=== PATIENT | female | born 1985 | race Two or more races ===

== ENCOUNTER 2021-11-26 10:17 | Emergency (ER) | payer MEDICAID, SELFPAY ==
[2021-11-26 10:24] VITALS: BP 144/84; PULSE 88; O2SAT 99
[2021-11-26 10:47] VITALS: BP 131/77; PULSE 92; RESP 18; TEMP 37; O2SAT 96; BMI 35.4
[2021-11-26 12:26] LABS: MANUAL DIFF FLAG NO
[2021-11-26 12:28] LABS: Basophils Percent Auto 0.2 % (0-2); Eosinophils Absolute Auto 0.2 X10*3/uL (0.0-0.4); Eosinophils Percent Auto 1.7 % (0-4); Hematocrit 42.3 % (37.0-47.0); Hemoglobin 14.4 g/dl (12.0-16.0); Imm Gran Abs Auto 0.06 X10*3/uL (0.00-0.03); Imm Gran Pct Auto 0.5 % (0.0-0.4); Lymphocytes Absolute Auto 3.2 X10*3/uL (1.2-4.9); Lymphocytes Percent Auto 25.6 % (20-40); Mean Corpuscular Hemoglobin 28.6 pg (27.0-33.0); Mean Corpuscular Volume 83.9 fL (80.0-98.0); Monocytes Absolute Auto 0.6 X10*3/uL (0.1-1.2); Monocytes Percent Auto 4.8 % (2-11); Neutrophils Absolute Auto 8.3 x10*3/uL (2.0-8.3); Neutrophils Percent Auto 67.2 % (45-73); Platelet Count 338 X10*3/uL (160-400); Red Blood Count 5.04 X10*6/uL (4.20-5.50); White Blood Count 12.3 X10*3/uL (4.8-10.8)
[2021-11-26 12:29] LABS: Appearance Urine HAZY; Color Urine STRAW; Glucose Urine UA >=1000 MG/DL (NEG); Leukocyte Esterase Urine TRACE (NEG); Nitrite Urine NEG (NEG); PH 5.5 (5.0-8.0); Specific Gravity - Urine 1.025 (1.005-1.025); UACC Culture Trigger YES; Urine Blood NEG (NEG); Urine Ketones 5 MG/DL (NEG); Urine Protein NEG (NEG-TRACE)
[2021-11-26 12:49] LABS: Bacteria Urine 1+ /LPF; Mucus Urine 1+ /LPF; RBC Urine 0 /HPF (0); Squamous Epithelial Cell Urine 2+ /LPF
[2021-11-26 12:57] LABS: Alanine Aminotransferase 12 U/L (0-31); Alkaline Phosphatase 49 U/L (39-117); Anion Gap 11 (12-20); Aspartate Amino Transferase 11 U/L (5-31); Bilirubin Total 1.2 mg/dL (0.0-1.0); Blood Urea Nitrogen 13 mg/dL (9-16); Calcium 9.8 mg/dL (8.4-10.2); Carbon Dioxide 27 mmol/L (22-29); Chloride 99 mmol/L (96-108); Creatinine Clr Calc Pharmacy 108.8; Estimated Glomerular Filt Rate > 60; Glucose Random 423 mg/dL (60-115); Potassium 4.4 mmol/L (3.3-5.1); Sodium 133 mmol/L (135-145); Total Protein 8.5 g/dL (6.5-8.0)
[2021-11-26 15:54] VITALS: BP 135/84; PULSE 90; RESP 17; TEMP 36.7; O2SAT 98
--- NOTE | 2021-11-26 15:54 | PC.NURSE ---
states she ran out of insulin and last took doses day before yesterday. no changein assessment.
[2021-11-26 16:49] LABS: Glucose, Whole Blood 323 mg/dL (60-115)
== END 2021-11-26 21:23 | disposition left against medical advice (07) ==
LOC: HO.ED 21:22
PROVIDERS: Emergency Provider Emergency Medicine
DX: R10.9 Unspecified abdominal pain (principal); Z79.899 Other long term (current) drug therapy
CPT/HCPCS: 36415; 80053; 81001; 82947; 85025; 87086; 87147; 99283

== ENCOUNTER 2022-05-19 15:22 | Outpatient (REF) | payer MEDICAID, SELFPAY ==
--- NOTE | ~2022-05-19 | US_ITS ---
EXAMINATION: US VENOUS ULTRASOUND WITH DOPPLER LOWER EXTREMITY, BILATERAL CLINICAL INFORMATION: Bilateral leg edema. COMPARISON: None TECHNIQUE: Ultrasound of the deep veins is performed from the hip to the calf with compression sonography and color and pulse Doppler assessment. Spectral analysis with color-flow imaging is performed. FINDINGS: RIGHT: There is normal venous compression and respiratory variation and augmented flow. The visualized common femoral vein, superficial femoral vein, profunda femoral vein, popliteal vein, and the trifurcation region shows no evidence of deep venous thrombosis. There is no significant popliteal fossa cyst. The right proximal posterior tibial and peroneal veins are not visualized. There are small lymph nodes visualize LEFT: There is normal venous compression and respiratory variation and augmented flow. The visualized common femoral vein, superficial femoral vein, profunda femoral vein, popliteal vein, and the trifurcation region shows no evidence of deep venous thrombosis. There is no significant popliteal fossa cyst. The left peroneal vein is not visualized. There is moderate calf edema. If the patient's symptoms persist, followup ultrasound in 5 days 7 days might be of value to exclude proximal propagation from a non-visualized calf vein. US/US venous duplex LE BI IMPRESSION: No DVT demonstrated in the bilateral lower extremity. Moderate bilateral calf edema.
== END 2022-05-19 15:23 | disposition home or self-care (01) ==
LOC: HO.US 15:22
PROVIDERS: PCP Nurse Practitioner Family; Visit Provider Emergency Medicine
DX: O12.02 Gestational edema, second trimester (principal); Z3A.17 17 weeks gestation of pregnancy
CPT/HCPCS: 93970

== ENCOUNTER → 2023-04-28 12:53 | Outpatient (BNVA) | payer MEDICAID, SELFPAY | PROVIDERS: PCP Nurse Practitioner Family; Visit Provider Nurse Practitioner Family | DX: R06.83 Snoring (principal); R40.0 Somnolence; E66.01 Morbid (severe) obesity due to excess calories; Z68.41 Body mass index [BMI] 40.0-44.9, adult | CPT/HCPCS: 99202 ==

== ENCOUNTER 2024-02-23 09:53 | Outpatient (AMB) | payer MEDICAID, SELFPAY ==
--- NOTE | 2024-02-23 10:17 | A.OFFVIS_ITS ---
Intake Vital Signs 02/23/24 10:32 Height 5 ft 9 in Weight 255 lb 2 oz BMI 37.7 BP 115/62 Blood Pressure Location Rt brachial Position Sitting Pulse 99 Pulse Source Pulse Oximeter Pulse Oximetry (%) 95 Oxygen Delivery Method Room Air Intake Visit Reasons: Follow up Intake Note: Patient presents for F/U. Irregular sleep patterns, snores a lot and wakes up gasping for air. Allergies No Known Allergies Allergy (Verified 02/23/24 10:31) HPI HPI Comments History of Present Illness Details 39 y/o female patient with HTN and DMT2 presents for follow up. 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 PSG sleep study ordered, but patient did not schedule it and the order . She continues to endorse loud snoring and experiencing gasping arousals. She was witnessed apnea spells by her sister. Pt reports non refreshing sleep with excessive daytime sleepiness. She feels tired and can sleep all day. Pt prefers to have home sleep study. Sleep questionnaire: Have you ever been diagnosed with a sleep disorder? No. Have you ever had a sleep study in the past? No. Have you ever been treated for a sleep disorder? No. Do you take medications for a sleep disorder? No. Do you snore? Yes. Do you wake up gasping at night? Yes. Do you have episodes of apneas? Yes. If yes, are they witnessed? Yes, by her sister. Do you have episodes of nocturnal chest pain or dyspnea? Yes, sometimes. Do you have difficulty initiating sleep? Yes, sometimes. Do you have difficulty maintaining sleep? Yes, sometimes. Do you wake up tired? Yes. Do you have headaches upon awakening? Yes. Do you wake up with dry mouth or throat? Yes. Do you have GERD? No. Do you have nocturia? Yes. Do you have nocturnal leg cramps? No. Do you have symptoms of restless legs? No. Do you act out your dreams? No. Sleep hygiene questionnaire: What is your usual sleep routine? N/A Usual bedtime is at ; Usual wakeup time is at 6 am. Do you take naps? Yes, at 10 am Is your sleep environment cool, dark, and quiet? No, in a intermediate now. Do you exercise? No. Do you take caffeine or other stimulants? Coffee, soda and energy drink. Do you use electronics in bed? Yes. What is your work schedule? N/A Hypersomnolence questionnaire: Do you have daytime tiredness or fatigue? Yes. Do you easily fall asleep when inactive? Yes. Have you ever had episodes of sudden weakness? No. Have you ever had episodes of sudden weakness associated with strong emotions? No. PFSH Surgical History (Updated 04/28/23 @ 13:14 by Azeb Santana CMA) Hx of cholecystectomy Family History (Updated 04/28/23 @ 13:27 by Azeb Santana CMA) Father Diabetes Hypertension Schizophrenia Sister No problems noted. Social History (Updated 04/28/23 @ 13:15 by Azeb Santana CMA) Alcohol intake: never Patient Tobacco Use Status: Never used Tobacco Review of Systems Const All systems reviewed & are unremarkable except as noted in HPI and below ENT Reports Normal hearing present Neuro Reports Normal hearing present Physical Exam Const Other: slow response. General: cooperative and tired appearing Nutritional Appearance: obese Orientation/consciousness: patient oriented x3 Eyes Pupils: Equal, round and reactive pupils present Neck Neck: Yes supple Resp Effort & Inspection: normal respiratory effort and able to speak in complete sentences Neuro General: patient oriented x3 and gait normal Cranial nerves: Yes Equal, round and reactive pupils present, Yes Bilaterally intact EOM present, Yes Normal facial strength present, Yes Midline tongue present, Yes Symmetric palate elevation present, Yes Normal hearing present, Yes Ability to bilaterally rotate head present and Yes Ability to bilaterally elevate shoulders present Gait exam (Neuro): Normal gait present Motor exam (neuro): 5/5 motor strength present throughout, Pronator motor function not present and no tremor noted Psych Appearance: grossly normal Mental Status: mental status grossly normal Affect: normal affect Attitude: cooperative Assessment & Plan Assessment & Plan (1) Daytime sleepiness: Code(s): R40.0 - Somnolence (2) Loud snoring: Code(s): R06.83 - Snoring Plan Pt is advised to undergo home sleep study to assess for sleep apnea. Will f/u with pt after study to discuss results and appropriate treatment options. Sleep hygiene education provided. Wt reduction advised. Pt to call with any worsening concerns or questions. Orders: Orders RT home sleep study Today Coding Level of Care Code Est Pt Level 3 (39440) Diagnoses Daytime sleepiness R40.0 Loud snoring R06.83
[2024-02-23 10:32] VITALS: BP 115/62; PULSE 99; O2SAT 95; BMI 37.7
== END 2024-02-23 10:51 | disposition home or self-care (01) ==
PROVIDERS: PCP Nurse Practitioner Family; Visit Provider Nurse Practitioner Family
DX: R40.0 Somnolence (principal); R06.83 Snoring
CPT/HCPCS: 99213

== ENCOUNTER → 2024-02-23 09:53 | Outpatient (BNVA) | payer MEDICAID, SELFPAY | PROVIDERS: PCP Nurse Practitioner Family; Visit Provider Nurse Practitioner Family | DX: R40.0 Somnolence (principal); R06.83 Snoring | CPT/HCPCS: 99212 ==

== ENCOUNTER 2024-06-17 13:42 | Emergency (ER) | payer MEDICAID, SELFPAY ==
--- NOTE | ~2024-06-17 | US_ITS ---
EXAMINATION: US PELVIS CLINICAL INFORMATION: Left lower quadrant pain assess for torsion COMPARISON: None available. TECHNIQUE: Ultrasound of the pelvis is performed using both transabdominal and transvaginal transducers along with Doppler. Transvaginal imaging is performed due to inadequate visualization transabdominally. FINDINGS: Uterus: The uterus is anteverted and measures 12.8 x 5.5 x 6.9 cm. The double wall endometrial thickness is 0.4 mm. The uterus is smooth in contour and has normal myometrial echogenicity. No visible fibroid. Adnexa: Patient is status post left oophorectomy. Right ovary is grossly unremarkable. There is normal color flow to the adnexa. There is no ovarian torsion. There is no pelvic ascites or fluid collection. Right ovary measures 4.3 x 2.3 x 2.8 cm. Volume 14.5 mL US/US pelvic ovarian doppler IMPRESSION: Status post left oophorectomy. No acute abnormality seen.
--- NOTE | ~2024-06-17 | CT_ITS ---
EXAMINATION: CT ABDOMEN AND PELVIS WITH CONTRAST CLINICAL INFORMATION: LLQ pain COMPARISON: None. TECHNIQUE: Multidetector volumetric imaging was performed from the superior aspect of the liver through the pubic symphysis following administration of 100 mL Omnipaque 300 intravenous contrast. Sagittal and coronal reformatted images were obtained on the technologist workstation.. This CT examination was performed using dose optimization techniques as appropriate, variously including the following: *Automated exposure control *Adjustment of mA and/or kV according to patient size (this includes techniques or standardized protocols for targeted exams where dose is matched to indication/reason for exam; i.e. extremities or head) *Use of iterative reconstruction technique DLP: 954 mGy-cm FINDINGS: LUNG BASES: Patchy bilateral airspace disease may reflect component of hypoexpansion. LIVER, GALLBLADDER, AND BILIARY TREE: The liver is normal in size, shape, and attenuation. No focal hepatic lesion or biliary ductal dilatation is present. The gallbladder is surgically absent PANCREAS: Unremarkable. SPLEEN: Unremarkable. ADRENAL GLANDS: Unremarkable. KIDNEYS AND URETERS: The kidneys are normal in size, shape, and attenuation. No hydronephrosis, hydroureter, or perinephric stranding. No calculi. BLADDER: Unremarkable. GASTROINTESTINAL TRACT: A few scattered colonic diverticula seen but no colonic wall thickening or pericolonic inflammatory change to suggest diverticulitis. Normal-appearing appendix in the right lower quadrant partially visualized. Visualized small bowel unremarkable. ABDOMINAL WALL: Tiny fat-containing umbilical hernia LYMPHOVASCULAR STRUCTURES: No lymphadenopathy. The aorta is unremarkable. PELVIC VISCERA: Unremarkable. OSSEOUS STRUCTURES: Degenerative changes in the bilateral sacroiliac joints CT/CT abdomen pelvis w IV con IMPRESSION: No acute intra-abdominal process seen. Scattered diverticulosis but no evidence for diverticulitis.
--- NOTE | ~2024-06-17 | US_ITS ---
EXAMINATION: US PELVIS CLINICAL INFORMATION: Left lower quadrant pain assess for torsion COMPARISON: None available. TECHNIQUE: Ultrasound of the pelvis is performed using both transabdominal and transvaginal transducers along with Doppler. Transvaginal imaging is performed due to inadequate visualization transabdominally. FINDINGS: Uterus: The uterus is anteverted and measures 12.8 x 5.5 x 6.9 cm. The double wall endometrial thickness is 0.4 mm. The uterus is smooth in contour and has normal myometrial echogenicity. No visible fibroid. Adnexa: Patient is status post left oophorectomy. Right ovary is grossly unremarkable. There is normal color flow to the adnexa. There is no ovarian torsion. There is no pelvic ascites or fluid collection. Right ovary measures 4.3 x 2.3 x 2.8 cm. Volume 14.5 mL US/US pelvic and transvaginal IMPRESSION: Status post left oophorectomy. No acute abnormality seen.
--- NOTE | 2024-06-17 13:46 | ED_ITS ---
HPI - General Adult General Chief complaint: Abdominal Pain Stated complaint: L Shoulder Arm Pain Time Seen by Provider: 06/17/24 19:05 Source: patient Mode of arrival: ambulatory Limitations: no limitations History of Present Illness ED Provider: Michele COOPER HPI narrative: This is a 39-year-old female history of obesity, SHAHBAZ, presenting to the emergency department with complaints of left lower quadrant pain, right upper quadrant pain, left shoulder pain ongoing for various amount of time left lower quadrant pain has been going on for 3 months, right upper quadrant pain started today, left shoulder pain has also been going on for awhile unable to tell me how long. She feels like she does not feel right. Reports she saw a provider for this and they told her to come into the emergency department for a full workup. Patient does have history of bilateral oophorectomy, she states that she had issues with her intestines when she was younger however on able to tell me exactly what happened. She denies associated nausea, vomiting, fevers, chills, chest pain, shortness breath, headache, vision changes, dizziness, changes in bowel habits. Related Data Home Medications ?Medication ?Instructions ?Recorded ?Confirmed blood sugar diagnostic (FreeStyle #10 ea 04/28/23 Lite Strips) gabapentin 100 mg capsule 300 mg PO BEDTIME 04/28/23 hydroxyzine pamoate 25 mg capsule 25 mg PO BID PRN panic attack 04/28/23 insulin glargine 100 unit/mL (3 unit subcut 04/28/23 mL) subcutaneous pen (Lantus Solostar U-100 Insulin) insulin lispro 100 unit/mL subcut 04/28/23 subcutaneous pen metformin 500 mg tablet 1,000 mg PO BID 04/28/23 polyethylene glycol 3350 17 17 g PO DAILY 04/28/23 gram/dose oral powder (Gavilax) sertraline 100 mg tablet 100 mg PO DAILY 04/28/23 Previous Rx's ?Medication ?Instructions ?Recorded cefuroxime axetil 250 mg tablet 250 mg PO BID 7 days #14 tabs 06/17/24 ketorolac 10 mg tablet 10 mg PO TID PRN pain 5 days #15 06/17/24 tabs ondansetron 4 mg disintegrating 4 mg PO Q6H PRN nausea and 06/17/24 tablet vomiting #14 tabs Allergies Allergy/AdvReac Type Severity Reaction Status Date / Time No Known Allergies Allergy Verified 06/17/24 13:53 Review of Systems 2 Review of Systems: Yes all other systems are reviewed and are negative [facility] Past Medical History Attestation statement: The following information was validated with the patient. Source: old records reviewed and nursing notes reviewed Surgical History Hx of cholecystectomy Family History Family History Father Diabetes Hypertension Schizophrenia Sister No problems noted. Social History Social History Alcohol intake: never Patient Tobacco Use Status: Never used Tobacco Smoked in Last 30 Days: No Use of substances other than those prescribed or required for medical reasons: No Advance Directives: No Advance Directives Information Provided: No Patient : No Physical Exam ED Vital Signs: Vital Signs - 24 hr 06/17/24 13:47 06/17/24 22:28 Temperature 98.6 F 98 F Pulse Rate 97 78 Respiratory Rate 16 18 Blood Pressure 132/69 124/76 Pulse Oximetry 100 97 Oxygen Delivery Method Room Air Room Air BMI result Body Mass Index 39.6 vss Appearance: Alert.? Oriented X3.? No acute distress.? Head: Normocephalic, atraumatic, no step-offs or deformities Eyes: Pupils equal, round and reactive to light.? ENT: Pharynx normal.? Neck: Normal inspection.? Neck supple.? CVS: Normal heart rate and rhythm.? Pulses normal.? Respiratory: No respiratory distress.? Breath sounds normal.? Abdomen: Soft and + LLQ and RUQ pain on exam .? Skin: Skin warm and dry.? Normal skin color.? Normal skin turgor.? Extremities: No lower extremity edema.? No calf ttp. 5/5 strength to bilateral upper and lower extremities 2+ radial pulses equal bilateral. No wrist drop. Full range of motion to bilateral shoulders no step-offs or deformities Neuro: Oriented X 3.? No motor deficit.? No sensory deficit. CN 2-12 intact Course Course Course Narrative: This is an RME: Additional HPI, ROS, PE not included below will be deferred to primary provider. RME assessment and note performed by: Ethel Molina PA-C This is a 39-year-old female, with a hx of HTN and DM, who presents to the ER with multiple complaints. Patient states that over the last 2 months she has had left lower quadrant/suprapubic pain. She also endorsed that she has had left hip pain and left low back pain. She also reports that she felt a hardness sensation in her right upper quadrant which she noticed today. She states that she has had significant surgical history, reports that she had a left oophorectomy in 2021, and states that she had part of her intestines removed as they were unable to remove the baby during the . She states that she had this back in 2021 at [facility]. Will attempt to get records. Plan: Labs, UA Reevaluation(s) Reevaluation #1: Ultrasound of pelvis/transvaginal status post left oophorectomy no abnormality seen no ovarian torsion. CT abdomen pelvis no acute intra-abdominal process seen. Scattered diverticulosis but no evidence of diverticulitis. CBC with leukocytosis 11.2 no left shift nonspecific unlikely from systemic illness. Chemistry with slightly low sodium however tolerating p.o., she does have a blood sugar of 424, will give insulin prior to her discharge, troponin negative. Lipase elevated patient's pain is not localized to left upper quadrant, I do not suspect that this is acute pancreatitis. CT abdomen pelvis with no abnormalities noted to pancreas. Will give hydration and discharge patient home if she is feeling better. Troponin is negative EKGs nonischemic. Time: 00:00 Reevaluation #2: Educated patient on diagnosis and treatment plan, answered all question, patient verbalizes understanding. At this time patient will be discharged home, advised to return with new or worsening symptoms. Educated on worrisome signs and symptoms and when to return. At this time I feel comfortable discharge home. Medications Administered Discontinued Medications Generic Name Dose Route Start Last Admin Trade Name Freq PRN Reason Stop Dose Admin Iohexol 100 ml 06/17/24 20:15 06/17/24 20:15 Iohexol 350 Mg/Ml 100 Ml Infus..Btl IV 06/17/24 20:16 100 ml ONCE ONE Administration Ketorolac Tromethamine 30 mg 06/17/24 19:36 06/17/24 19:53 Ketorolac Tromethamine 15 Mg/Ml Vial IVPUSH 06/17/24 19:37 30 mg ONCE ONE Administration Medical Decision Making Medical Decision Making [facility] Narrative: 39-year-old female presents with abdominal pain and left shoulder pain all going on for different amounts of time was seen at the [facility] and told to come in For further evaluation. On exam patient has left lower quadrant tenderness right upper quadrant tenderness and a normal left shoulder. History and physical exam concerning for diverticulitis versus cholecystitis. Unlikely pancreatitis, obstruction, acute abdomen, appendicitis. Unlikely metabolic derangements. Will rule out UTI. Left shoulder pain likely osteoarthritis, no signs of arterial or venous occlusion, no signs of fracture dislocation. No indication for imaging to left shoulder atraumatic and has been going on for a long time she should follow with PCP. Plan labs, imaging, urine Differential Diagnosis Differential Diagnoses: The differential diagnosis associated with the presentation includes History and physical exam concerning for diverticulitis versus cholecystitis. Unlikely pancreatitis, obstruction, acute abdomen, appendicitis. Unlikely metabolic derangements. Will rule out UTI. Left shoulder pain likely osteoarthritis, no signs of arterial or venous occlusion, no signs of fracture dislocation. No indication for imaging to left shoulder atraumatic and has been going on for a long time she should follow with PCP. Admission/Observation Consideration of admission/observation: Escalation of care including admission/observation considered Possible Lab Data [facility] Lab Attestation statement: I reviewed the patient's lab results. 06/17/24 14:08 06/17/24 14:08 Labs: Lab Results 06/17/24 06/17/24 Range/Units 14:08 16:47 WBC 11.2 H (4.8-10.8) X10*3/uL RBC 4.85 (4.20-5.50) X10*6/uL Hgb 14.1 (12.0-16.0) g/dl Hct 40.2 (37.0-47.0) % MCV 82.9 (80.0-98.0) fL MCH 29.1 (27.0-33.0) pg MCHC 35.1 H (31.0-35.0) g/dl RDW 11.9 (11.0-16.0) % Plt Count 288 (160-400) X10*3/uL MPV 9.6 (9.4-12.3) fL Immature Gran % (Auto) 0.4 (0.0-0.4) % Neut % (Auto) 55.0 (45-73) % Lymph % (Auto) 36.7 (20-40) % Sharkey % (Auto) 4.6 (2-11) % Eos % (Auto) 2.9 (0-4) % Baso % (Auto) 0.4 (0-2) % Lymph # (Auto) 4.1 (1.2-4.9) X10*3/uL Sharkey # (Auto) 0.5 (0.1-1.2) X10*3/uL Eos # (Auto) 0.3 (0.0-0.4) X10*3/uL Baso # (Auto) 0.0 (0.0-0.2) X10*3/uL Abs Immat Gran (auto) 0.05 H (0.00-0.03) X10*3/uL Absolute Neuts (auto) 6.1 (2.0-8.3) x10*3/uL Absolute Nucleated RBC 0.000 (0.0-0.012) X10*3/uL Nucleated RBC % (auto) 0.0 (0.0-0.2) /100WBC Sodium 134 L (135-145) mmol/L Potassium 3.8 (3.3-5.1) mmol/L Chloride 101 (96-108) mmol/L Carbon Dioxide 24 (22-29) mmol/L Anion Gap 13 (12-20) BUN 12 (9-16) mg/dL Creatinine 0.95 (0.5-1.4) mg/dL Estim Creat Clear Calc 109.8 Estimated GFR > 60 Random Glucose 424 H* (60-115) mg/dL Calcium 9.0 D (8.4-10.2) mg/dL Magnesium 1.7 (1.6-2.6) mg/dL Total Bilirubin 0.7 (0.0-1.0) mg/dL Direct Bilirubin 0.1 (0.0-0.5) mg/dL AST 14 (5-31) U/L ALT 16 (0-31) U/L Alkaline Phosphatase 60 (39-117) U/L Troponin I High Sens < 2.7 (<3.5-17.0) ng/L Total Protein 7.7 (6.5-8.0) g/dL Albumin 3.6 (3.5-5.0) g/dL Lipase 135 H (8-78) U/L Beta HCG, Quant < 2 mIU/mL Urine Color Yellow Urine Appearance Cloudy Urine pH 5.5 (5.0-9.0) Ur Specific [place] >= 1.030 H (1.005-1.025) Urine Protein Trace (Neg-Trace) mg/dL Urine Glucose (UA) >=1000 H (Negative) mg/dL Urine Ketones Trace (Negative) mg/dL Urine Blood Small (1+) H (Negative) Urine Nitrite Negative (Negative) Ur Leukocyte Esterase Small (1+) H (Negative) Urine RBC 0-2 (0-2) /HPF Urine WBC >50 H (0-5) /HPF Ur Squamous Epith Cells 6-10 (0-2) /HPF Urine Bacteria 3+ (None Seen) Hyaline Casts 0-2 (0-2) /LPF Independent Interpretation I performed an independent interpretation of an: EKG (Vent. Rate : 083 BPM Atrial Rate : 083 BPM P-R Int : 188 ms QRS Dur : 088 ms QT Int : 390 ms P-R-T Axes : 044 053 030 degrees QTc Int : 458 ms Normal sinus rhythm Normal ECG When compared with ECG of 17-JUN-2024 13:54, No significant change was found ), Ultrasound (Adnexa: Patient is status post left oophorectomy. Right ovary is grossly unremarkable. There is normal color flow to the adnexa. There is no ovarian torsion. There is no pelvic ascites or fluid collection. Right ovary measures 4.3 x 2.3 x 2.8 cm. Volume 14.5 mL US/US pelvic an) and CT Scan ( CT/CT abdomen pelvis w IV con IMPRESSION: No acute intra-abdominal process seen. Scattered diverticulosis but no evidence for diverticulitis. ) Radiology Impression Discussion of test interpretation with radiology: I have reviewed the radiologist's reading. External Record Review External record reviewed: Inpatient record, Office record, Outpatient record, Prior outpatient labs, Prior outpatient radiology, Primary care record and Outside ED record Prescription Management I considered prescription management with: Pain Medication Chronic Conditions Patient?s care impacted by: Other (obesity ) Critical Care Time Critical Care Time Critical Care Time: Yes Total Critical Care Time: 35 Attestation: Insert critical care Discharge Plan Discharge Clinical Impression: Left shoulder pain, Abdominal pain, RUQ, Abdominal pain, LLQ, UTI (urinary tract infection) Patient Disposition: Home, Self-Care Instructions: Urinary Tract Infection in Women (ED), Acute Abdominal Pain (ED), Abdominal Pain (ED), Shoulder Pain (ED), Arm Pain (ED) Additional Instructions: Take your medications as prescribed. If you were prescribed antibiotics today, it is important that you take your medication to their entirety, do not skip any doses, do not finish them early. Follow-up with your primary care provider this week. Return to the emergency department with new or worsening symptoms. Such as fevers, chills, chest pain, shortness of breath, nausea, vomiting, dizziness, headache, vision changes, lethargy In case of emergency call 911 Ketorolac/ Toradol has been sent to your pharmacy, you tolerated this well in the department. Please take this as prescribed do not take this with ibuprofen, or other NSAIDs, do not mix this with alcohol. Side effects of this medication including increased risk for bleeding and possible kidney injury. Ondansetron or Zofran has been sent to the pharmacy for nausea and vomiting only take this as prescribed taking more than the prescribed dose can lead to cardiac abnormalities. Ceftin or cefuroxime is an antibiotic that has been sent to your pharmacy for UTI. Please take this as prescribed. Prescriptions: New cefuroxime axetil 250 mg tablet 250 mg PO BID 7 Days Qty: 14 0RF ketorolac 10 mg tablet 10 mg PO TID PRN (Reason: pain) 5 Days Qty: 15 0RF ondansetron 4 mg tablet,disintegrating 4 mg PO Q6H PRN (Reason: nausea and vomiting) Qty: 14 0RF No Action sertraline 100 mg tablet 100 mg PO DAILY gabapentin 100 mg capsule 300 mg PO BEDTIME metformin 500 mg tablet 1,000 mg PO BID hydroxyzine pamoate 25 mg capsule 25 mg PO BID PRN (Reason: panic attack) polyethylene glycol 3350 [Gavilax] 17 gram/dose powder 17 g PO DAILY insulin glargine [Lantus Solostar U-100 Insulin] 100 unit/mL (3 mL) insulin pen subcut insulin lispro 100 unit/mL insulin pen subcut (DME) FreeStyle Lite Strips Strip See Rx Instructions .ROUTE TID Qty: 10 Rx Instructions: As directed Referrals: Alexus Henderson MD [Primary Care Provider] - 2 days Print Language: St Helen[place]
[2024-06-17 13:47] VITALS: BP 132/69; PULSE 97; RESP 16; TEMP 37; O2SAT 100; BMI 39.6
--- NOTE | 2024-06-17 13:53 | ECG_ITS ---
Test Reason : RIGHT SIDED PAIN, STOMACH PAIN Blood Pressure : / mmHG Vent. Rate : 096 BPM Atrial Rate : 096 BPM P-R Int : 168 ms QRS Dur : 082 ms QT Int : 368 ms P-R-T Axes : 032 047 024 degrees QTc Int : 464 ms Normal sinus rhythm Normal ECG No previous ECGs available Referred By: Ethel Molina Electronically Signed By:Roni Gardiner
[2024-06-17 14:12] LABS: MANUAL DIFF FLAG NO
[2024-06-17 14:15] LABS: Basophils Percent Auto 0.4 % (0-2); Eosinophils Absolute Auto 0.3 X10*3/uL (0.0-0.4); Eosinophils Percent Auto 2.9 % (0-4); Hematocrit 40.2 % (37.0-47.0); Hemoglobin 14.1 g/dl (12.0-16.0); Imm Gran Abs Auto 0.05 X10*3/uL (0.00-0.03); Imm Gran Pct Auto 0.4 % (0.0-0.4); Lymphocytes Absolute Auto 4.1 X10*3/uL (1.2-4.9); Lymphocytes Percent Auto 36.7 % (20-40); Mean Corpuscular HGB Conc 35.1 g/dl (31.0-35.0); Mean Corpuscular Hemoglobin 29.1 pg (27.0-33.0); Mean Corpuscular Volume 82.9 fL (80.0-98.0); Mean Platelet Volume 9.6 fL (9.4-12.3); Monocytes Absolute Auto 0.5 X10*3/uL (0.1-1.2); Monocytes Percent Auto 4.6 % (2-11); Neutrophils Absolute Auto 6.1 x10*3/uL (2.0-8.3); Platelet Count 288 X10*3/uL (160-400); Red Blood Count 4.85 X10*6/uL (4.20-5.50); Red Cell Distribution Width 11.9 % (11.0-16.0); White Blood Count 11.2 X10*3/uL (4.8-10.8)
[2024-06-17 14:39] LABS: Anion Gap 13 (12-20); Bilirubin Direct 0.1 mg/dL (0.0-0.5); Bilirubin Total 0.7 mg/dL (0.0-1.0); Blood Urea Nitrogen 12 mg/dL (9-16); Carbon Dioxide 24 mmol/L (22-29); Chloride 101 mmol/L (96-108); Creatinine Clr Calc Pharmacy 109.8; Estimated Glomerular Filt Rate > 60; Glucose Random 424 mg/dL (60-115); HCG Quantitative < 2 mIU/mL; Magnesium 1.7 mg/dL (1.6-2.6); Potassium 3.8 mmol/L (3.3-5.1); Sodium 134 mmol/L (135-145); Troponin-I High Sensitivity < 2.7 ng/L (<3.5-17.0)
[2024-06-17 14:40] LABS: Alanine Aminotransferase 16 U/L (0-31); Albumin Level 3.6 g/dL (3.5-5.0); Alkaline Phosphatase 60 U/L (39-117); Aspartate Amino Transferase 14 U/L (5-31); Lipase 135 U/L (8-78); Total Protein 7.7 g/dL (6.5-8.0)
--- NOTE | 2024-06-17 14:59 | MHC.EDTECH ---
CALLED [facility] SPOKE W/BING IN [facility], SENDING SURGICAL REC FROM C-SECT SURGERY 2 YEARS AGO AND ANY SURGERY DUE TO C-SECT 2 YEARS AGO
--- NOTE | 2024-06-17 16:54 | MHC.EDTECH ---
Patient urine sample collected and sent to lab .
[2024-06-17 17:11] LABS: Appearance Urine Cloudy; Color Urine Yellow; Glucose Urine UA >=1000 mg/dL (Negative); Leukocyte Esterase Urine Small (1+) (Negative); Nitrite Urine Negative (Negative); PH 5.5 (5.0-9.0); Specific Gravity - Urine >= 1.030 (1.005-1.025); UMIC TRIGGER UACC YES; Urine Blood Small (1+) (Negative); Urine Ketones Trace mg/dL (Negative); Urine Protein Trace mg/dL (Neg-Trace)
[2024-06-17 17:34] LABS: Bacteria Urine 3+ (None Seen); Hyaline Casts Urine 0-2 /LPF (0-2); RBC Urine 0-2 /HPF (0-2); UACC Culture Trigger YES; WBC Urine >50 /HPF (0-5)
--- OUTSIDE RECORDS SUMMARY | 2024-06-17 19:14 | XMS_ITS | Continuity of Care Document ---
Author Organization [facility] Maria D bowieVariopticgrzegorz [facility] Address [address] [place] [address], [address] [place] [address]- Care Team Providers Care Side Panel Padder Name Role Phone Kimberly COLLADO, Nishi Primary Care Physician [id number] Date(s): 03/07/22 - 04/06/22 [facility] [employer] [facility] [address] [facility], [address] [place], [place] [address] Attending Physician: Asim Rai Admitting Physician: Asim Rai Referring Physician: AdmtrAsim Allergies, Adverse Reactions, Alerts No Known Allergies Medications aspirin 81 mg oral delayed release tablet 162 mg, 2, tablet, By Mouth, Daily, # 60 tablet, Refills 5, Tot. Refills 5, Maintenance, 03/14/22 10:02:00 EDT, Route to Pharmacy Electronically, [facility], Partial fill upon patient request if the prescription is for a schedule I... Start Date: 03/14/22 Status: Ordered doxylamine 25 mg oral tablet 1 tablet = 25 mg, By Mouth, Daily at bedtime, PRN Nausea & Vomiting, # 30 tablet, 1 Refills, Acute 05/29/22 23:07:00 EDT, 03/29/22 23:06:00 EDT, Tablet, [facility], Partial fill upon patient request if the prescription is for a naseem... Start Date: 03/29/22 Stop Date: 05/29/22 Status: Ordered Freestyle elsa 2 CGM Freestyle elsa 2 CGM, See Instructions, # 1 pack/packet, Refills 0, Tot. Refills 0, Maintenance, Freestyle elsa 2 CGM, 03/31/22 10:27:00 EDT, Supply, 175, cm, 03/31/22 9:45:00 EDT, Height, 111.5, kg, 03/07/22 9:02:00 EDT, Dry Weight Start Date: 03/31/22 Status: Ordered Freestyle elsa 2 sensors Freestyle elsa 2 sensors, See Instructions, # 2 pack/packet, Refills 6, Tot. Refills 6, Maintenance, Please provide 30 days supple freestyle elsa 2 sensors to be changed every 14 days, 03/31/22 10:27:00 EDT, Supply, 175, cm, 03/31/22 9:45:00 EDT, He... Start Date: 03/31/22 Status: Ordered Freestyle Elsa Monitor See Instructions, # 1 each, Maintenance, use as directed for Type 2 Diabetes Mellitus, 03/21/22 10:52:00 EDT, Supply, 175, cm, 03/21/22 10:26:00 EDT, Height, 111.5, kg, 03/07/22 9:02:00 EDT, Dry Weight Start Date: 03/21/22 Stop Date: 04/20/22 Status: Ordered Freestyle Elsa Sensor See Instructions, # 2 each, Refills 7, Tot. Refills 7, Maintenance, To change every 14 days Dx: Type 2 Diabetes Mellitus, 03/21/22 10:53:00 EDT, Supply, 175, cm, 03/21/22 10:26:00 EDT, Height, 111.5,kg, 03/07/22 9:02:00 EDT, Dry Weight Start Date: 03/21/22 Stop Date: 11/16/22 Status: Ordered Lantus Solostar Pen 100 units/mL subcutaneous solution = 62 units, Subcutaneous Injection, Daily, # 15 mL, 5 Refills, Maintenance, 03/28/22 13:34:00 EDT, [facility], Partial fill upon patient request if the prescription is for a schedule II opioid drug., 175, cm, 03/21/22 10:26:00 EDT,... Start Date: 03/28/22 Status: Ordered Metformin By Mouth, 0 Refills, Maintenance, 03/29/22 17:16:00 EDT, Partial fill upon patient request if the prescription is for a schedule II opioid drug. Start Date: 03/29/22 Status: Ordered NovoLOG FlexPen 100 units/mL injectable solution = 24 units, Subcutaneous Injection, 3 times a day before meals, # 15 mL, 6 Refills, Maintenance, 03/15/22 16:46:00 EDT, [facility], Partial fill upon patient request if the prescription is for a schedule II opioid drug., 175, cm, 0... Start Date: 03/15/22 Status: Ordered Pen [place], 31 G x 5 mm BD Ultra Fine III See Instructions, # 120 each, Refills 5, Tot. Refills 5, Maintenance, To use with insulin administration 4 times daily, 03/15/22 16:47:00 EDT, Supply, 175, cm, 03/07/22 9:02:00 EDT, Height, 111.5, kg, 03/07/22 9:02:00 EDT, Dry Weight Start Date: 03/15/22 Status: Ordered Multivitamins with Vitamin B Complex, Vitamin C, Minerals and L- Methylfolate oral capsule 1 capsule, By Mouth, Daily, 0 Refills, Maintenance, 03/29/22 17:14:00 EDT, Partial fill upon patient request if the prescription is for a schedule II opioid drug. Start Date: 03/29/22 Status: Ordered pyridoxine 25 mg oral tablet See Instructions, 1 tablet By Mouth TID 30 days, # 100 tablet, 0 Refills, Acute 05/29/22 23:08:00 EDT, 03/29/22 23:06:00 EDT, Tablet, [facility], Partial fill upon patient requestif the prescription is for a schedule II opioid sadie... Start Date: 03/29/22 Stop Date: 05/29/22 Status: Ordered Problem List Condition Effective Dates Status Health Status Inform ant Anxiety(Confirmed) Active Back pain(Confirmed) Active Constipation(Confirmed) Active History of depression(Confirmed) Active History of adverse reaction to anesthesia(Confirmed) 1 Active Hx of preeclampsia, prior pr egnancy, currently (Confirmed) Active Chronic hypertension(Confirmed) Active Obese class II(Confirmed) Active Knee pain(Confirmed) Active Diabetes mellitus, type II(Confirmed) Active 1after anesthesia dificulty breathing. Social History Social History Type Response Smoking Status Never (less than 100 in lifetime) entered on: 03/07/22 Sex
--- OUTSIDE RECORDS SUMMARY | 2024-06-17 19:14 | XMS_ITS | Continuity of Care Document ---
Author Organization [facility] Address [address] [facility], [address] [place] [address]- Care Team Providers Care Preparation Room Manager Name Role Phone Kimberly COLLADO, Nishi Primary Care Physician [id number] Date[facility] - 09[facility]15[facility] Diallos [facility] [address] [facility], [address] [place] [address]- Attending Physician: Shasha Escobedo MD Referring Physician: Gabbie Shepherd MD Allergies, Adverse Reactions, Alerts No Known Allergies Immunizations Given and Recorded Vaccine Date Status Refusal Reason influenza virus vaccine, inactivated 09/02/22 Give n tetanus/diphtheria/pertussis, acel(Tdap) 07/29/22 Given Medications acetaminophen 500 mg oral tablet 2 tablet = 1,000 mg, By Mouth, Every 6 hours, PRN as needed for pain, # 50 tablet, 0 Refills, Acute11/19/22 0:00:00 EST, 07/29/22 11:31:00 EDT, Tablet, [facility], please print label in Sami, 175, cm, 07/29/22 11:09:00 EDT, Hei... Start Date: 07/29/22 Stop Date: 11/19/22 Status: Ordered aspirin 81 mg oral delayed release tablet 162 mg, 2, tablet, By Mouth, Daily, # 60 tablet, Refills 5, Tot. Refills 5, Maintenance, 03/14/22 10:02:00 EDT, Route to Pharmacy Electronically, [facility], Partial fill upon patient request if the prescription is for a schedule I... Start Date: 03/14/22 Status: Ordered ferrous sulfate 325 mg oral enteric coated tablet 325 mg, 1, tablet, By Mouth, Every other day, # 60 tablet, Refills 4, Tot. Refills 4, Maintenance, 04/22/22 15:38:00 EDT, Route to Pharmacy Electronically, [facility], please print label in persian, 175, cm, 04/22/22 15:13:00 EDT,... Start Date: 04/22/22 Status: Ordered Freestyle elsa 2 CGM Freestyle elsa 2 CGM, See Instructions, # 1 pack/packet, Refills 0, Tot. Refills 0, Maintenance, Freestyle elsa 2 CGM, 05/11/22 10:16:00 EDT, Supply, 175, cm, 05/11/22 9:41:00 EDT, Height, 111.5, kg, 03/07/22 9:02:00 EDT, Dry Weight Start Date: 05/11/22 Status: Ordered Freestyle elsa 2 sensors Freestyle elsa 2 sensors, See Instructions, # 2 pack/packet, Refills 6, Tot. Refills 6, Maintenance, Please provide 30 days supple freestyle elsa 2 sensors to be changed every 14 days, 05/11/22 10:16:00 EDT, Supply, 175, cm, 05/11/22 9:41:00 EDT, He... Start Date: 05/11/22 Status: Ordered Freestyle Elsa Monitor See Instructions, [...] Date: 03/21/22 Stop Date: 11/16/22 Status: Ordered insulin lispro 100 u/ml subcutaneous injection See Instructions, 44 units Subcutaneous Injection with breakfast and lunch, 22 units with dinner, #15 mL, 0 Refills, Maintenance, 09/03/22 17:35:00 EDT, Injection, [facility], Partial fill upon patient request if the prescription... Start Date: 09/03/22 Status: Ordered Lantus Solostar Pen 100 units/mL subcutaneous solution See Instructions, 60 units Subcutaneous Injection in AM and 66 units subcutaneous injecion in PM, #10 mL, 4 Refills, Maintenance, 09/01/22 10:41:00 EDT, [facility], Partial fill upon patient request if the prescription is for a s... Start Date: 09/01/22 Status: Ordered Pen [place], 31 G x 5 mm BD Ultra [...] opioid drug. Start Date: 03/29/22 Status: Ordered Problem List Condition Confirmation Course Effective Dates Status Health St atus Informant Anemia Confirmed Active Anxiety Confirmed Active Back pain Confirmed Active Breech presentation Confirmed Active Chest pain Confirmed Active Constipation Confirmed Active History of section Confirmed Active History of depression Confirmed Active Hx of preeclampsia, prior , currently Confirmed Active Chronic hypertension Confirmed Active Uses Sami as primary spoken language Confirmed Active AMA (advanced maternal age) multigravida 35+ Confirmed Active Knee pain Confirmed Active Severe obesity Confirmed Active Vital Signs Most recent to oldest [Reference Range]: 1 Height 175 cm (09/08/22 11:34 AM) Weight 133.4 kg (09/08/22 11:34 AM) Body Mass Index [18.5-24.99 kg/m2] 43.56 kg/m2 *>HHI* (09/08/22 11:34 AM) Blood Pressure [90-138/55-84 mm Hg] 148/ 70mm Hg *H* (09/08/22 11:34 AM) Blood pressure sites Arm, right (09/08/22 11:34 AM) Weight Obtained Via Standing scale (09/08/22 11:34 AM) Social History Social History Type Response Smoking Status Never (less than 100 in lifetime) entered on: 03/07/22 Sex Patient Care team information Personnel Name: Nishi Harris NP Address: Address: [address] [place] [id number]
--- OUTSIDE RECORDS SUMMARY | 2024-06-17 19:14 | XMS_ITS | Continuity of Care Document ---
Author Organization [facility] Address [address] [place] [address]- Care Team Providers Care Tractor Sweeper Operator Name Role Phone Kimberly COLLADO, Nishi Primary Care Physician [phone] [place] [facility] Date(s): 06/20/22 - 07/20/22 [facility] [address] [place] [id number] Allergies, Adverse Reactions, Alerts No Known Allergies Medications aspirin 81 mg oral delayed release tablet 162 mg, 2, tablet, By Mouth, Daily, # 60 tablet, Refills 5, Tot. Refills 5, Maintenance, 03/14/22 10:02:00 EDT, Route to Pharmacy Electronically, [facility], Partial fill upon patient request if the prescription is for a schedule I... Start Date: 03/14/22 Status: Ordered ferrous sulfate 325 mg oral enteric coated tablet 325 mg, 1, tablet, By Mouth, Every other day, # 60 tablet, Refills 4, Tot. Refills 4, Maintenance, 04/22/22 15:38:00 EDT, Route to Pharmacy Electronically, [facility], please print label in irish, 175, cm, 04/22/22 15:13:00 EDT,... Start Date: [...] Lantus Solostar Pen 100 units/mL subcutaneous solution 50 untis, Subcutaneous Injection, 2 times a day, PLACE IN [place], # 50 mL, 4 Refills, Maintenance,06/22/22 15:53:00 EDT, [facility], Partial fill upon patient request if the prescription is for a schedule II opioid drug., 175, cm... Start Date: 06/22/22 Status: Ordered Metformin By Mouth, 0 Refills, Maintenance, 03/29/22 17:16:00 EDT, Partial fill upon patient request if the prescription is for a schedule II opioid drug. Start Date: 03/29/22 Status: Ordered NovoLOG FlexPen 100 units/mL injectable solution See Instructions, 40 U SQ INJECTION TID BEFORE MEALS DX E11.9, # 30 mL, 6 Refills, Maintenance, 06/22/22 15:54:00 EDT, [facility], Partial fill upon patient request if the prescription is for a schedule II opioid drug., 175, cm,... Start Date: 06/22/22 Status: Ordered Pen [place], 31 G x 5 mm BD Ultra [...] Date: 03/29/22 Status: Ordered Problem List Condition Effective Dates Status Health Status Inform ant Anemia(Confirmed) Active Anxiety(Confirmed) Active Back pain(Confirmed) Active Chest pain(Confirmed) Active Constipation(Confirmed) Active History of section(Confirmed) Active History of depression(Confirmed) Active Hx of preeclampsia, prior pr egnancy, currently (Confirmed) Active Chronic hypertension(Confirmed) Active Uses Filipino as primary spok en language(Confirmed) Active AMA (advanced maternal age) multigravida 35+(Confirmed) Active Obese class II(Confirmed) Active Knee pain(Confirmed) Active Poorly controlled type 2 alejandro betes mellitus with neuropathy(Confirmed) Active Social History Social History Type Response Smoking Status Never (less than 100 in lifetime) entered on: 03/07/22 Sex Care Team Personnel Name: Nishi Harris NP Address: [address] [place] [address]-
--- OUTSIDE RECORDS SUMMARY | 2024-06-17 19:14 | XMS_ITS | Continuity of Care Document ---
Author Organization [facility] Address [address] [place] [address], [address] [place] [address]- Care Team Providers Care Chart Clerk Name Role Phone Kimberly COLLADO, Nishi Primary Care Physician [facility] [id number] Date(s): 09/02/22 - 11/06/22 [facility] [address] [facility], [address] [place] [address]- Attending Physician: Gabbie Shepherd MD Referring Physician: Shasha Escobedo MD Allergies, Adverse Reactions, Alerts No Known Allergies Immunizations Given and Recorded Vaccine Date Status Refusal Reason influenza virus vaccine, inactivated 09/02/22 Give n tetanus/diphtheria/pertussis, acel(Tdap) 07/29/22 Given Medications acetaminophen 325 mg oral tablet 650 mg, By Mouth, Every 4 hours, (1-3), may give 325mg per patient preference and re-dose with 325mg within 4 hours if needed. Patient should only receive a total of 650mg of Acetaminophen every 4 hours., # 50 tablet, Refills 0, Tot. Refills 0, Main... Start Date: 10/06/22 Status: Ordered Freestyle elsa 2 CGM Freestyle [...] Date: 03/21/22 Stop Date: 11/16/22 Status: Ordered Gauze Pad (4 X 4) See Instructions, # 1 pack/packet, Refills 0, Tot. Refills 0, Maintenance, Use to clean and cover open area of incision, 11/04/22 18:24:00 EST, Supply, 175, cm, 10/28/22 13:10:00 EST, Height, 117.1, kg, 10/19/22 12:24:00 EST, Dry Weight Start Date: 11/04/22 Status: Ordered ibuprofen 800 mg oral tablet 800 mg, 1, tablet, By Mouth, Every 8 hours, (4-6), may give 400mg per patient preference and re-dose with 400mg within 8 hours if needed. Patient should only receive a total of 800mg of Ibuprofen every 8 hours., # 50 tablet, Refills 0, Tot. Refills... Start Date: 10/06/22 Status: Ordered Lantus Inj Subcutaneous Infusion, Daily, 0 Refills, Maintenance, 10/10/22 17:07:00 EST, Partial fill upon patient request if the prescription is for a schedule II opioid drug. Start Date: 10/10/22 Status: Ordered metFORMIN 500 mg oral tablet 2 each = 1,000 mg, By Mouth, 2 times a day, # 120 tablet, 0 Refills, Maintenance, 10/06/22 5:21:00 EST, Tablet, [facility], Partial fill upon patient request if the prescription is for a schedule II opioid drug., 175, cm, 10/06/22... Start Date: 10/06/22 Stop Date: 11/05/22 Status: Ordered NIFEdipine 30 mg oral tablet, extended release 30 mg, 1, tablet, By Mouth, Daily, # 30 tablet, Refills 0, Tot. Refills 0, Maintenance, 10/10/22 20:37:00 EST, Route to Pharmacy Electronically, [facility], Partial fill upon patient request if the prescription is for a schedule II... Start Date: 10/10/22 Status: Ordered Pen [place], 31 G x 5 mm BD Ultra Fine III See Instructions, # 120 each, Refills 5, Tot. Refills 5, Maintenance, To use with insulin administration 4 times daily, 03/15/22 16:47:00 EDT, Supply, 175, cm, 03/07/22 9:02:00 EDT, Height, 111.5, kg, 03/07/22 9:02:00 EDT, Dry Weight Start Date: 03/15/22 Status: Ordered simethicone 80 mg oral tablet, chewable 80 mg, Chew, 3 times a day, PRN, # 36 tablet, Refills 0, Tot. Refills 0, Maintenance, Gas, 225:21:00 EST, Route to Pharmacy Electronically, [facility], Partial fill upon patient request if the prescription is for a schedule... 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
--- OUTSIDE RECORDS SUMMARY | 2024-06-17 19:14 | XMS_ITS | Continuity of Care Document ---
Author Organization [facility] Address [address] [place] [address]- Care Team Providers Care Wire Mill Operator Name Role Phone Kimberly COLLADO, Nishi Primary Care Physician [phone] [place] [facility] [place](s): 06/03/22 - 07/03/22 [facility] [address] [place] [id number] Allergies, Adverse Reactions, Alerts No Known Allergies Medications aspirin 81 mg oral delayed release tablet 162 mg, 2, tablet, By Mouth, Daily, # 60 tablet, Refills 5, Tot. Refills 5, Maintenance, 03/14/22 10:02:00 EDT, Route to Pharmacy Electronically, [facility], Partial fill upon patient request if the prescription is for a schedule I... Start Date: 03/14/22 Status: Ordered ferrous sulfate 325 mg oral enteric coated tablet 325 mg, 1, tablet, By Mouth, Every other day, # 60 tablet, Refills 4, Tot. Refills 4, Maintenance, 04/22/22 15:38:00 EDT, Route to Pharmacy Electronically, [facility], please print label in chadian, 175, cm, 04/22/22 15:13:00 EDT,... Start Date: [...] Injection, 2 times a day, PLACE IN [place], # 50 mL, 4 Refills, Maintenance,06/22/22 15:53:00 EDT, [facility], Partial fill upon patient request [...] mL, 6 Refills, Maintenance, 06/22/22 15:54:00 EDT, [facility], Partial fill upon patient request if the prescription is for a schedule II opioid drug., 175, cm,... Start Date: 06/22/22 Status: Ordered Pen [place], 31 G x 5 mm BD Ultra [...] currently (Confirmed) Active Chronic hypertension(Confirmed) Active Uses [place] Islander as primary spok en language(Confirmed) Active AMA (advanced maternal age) multigravida 35+(Confirmed) Active Obese class II(Confirmed) Active Knee pain(Confirmed) Active Poorly controlled type 2 alejandro betes mellitus with neuropathy(Confirmed) Active Social History Social History Type Response Smoking Status Never (less than 100 in lifetime) entered on: 03/07/22 Sex
--- OUTSIDE RECORDS SUMMARY | 2024-06-17 19:14 | XMS_ITS | Continuity of Care Document ---
Author Organization [facility]oni [facility] Address [address] [place] [address], [address] [place] [address]- Care Team Providers Care Roller Billet Mill Name Role Phone Kimberly DEPUTY FIRE MARSHAL, Nishi Primary Care Physician [phone] [facility] [id number] Date(s): 08/25/22 - 09/01/22 [facility] [address] [facility], [address]th [place] [address]- Attending Physician: Shasha Escobedo MD Referring Physician: Gabbie Shepherd MD Allergies, Adverse Reactions, Alerts No Known Allergies Immunizations Given and Recorded Vaccine Date Status Refusal Reason tetanus/diphtheria/pertussis, acel(Tdap) 07/29/22 Given Medications acetaminophen 500 mg oral tablet 2 tablet = 1,000 mg, By Mouth, Every 6 hours, PRN as needed for pain, # 50 tablet, 0 Refills, Acute11/19/22 0:00:00 EST, 07/29/22 11:31:00 EDT, Tablet, [facility], please print label in Syrian, 175, cm, 07/29/22 11:09:00 EDT, Brucei... Start Date: 07/29/22 Stop Date: 11/19/22 Status: Ordered aspirin 81 mg oral delayed release tablet 162 mg, 2, tablet, By Mouth, Daily, # 60 tablet, Refills 5, Tot. Refills 5, Maintenance, 03/14/22 10:02:00 EDT, Route to Pharmacy Electronically, [facility], Partial fill upon patient request if the prescription is for a schedule I... Start Date: 03/14/22 Status: Ordered ferrous sulfate 325 mg oral enteric coated tablet 325 mg, 1, tablet, By Mouth, Every other day, # 60 tablet, Refills 4, Tot. Refills 4, Maintenance, 04/22/22 15:38:00 EDT, Route to Pharmacy Electronically, [facility], please print label in bruneian, 175, cm, 04/22/22 15:13:00 EDT,... Start Date: [...] mL, 4 Refills, Maintenance, 09/01/22 10:41:00 EDT, [facility], Partial fill upon patient request if the prescription is for a s... Start Date: 09/01/22 Status: Ordered NovoLOG FlexPen 100 units/mL injectable solution See Instructions, 44 U SQ INJECTION TID BEFORE MEALS DX E11.9, # 30 mL, 6 Refills, Maintenance, 08/25/22 11:43:00 EDT, [facility], Partial fill upon patient request if the prescription is for a schedule II opioid drug., 175, cm,... Start Date: 08/25/22 Status: Ordered Pen [place], 31 G x 5 mm BD Ultra [...] List Condition Confirmation Course Effective Dates Status [facility] St atus Informant Anemia Confirmed Active Anxiety Confirmed Active Back pain Confirmed Active Chest pain Confirmed Active Constipation Confirmed Active History of section Confirmed Active History of depression Confirmed Active Hx of preeclampsia, prior , currently Confirmed Active Chronic hypertension Confirmed Active Uses Syrian as primary spoken language Confirmed Active AMA (advanced maternal age) multigravida 35+ Confirmed Active Knee pain Confirmed Active Severe obesity Confirmed Active Poorly controlled type 2 diabetes mellitus with neuropathy Confirmed Active Vital Signs Most recent to oldest [Reference Range]: 1 Height 175 cm (08/25/22 11:13 AM) Weight 131.66 kg (08/25/22 11:13 AM) Body Mass Index [18.5-24.99 kg/m2] 42.99 kg/m2 *>HHI* (08/25/22 11:13 AM) Blood Pressure [90-138/55-84 mm Hg] 129/ 67mm Hg (08/25/22 11:13 AM) Blood pressure sites Arm, right (08/25/22 11:13 AM) Weight Obtained Via Standing scale (08/25/22 11:13 AM) Social History Social History Type Response Smoking Status Never (less than 100 in lifetime) entered on: 03/07/22 Sex Patient Care team information Personnel Name: Nishi Harris NP Address: Address: [address] [place], [place] [address]
--- OUTSIDE RECORDS SUMMARY | 2024-06-17 19:14 | XMS_ITS | Continuity of Care Document ---
Author Organization [facility] Address [address] [place] [address]- Care Team Providers Care Community Health Outreach Worker Name Role Phone Kimberly COLLADO, Nishi Primary Care Physician [place] [facility] [place]22 [facility] [address] [place] [address] Allergies, Adverse Reactions, Alerts No Known Allergies Immunizations Given and Recorded Vaccine Date Status Refusal Reason influenza virus vaccine, inactivated 09/02/22 Give n tetanus/diphtheria/pertussis, acel(Tdap) 07/29/22 Given Medications acetaminophen 500 mg oral tablet 2 tablet = 1,000 mg, By Mouth, Every 6 hours, PRN as needed for pain, # 50 tablet, 0 Refills, Acute11/19/22 0:00:00 EST, 07/29/22 11:31:00 EDT, Tablet, [facility], please print label in Portuguese, 175, cm, 07/29/22 11:09:00 EDT, Jass... Start Date: 07/29/22 Stop Date: 11/19/22 Status: Ordered aspirin 81 mg oral delayed release tablet 162 mg, 2, tablet, By Mouth, Daily, # 60 tablet, Refills 5, Tot. Refills 5, Maintenance, 03/14/22 10:02:00 EDT, Route to Pharmacy Electronically, [facility], Partial fill upon patient request if the prescription is for a schedule I... Start Date: 03/14/22 Status: Ordered ferrous sulfate 325 mg oral enteric coated tablet 325 mg, 1, tablet, By Mouth, Every other day, # 60 tablet, Refills 4, Tot. Refills 4, Maintenance, 04/22/22 15:38:00 EDT, Route to Pharmacy Electronically, [facility], please print label in estonian, 175, cm, 04/22/22 15:13:00 EDT,... Start Date: [...] mL, 4 Refills, Maintenance, 09/01/22 10:41:00 EDT, [facility], Partial fill upon patient request if the prescription is for a s... Start Date: 09/01/22 Status: Ordered NovoLOG FlexPen 100 units/mL injectable solution See Instructions, 44 U SQ INJECTION TID BEFORE MEALS DX E11.9, # 30 mL, 6 Refills, Maintenance, 08/25/22 11:43:00 EDT, [facility], Partial fill upon patient request if the prescription is for a schedule II opioid drug., 175, cm,... Start Date: 08/25/22 Status: Ordered Pen [place], 31 G x 5 mm BD Ultra [...] Confirmed Active Chronic hypertension Confirmed Active Uses Portuguese as primary spoken language Confirmed Active AMA (advanced maternal age) multigravida 35+ Confirmed Active Knee pain Confirmed Active Severe obesity Confirmed Active Poorly controlled type 2 diabetes mellitus with neuropathy Confirmed Active Social History Social History Type Response Smoking Status Never (less than 100 in lifetime) entered on: 03/07/22 Sex Patient Care team information Personnel Name: Nishi Harris NP Address: Address: [address] [place] [id number]
--- OUTSIDE RECORDS SUMMARY | 2024-06-17 19:14 | XMS_ITS | Continuity of Care Document ---
Author Organization [facility] Address [address] [place] [address], [address] [place] [address]- Care Team Providers Care Drawer In Dobby Loom Name Role Phone Kimberly COLLADO, Nishi Primary [id number] Date(s): 09/15/[facility] - 09/22/22 [facility] [address] [facility], [address] [place], [place] [address] Attending Physician: Cora WAGNER, Gabbie Hatfield Allergies, Adverse Reactions, Alerts No Known Allergies Immunizations Given and Recorded Vaccine Date Status Refusal Reason influenza virus vaccine, inactivated 09/02/22 Give n tetanus/diphtheria/pertussis, acel(Tdap) 07/29/22 Given Medications acetaminophen 500 mg oral tablet 2 tablet = 1,000 mg, By Mouth, Every 6 hours, PRN as needed for pain, # 50 tablet, 0 Refills, Acute11/19/22 0:00:00 EST, 07/29/22 11:31:00 EDT, Tablet, [facility], please print label in Armenian, 175, cm, 07/29/22 11:09:00 EDT, Brucei... Start Date: 07/29/22 Stop Date: 11/19/22 Status: Ordered aspirin 81 mg oral delayed release tablet 162 mg, 2, tablet, By Mouth, Daily, # 60 tablet, Refills 5, Tot. Refills 5, Maintenance, 03/14/22 10:02:00 EDT, Route to Pharmacy Electronically, [facility], Partial fill upon patient request if the prescription is for a schedule I... Start Date: 03/14/22 Status: Ordered ferrous sulfate 325 mg oral enteric coated tablet 325 mg, 1, tablet, By Mouth, Every other day, # 60 tablet, Refills 4, Tot. Refills 4, Maintenance, 04/22/22 15:38:00 EDT, Route to Pharmacy Electronically, [facility], please print label in israeli, 175, cm, 04/22/22 15:13:00 EDT,... Start Date: [...] lispro 100 u/ml subcutaneous injection See Instructions, 38 units Subcutaneous Injection before breakfast, 35 Units before lunch, 22 unitsbefore dinner Dx E11.9, # 15 mL, 0 Refills, Maintenance, 09/19/22 16:31:00 EDT, Injection, [facility], Partial fill upon patien... Start Date: 09/19/22 Status: Ordered Lantus Solostar Pen 100 units/mL subcutaneous solution See Instructions, 60 units Subcutaneous Injection in AM and 66 units subcutaneous injecion in PM, #10 mL, 4 Refills, Maintenance, 09/01/22 10:41:00 EDT, [facility], Partial fill upon patient request if the prescription is for a s... Start Date: 09/01/22 Status: Ordered Pen [place], 31 G x 5 mm BD Ultra [...] Confirmed Active Chronic hypertension Confirmed Active Uses Armenian as primary spoken language Confirmed Active AMA (advanced maternal age) multigravida 35+ Confirmed Active Knee pain Confirmed Active Severe obesity Confirmed Active Poorly controlled type 2 diabetes mellitus with neuropathy Confirmed Active Social History Social History Type Response Smoking Status Never (less than 100 in lifetime) entered on: 03/07/22 Sex Patient Care team information Personnel Name: Nishi Harris NP Address: Address: [address] [place], [place] [address]
--- OUTSIDE RECORDS SUMMARY | 2024-06-17 19:14 | XMS_ITS | Continuity of Care Document ---
Author Organization [facility]erico [facility] Address [address] [place] [address], [address] [place] [address]- Care Team Providers Care Dialysis Rn Name Role Phone Kimberly MANAGING MEMBER, Nishi Primary Care Physician [facility] [id number] Date(s): 08/12/22 - 11/02/22 [facility]ne[facility] [address] [facility], 4th [place] [address]- Attending Physician: Nicole Roberto MD Referring Physician: Shasha Escobedo MD Allergies, [...] Date: 03/21/22 Stop Date: 11/16/22 Status: Ordered ibuprofen 800 mg oral tablet [...] 0 Refills, Maintenance, 10/06/22 5:21:00 EST, Tablet, [facility], Partial fill upon patient request if the prescription is for a schedule II opioid drug., 175, cm, 10/06/22... Start Date: 10/06/22 Stop Date: 11/05/22 Status: Ordered NIFEdipine 30 mg oral tablet, extended release 30 mg, 1, tablet, By Mouth, Daily, # 30 tablet, Refills 0, Tot. Refills 0, Maintenance, 10/10/22 20:37:00 EST, Route to Pharmacy Electronically, [facility], Partial fill upon patient request if the prescription is for a schedule II... Start Date: 10/10/22 Status: Ordered Pen [place], 31 G x 5 mm BD Ultra [...] Refills 0, Tot. Refills 0, Maintenance, Gas, :21:00 EST, Route to Pharmacy Electronically, [facility], Partial fill upon patient request [...] preeclampsia Confirmed Active Chronic hypertension Confirmed Active Non-Indonesian speaking patient - carbon dioxide operator required Confirmed Active Obese class II Confirmed Active Knee pain Confirmed Active Last Pap smear 04/22/22 negative with negative HPV Confirmed Active Poorly controlled type 2 diabetes mellitus with neuropathy Confirmed Active Social History Social History Type Response Smoking Status Never (less than 100 in lifetime) entered on: 03/07/22 Sex Patient Care team information Care Team Related Persons Name: DANILO TURNER Address: [id number] Address: home [address] [place] [address] [place] Name: MYRIAM DOWNEY Address: home [address] [place] [address]
--- OUTSIDE RECORDS SUMMARY | 2024-06-17 19:14 | XMS_ITS | Continuity of Care Document ---
Author Organization [facility] [employer] Address [address] [facility], 4t [place] [address]- Care Team Providers Care Sewer Name Role Phone Kimberly COLLADO, Nishi Primary Care Physician [id number] Date(s): 11/04/22 - 12/04/22 [facility] Lovellsoni Dial[facility] [address] [facility], [address] [place] [address]- Allergies, Adverse Reactions, Alerts No Known Allergies [...] 0 Refills, Maintenance, 10/06/22 5:21:00 EST, Tablet, [facility], Partial fill upon patient request if the prescription is for a schedule II opioid drug., 175, cm, 10/06/22... Start Date: 10/06/22 Stop Date: 11/05/22 Status: Ordered NIFEdipine 30 mg oral tablet, extended release 30 mg, 1, tablet, By Mouth, Daily, # 30 tablet, Refills 0, Tot. Refills 0, Maintenance, 10/10/22 20:37:00 EST, Route to Pharmacy Electronically, [facility], Partial fill upon patient request if the prescription is for a schedule II... Start Date: 10/10/22 Status: Ordered Pen [place], 31 G x 5 mm BD Ultra [...] Gas, 225:21:00 EST, Route to Pharmacy Electronically, [facility], Partial fill upon [...] preeclampsia Confirmed Active Chronic hypertension Confirmed Active Non-Angolan speaking patient - interpreter translator required Confirmed Active Obese class II Confirmed Active Knee pain Confirmed Active Last Pap smear 04/22/22 negative with negative HPV Confirmed Active Severe obesity (BMI 35.0-39.9) with comorbidity Confirmed Active Poorly controlled type 2 diabetes mellitus with neuropathy Confirmed Active Social History Social History Type Response Smoking Status Never (less than 100 in lifetime) entered on: 03/07/22 Sex Patient Care team information Care Team Related Persons Name: DANILO TURNER Address: [id number] Address: [address] [place] [address] Name: MYRIAM DOWNEY Address: home [address] [place] [address]
--- OUTSIDE RECORDS SUMMARY | 2024-06-17 19:14 | XMS_ITS | Continuity of Care Document ---
Author Organization [facility] Address [address] [place] [address]- Care Team Providers Care Offline Editor Name Role Phone Kimberly COLLADO, Nishi Primary Care Physician [place] [facility] [place](s): 04/08/22 - 05/08/[address] [address]- Attending Physician: Asim Rai Admitting Physician: Asim Rai Referring Physician: AdmtrAsim Allergies, Adverse Reactions, Alerts No Known Allergies Medications aspirin 81 mg oral delayed release tablet 162 mg, 2, tablet, By Mouth, Daily, # 60 tablet, Refills 5, Tot. Refills 5, Maintenance, 03/14/22 10:02:00 EDT, Route to Pharmacy Electronically, [facility], Partial fill upon patient request if the prescription is for a schedule I... Start Date: 03/14/22 Status: Ordered doxylamine 25 mg oral tablet 1 tablet = 25 mg, By Mouth, Daily at bedtime, PRN Nausea & Vomiting, # 30 tablet, 1 Refills, Acute 05/29/22 23:07:00 EDT, 03/29/22 23:06:00 EDT, Tablet, [facility], Partial fill upon patient request if the prescription is for a naseem... Start Date: 03/29/22 Stop Date: 05/29/22 Status: Ordered ferrous sulfate 325 mg oral enteric coated tablet 325 mg, 1, tablet, By Mouth, Every other day, # 60 tablet, Refills 4, Tot. Refills 4, Maintenance, 04/22/22 15:38:00 EDT, Route to Pharmacy Electronically, [facility], please print label in sinhala, 175, cm, 04/22/22 15:13:00 EDT,... Start Date: [...] mL, 5 Refills, Maintenance, 03/28/22 13:34:00 EDT, [facility], Partial fill upon patient request [...] FlexPen 100 units/mL injectable solution See Instructions, Subcutaneous Injection 3 times a day before meals 30 U TID DX E11.9, # 15 mL, 6 Refills, Maintenance, 04/07/22 16:35:00 EDT, [facility], Partial fill upon patient request if the prescription is for a sched... Start Date: 04/07/22 Status: Ordered Pen [place], 31 G x 5 mm BD Ultra [...] 05/29/22 23:08:00 EDT, 03/29/22 23:06:00 EDT, Tablet, [facility], Partial fill upon patient requestif [...] currently (Confirmed) Active Chronic hypertension(Confirmed) Active Uses Maldivian as primary spok en language(Confirmed) Active AMA (advanced maternal age) multigravida 35+(Confirmed) Active Knee pain(Confirmed) Active Severe obesity(Confirmed) Active Poorly controlled type 2 alejandro betes mellitus with neuropathy(Confirmed) Active Social History Social History Type Response Smoking Status Never (less than 100 in lifetime) entered on: 03/07/22 Sex
--- OUTSIDE RECORDS SUMMARY | 2024-06-17 19:15 | XMS_ITS | Continuity of Care Document ---
Author Organization [facility] Federico ferreiras [facility] Address [address] [place] [address], 4t [place] [address]- Care Team Providers Care Hurl Shaker Name Role Phone Kimberly COLLADO, Nishi Primary Care Physician [phone] [id number] Date(s): 09/19/22 - 09/26/22 [facility] [employer] [facility] [address] [facility], [address] [place], [place] [address] Attending Physician: Nicole Roberto MD Referring Physician: [...] Acute11/19/22 0:00:00 EST, 07/29/22 11:31:00 EDT, Tablet, [facility], please print label in Russian, 175, cm, 07/29/22 11:09:00 EDT, Brucei... Start Date: 07/29/22 Stop Date: 11/19/22 Status: Ordered aspirin 81 mg oral delayed release tablet 162 mg, 2, tablet, By Mouth, Daily, # 60 tablet, Refills 5, Tot. Refills 5, Maintenance, 03/14/22 10:02:00 EDT, Route to Pharmacy Electronically, [facility], Partial fill upon patient request if the prescription is for a schedule I... Start Date: 03/14/22 Status: Ordered ferrous sulfate 325 mg oral enteric coated tablet 325 mg, 1, tablet, By Mouth, Every other day, # 60 tablet, Refills 4, Tot. Refills 4, Maintenance, 04/22/22 15:38:00 EDT, Route to Pharmacy Electronically, [facility], please print label in polish, 175, cm, 04/22/22 15:13:00 EDT,... Start Date: [...] 0 Refills, Maintenance, 09/19/22 16:31:00 EDT, Injection, [facility], Partial fill upon patien... Start Date: 09/19/22 Status: Ordered Lantus Solostar Pen 100 units/mL subcutaneous solution See Instructions, 60 units Subcutaneous Injection in AM and 66 units subcutaneous injecion in PM, #10 mL, 4 Refills, Maintenance, 09/01/22 10:41:00 EDT, [facility], Partial fill upon patient request if the prescription is for a s... Start Date: 09/01/22 Status: Ordered Pen [place], 31 G x 5 mm BD Ultra [...] Confirmed Active Chronic hypertension Confirmed Active Uses Russian as primary spoken language Confirmed Active AMA (advanced maternal age) multigravida 35+ Confirmed Active Knee pain Confirmed Active Severe obesity Confirmed Active Poorly controlled type 2 diabetes mellitus with neuropathy Confirmed Active Vital Signs Most recent to oldest [Reference Range]: 1 Pulse Rate [55-90 bpm] 102 bpm *H* (09/19/22 10:53 AM) Blood Pressure [90-138/55-84 mm Hg] 128/ 66mm Hg (09/19/22 10:53 AM) Respiratory Rate [16-30 br/min] 25 br/mi n (09/19/22 10:53 AM) Temperature [96.8-100.4 DegF] 98.1 DegF (09/19/22 10:53 AM) Blood pressure sites Arm, left (09/19/22 10:53 AM) Temperature Route Oral (09/19/22 10:53 AM) Social History Social History Type Response Smoking Status Never (less than 100 in lifetime) entered on: 03/07/22 Sex Patient Care team information Care Team Related Persons Name: MYRIAM DOWNEY Address: home [address] [place] [id number]
--- OUTSIDE RECORDS SUMMARY | 2024-06-17 19:15 | XMS_ITS | Continuity of Care Document ---
Author Organization [facility] Federico bowieMidawi Holdingsgrzegorz [facility] Address [address] [facility], [address] [place] [address]- Care Team Providers Care Manager Managing Name Role Phone Kimberly COLLADO, Nishi Primary Care Physician [phone] [id number] Date(s): 09/05/22 - 10/05/22 [facility] [place] JeanneMidawi Holdingss [facility] [address] [facility], 4th [address] [place], [place] [address] Allergies, Adverse Reactions, Alerts No Known Allergies Immunizations Given and Recorded Vaccine Date Status Refusal Reason influenza virus vaccine, inactivated 09/02/22 Give n tetanus/diphtheria/pertussis, acel(Tdap) 07/29/22 Given Medications acetaminophen 500 mg oral tablet 2 tablet = 1,000 mg, By Mouth, Every 6 hours, PRN as needed for pain, # 50 tablet, 0 Refills, Acute11/19/22 0:00:00 EST, 07/29/22 11:31:00 EDT, Tablet, [facility], please print label in Venezuelan, 175, cm, 07/29/22 11:09:00 EDT, Hei... Start Date: 07/29/22 Stop Date: 11/19/22 Status: Ordered ferrous sulfate 325 mg oral enteric coated tablet 325 mg, 1, tablet, By Mouth, Every other day, # 60 tablet, Refills 4, Tot. Refills 4, Maintenance, 04/22/22 15:38:00 EDT, Route to Pharmacy Electronically, [facility], please print label in hebrew, 175, cm, 04/22/22 15:13:00 EDT,... Start Date: [...] unitsbefore dinner Dx E11.9, # 15 mL, 2 Refills, Maintenance, 09/30/22 15:41:00 EST, Injection, [facility], Partial fill upon patien... Start Date: 09/30/22 Status: Ordered Lantus Solostar Pen 100 units/mL subcutaneous solution See Instructions, 60 units Subcutaneous Injection in AM and 66 units subcutaneous injecion in PM, #10 mL, 4 Refills, Maintenance, 09/01/22 10:41:00 EDT, [facility], Partial fill upon patient request if the prescription is for a s... 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
--- OUTSIDE RECORDS SUMMARY | 2024-06-17 19:15 | XMS_ITS | Continuity of Care Document ---
Author Organization [facility] ter Address [address] [place] [id number]- Care Team Providers Care Distribution Lead Name Role Phone Kimberly COLLADO, Nishi Primary Care Physician [place] [facility] [place] - 10/19/[address] [address] Discharge Disposition: A-D/C Home Attending Physician: Murray Barrett MD Admitting Physician: Murray Barrett MD Referring Physician: Murray Barrett MD Allergies, Adverse Reactions, Alerts No Known [...] 0 Refills, Maintenance, 10/06/22 5:21:00 EST, Tablet, [facility], Partial fill upon patient request if the prescription is for a schedule II opioid drug., 175, cm, 11/17/22... Start Date: 10/06/22 Stop Date: 11/05/22 Status: Ordered MiraLax oral powder for reconstitution = 17 Gm, By Mouth, Daily, for 14 days, dissolve in water before taking, # 255 Gm, 0 Refills, Acute 10/26/22 11:16:00 EST, 10/12/22 11:16:00 EST, REC Powder, [facility]/pharmacy #[id number], Partial fill upon patient request if the prescription is for a schedule II... Start Date: 10/12/22 Stop Date: 10/26/22 Status: Ordered NIFEdipine 30 mg oral tablet, extended release 30 mg, 1, tablet, By Mouth, Daily, # 30 tablet, Refills 0, Tot. Refills 0, Maintenance, 10/10/22 20:37:00 EST, Route to Pharmacy Electronically, [facility], Partial fill upon patient request if the prescription is for a schedule II... Start Date: 10/10/22 Status: Ordered Pen [place], 31 G x 5 mm BD Ultra [...] Gas, :21:00 EST, Route to Pharmacy Electronically, [facility], Partial fill upon patient request [...] preeclampsia Confirmed Active Chronic hypertension Confirmed Active Non-Kyrgyz speaking patient - nut tightener required Confirmed Active Obese class II Confirmed Active Knee pain Confirmed Active Last Pap smear 04/22/22 negative with negative HPV Confirmed Active Poorly controlled type 2 diabetes mellitus with neuropathy Confirmed Active Procedures Procedure Date Related Diagnosis Body Site Status section 10/02/22 Complete d Vital Signs Most recent to oldest [Reference Range]: 1 Height 175 cm (10/19/22 1:19 PM) Weight 117.1 kg (10/19/22 12:24 PM) Oxygen Saturation [94-100 %] 99 % (10/19/22 12:24 PM) Pulse Rate [55-90 bpm] 93 bpm *H* (10/19/22 12:24 PM) Blood Pressure [90-138/55-84 mm Hg] 135/ 77mm Hg (10/19/22 12:24 PM) Respiratory Rate [16-30 br/min] 18 br/mi n (10/19/22 12:24 PM) Temperature [96.8-100.4 DegF] 98.2 DegF (10/19/22 12:24 PM) Mode of Delivery (Oxygen) Room air (10/19/22 12:24 PM) Blood pressure sites Arm, right (10/19/22 12:24 PM) Temperature Route Oral (10/19/22 12:24 PM) Dry Weight 117.1 kg (10/19/22 12:24 PM) Weight Obtained Via Standing scale (10/19/22 12:24 PM) Dry Weight Obtained Via Standing scale (10/19/22 12:24 PM) Social History Social History Type Response Smoking Status Never (less than 100 in lifetime) entered on: 03/07/22 Sex Note * Corina Covington RN: PERFORM Event Display: Discharge/Transfer Note Hospital Authored Date: [id number] Nursing Discharge Note Entered On: 10/19/2022 13:24 EST Performed On: 10/19/2022 13:23 EST by Corina Covington RN Nursing Discharge Note 2 Discharge Time : 10/19/2022 13:24 EST Discharge Level of Care at Discharge : Home/Prison/Foster Care Patient Left Unit Via : Ambulatory Patient Accompanied Off Unit with : Parent DC Instructions Provided & Signed by Pt : Yes Patient Understands D/C Instructions : Yes Patient Instructions Discharge Signed : Yes Did Pt have Specialty Bed or Wound Vac : No Corina Covington RN - 10/19/2022 13:23 EST * Corina Covington RN: PERFORM Event Display: Patient Education/Instruction Authored Date: [id number] Inpatient Adult Discharge Instructions [address] [address] Name: ANNMARIE YE : 1985 Visit: 10/19/2022 11:20:00 Current Date: 10/19/2022 13:23 Account: [id number] Inpatient Adult Discharge Instructions We would like to thank you for allowing us to assist you with your healthcare needs. The following includes patient education materials and information regarding your injury/illness. Our entire staffstrives to provide an excellent experience for our patients and their families. PLEASE ENSURE YOU FOLLOW-UP PER THE INSTRUCTIONS BELOW! ?? YOUR OPINION IS IMPORTANT TO US! Please complete the survey you may receive by mail or email. Your feedback will be used to make improvements to the healthcare experiences of our patients and their families. Surveys are administered by [employer] ?? If further treatment with your primary care physician or another doctor is recommended, it is important for you to keep the appointment. Call your primary care physician or return to the Emergency Department immediately if your condition worsens, fails to improve, or new symptoms develop. If you need to find a doctor, you can call [facility] for a referral at [phone] or toll free at [phone] or log in to [email or web address].. ?? You can view and manage your care through the patient portal or by using a health care hallie of your choosing. [employer] is a website that allows you to securely view your medical information including your hospital discharge summary, office visit summaries, medications and follow-up visits. You can also request appointments, renew medications, and request access to your medical information using a health care hallie of your choosing, or just ask a question. You can enroll at [email or web address] or register during your next office visit. You have been discharged from [facility], Patient Care Unit: [id number]. If you have any questions regarding these instructions after you leave, please call us and we will be happy to assist you. [facility] Your Care Team Attending Physician Murray Barrett MD Reason for Admission Packing change Tests Performed Below is a partial list of the tests performed during your hospitalization. You may have had other tests and procedures not included in this list. Please discuss all test results with your provider. Advance Directive Health Care Proxy on File Yes - Health Care Proxy No qualifying data available. Discharge Vitals Temperature: 98.2 DegF Height: 175 cm Pulse Rate:??93 bpm??High Weight: 117.1 kg Respiratory Rate: 18 br/min ?? Systolic Blood Pressure: 135 mm Hg ?? Diastolic Blood Pressure: 77 mm Hg ?? Oxygen Saturation: 99 % ?? Studies Pending All tests and labs ordered during this hospital stay have been completed unless listed below. Please discuss all pending results with your provider listed above in these instructions. ?? No incomplete studies found What to do next Instructions From Your Doctor Discharge Orders Scheduled Follow-Up Appointments Monday 2:00 PM EST ?? With: Nicole Roberto MD Where: [facility] [address] [place] [address]- Monday 1:00 PM EST ?? With: Lucía An MD Where: [facility] [address] [place] [address]- Monday 10:40 AM EST ?? With: Gabbie Shepherd MD Where: [facility] [address] [place] [address]- Discharge Medications ANNMARIE TURNER :1985 Visit Date:10/19/2022 Medications: Please continue your medications until treatment is completed or stopped by your provider. Medications not listed below should be discontinued. Discuss any questions related to medications with your provider. What How Much When Instructions Next Dose Unchanged Acetaminophen (acetaminophen 325 mg oral tablet) 650 Milligram Oral Every 4 hours (1-3), may give 325mg per patient preference and re-dose with 325mg within 4 hours if needed. ?? Patient should only receive a total of 650mg of Acetaminophen every 4 hours. ?? Unchanged Durable Medical Equipment (Freestyle elsa 2 CGM) See instructions Freestyle elsa 2 CGM ?? Unchanged Durable Medical Equipment (Freestyle elsa 2 sensors) See instructions Please provide 30 days supple freestyle elsa 2 sensors to be changed every 14 days ?? Unchanged Durable Medical Equipment (Freestyle Elsa Monitor) See instructions Duration: 30 Days use as directed for Type 2 Diabetes Mellitus ?? Unchanged Durable Medical Equipment (Freestyle Elsa Sensor) See instructions Duration: 30 Days To change every 14 days Dx: Type 2 Diabetes Mellitus ?? Unchanged Durable Medical Equipment (Pen [place], 31 G x 5 mm BD Ultra Fine III) See instructions To use with insulin administration 4 times daily ?? Unchanged Ibuprofen (ibuprofen 800 mg oral tablet) 1 tab(s) Oral Every 8 hours (4-6), may give 400mg per patient preference and re-dose with 400mg within 8 hours if needed. ?? Patient should only receive a total of 800mg of Ibuprofen every 8 hours. ?? Unchanged Insulin Glargine (Lantus Inj) Subcutaneous Infusion Daily Unchanged Metformin (metFORMIN 500 mg oral tablet) 2 Each Oral Twice a day Duration: 30 Days Unchanged NIFEdipine (NIFEdipine 30 mg oral tablet, extended release) 1 tab(s) Oral Daily Unchanged Polyethylene Glycol 3350 (MiraLax oral powder for reconstitution) 17 gram Oral Daily Duration: 14 Days dissolve in water before taking ?? Unchanged Simethicone (simethicone 80 mg oral tablet, chewable) 80 Milligram Chew 3 times a day as needed for Gas Test Results Below is a partial list of the most recent Laboratory test results done prior to this discharge. You may have had other tests and procedures not included in this list. Please discuss all test resultswith your provider. Allergies (NKA means No Known Allergies) NKA Problems Active Problems??(17) AMA (advanced maternal age) multigravida 35+?? Anemia?? Anxiety?? Back pain?? Breech presentation?? Chest pain?? Chronic hypertension?? Constipation?? History of section?? History of depression?? Hx of preeclampsia, prior , currently ?? Knee pain?? Obese class II?? Poorly controlled type 2 diabetes mellitus with neuropathy?? Preeclampsia?? Separation of wound with drainage, ?? Uses Tuvaluan as primary spoken language?? Education Materials Below is the list of Educational Leaflet Providered with your Discharge Instructions. Discharge Instructions for Section ()?? Valuables and Belongings I fully understand and agree that [facility] accepts no responsibility for all my personal property including clothing, toilet articles, radios, jewelry, dentures, hearing aids, rings, money, or any other property that is in my possession or is brought to me after admission. I understand certain valuables may be placed in a hospital safe for a short period of time. I understand that the hospital is not liable for loss or damage due to accident, fire, or other natural occurrence while said property is in the safe. I accept full responsibility for any personal property that I keep with me, and will not hold the hospital responsible in case of loss or disappearance. I acknowledge that i have been encouraged to send valuables and belongings home. ? Other Discharge Information ? Pulmonary Rehab Status?? Pulmonary Rehab Discharge Status?? Respiratory Rate: 18 br/min ? Common Emergency Awareness Tips IS IT A STROKE? Act FAST and Check for these signs: FACE Does the face look uneven? ARM Does one arm drift down? SPEECH Does their speech sound strange? TIME Call at any sign of stroke ?? Heart Attack Signs Chest discomfort: Most heart attacks involve discomfort in the center of the chest and lasts more than a few minutes, or goes away and comes back. It can feel like uncomfortable pressure, squeezing, fullness or pain. Discomfort in upper body: Symptoms can include pain or discomfort in one or both arms, back, neck, jaw or stomach. Shortness of breath: With or without discomfort. Other signs: Breaking out in a cold sweat, nausea, or lightheaded. Remember, MINUTES DO MATTER. If you experience any of these heart attack warning signs, call to get immediate medical attention! ?? Smoking can increase your chances of developing chronic health problems and can cause harmful effects to other family members in your house. If you smoke, you are strongly encouraged to quit. Please call [employer] at [phone] or [phone]) or log in to [email or web address] for referrals to smoking cessation programs. ?? The National Suicide Prevention Hotline is available 12/06 if you or someone you know needs to find a reason to keep living. By calling 0-425-226-talk (1932) you'll be connected to a skilled, trained counselor at a crisis center in your area. INPATIENT DISCHARGE INSTRUCTIONS SIGNATURE PAGE ANNMARIE TURNER Location:[facility] Registration Date and Time:10/19/2022 11:20 EST Primary Care Physician: Nishi Harris NP, I ANNMARIE TURNER, have received the above patient education materials/instructions and have verbalized understanding. If ambulance or transport services are being used I further acknowledge being given a choice of service. ?? If you need to contact me, please call me at this number: . Patient/Newborn Hearing Screener Name: Patient/Newborn Hearing Screener Signature: Relationship to Patient: Witness Name/Signature: Date: * Corina Covington RN: PERFORM Event Display: Patient Education Leaflets Authored Date: [id number] Discharge Instructions for Section () ?? [address] Instrucciones de latesha para ba reilly??mario A usted le realizaron ba reilly??mario. Abraham esta cirug??a, naci?? alonzo beb?? a dawit??s de ba incisi??n (donal) quir??rgica en el abdomen y el ??tero. La recuperaci??n total despu??s de ba reilly??mario puede llevar tiempo Es importante que se cuide, tanto por usted misma nola por alonzo beb?? que la necesita. La siguiente es ba gu??a para alonzo recuperaci??n en casa. Cuidado de la herida A continuaci??n, se brindan algunos consejos para cuidar de la herida: ??? D??chese cuando lo necesite. Seque alonzo incisi??n dando toques suaves. ??? Controle alonzo incisi??n para detectar cualquier signode infecci??n, nola aumento del enrojecimiento o secreci??n. ??? Sostenga ba almohada contra la incisi??n cuando r??a o tosa y cuando est?? sentada o acostada y se quiera levantar. ??? Recuerde: unaincisi??n de reilly??mario puede tardar hasta seis semanas en sanar. ?? Actividad Estas son algunas sugerencias: ??? No cuide de nadie adem??s de alonzo beb?? y de usted misma. ??? Recuerde: cuanto mas activa est??, m??s probable ser?? que aumente alonzo sangrado. ??? Descanse mucho. Hagasiestas por la tarde. ??? Aumente gradualmente alonzo nivel de actividad. ??? Planifique sabrina actividades para no tener que subir o bajar escaleras m??s de lo necesario. ??? Brian ejercicios posoperatoriosde respiraci??n profunda y tos. Consulte con alonzo proveedor de atenci??n m??dica para que le d?? instrucciones. ??? No levante nada que sea m??s pesado que alonzo beb?? hasta que alonzo proveedor de atenci??n m??dica le indique que ya puede hacerlo. ??? No conduzca hasta que alonzo proveedor de atenci??n m??dicale diga que puede hacerlo. ??? No tenga relaciones sexuales hasta que alonzo proveedor de atenci??n m??dica la haya examinado y hasta que haya decidido qu?? m??todo anticonceptivo usar??. ??? Permita queotras personas la ayuden y maryam cosas por usted. No dude en pedir ayuda. ?? Seguimiento Programe ba visita de seguimiento seg??n le indique nuestro personal. ?? Cu??ndo??llamar al proveedor de atenci??n m??dica Llame de inmediato a alonzo proveedor de atenci??n m??dica en cualquiera de los siguientes casos: ??? Fiebre de?? 100.4?? F??( 38??C) o m??s ??? Enrojecimiento, dolor o supuraci??n en la chelita de la incisi??n. ??? Sangrado que requiere cambiar la toalla sanitaria cada hora. El sangrado vaginal abundantepuede ser un signo de hemorragia posparto. [place] requiere atenci??n m??dica de inmediato. ??? Dolor abdominal laura ??? Dolor al orinar o deseo urgente de orinar. ??? Secreci??n vaginal con mal olor.??? Dificultad para orinar o para vaciar la vejiga. ??? Falta de evacuaci??n despu??s de ba semanade fatimah a lucinda al beb? Chelita hinchada, abdirashid y adolorida en ba pierna. ??? Aparici??n de salpullido o ronchas. ??? Chelita adolorida y enrojecida en las mamas que puede estar acompa??ada de s??ntomas nola de gripe. ??? Sentimientos de ansiedad, p??sheridan o depresi??n. ?? Last Reviewed Date: 2021 ?? [id number] [employer]. Todos los derechos reservados. Esta informaci??n no pretende sustituir la atenci??n m??dica profesional. S??lo alonzo m??dico puede diagnosticar y tratar un problema de letha. ?? Patient Care team information Care Team Personnel Name: Corina Covington RN Position: Lorie ZAIDI RN Member Role: Patient Care Provider Care Team Related Persons Name: DANILO TURNER Address: [id number] Address: [address] [place] [address] Name: MYRIAM DOWNEY Address: home [address] [place] [address]
--- OUTSIDE RECORDS SUMMARY | 2024-06-17 19:15 | XMS_ITS | Continuity of Care Document ---
Author Organization [facility] ter Address [address] [place] [address]- Care Team Providers Care Telesales Specialist Name Role Phone Kimberly COLLADO, Nishi Primary Care Physician [phone] Encounter [facility] Date(s): 06/13/22 - 06/14/[address] [address] Discharge Disposition: A-D/C Home Attending Physician: Karsten Hunt DO Admitting Physician: Karsten Hunt DO Referring Physician: Karsten Hunt DO Allergies, Adverse Reactions, Alerts No Known Allergies Medications aspirin 81 mg oral delayed release tablet 162 mg, 2, tablet, By Mouth, Daily, # 60 tablet, Refills 5, Tot. Refills 5, Maintenance, 03/14/22 10:02:00 EDT, Route to Pharmacy Electronically, [facility], Partial fill upon patient request if the prescription is for a schedule I... Start Date: 03/14/22 Status: Ordered ferrous sulfate 325 mg oral enteric coated tablet 325 mg, 1, tablet, By Mouth, Every other day, # 60 tablet, Refills 4, Tot. Refills 4, Maintenance, 04/22/22 15:38:00 EDT, Route to Pharmacy Electronically, [facility], please print label in khmer, 175, cm, 04/22/22 15:13:00 EDT,... Start Date: [...] mL, 5 Refills, Maintenance, 03/28/22 13:34:00 EDT, [facility], Partial fill upon patient request if the prescription is for a schedule II opioid drug., 175, cm, 03/21/22 10:26:00 EDT,... Start Date: 03/28/22 Status: Ordered Metformin By Mouth, 0 Refills, Maintenance, 03/29/22 17:16:00 EDT, Partial fill upon patient request if the prescription is for a schedule II opioid drug. Start Date: 03/29/22 Status: Ordered metroNIDAZOLE 500 mg oral tablet 1 tablet = 500 mg, By Mouth, Every 12 hours, for 7 days, # 14 tablet, 0 Refills, Acute 06/20/22 23:44:00 EDT, 06/13/22 23:44:00 EDT, [facility], Partial fill upon patient request if the prescription is for a schedule II opioid drug... Start Date: 06/13/22 Stop Date: 06/20/22 Status: Ordered NovoLOG FlexPen 100 units/mL injectable solution See Instructions, Subcutaneous Injection 3 times a day before meals 35 U TID DX E11.9, # 30 mL, 6 Refills, Maintenance, 06/02/22 15:00:00 EDT, [facility], Partial fill upon patient request if the prescription is for a sched... Start Date: 06/02/22 Status: Ordered Pen [place], 31 G x 5 mm BD Ultra [...] currently (Confirmed) Active Chronic hypertension(Confirmed) Active Uses English as primary spok en language(Confirmed) Active AMA (advanced maternal age) multigravida 35+(Confirmed) Active Knee pain(Confirmed) Active Severe obesity(Confirmed) Active Poorly controlled type 2 alejandro betes mellitus with neuropathy(Confirmed) Active Vital Signs Most recent to oldest [Reference Range]: 1 Weight 125.9 kg (06/13/22 9:03 PM) Blood Pressure [90-138/55-84 mm Hg] 132/ 72mm Hg (06/13/22 9:57 PM) Respiratory Rate [16-30 br/min] 20 br/mi n (06/13/22 9:57 PM) Temperature [96.8-100.4 DegF] 99.3 DegF (06/13/22 9:57 PM) Blood pressure sites Arm, right (06/13/22 9:57 PM) Temperature Route Oral (06/13/22 9:57 PM) Dry Weight 125.9 kg (06/13/22 9:03 PM) Weight Obtained Via Standing scale (06/13/22 9:03 PM) Social History Social History Type Response Smoking Status Never (less than 100 in lifetime) entered on: 03/07/22 Sex
--- OUTSIDE RECORDS SUMMARY | 2024-06-17 19:15 | XMS_ITS | Continuity of Care Document ---
Author Organization [facility] [employer] [employer] Address [address] [place] [address], 4t [place] [address]- Care Team Providers Care Sports Management Internship Name Role Phone Kimberly COMMERCIAL PORTFOLIO MANAGER, Nishi Primary Care Physician [facility] [id number] Date(s): 10/14/22 - 10/21/22 [facility] [facility] [address] [facility], 4th [place] [address]- Attending Physician: Nicole Roberto MD Referring Physician: [...] 11:16:00 EST, 10/12/22 11:16:00 EST, REC Powder, [facility]/pharmacy #[id number], Partial fill upon patient request if the [...] II... Start Date: 10/10/22 Status: Ordered Pen Ragan, 31 G x 5 mm BD Ultra [...] Gas, 225:21:00 EST, Route to Pharmacy Electronically, [facility] [...] preeclampsia Confirmed Active Chronic hypertension Confirmed Active Non-Hebrew speaking patient - parts interpreter required Confirmed Active Obese class II Confirmed Active Knee pain Confirmed Active Last Pap smear 04/22/22 negative with negative HPV Confirmed Active Poorly controlled type 2 diabetes mellitus with neuropathy Confirmed Active Vital Signs Most recent to oldest [Reference Range]: 1 Height 175 cm (10/14/22 2:09 PM) Weight 115.9 kg (10/14/22 2:09 PM) Pulse Rate [55-90 bpm] 95 bpm *H* (10/14/22 2:09 PM) Body Mass Index [18.5-24.99 kg/m2] 37.84 kg/m2 *>HHI* (10/14/22 2:09 PM) Blood Pressure [90-138/55-84 mm Hg] 140/ 76mm Hg *H* (10/14/22 2:09 PM) Blood pressure sites Arm, right (10/14/22 2:09 PM) Dry Weight 115.9 kg (10/14/22 2:09 PM) Weight Obtained Via Standing scale (10/14/22 2:09 PM) Dry Weight Obtained Via Standing scale (10/14/22 2:09 PM) Social History Social History Type Response Smoking Status Never (less than 100 in lifetime) entered on: 03/07/22 Sex Note * Yusra Altamiarno: PERFORM, SIGN, VERIFY Event Display: Patient Education/Instruction Authored Date: [id number] [facility] *Jonathan NAYAK FRAME RUNNER Clinical Summary Name ANNMARIE TRUNER Age 37 Years 1985 PCP PCP Phone Visit Date 10/14/2022 13:38:00 Additional Instructions: Scheduled Appointments?? Future Appointments ?*Jonathan??[facility]??FRAME RUNNER ?[address]??[place],??[place],??[address] ?Phone:??--?Fax:??-- ?Appt. Date:??10/17/2022?1:40 PM ?Scheduled Provider:??Pardeep WAGNER, Nicole [place] ?*[facility]NER ?[address]??[place],??[place],??[address] ?Phone:??--?Fax:??-- ?Appt. Date:??10/21/2022?2:00 PM ?Scheduled Provider:??Pardeep WAGNER, Nicole [place] ?*[facility] ?[address]??[place],??[place],??[address] ?Phone:??--?Fax:??-- ?Appt. Date:??11/04/2022?1:00 PM ?Scheduled Provider:??Lucía An MD ?*[facility]FRAME RUNNER ?[address],??[place],??[address] ?Phone:??--?Fax:??-- ?Appt. Date:??11/11/2022?10:40 AM ?Scheduled Provider:??Gabbie Shepherd MD Follow-Up Instructions ?? Diagnosis Medications: Please continue your medications until treatment is completed or stopped by your provider. Discuss any questions related to medications with your provider. Medications to Continue with No Changes These medications were not printed or sent to your pharmacy Acetaminophen (acetaminophen 325 mg oral tablet) 650 Milligram Oral every 4 hours. (1-3), may give 325mg per patient preference and re-dose with 325mg within 4 hours if needed. Patient should only receive a total of 650mg of Acetaminophen every 4 hours.. Refills: 0. Next Dose: Durable Medical Equipment (Freestyle elsa 2 CGM) Freestyle elsa 2 CGM. Refills: 0. Next Dose: Durable Medical Equipment (Freestyle elsa 2 sensors) Please provide 30 days supple freestyle libre2 sensors to be changed every 14 days. Refills: 6. Next Dose: Durable Medical Equipment (Freestyle Elsa Monitor) use as directed for Type 2 Diabetes Mellitus. Refills: 0. Next Dose: Durable Medical Equipment (Freestyle Elsa Sensor) To change every 14 days Dx: Type 2 Diabetes Mellitus. Refills: 7. Next Dose: Durable Medical Equipment (Pen Ragan, 31 G x 5 mm BD Ultra Fine III) To use with insulin administration 4 times daily. Refills: 5. Next Dose: Ibuprofen (ibuprofen 800 mg oral tablet) 1 tab(s) Oral every 8 hours. (4-6), may give 400mg per patient preference and re-dose with 400mg within 8 hours if needed. Patient should only receive a totalof 800mg of Ibuprofen every 8 hours.. Refills: 0. Next Dose: Insulin Glargine (Lantus Inj) Subcutaneous Infusion Daily. Next Dose: Metformin (metFORMIN 500 mg oral tablet) 2 Each Oral twice a day for 30 Days. Refills: 0. Next Dose: NIFEdipine (NIFEdipine 30 mg oral tablet, extended release) 1 tab(s) Oral Daily. Refills: 0. Next Dose: Polyethylene Glycol 3350 (MiraLax oral powder for reconstitution) 17 gram Oral Daily for 14 Days. dissolve in water before taking. Refills: 0. Next Dose: Simethicone (simethicone 80 mg oral tablet, chewable) 80 Milligram Chew 3 times a day as needed Gas. Refills: 0. Next Dose: Allergy Info:?? NKA Medications Given This Visit Future Orders ?No future orders Vital Signs Height 175 cm Weight 115.9 kg BMI 37.84 kg/m2 Blood Pressure 140 mm Hg/76 mm Hg Temperature Pulse Rate 95 bpm Respiratory Rate 02 Sat Mode of Delivery / You can now view a summary of your hospital visit from the comfort of your home through a free online portal called [email or web address]. [email or web address] is a website that allows you to securely view your medical information including discharge summary, medications and follow-up visits. ??You can alsosend a secure electronic message to your doctor???s office to request appointments, renew medications or just ask a question. You can enroll at [email or web address] or register during your next office visit. Disclaimer:?? The information provided is of a general nature and is intended to be used in conjunction with the recommendations and advice of your health care practitioner. ??Every effort has been made to ensure that the information provided is accurate and complete at the time it is provided to you however, as your needs change, or, as new ??information becomes available, different or additional instructions may be required. If you have questions, please consult with your primary care provider or pharmacist, as appropriate. ??This information is not intended to serve as substitution for assessment and evaluation by a qualified health care provider. If you do not have a primary care provider, you may find a [facility] provider by calling [facility] at [phone]. For information about the plan of care including goals and instructions for your diagnosis, please see the patient education orders section of this document. Patient Education Materials?? The content of this educational material or handout may have been modified, supplemented, or adapted from its original content and format to support your individualized medical care. Please follow instructions discussed with your provider during this visit as well as any education documents you were given today. Patient Care team information Care Team Related Persons Name: DANILO TURNER Address: [id number] Address: home [address] [place] [address] Name: MYRIAM DOWNEY Address: home [address] [place] [address]
--- OUTSIDE RECORDS SUMMARY | 2024-06-17 19:15 | XMS_ITS | Continuity of Care Document ---
Author Organization [facility] Address [address] [place] [address]- Care Team Providers Care Agriculture Research Director Name Role Phone Kimberly COLLADO, Nishi Primary Care Physician [phone] [place] [facility] [place]15[place] - 01/14/23 [facility] [address] [place] [address]- Attending Physician: Asim Rai Admitting Physician: Asim [...] 0 Refills, Maintenance, 10/06/22 5:21:00 EST, Tablet, [facility], Partial fill upon patient request if the prescription is for a schedule II opioid drug., 175, cm, 10/06/22... Start Date: 10/06/22 Stop Date: 11/05/22 Status: Ordered NIFEdipine 30 mg oral tablet, extended release 30 mg, 1, tablet, By Mouth, Daily, # 30 tablet, Refills 0, Tot. Refills 0, Maintenance, 10/10/22 20:37:00 EST, Route to Pharmacy Electronically, [facility], Partial fill upon patient request if the prescription is for a schedule II... Start Date: 10/10/22 Status: Ordered Pen [place], 31 G x 5 mm BD Ultra [...] Gas, 225:21:00 EST, Route to Pharmacy Electronically, [facility], Partial fill upon patient [...] preeclampsia Confirmed Active Chronic hypertension Confirmed Active Non-Guinean speaking patient - educational sign language interpreter required Confirmed Active Obese class II [...] Team Related Persons Name: DANILO TURNER Address: [address] Address: home [address] [place] [address] [place] Name: MYRIAM DOWNEY Address: home [address] [place] [address]
--- OUTSIDE RECORDS SUMMARY | 2024-06-17 19:15 | XMS_ITS | Continuity of Care Document ---
Author Organization [facility] Address [address] [place] [address]- Care Team Providers Care Area Supervisor Name Role Phone Kimberly COLLADO, Nishi Primary Care Physician [phone] [place] [facility] [place] 07/09/22 - 11/06/22 [facility] [address] [place] [address]- Attending Physician: Lacie Navas MD Admitting Physician: Lacie Navas MD Referring Physician: Nishi Harris NP Allergies, Adverse Reactions, Alerts No Known Allergies [...] 0 Refills, Maintenance, 10/06/22 5:21:00 EST, Tablet, [facility], Partial fill upon patient request if the prescription is for a schedule II opioid drug., 175, cm, 10/06/22... Start Date: 10/06/22 Stop Date: 11/05/22 Status: Ordered NIFEdipine 30 mg oral tablet, extended release 30 mg, 1, tablet, By Mouth, Daily, # 30 tablet, Refills 0, Tot. Refills 0, Maintenance, 10/10/22 20:37:00 EST, Route to Pharmacy Electronically, [facility], Partial fill upon patient request if the prescription is for a schedule II... Start Date: 10/10/22 Status: Ordered Pen [place], 31 G x 5 mm BD [...] Gas, 225:21:00 EST, Route to Pharmacy Electronically, [facility], Partial fill upon patient request if [...] preeclampsia Confirmed Active Chronic hypertension Confirmed Active Non-Egyptian speaking patient - certified court/medical interpreter required Confirmed Active Obese class II Confirmed Active Knee pain Confirmed Active Last Pap smear 04/22/22 negative with negative HPV Confirmed Active Poorly controlled type 2 diabetes mellitus with neuropathy Confirmed Active Social History Social History Type Response Smoking Status Never (less than 100 in lifetime) entered on: 03/07/22 Sex Patient Care team information Care Team Related Persons Name: DANILO TURNER Address: [address] Address: home [address] [place] [address] [place] Name: MYRIAM DOWNEY Address: [address] [place] [address]
--- OUTSIDE RECORDS SUMMARY | 2024-06-17 19:15 | XMS_ITS | Continuity of Care Document ---
Author Organization [facility] [employer] Address [address] [facility], 4t [place] [address]- Care Team Providers Care Confidential Investigator Name Role Phone Kimberly COLLADO, Nishi Primary Care Physician [phone] [id number] Date(s): 08/12/22 - 11/10/22 [facility] [employer] [facility] [address], [address] [place] [address]- Attending Physician: Nicole Roberto MD Referring Physician: [...] 0 Refills, Maintenance, 10/06/22 5:21:00 EST, Tablet, [facility], Partial fill upon patient request if the prescription is for a schedule II opioid drug., 175, cm, 10/06/22... Start Date: 10/06/22 Stop Date: 11/05/22 Status: Ordered NIFEdipine 30 mg oral tablet, extended release 30 mg, 1, tablet, By Mouth, Daily, # 30 tablet, Refills 0, Tot. Refills 0, Maintenance, 10/10/22 20:37:00 EST, Route to Pharmacy Electronically, [facility], Partial fill upon patient request if the prescription is for a schedule II... Start Date: 10/10/22 Status: Ordered Pen [place], 31 G x 5 mm BD Ultra [...] Gas, 225:21:00 EST, Route to Pharmacy Electronically, [facility], Partial fill upon patient [...] preeclampsia Confirmed Active Chronic hypertension Confirmed Active Non-Burmese speaking patient - maintenance inspector required Confirmed Active Obese class II Confirmed [...] team information Care Team Related Persons Name: ASTRID YE DANILO Address: [address] Address: home [address] [place] [address] [place] Name: MYRIAM DOWNEY Address: home [address] [place] [address]
--- OUTSIDE RECORDS SUMMARY | 2024-06-17 19:15 | XMS_ITS | Continuity of Care Document ---
Author Organization [facility] [facility] Address [address] [place] [address], 4t [place] [address]- Care Team Providers Care Straight Edger Name Role Phone Kimberly PENS AND PENCILS REPAIRER, Nishi Primary Care Physician [facility] [id number] Date(s): 10/10/22 - 10/17/22 [facility] [employer] [facility] [address] [facility], 4th [place] [address]- Attending Physician: Cristaino WAGNER [OB], Priscilla Elliott Referring Physician: Shasha Escobedo MD Allergies, Adverse [...] 0 Refills, Maintenance, 10/06/22 5:21:00 EST, Tablet, [facility], Partial fill upon patient request if the prescription is for a schedule II opioid drug., 175, cm, 10/06/22... Start Date: 10/06/22 Stop Date: 11/05/22 Status: Ordered MiraLax oral powder for reconstitution = 17 Gm, By Mouth, Daily, for 14 days, dissolve in water before taking, # 255 Gm, 0 Refills, Acute 10/26/22 11:16:00 EST, 10/12/22 11:16:00 EST, REC Powder, [facility]/pharmacy #[id number], Partial fill upon patient request if the prescription is for a schedule II... Start Date: 10/12/22 Stop Date: 10/26/22 Status: Ordered NIFEdipine 30 mg oral tablet, extended release 30 mg, 1, tablet, By Mouth, Daily, # 30 tablet, Refills 0, Tot. Refills 0, Maintenance, 10/10/22 20:37:00 EST, Route to Pharmacy Electronically, [facility], Partial fill upon patient request if the prescription is for a schedule II... Start Date: 10/10/22 Status: Ordered Pen [place], 31 G x 5 mm BD Ultra [...] Gas, :21:00 EST, Route to Pharmacy Electronically, [facility], Partial fill upon patient request if the prescription is for a schedule... Start Date: 10/06/22 Status: Ordered Problem List Condition Confirmation Course Effective Dates Status Health St atus Informant Anemia Confirmed Active Anxiety Confirmed Active Back pain Confirmed Active Breech presentation Confirmed Active Separation of wound with drainage, Confirmed Active Chest pain Confirmed Active Constipation Confirmed Active History of section Confirmed Active History of depression Confirmed Active Hx of preeclampsia, prior , currently Confirmed Active Chronic hypertension Confirmed Active Uses Welsh as primary spoken language Confirmed Active AMA (advanced maternal age) multigravida 35+ Confirmed Active Obese class II Confirmed Active Knee pain Confirmed Active Preeclampsia Confirmed Active Poorly controlled type 2 diabetes mellitus with neuropathy Confirmed Active Vital Signs Most recent to oldest [Reference Range]: 1 2 Height 175 cm (10/10/22 2:50 PM) 175 cm (10/10/22 2:07 PM) Weight 121.63 kg (10/10/22 2:07 PM) Body Mass Index [18.5-24.99 kg/m2] 39.72 kg/m2 *>HHI* (10/10/22 2:07 PM) Blood Pressure [90-138/55-84 mm Hg] 164/ 69mm Hg *H* (10/10/22 2:50 PM) 159/70mm Hg *H* (10/10/22 2:07 PM) Blood pressure sites Arm, right (10/10/22 2:50 PM) Arm, right (10/10/22 2:07 PM) Weight Obtained Via Standing scale (10/10/22 2:07 PM) Social History Social History Type Response Smoking Status Never (less than 100 in lifetime) entered on: 03/07/22 Sex Patient Care team information Care Team Related Persons Name: ASTRID YE DANILO Address: [address] Address: home [address] [place] [address] [place] Name: MYRIAM DOWNEY Address: [address] [place] [address]
--- OUTSIDE RECORDS SUMMARY | 2024-06-17 19:15 | XMS_ITS | Continuity of Care Document ---
Author Organization [facility] Address [address] [address] [facility], [address] [place] [address]- Care Team Providers Care Environmental Health Technician Name Role Phone Kimberly COLLADO, Nishi Primary Care Physician [id number] Date(s): 06/08/22 - 06/15/22 [facility] [address] [facility] [address] [facility], [address] [place], [place] [address] Attending Physician: Cora WAGNER, Gabbie [place] Allergies, Adverse Reactions, Alerts No Known Allergies Medications aspirin 81 mg oral delayed release tablet 162 mg, 2, tablet, By Mouth, Daily, # 60 tablet, Refills 5, Tot. Refills 5, Maintenance, 03/14/22 10:02:00 EDT, Route to Pharmacy Electronically, [facility], Partial fill upon patient request if the prescription is for a schedule I... Start Date: 03/14/22 Status: Ordered ferrous sulfate 325 mg oral enteric coated tablet 325 mg, 1, tablet, By Mouth, Every other day, # 60 tablet, Refills 4, Tot. Refills 4, Maintenance, 04/22/22 15:38:00 EDT, Route to Pharmacy Electronically, [facility], please print label in bahraini, 175, cm, 04/22/22 15:13:00 EDT,... Start Date: [...] mL, 5 Refills, Maintenance, 03/28/22 13:34:00 EDT, [facility], Partial fill upon patient request [...] Acute 06/20/22 23:44:00 EDT, 06/13/22 23:44:00 EDT, [facility], Partial fill upon patient request if the prescription is for a schedule II opioid drug... Start Date: 06/13/22 Stop Date: 06/20/22 Status: Ordered NovoLOG FlexPen 100 units/mL injectable solution See Instructions, Subcutaneous Injection 3 times a day before meals 35 U TID DX E11.9, # 30 mL, 6 Refills, Maintenance, 06/02/22 15:00:00 EDT, [facility], Partial fill upon patient request if the prescription is for a sched... Start Date: 06/02/22 Status: Ordered Pen [place], 31 G x 5 mm BD Ultra [...] currently (Confirmed) Active Chronic hypertension(Confirmed) Active Uses Icelandic as primary spok en language(Confirmed) Active AMA (advanced maternal age) multigravida 35+(Confirmed) Active Knee pain(Confirmed) Active Severe obesity(Confirmed) Active Poorly controlled type 2 alejandro betes mellitus with neuropathy(Confirmed) Active Social History Social History Type Response Smoking Status Never (less than 100 in lifetime) entered on: 03/07/22 Sex
--- OUTSIDE RECORDS SUMMARY | 2024-06-17 19:15 | XMS_ITS | Continuity of Care Document ---
Author Organization [facility] Address [address] [place] [address], [address]t [place] [address]- Care Team Providers Care Fire Marshal Name Role Phone Kimberly COLLADO, Nishi Primary Care Physician [facility] [id number] Date(s): 10/11/22 - 11/11/22 [facility] [address] [facility], [address] [place] [address]- Attending Physician: Pardeep WAGNER, Nicole [place] Referring Physician: Nishi Harris NP Allergies, Adverse [...] 0 Refills, Maintenance, 10/06/22 5:21:00 EST, Tablet, [facility], Partial fill upon patient request if the prescription is for a schedule II opioid drug., 175, cm, 10/06/22... Start Date: 10/06/22 Stop Date: 11/05/22 Status: Ordered NIFEdipine 30 mg oral tablet, extended release 30 mg, 1, tablet, By Mouth, Daily, # 30 tablet, Refills 0, Tot. Refills 0, Maintenance, 10/10/22 20:37:00 EST, Route to Pharmacy Electronically, [facility], Partial fill upon patient request if the prescription is for a schedule II... Start Date: 10/10/22 Status: Ordered Pen [place], 31 G x 5 mm BD Ultra [...] Gas, :21:00 EST, Route to Pharmacy Electronically, [facility], Partial fill upon patient request [...] hypertension Confirmed Active Non-Indonesian speaking patient - contract negotiation specialist required Confirmed Active Obese class II Confirmed [...] Related Persons Name: ASTRID YE DANILO Address: [address] Address: [address] [place] [address] [place] Name: MYRIAM DOWNEY Address: [address] [place] [address]
--- OUTSIDE RECORDS SUMMARY | 2024-06-17 19:15 | XMS_ITS | Continuity of Care Document ---
Author Organization [facility] Federico ferreiras Address [address] [facility], 4t [place] [address]- Care Team Providers Care Bag Cutter Name Role Phone Kimberly COLLADO, Nishi Primary Care Physician [id number] Date(s[facility] 09/12/22 - 09/19/22 [facility] Federico Diallos [address] [facility], 4th [place] [address]- Attending Physician: Nicole Roberto MD Referring Physician: [...] Acute11/19/22 0:00:00 EST, 07/29/22 11:31:00 EDT, Tablet, [facility], please print label in Rwandan, 175, cm, 07/29/22 11:09:00 EDT, Hei... Start Date: 07/29/22 Stop Date: 11/19/22 Status: Ordered aspirin 81 mg oral delayed release tablet 162 mg, 2, tablet, By Mouth, Daily, # 60 tablet, Refills 5, Tot. Refills 5, Maintenance, 03/14/22 10:02:00 EDT, Route to Pharmacy Electronically, [facility], Partial fill upon patient request if the prescription is for a schedule I... Start Date: 03/14/22 Status: Ordered ferrous sulfate 325 mg oral enteric coated tablet 325 mg, 1, tablet, By Mouth, Every other day, # 60 tablet, Refills 4, Tot. Refills 4, Maintenance, 04/22/22 15:38:00 EDT, Route to Pharmacy Electronically, [facility], please print label in welsh, 175, cm, 04/22/22 15:13:00 EDT,... Start Date: [...] 0 Refills, Maintenance, 09/19/22 16:31:00 EDT, Injection, [facility], Partial fill upon patien... Start Date: 09/19/22 Status: Ordered Lantus Solostar Pen 100 units/mL subcutaneous solution See Instructions, 60 units Subcutaneous Injection in AM and 66 units subcutaneous injecion in PM, #10 mL, 4 Refills, Maintenance, 09/01/22 10:41:00 EDT, [facility], Partial fill upon patient request if the prescription is for a s... Start Date: 09/01/22 Status: Ordered Pen [place], 31 G x 5 mm BD Ultra [...] Confirmed Active Chronic hypertension Confirmed Active Uses Rwandan as primary spoken language Confirmed Active AMA (advanced maternal age) multigravida 35+ Confirmed Active Knee pain Confirmed Active Severe obesity Confirmed Active Social History Social History Type Response Smoking Status Never (less than 100 in lifetime) entered on: 03/07/22 Sex Patient Care team information Personnel Name: Nishi Harris NP Address: Address: [address] [place] [address]
--- OUTSIDE RECORDS SUMMARY | 2024-06-17 19:15 | XMS_ITS | Continuity of Care Document ---
Author Organization [facility] Maria D bowieLocalCircles [facility] Address [address] [place] [address], [address] [place] [address]- Care Team Providers Care Administrative Services Specialist Name Role Phone Kimberly COLLADO, Nishi Primary [id number] Date(s[facility] - 07/15/22 [facility] [employer] [facility] [address] [facility], [address] [place], [place] [address] Allergies, Adverse Reactions, Alerts No Known Allergies Medications aspirin 81 mg oral delayed release tablet 162 mg, 2, tablet, By Mouth, Daily, # 60 tablet, Refills 5, Tot. Refills 5, Maintenance, 03/14/22 10:02:00 EDT, Route to Pharmacy Electronically, [facility], Partial fill upon patient request if the prescription is for a schedule I... Start Date: 03/14/22 Status: Ordered ferrous sulfate 325 mg oral enteric coated tablet 325 mg, 1, tablet, By Mouth, Every other day, # 60 tablet, Refills 4, Tot. Refills 4, Maintenance, 04/22/22 15:38:00 EDT, Route to Pharmacy Electronically, [facility], please print label in armenian, 175, cm, 04/22/22 15:13:00 EDT,... Start Date: [...] Injection, 2 times a day, PLACE IN CHINESE, # 50 mL, 4 Refills, Maintenance,06/22/22 15:53:00 EDT, [facility], Partial fill upon patient request [...] mL, 6 Refills, Maintenance, 06/22/22 15:54:00 EDT, [facility], Partial fill upon patient request if the prescription is for a schedule II opioid drug., 175, cm,... Start Date: 06/22/22 Status: Ordered Pen [place], 31 G x [...] currently (Confirmed) Active Chronic hypertension(Confirmed) Active Uses Finnish as primary spok en language(Confirmed) Active AMA (advanced maternal age) multigravida 35+(Confirmed) Active Obese class II(Confirmed) Active Knee pain(Confirmed) Active Poorly controlled type 2 alejandro betes mellitus with neuropathy(Confirmed) Active Social History Social History Type Response Smoking Status Never (less than 100 in lifetime) entered on: 03/07/22 Sex Care Team Personnel Name: Nishi Harris NP Address: [address] [place] [address]
--- OUTSIDE RECORDS SUMMARY | 2024-06-17 19:15 | XMS_ITS | Continuity of Care Document ---
Author Organization [facility] Address [address] [place] [address]- Care Team Providers Care Mechanical Systems Design Engineer Name Role Phone Kimberly COLLADO, Nishi Primary Care Physician [phone] Encounter [facility] Date(s): 12/28/21 - 02/24/22 [facility] [address] [place] [address]- Attending Physician: Bev Avery MD Referring Physician: Azeb Bonds NP
--- OUTSIDE RECORDS SUMMARY | 2024-06-17 19:15 | XMS_ITS | Continuity of Care Document ---
Author Organization [facility] Address [address] [place] [address]- Care Team Providers Care Orthopedic Physician Assistant Name Role Phone Kimberly COLLADO, Nishi Primary Care Physician Encounter [facility] Date(s): 04/07/22 - 05/07/22 [facility] [address] [place] [address] Allergies, Adverse Reactions, Alerts No Known Allergies Medications aspirin 81 mg oral delayed release tablet 162 mg, 2, tablet, By Mouth, Daily, # 60 tablet, Refills 5, Tot. Refills 5, Maintenance, 03/14/22 10:02:00 EDT, Route to Pharmacy Electronically, [facility], Partial fill upon patient request if the prescription is for a schedule I... Start Date: 03/14/22 Status: Ordered doxylamine 25 mg oral tablet 1 tablet = 25 mg, By Mouth, Daily at bedtime, PRN Nausea & Vomiting, # 30 tablet, 1 Refills, Acute 05/29/22 23:07:00 EDT, 03/29/22 23:06:00 EDT, Tablet, [facility], Partial fill upon patient request if the prescription is for a naseem... Start Date: 03/29/22 Stop Date: 05/29/22 Status: Ordered ferrous sulfate 325 mg oral enteric coated tablet 325 mg, 1, tablet, By Mouth, Every other day, # 60 tablet, Refills 4, Tot. Refills 4, Maintenance, 04/22/22 15:38:00 EDT, Route to Pharmacy Electronically, [facility], please print label in icelandic, 175, cm, 04/22/22 15:13:00 EDT,... Start Date: [...] mL, 5 Refills, Maintenance, 03/28/22 13:34:00 EDT, [facility], Partial fill upon patient [...] mL, 6 Refills, Maintenance, 04/07/22 16:35:00 EDT, [facility], Partial fill upon patient request if the prescription is for a sched... Start Date: 04/07/22 Status: Ordered Pen [place], 31 G x 5 mm BD Ultra [...] 05/29/22 23:08:00 EDT, 03/29/22 23:06:00 EDT, Tablet, [facility], Partial fill upon patient requestif the [...] currently (Confirmed) Active Chronic hypertension(Confirmed) Active Uses Tajik as primary spok en language(Confirmed) Active AMA (advanced maternal age) multigravida 35+(Confirmed) Active Knee pain(Confirmed) Active Severe obesity(Confirmed) Active Poorly controlled type 2 alejandro betes mellitus with neuropathy(Confirmed) Active Social History Social History Type Response Smoking Status Never (less than 100 in lifetime) entered on: 03/07/22 Sex
--- OUTSIDE RECORDS SUMMARY | 2024-06-17 19:15 | XMS_ITS | Continuity of Care Document ---
Author Organization [facility] Address [address] [place] [address], [address] [place] [address]- Care Team Providers Care Coal Chute Worker Name Role Phone Kimberly COLLADO, Nishi Primary Care Physician [facility] [id number] Date(s): 09/22/22 - 09/29/22 [facility] [address] [facility], [address] [place], [place] [address] Attending Physician: Gabbie Shepherd MD Allergies, Adverse Reactions, [...] Acute11/19/22 0:00:00 EST, 07/29/22 11:31:00 EDT, Tablet, [facility], please print label in German, 175, cm, 07/29/22 11:09:00 EDT, Brucei... Start Date: 07/29/22 Stop Date: 11/19/22 Status: Ordered aspirin 81 mg oral delayed release tablet 162 mg, 2, tablet, By Mouth, Daily, # 60 tablet, Refills 5, Tot. Refills 5, Maintenance, 03/14/22 10:02:00 EDT, Route to Pharmacy Electronically, [facility], Partial fill upon patient request if the prescription is for a schedule I... Start Date: 03/14/22 Status: Ordered ferrous sulfate 325 mg oral enteric coated tablet 325 mg, 1, tablet, By Mouth, Every other day, # 60 tablet, Refills 4, Tot. Refills 4, Maintenance, 04/22/22 15:38:00 EDT, Route to Pharmacy Electronically, [facility], please print label in yi, 175, cm, 04/22/22 15:13:00 EDT,... Start Date: [...] 0 Refills, Maintenance, 09/19/22 16:31:00 EDT, Injection, [facility], Partial fill upon patien... Start Date: 09/19/22 Status: Ordered Lantus Solostar Pen 100 units/mL subcutaneous solution See Instructions, 60 units Subcutaneous Injection in AM and 66 units subcutaneous injecion in PM, #10 mL, 4 Refills, Maintenance, 09/01/22 10:41:00 EDT, [facility], Partial fill upon patient request if the prescription is for a s... Start Date: 09/01/22 Status: Ordered Pen [place], 31 G x 5 mm BD Ultra [...] Confirmed Active Chronic hypertension Confirmed Active Uses German as primary spoken language Confirmed Active AMA (advanced maternal age) multigravida 35+ Confirmed Active Knee pain Confirmed Active Severe obesity Confirmed Active Poorly controlled type 2 diabetes mellitus with neuropathy Confirmed Active Social History Social History Type Response Smoking Status Never (less than 100 in lifetime) entered on: 03/07/22 Sex Note * Event Display: PDC Biophysical Profile * Event Display: PDC Biophysical Profile Authored Date: [id number] OBSTETRICS REPORT PATIENT INFO: CMRN: [id number] BMRN: [id number] : [birth year] (37 yrs)(F) Name: ANNMARIE RESENDIZ Visit Date: 09/22/2022 09:56 am YE PERFORMED BY: Performed By: Raine Brand RDMS Attending: Crescencio Aguirre MD Referred By: Shasha Escobedo MD Location: [address] INDICATIONS: Diabetes E11.9 M - BMI O99.21_ E66.01 Breech O32.1 VITAL SIGNS: Height: 5'7 EVALUATION: Num Of Fetuses: 1 Cardiac Activity: 115-162 bpm Presentation: Cephalic Placenta: Anterior Amniotic Fluid HOLLI FV: Within normal limits HOLLI Sum(cm) Largest Pocket(cm) 8.5 2.7 RUQ(cm) RLQ(cm) LUQ(cm) LLQ(cm) 1.9 1.6 2.3 2.7 BIOPHYSICAL EVALUATION: Amniotic F.V: Within normal limits F. Tone: Observed F. Movement: Observed Score: 06/27 F. Breathing: Observed BIOMETRY: BPD: 88.2 mm G.Age: 35w 5d 58 % HC: 316.9 mm G.Age: 35w 4d 20 % AC: 336.5 mm G.Age: 37w 4d 96 % FL: 69.2 mm G.Age: 35w 4d 42 % CI: 77.61 % 70 - 86 FL/HC: 21.8 % 20.1 - 22.1 HC/AC: 0.94 0.93 - 1.11 FL/BPD: 78.5 % 71 - 87 FL/AC: 20.6 % 20 - 24 Est. FW: 2989 gm 6 lb 9 oz 78 % OB HISTORY: Blood Type: A+ : 3 Term: 1 Ectopic: 1 Livin GESTATIONAL AGE: LMP: 35w 4d Date: 01/16/22 SERA: 10/23/22 U/S Today: 36w 1d SERA: 10/19/22 Best: 35w 4d Det. By: LMP (01/16/22) SERA: 10/23/22 CERVIX UTERUS ADNEXA: Cervix Not well seen COMMENTS: The exam was limited due to maternal habitus. biometry as noted above. The fetus is cephalic. BPP=06/27 Crescencio Aguirre MD Electronically Signed Final Report 09/22/2022 10:42 am * Event Display: PDC Biophysical Profile Authored Date: Please click on pdf link to open report Patient Care team information Care Team Related Persons Name: MYRIAM DOWNEY Address: [address] [address]
--- OUTSIDE RECORDS SUMMARY | 2024-06-17 19:15 | XMS_ITS | Continuity of Care Document ---
Author Organization [facility] Maria D bowieMy Damn Channel[facility] Address [address] [facility], [address] [place] [address]- Care Team Providers Care Chief Operator Synthesis Name Role Phone Kimberly COLLADO, Nishi Primary Care Physician [id number] Date(s): 04/27/22 - 08/07/22 [facility] Federicosoni Angel[employer] [facility] [address] [facility], [address] [place], [place] [address] Attending Physician: Cora WAGNER, Gabbie Hatfield Allergies, Adverse Reactions, Alerts No Known Allergies Immunizations Given and Recorded Vaccine Date Status Refusal Reason tetanus/diphtheria/pertussis, acel(Tdap) 07/29/22 Given Medications acetaminophen 500 mg oral tablet 2 tablet = 1,000 mg, By Mouth, Every 6 hours, PRN as needed for pain, # 50 tablet, 0 Refills, Acute11/19/22 0:00:00 EST, 07/29/22 11:31:00 EDT, Tablet, [facility], please print label in Citizen Of Sey[place], 175, cm, 07/29/22 11:09:00 EDT, Brucei... Start Date: 07/29/22 Stop Date: 11/19/22 Status: Ordered aspirin 81 mg oral delayed release tablet 162 mg, 2, tablet, By Mouth, Daily, # 60 tablet, Refills 5, Tot. Refills 5, Maintenance, 03/14/22 10:02:00 EDT, Route to Pharmacy Electronically, [facility], Partial fill upon patient request if the prescription is for a schedule I... Start Date: 03/14/22 Status: Ordered ferrous sulfate 325 mg oral enteric coated tablet 325 mg, 1, tablet, By Mouth, Every other day, # 60 tablet, Refills 4, Tot. Refills 4, Maintenance, 04/22/22 15:38:00 EDT, Route to Pharmacy Electronically, [facility], please print label in frisian, 175, cm, 04/22/22 15:13:00 EDT,... Start Date: [...] Injection, 2 times a day, PLACE IN SLOVENIAN, # 50 mL, 4 Refills, Maintenance,06/22/22 15:53:00 EDT, [facility], Partial fill upon patient request if the prescription is for a schedule II opioid drug., 175, cm... Start Date: 06/22/22 Status: Ordered Metformin By Mouth, 0 Refills, Maintenance, 03/29/22 17:16:00 EDT, Partial fill upon patient request if the prescription is for a schedule II opioid drug. Start Date: 03/29/22 Status: Ordered metFORMIN 1000 mg oral tablet 1 tablet = 1,000 mg, By Mouth, 2 times a day before breakfast and dinne, # 60 tablet, 11 Refills, Maintenance, 08/04/22 11:44:00 EDT, Tablet, [facility], Partial fill upon patientrequest if the prescription is for a schedule II op... Start Date: 08/04/22 Status: Ordered NovoLOG FlexPen 100 units/mL injectable solution See Instructions, 40 U SQ INJECTION TID BEFORE MEALS DX E11.9, # 30 mL, 6 Refills, Maintenance, 06/22/22 15:54:00 EDT, [facility], Partial fill upon patient request if the prescription is for a schedule II opioid drug., 175, cm,... 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
--- OUTSIDE RECORDS SUMMARY | 2024-06-17 19:15 | XMS_ITS | Continuity of Care Document ---
Author Organization [facility] Maria D [employer] [facility] Address [address] [place] [address], [address] [place] [address]- Care Team Providers Care Microbiological Laboratory Technician Name Role Phone Kimberly COLLADO, Nishi Primary Care Physician [phone] [facility] [id number] Date(s): 08/25/22 - 09/01/22 [facility] [employer] [facility] [address] [facility], 4th Floor [place], [place] [address] Attending Physician: Cora WAGNER, Gabbie Hatfield Allergies, Adverse Reactions, Alerts No Known Allergies Immunizations Given and Recorded Vaccine Date Status Refusal Reason tetanus/diphtheria/pertussis, acel(Tdap) 07/29/22 Given Medications acetaminophen 500 mg oral tablet 2 tablet = 1,000 mg, By Mouth, Every 6 hours, PRN as needed for pain, # 50 tablet, 0 Refills, Acute11/19/22 0:00:00 EST, 07/29/22 11:31:00 EDT, Tablet, [facility], please print label in [place] Virgin Islander, 175, cm, 07/29/22 11:09:00 EDT, Brucei... Start Date: 07/29/22 Stop Date: 11/19/22 Status: Ordered aspirin 81 mg oral delayed release tablet 162 mg, 2, tablet, By Mouth, Daily, # 60 tablet, Refills 5, Tot. Refills 5, Maintenance, 03/14/22 10:02:00 EDT, Route to Pharmacy Electronically, [facility], Partial fill upon patient request if the prescription is for a schedule I... Start Date: 03/14/22 Status: Ordered ferrous sulfate 325 mg oral enteric coated tablet 325 mg, 1, tablet, By Mouth, Every other day, # 60 tablet, Refills 4, Tot. Refills 4, Maintenance, 04/22/22 15:38:00 EDT, Route to Pharmacy Electronically, [facility], please print label in turkish, 175, cm, 04/22/22 15:13:00 EDT,... Start Date: [...] mL, 4 Refills, Maintenance, 09/01/22 10:41:00 EDT, [facility], Partial fill upon patient request if the prescription is for a s... Start Date: 09/01/22 Status: Ordered NovoLOG FlexPen 100 units/mL injectable solution See Instructions, 44 U SQ INJECTION TID BEFORE MEALS DX E11.9, # 30 mL, 6 Refills, Maintenance, 08/25/22 11:43:00 EDT, [facility], Partial fill upon patient request if the prescription is for a schedule II opioid drug., 175, cm,... Start Date: 08/25/22 Status: Ordered Pen [place], 31 G x 5 mm BD Ultra [...] Confirmed Active Chronic hypertension Confirmed Active Uses [place] Islander as primary spoken language Confirmed Active AMA (advanced maternal age) multigravida 35+ Confirmed Active Knee pain Confirmed Active Severe obesity Confirmed Active Poorly controlled type 2 diabetes mellitus with neuropathy Confirmed Active Social History Social History Type Response Smoking Status Never (less than 100 in lifetime) entered on: 03/07/22 Sex Patient Care team information Personnel Name: Nishi Harris NP Address: Address: [address] [place] [id number]
--- OUTSIDE RECORDS SUMMARY | 2024-06-17 19:15 | XMS_ITS | Continuity of Care Document ---
Author Organization [facility] Federico ferreiras Address [address] [place] [address], [address] [place] [address]- Care Team Providers Care Vegetable Sorter Name Role Phone Kimberly COLLADO, Nishi Primary Care Physician [id number] Date(s): 07/16[facility]22 - 11/13/22 [facility] [employer] [facility] [address] [facility], [address] [place] [address]- Attending Physician: Gabbie Shepherd MD Allergies, Adverse [...] 0 Refills, Maintenance, 10/06/22 5:21:00 EST, Tablet, [facility], Partial fill upon patient request if the prescription is for a schedule II opioid drug., 175, cm, 10/06/22... Start Date: 10/06/22 Stop Date: 11/05/22 Status: Ordered NIFEdipine 30 mg oral tablet, extended release 30 mg, 1, tablet, By Mouth, Daily, # 30 tablet, Refills 0, Tot. Refills 0, Maintenance, 10/10/22 20:37:00 EST, Route to Pharmacy Electronically, [facility], Partial fill upon patient request if the prescription is for a schedule II... Start Date: 10/10/22 Status: Ordered Pen [place], 31 G x 5 mm BD Ultra [...] Gas, 225:21:00 EST, [facility], [facility] [...] preeclampsia Confirmed Active Chronic hypertension Confirmed Active Non-Moldovan speaking patient - transmission line engineer required Confirmed Active Obese class II Confirmed [...] Team Related Persons Name: DANILO TURNER Address: [address] Address: [address] [place] [address] [place] Name: MYRIAM DOWNEY Address: [address] [place] [address]
--- OUTSIDE RECORDS SUMMARY | 2024-06-17 19:16 | XMS_ITS | Continuity of Care Document ---
Author Organization [facility] [employer] Address [address] [place] [address], [address] [place] [address]- Care Team Providers Care Supervisor Cytogenetic Laboratory Name Role Phone Kimberly COLLADO, Nishi Primary [facility] Phys[id number] Date(s): 09/19/22 - 10/19/22 [facility] Federicosoni [employer] [facility] [address] [facility], [address]th [place] [address]- Allergies, Adverse Reactions, Alerts No Known Allergies [...] 0 Refills, Maintenance, 10/06/22 5:21:00 EST, Tablet, [facility], Partial fill upon patient request if the prescription is for a schedule II opioid drug., 175, cm, 10/06/22... Start Date: 10/06/22 Stop Date: 11/05/22 Status: Ordered MiraLax oral powder for reconstitution = 17 Gm, By Mouth, Daily, for 14 days, dissolve in water before taking, # 255 Gm, 0 Refills, Acute 10/26/22 11:16:00 EST, 10/12/22 11:16:00 EST, REC Powder, [id number], Partial fill upon patient request if the prescription is for a schedule II... Start Date: 10/12/22 Stop Date: 10/26/22 Status: Ordered NIFEdipine 30 mg oral tablet, extended release 30 mg, 1, tablet, By Mouth, Daily, # 30 tablet, Refills 0, Tot. Refills 0, Maintenance, 10/10/22 20:37:00 EST, Route to Pharmacy Electronically, [facility], Partial fill upon patient request if the prescription is for a schedule II... Start Date: 10/10/22 Status: Ordered Pen [place], 31 G x 5 mm BD Ultra [...] Gas, :21:00 EST, Route to Pharmacy Electronically, [facility], Partial fill upon patient request [...] preeclampsia Confirmed Active Chronic hypertension Confirmed Active Non-Latvian speaking patient - tumbler operator required Confirmed Active Obese class II Confirmed Active Knee pain Confirmed Active Last Pap smear 04/22/22 negative with negative HPV Confirmed Active Poorly controlled type 2 diabetes mellitus with neuropathy Confirmed Active Social History Social History Type Response Smoking Status Never (less than 100 in lifetime) entered on: 03/07/22 Sex Patient Care team information Care Team Related Persons Name: DANILO TURNER Address: [address] Address: [address] [place] [address] [place] Name: MYRIAM DOWNEY Address: [address] [place] [address]
--- OUTSIDE RECORDS SUMMARY | 2024-06-17 19:16 | XMS_ITS | Continuity of Care Document ---
Author Organization [facility] ter Address [address] [place] [address]- Care Team Providers Care Direct Entry Midwife Name Role Phone Kimberly COLLADO, Nishi Primary Care Physician Encounter [facility] Date(s): 08/29/22 - 08/29/[address] [address] Discharge Disposition: A-D/C Home Attending Physician: Shasha Escobedo MD Admitting Physician: Shasha Escobedo MD Referring Physician: Shasha Escobedo MD Allergies, Adverse Reactions, Alerts No Known Allergies Immunizations Given and Recorded Vaccine Date Status Refusal Reason tetanus/diphtheria/pertussis, acel(Tdap) 07/29/22 Given Medications acetaminophen 500 mg oral tablet 2 tablet = 1,000 mg, By Mouth, Every 6 hours, PRN as needed for pain, # 50 tablet, 0 Refills, Acute11/19/22 0:00:00 EST, 07/29/22 11:31:00 EDT, Tablet, [facility], please print label in Cymraes, 175, cm, 07/29/22 11:09:00 EDT, Brucei... Start Date: 07/29/22 Stop Date: 11/19/22 Status: Ordered aspirin 81 mg oral delayed release tablet 162 mg, 2, tablet, By Mouth, Daily, # 60 tablet, Refills 5, Tot. Refills 5, Maintenance, 03/14/22 10:02:00 EDT, Route to Pharmacy Electronically, [facility], Partial fill upon patient request if the prescription is for a schedule I... Start Date: 03/14/22 Status: Ordered ferrous sulfate 325 mg oral enteric coated tablet 325 mg, 1, tablet, By Mouth, Every other day, # 60 tablet, Refills 4, Tot. Refills 4, Maintenance, 04/22/22 15:38:00 EDT, Route to Pharmacy Electronically, [facility], please print label in slovak, 175, cm, 04/22/22 15:13:00 EDT,... Start Date: [...] Lantus Solostar Pen 100 units/mL subcutaneous solution 55 untis, Subcutaneous Injection, 2 times a day, PLACE IN [place], # 15 mL, 4 Refills, Maintenance,08/25/22 11:43:00 EDT, [facility], Partial fill upon patient request if the prescription is for a schedule II opioid drug., 175, cm... Start Date: 08/25/22 Stop Date: 01/22/23 Status: Ordered NovoLOG FlexPen 100 units/mL injectable solution See Instructions, 44 U SQ INJECTION TID BEFORE MEALS DX E11.9, # 30 mL, 6 Refills, Maintenance, 08/25/22 11:43:00 EDT, [facility], Partial fill upon patient request if the prescription is for a schedule II opioid drug., 175, cm,... Start Date: 08/25/22 Status: Ordered Pen [place], 31 G x 5 mm BD Ultra [...] Confirmed Active Chronic hypertension Confirmed Active Uses Cymraes as primary spoken language Confirmed Active AMA (advanced maternal age) multigravida 35+ Confirmed Active Knee pain Confirmed Active Severe obesity Confirmed Active Poorly controlled type 2 diabetes mellitus with neuropathy Confirmed Active Vital Signs Most recent to oldest [Reference Range]: 1 Oxygen Saturation [94-100 %] 99 % (08/29/22 9:50 AM) Blood Pressure [90-138/55-84 mm Hg] 124/ 85mm Hg (08/29/22 9:50 AM) Respiratory Rate [16-30 br/min] 18 br/mi n (08/29/22 9:50 AM) Blood pressure sites Arm, right (08/29/22 9:50 AM) Social History Social History Type Response Smoking Status Never (less than 100 in lifetime) entered on: 03/07/22 Sex Patient Care team information Personnel Name: Nishi Harris NP Address: Address: [address] [place] [id number]
--- OUTSIDE RECORDS SUMMARY | 2024-06-17 19:16 | XMS_ITS | Continuity of Care Document ---
Author Organization [facility] ter Address [address] [place] [address]- Care Team Providers Care Hot Strip Finisher Name Role Phone Kimberly COLLADO, Nishi Primary Care Physician Encounter [facility] [place] Date(s): 10/26/22 - 10/26/[address] [address]- Discharge Disposition: A-D/C Home Attending Physician: Nicole Roberto MD Admitting Physician: Nicole Roberto MD Referring Physician: Nicole Roberto MD Allergies, Adverse Reactions, Alerts No Known [...] 0 Refills, Maintenance, 10/06/22 5:21:00 EST, Tablet, [facility], Partial fill upon patient request if the prescription is for a schedule II opioid drug., 175, cm, 10/06/22... Start Date: 10/06/22 Stop Date: 11/05/22 Status: Ordered NIFEdipine 30 mg oral tablet, extended release 30 mg, 1, tablet, By Mouth, Daily, # 30 tablet, Refills 0, Tot. Refills 0, Maintenance, 10/10/22 20:37:00 EST, Route to Pharmacy Electronically, [facility], Partial fill upon patient request if the prescription is for a schedule II... Start Date: 10/10/22 Status: Ordered Pen Mertens, 31 G x 5 mm BD Ultra [...] Gas, 225:21:00 EST, Route to Pharmacy Electronically, [facility], Partial fill upon patient [...] preeclampsia Confirmed Active Chronic hypertension Confirmed Active Non-Syrian speaking patient - spanish interpreter/translator required Confirmed Active Obese class II Confirmed Active Knee pain Confirmed Active Last Pap smear 04/22/22 negative with negative HPV Confirmed Active Poorly controlled type 2 diabetes mellitus with neuropathy Confirmed Active Vital Signs Most recent to oldest [Reference Range]: 1 Height 175 cm (10/26/22 12:14 PM) Weight 119.8 kg (10/26/22 11:17 AM) Oxygen Saturation [94-100 %] 98 % (10/26/22 11:17 AM) Pulse Rate [55-90 bpm] 95 bpm *H* (10/26/22 11:17 AM) Blood Pressure [90-138/55-84 mm Hg] 118/ 74mm Hg (10/26/22 11:17 AM) Respiratory Rate [16-30 br/min] 18 br/mi n (10/26/22 11:17 AM) Temperature [96.8-100.4 DegF] 98.4 DegF (10/26/22 11:17 AM) Blood pressure sites Arm, right (10/26/22 11:17 AM) Temperature Route Oral (10/26/22 11:17 AM) Weight Obtained Via Standing scale (10/26/22 11:17 AM) Social History Social History Type Response Smoking Status Never (less than 100 in lifetime) entered on: 03/07/22 Sex Note * Nataly Luo V: PERFORM Event Display: Discharge/Transfer Note Hospital Authored Date: [id number] Nursing Discharge Note Entered On: 10/26/2022 12:35 EST Performed On: 10/26/2022 12:35 EST by Nataly Luo V Nursing Discharge Note 2 Discharge Time : 10/26/2022 12:35 EST Discharge Level of Care at Discharge : Home/Snf/Foster Care Patient Left Unit Via : Ambulatory Patient Accompanied Off Unit with : Significant other DC Instructions Provided & Signed by Pt : Yes Patient Understands D/C Instructions : Yes Patient Instructions Discharge Signed : Yes Did Pt have Specialty Bed or Wound Vac : No Nataly Luo V - 10/26/2022 12:35 EST * Nataly Luo V: PERFORM Event Display: Patient Education/Instruction Authored Date: [id number] Inpatient Adult Discharge Instructions [address] [address] Name: ANNMARIE YE : 1985 Visit: 10/26/2022 10:10:00 Current Date: 10/26/2022 12:28 Account: [id number] Inpatient Adult Discharge Instructions We would like [...] and their families. Surveys are administered by [employer] ?? If further treatment with your primary care physician or another doctor is recommended, it is important for you to keep the appointment. Call your primary care physician or return to the Emergency Department immediately if your condition worsens, fails to improve, or new symptoms develop. If you need to find a doctor, you can call [facility] for a referral at [phone] or toll free at [phone]) or log in to [email or web address] ?? You can view and manage your care through the patient portal or by using a health care hallie of your choosing. [employer] is a website that allows you to securely view your medical information including your hospital discharge summary, office visit summaries, medications and follow-up visits. You can also request appointments, renew medications, and request access to your medical information using a health care hallie of your choosing, or just ask a question. You can enroll at [email or web address] or register during your next office visit. You have been discharged from [facility], Patient Care Unit: [id number]. If you have any questions regarding these instructions after you leave, please call us and we will be happy to assist you. [facility] Your Care Team Attending Physician Pardeep WAGNER, Nicole Hatfield Reason for Admission PP 3 WKS WOUND CHECKPOST C SECTION Tests Performed Below is a partial list of the tests performed during your hospitalization. You may have had other tests and procedures not included in this list. Please discuss all test results with your provider. Advance Directive Health Care Proxy on File Yes - Health Care Proxy No qualifying data available. Discharge Vitals Temperature: 98.4 DegF Height: 175 cm Pulse Rate:??95 bpm??High Weight: 119.8 kg Respiratory Rate: 18 br/min ?? Systolic Blood Pressure: 118 mm Hg ?? Diastolic Blood Pressure: 74 mm Hg ?? Oxygen Saturation: 98 % ?? Studies Pending All tests and labs ordered during this hospital stay have been completed unless listed below. Please discuss all pending results with your provider listed above in these instructions. ?? No incomplete studies found What to do next Instructions From Your Doctor Discharge Orders Scheduled Follow-Up Appointments Monday 1:00 PM EST ?? With: Pardeep WAGNER, Nicole Hatfield Where: [facility] [address] [place] [address]- Monday 1:00 PM EST ?? With: Lucía An MD Where: [facility] [address] [place] [address]- Monday 10:40 AM EST ?? With: Gabbie Shepherd MD Where: [facility] [address] [place] [address]- Discharge Medications ANNMARIE TURNER :1985 Visit Date:10/26/2022 Medications: Please continue your medications until treatment [...] Mellitus ?? Unchanged Durable Medical Equipment (Pen Mertens, 31 G x 5 mm BD Ultra [...] extended release) 1 tab(s) Oral Daily Unchanged Simethicone (simethicone 80 mg oral tablet, [...] means No Known Allergies) NKA Problems Active Problems??(14) Anemia?? Anxiety?? Back pain?? Chest pain?? Chronic hypertension?? Constipation?? History of depression?? History of preeclampsia?? Knee pain?? Last Pap smear 04/22/22 negative with negative HPV?? Non-Syrian speaking patient - spanish interpreter/translator required?? Obese class II?? Poorly controlled type 2 diabetes mellitus with neuropathy?? Separation of wound with drainage, ?? Education Materials Below is the list of Educational Leaflet Providered with your Discharge Instructions. Recognizing and Treating Wound Infection?? Valuables and Belongings I fully understand and agree that [facility] accepts no responsibility for all my personal [...] are strongly encouraged to quit. Please call [facility] [employer] Link at [phone] or [phone] ([phone]) or log in to [email or web address] for referrals to smoking cessation programs. ?? The National Suicide Prevention Hotline is available 12/06 if you or someone you know needs to find a reason to keep living. By calling 6-643-091-QBInternational (8330) you'll be connected to a skilled, trained counselor at a crisis center in your area. INPATIENT DISCHARGE INSTRUCTIONS SIGNATURE PAGE ANNMARIE TURNER Location:[facility] Registration Date and Time:10/26/2022 10:10 [facility] Primary Care Physician: Kimberly COLLADO, Nishi, I ASTRID CASSI ANNMARIE, have received the above patient education materials/instructions and have verbalized understanding. If ambulance or transport services are being used I further acknowledge being given a choice of service. ?? If you need to contact me, please call me at this number: . Patient/Crackling Press Operator Name: Patient/Crackling Press Operator Signature: Relationship to Patient: Witness Name/Signature: Date: * Nataly Luo V: PERFORM Event Display: Patient Education Leaflets Authored Date: [id number] Recognizing and Treating Wound Infection ?? [address] C??mo reconocer y tratar infecciones de heridas Las heridas pueden infectarse con microbios perjudiciales (bacterias) e impedir la curaci??n. Tambi??n aumenta el riesgo de tener cicatrices. En algunos casos, la infecci??n puede propagarse a otras partes del cuerpo. Ba infecci??n por la bacteria que causa el t??tanos puede ser mortal. Sepa qu?? debe vigilar y busque tratamiento de inmediato en shala de ba infecci??n. Ba herida que se est?? cicatrizando de manera normal est?? abdirashid y ???carnosa?? . De lo contrario, puede tener un color oscuro o vetas blackmon. ??Cu??les son los factores de riesgo de ba infecci??n? Es m??s probable que ba herida se infecte en los siguientes casos: ??? Si resulta de ba perforaci??n, por ejemplo con un clavo o un tracy roto. ??? Si resulta de ba mordedura humana o animal, en especial si es un zeus. ??? Si no se limpia o trata enseguida. ??? Si se produce en la mano, el pie,la pierna, la axila o la mireya (la alexx donde el est??lala se une a sabrina muslos). ??? Si est?? suciao tiene saliva. ??? Si tarda mucho en cicatrizar. ??? Si padece de alcoholismo, diabetes, un sistema inmunitario d??rock o renato circulaci??n de la nereyda. ?Cu??les son los s??ntomas de ba infecci??n? Llame a alonzo proveedor de atenci??n m??dica ante el primer signo de infecci??n, por ejemplo: ??? Enrojecimiento o calor alrededor de la herida. ??? Parece que los bordes se est??n abriendo. ??? Secreci??n amarilla, amarillo-verdosa o maloliente de ba herida. ??? Aumento del dolor, de la hinchaz??n gilberto enrojecimiento en la herida o cerca. ??? Cambio de color o flash??o de la herida. ??? Manchas blackmon en la piel que rodea la herida. ??? Fiebre. ?C??mo se tratan las infecciones??? El tratamiento depende del tipo de infecci??n que tiene y de la gravedad. Es posible que alonzo proveedor de atenci??n m??dica le recete antibi??ticos orales (que se gwyn por boca) para combatir las bacterias. Tambi??n puede limpiar la herida con ba soluci??n antibi??jesica o aplicar ba pomada antibi??jesica. A veces puede formarse ba ampolla de pus (absceso). En grupo shala, el absceso se abrir?? para dejar salir el l??quido. Si la infecci??n es muy grave, george vez necesite asistencia m??dica en un hospital. ?? C??mo prevenir las infecciones de ba herida Siga estos pasos para ayudar a evitar que ba herida se infecte: ??? Lave la herida de inmediato con agua y jab??n. ??? Aplique ba fran??a cantidad de pomada antibi??jesica. Puede comprarla sin receta. ??? Cubra las heridas con un vendaje o ap??sito de gasa. C??mbielo todos los d??as o cada vez quese moje o se ensucie. ??? Mantenga la herida limpia y seca janet 24??horas. ??? L??vese las manosantes y despu??s de atender la herida. ??? Cambie el ap??sito todos los d??as y siga las instrucciones que le haya dado alonzo proveedor de atenci??n m??dica. ?? Last Reviewed Date: 2022 ?? [id number] [employer]. Todos los derechos reservados. Esta informaci??n no pretende sustituir la atenci??n m??dica profesional. S??lo alonzo m??dico puede diagnosticar y tratar un problema de letha. ?? Patient Care team information Care Team Related Persons Name: DANILO TURNER Address: [id number] Address: [address] [address] [place] Name: MYRIAM DOWNEY Address: home [address] [place] [address]
--- OUTSIDE RECORDS SUMMARY | 2024-06-17 19:16 | XMS_ITS | Continuity of Care Document ---
Author Organization [facility] Address [address] [place] [address]- Care Team Providers Care Set Up Operator Name Role Phone Kimberly COLLADO, Nishi Primary Care Physician Encounter [facility] [place] Date(s): 06/02/22 - 07/02/22 [facility] [address] [place] [id number] Allergies, Adverse Reactions, Alerts No Known Allergies Medications aspirin 81 mg oral delayed release tablet 162 mg, 2, tablet, By Mouth, Daily, # 60 tablet, Refills 5, Tot. Refills 5, Maintenance, 03/14/22 10:02:00 EDT, Route to Pharmacy Electronically, [facility], Partial fill upon patient request if the prescription is for a schedule I... Start Date: 03/14/22 Status: Ordered ferrous sulfate 325 mg oral enteric coated tablet 325 mg, 1, tablet, By Mouth, Every other day, # 60 tablet, Refills 4, Tot. Refills 4, Maintenance, 04/22/22 15:38:00 EDT, Route to Pharmacy Electronically, [facility], please print label in romanian, 175, cm, 04/22/22 15:13:00 EDT,... Start Date: [...] Injection, 2 times a day, PLACE IN [place], # 50 mL, 4 Refills, Maintenance,06/22/22 15:53:00 EDT, [facility], Partial fill upon patient request [...] mL, 6 Refills, Maintenance, 06/22/22 15:54:00 EDT, [facility], Partial fill upon patient request if the prescription is for a schedule II opioid drug., 175, cm,... Start Date: 06/22/22 Status: Ordered Pen [place], 31 G x 5 mm BD Ultra [...] currently (Confirmed) Active Chronic hypertension(Confirmed) Active Uses Cypriot as primary spok en language(Confirmed) Active AMA (advanced maternal age) multigravida 35+(Confirmed) Active Obese class II(Confirmed) Active Knee pain(Confirmed) Active Poorly controlled type 2 alejandro betes mellitus with neuropathy(Confirmed) Active Social History Social History Type Response Smoking Status Never (less than 100 in lifetime) entered on: 03/07/22 Sex
--- OUTSIDE RECORDS SUMMARY | 2024-06-17 19:16 | XMS_ITS | Continuity of Care Document ---
[facility] Address [address] [place] [address], [address] [place] [address]- Care Team Providers Care Logging Shovel Operator Name Role Phone Kimberly COLLADO, Nishi Primary Care Physician [id number] Date(s): 09/01/22 - 09/08/22 [facility] [address] [facility] [place], [place] [address] Attending Physician: Shasha Escobedo MD Allergies, Adverse Reactions, [...] Acute11/19/22 0:00:00 EST, 07/29/22 11:31:00 EDT, Tablet, [facility], please print label in Costa Rican, 175, cm, 07/29/22 11:09:00 EDT, Brucei... Start Date: 07/29/22 Stop Date: 11/19/22 Status: Ordered aspirin 81 mg oral delayed release tablet 162 mg, 2, tablet, By Mouth, Daily, # 60 tablet, Refills 5, Tot. Refills 5, Maintenance, 03/14/22 10:02:00 EDT, Route to Pharmacy Electronically, [facility], Partial fill upon patient request if the prescription is for a schedule I... Start Date: 03/14/22 Status: Ordered ferrous sulfate 325 mg oral enteric coated tablet 325 mg, 1, tablet, By Mouth, Every other day, # 60 tablet, Refills 4, Tot. Refills 4, Maintenance, 04/22/22 15:38:00 EDT, Route to Pharmacy Electronically, [facility], please print label in latvian, 175, cm, 04/22/22 15:13:00 EDT,... Start Date: [...] 0 Refills, Maintenance, 09/03/22 17:35:00 EDT, Injection, [facility], Partial fill upon patient request if the prescription... Start Date: 09/03/22 Status: Ordered Lantus Solostar Pen 100 units/mL subcutaneous solution See Instructions, 60 units Subcutaneous Injection in AM and 66 units subcutaneous injecion in PM, #10 mL, 4 Refills, Maintenance, 09/01/22 10:41:00 EDT, [facility], Partial fill upon patient request if the prescription is for a s... Start Date: 09/01/22 Status: Ordered Pen [place], 31 G x 5 mm BD Ultra [...] List Condition Confirmation Course Effective Dates Status [facility] atus Informant Anemia Confirmed Active Anxiety Confirmed Active Back pain Confirmed Active Breech presentation Confirmed Active Chest pain Confirmed Active Constipation Confirmed Active History of section Confirmed Active History of depression Confirmed Active Hx of preeclampsia, prior , currently Confirmed Active Chronic hypertension Confirmed Active Uses Costa Rican as primary spoken language Confirmed Active AMA (advanced maternal age) multigravida 35+ Confirmed Active Knee pain Confirmed Active Severe obesity Confirmed Active Vital Signs Most recent to oldest [Reference Range]: 1 Height 175 cm (09/01/22 10:15 AM) Weight 138.34 kg (09/01/22 10:15 AM) Body Mass Index [18.5-24.99 kg/m2] 45.17 kg/m2 *>HHI* (09/01/22 10:15 AM) Blood Pressure [90-138/55-84 mm Hg] 144/ 74mm Hg *H* (09/01/22 10:15 AM) Blood pressure sites Arm, right (09/01/22 10:15 AM) Weight Obtained Via Standing scale (09/01/22 10:15 AM) Social History Social History Type Response Smoking Status Never (less than 100 in lifetime) entered on: 03/07/22 Sex Patient Care team information Personnel Name: Nishi Harris NP Address: Address: [address] [place] [id number]
--- OUTSIDE RECORDS SUMMARY | 2024-06-17 19:16 | XMS_ITS | Continuity of Care Document ---
Author Organization [facility] Address [address] [address]- Care Team Providers Care Reimbursement Manager Name Role Phone Kimberly COLLADO, Nishi Primary Care Physician [phone] Encounter [facility] [place] Date(s): 02/25/22 - 03/27/22 [facility] [address] [address]- Attending Physician: Asim Rai Admitting Physician: Asim Rai Referring Physician: AdmtrAsim Allergies, Adverse Reactions, Alerts No Known Allergies Medications aspirin 81 mg oral delayed release tablet 162 mg, 2, tablet, By Mouth, Daily, # 60 tablet, Refills 5, Tot. Refills 5, Maintenance, 03/14/22 10:02:00 EDT, Route to Pharmacy Electronically, [facility], Partial fill upon patient request if the prescription is for a schedule I... Start Date: 03/14/22 Status: Ordered Freestyle Elsa Monitor See Instructions, [...] Daily, # 15 mL, 5 Refills, Maintenance, 03/14/22 10:03:00 EDT, [facility], Partial fill upon patient request if the prescription is for a schedule II opioid drug., 175, cm, 03/07/22 9:02:00 EDT,... Start Date: 03/14/22 Status: Ordered NovoLOG FlexPen 100 units/mL injectable solution = 24 units, Subcutaneous Injection, 3 times a day before meals, # 15 mL, 6 Refills, Maintenance, 03/15/22 16:46:00 EDT, [facility], Partial fill upon patient request if the prescription is for a schedule II opioid drug., 175, cm, 0... Start Date: 03/15/22 Status: Ordered Pen Solo, 31 G x 5 mm BD Ultra Fine III See Instructions, # 120 each, Refills 5, Tot. Refills 5, Maintenance, To use with insulin administration 4 times daily, 03/15/22 16:47:00 EDT, Supply, 175, cm, 03/07/22 9:02:00 EDT, Height, 111.5, kg, 03/07/22 9:02:00 EDT, Dry Weight Start Date: 03/15/22 Status: Ordered Problem List Condition Effective Dates [...]
--- OUTSIDE RECORDS SUMMARY | 2024-06-17 19:16 | XMS_ITS | Continuity of Care Document ---
Author Organization [facility] bowieEtown India Servicesgrzegorz [facility] Address [address] [facility], [address] [place] [address]- Care Team Providers Care Securities And Real Estate Director Name Role Phone Kimberly COLLADO, Nishi Primary Care Physician [id number] Date(s): 05/19/22 - 06/18/22 [facility] Federico Angel[facility] [employer] [facility] [address] [facility] [place] [address]- Allergies, Adverse Reactions, Alerts No Known Allergies Medications aspirin 81 mg oral delayed release tablet 162 mg, 2, tablet, By Mouth, Daily, # 60 tablet, Refills 5, Tot. Refills 5, Maintenance, 03/14/22 10:02:00 EDT, Route to Pharmacy Electronically, [facility], Partial fill upon patient request if the prescription is for a schedule I... Start Date: 03/14/22 Status: Ordered ferrous sulfate 325 mg oral enteric coated tablet 325 mg, 1, tablet, By Mouth, Every other day, # 60 tablet, Refills 4, Tot. Refills 4, Maintenance, 04/22/22 15:38:00 EDT, Route to Pharmacy Electronically, [facility], please print label in georgian, 175, cm, 04/22/22 15:13:00 EDT,... Start Date: [...] mL, 5 Refills, Maintenance, 03/28/22 13:34:00 EDT, [facility], Partial fill upon patient request [...] Acute 06/20/22 23:44:00 EDT, 06/13/22 23:44:00 EDT, [facility], Partial fill upon patient request if the prescription is for a schedule II opioid drug... Start Date: 06/13/22 Stop Date: 06/20/22 Status: Ordered NovoLOG FlexPen 100 units/mL injectable solution See Instructions, Subcutaneous Injection 3 times a day before meals 35 U TID DX E11.9, # 30 mL, 6 Refills, Maintenance, 06/02/22 15:00:00 EDT, [facility], Partial fill upon patient request if the prescription is for a sched... Start Date: 06/02/22 Status: Ordered Pen [place], 31 G x 5 mm BD Ultra [...] currently (Confirmed) Active Chronic hypertension(Confirmed) Active Uses Bulgarian as primary spok en language(Confirmed) Active AMA (advanced maternal age) multigravida 35+(Confirmed) Active Knee pain(Confirmed) Active Severe obesity(Confirmed) Active Poorly controlled type 2 alejandro betes mellitus with neuropathy(Confirmed) Active Social History Social History Type Response Smoking Status Never (less than 100 in lifetime) entered on: 03/07/22 Sex
--- OUTSIDE RECORDS SUMMARY | 2024-06-17 19:16 | XMS_ITS | Continuity of Care Document ---
Author Organization [facility] Address [address] [address]- Care Team Providers Care Network Announcer Name Role Phone Kimberly COLLADO, Nishi Primary Care Physician [facility] Date(s): 10/11/22 - 11/10/22 [facility] [address] [address]- Attending Physician: Asim Rai Admitting Physician: Asim Rai Referring Physician: Asim Rai Allergies, Adverse Reactions, Alerts No Known Allergies [...] Refills, Maintenance, 10/06/22 5:21:00 EST, Tablet, [facility], Partial fill upon patient request if the prescription is for a schedule II opioid drug., 175, cm, 10/06/22... Start Date: 10/06/22 Stop Date: 11/05/22 Status: Ordered NIFEdipine 30 mg oral tablet, extended release 30 mg, 1, tablet, By Mouth, Daily, # 30 tablet, Refills 0, Tot. Refills 0, Maintenance, 10/10/22 20:37:00 EST, Route to Pharmacy Electronically, [facility], Partial fill upon patient request if the prescription is for a schedule II... Start Date: 10/10/22 Status: Ordered Pen [place], 31 G x 5 mm BD Ultra [...] Gas, :21:00 EST, Route to Pharmacy Electronically, [facility], Partial fill upon patient request [...] hypertension Confirmed Active Non-Hebrew speaking patient - bisque tile burner required Confirmed Active Obese class II Confirmed Active Knee pain Confirmed Active Last Pap smear 04/22/22 negative with negative HPV Confirmed Active Severe obesity (BMI 35.0-39.9) with comorbidity Confirmed Active Poorly controlled type 2 diabetes mellitus with neuropathy Confirmed Active Social History Social History Type Response Smoking Status Never (less than 100 in lifetime) entered on: 03/07/22 Sex Note * Event Display: Cardiology Office Note, Non-BH Authored Date: * Event Display: EKG Non BH Authored Date: * Event Display: EKG Non BH Authored Date: * Event Display: Non BH Cardiovascular Results Authored Date: * Event Display: Non BH Cardiovascular Results Authored Date: Patient Care team information Care Team Related Persons Name: ASTRIDDANILO ASTUDILLO Address: [id number] Address: home [address] [place] [address] [place] Name: MYRIAM DOWNEY Address: home [address] [place] [address]
--- OUTSIDE RECORDS SUMMARY | 2024-06-17 19:16 | XMS_ITS | Continuity of Care Document ---
Author Organization [facility] [employer] Address [address] [place] [address], [address]t [place] [address]- Care Team Providers Care Temporary Receptionist Name Role Phone Kimberly COLLADO, Nishi Primary Care Physician [phone] [id number] Date(s): 10/17/22 - 10/24/22 [facility] [place] [employer] [facility] [address] [facility], [address] [place] [address]- Attending Physician: Nicole Roberto MD Allergies, Adverse Reactions, [...] 0 Refills, Maintenance, 10/06/22 5:21:00 EST, Tablet, [facility], Partial fill upon patient request if the prescription is for a schedule II opioid drug., 175, cm, 10/06/22... Start Date: 10/06/22 Stop Date: 11/05/22 Status: Ordered MiraLax oral powder for reconstitution = 17 Gm, By Mouth, Daily, for 14 days, dissolve in water before taking, # 255 Gm, 0 Refills, Acute 10/26/22 11:16:00 EST, 10/12/22 11:16:00 EST, REC Powder, [id number], Partial fill upon patient request if the prescription is for a schedule II... Start Date: 10/12/22 Stop Date: 10/26/22 Status: Ordered NIFEdipine 30 mg oral tablet, extended release 30 mg, 1, tablet, By Mouth, Daily, # 30 tablet, Refills 0, Tot. Refills 0, Maintenance, 10/10/22 20:37:00 EST, Route to Pharmacy Electronically, [facility], Partial fill upon patient request if the prescription is for a schedule II... Start Date: 10/10/22 Status: Ordered Pen [place], 31 G x 5 mm BD Ultra [...] Gas, 225:21:00 EST, Route to Pharmacy Electronically, [facility], Partial fill upon patient request if the prescription is for a schedule... Start Date: 10/06/22 Status: Ordered Problem List Condition Confirmation Course Effective Dates Status [facility] atus Informant Anemia Confirmed Active Anxiety Confirmed Active Back pain Confirmed Active Separation of wound with drainage, Confirmed Active Chest pain Confirmed Active Constipation Confirmed Active History of depression Confirmed Active History of preeclampsia Confirmed Active Chronic hypertension Confirmed Active Non-Lithuanian speaking patient - measurement operator required Confirmed Active Obese class II Confirmed Active Knee pain Confirmed Active Last Pap smear 04/22/22 negative with negative HPV Confirmed Active Poorly controlled type 2 diabetes mellitus with neuropathy Confirmed Active Vital Signs Most recent to oldest [Reference Range]: 1 Height 175 cm (10/17/22 1:36 PM) Weight 117.27 kg (10/17/22 1:36 PM) Body Mass Index [18.5-24.99 kg/m2] 38.29 kg/m2 *>HHI* (10/17/22 1:36 PM) Blood Pressure [90-138/55-84 mm Hg] 136/ 80mm Hg (10/17/22 1:36 PM) Blood pressure sites Arm, left (10/17/22 1:36 PM) Weight Obtained Via Standing scale (10/17/22 1:36 PM) Social History Social History Type Response Smoking Status Never (less than 100 in lifetime) entered on: 03/07/22 Sex Patient Care team information Care Team Related Persons Name: DANILO TURNER Address: [id number] Address: [address] [place] [address] Name: MYRIAM DOWNEY Address: home [address] [place] [address]
--- OUTSIDE RECORDS SUMMARY | 2024-06-17 19:16 | XMS_ITS | Continuity of Care Document ---
Author Organization [facility] Address [address] [facility]. [address] [place] [address]- Care Team Providers Care Supervisory Air Intercept Controller Name Role Phone Kimberly COLLADO, Nishi Primary Care Physician [phone] [id number] Date(s): 08/12/22 - [facility]10/[facility] [address] [address] Attending Physician: Not on Staff, Attending MD Referring Physician: Shasha Escobedo MD Allergies, [...] 0 Refills, Maintenance, 10/06/22 5:21:00 EST, Tablet, [facility], Partial fill upon patient request if the prescription is for a schedule II opioid drug., 175, cm, 10/06/22... Start Date: 10/06/22 Stop Date: 11/05/22 Status: Ordered NIFEdipine 30 mg oral tablet, extended release 30 mg, 1, tablet, By Mouth, Daily, # 30 tablet, Refills 0, Tot. Refills 0, Maintenance, 10/10/22 20:37:00 EST, Route to Pharmacy Electronically, [facility], Partial fill upon patient request if the prescription is for a schedule II... Start Date: 10/10/22 Status: Ordered Pen [place], 31 G x 5 mm BD Ultra [...] Gas, 225:21:00 EST, Route to Pharmacy Electronically, [facility], Partial fill upon patient request [...] preeclampsia Confirmed Active Chronic hypertension Confirmed Active Non-Sinhala speaking patient - dollyman required Confirmed Active Obese class II Confirmed [...] Related Persons Name: ASTRID YE DANILO Address: [address] Address: home [address] [place] [address] [place] Name: MYRIAM DOWNEY Address: home [address] [place] [address]
--- OUTSIDE RECORDS SUMMARY | 2024-06-17 19:16 | XMS_ITS | Continuity of Care Document ---
Author Organization [facility] Federico ferreiras Address [address] [place] [address], [address] [place] [address]- Care Team Providers Care Hospital Receiving Clerk Name Role Phone Kimberly COLLADO, Nishi Primary Care Physician [id number] Date[facility] 10/28/22 - 11/04/22 [facility] [place] [employer] [facility] [address] [facility], [address] [place] [address]- Attending Physician: Nicole Roberto MD Allergies, Adverse [...] 0 Refills, Maintenance, 10/06/22 5:21:00 EST, Tablet, [facility], Partial fill upon patient request if the prescription is for a schedule II opioid drug., 175, cm, 10/06/22... Start Date: 10/06/22 Stop Date: 11/05/22 Status: Ordered NIFEdipine 30 mg oral tablet, extended release 30 mg, 1, tablet, By Mouth, Daily, # 30 tablet, Refills 0, Tot. Refills 0, Maintenance, 10/10/22 20:37:00 EST, Route to Pharmacy Electronically, [facility], Partial fill upon patient request if the prescription is for a schedule II... Start Date: 10/10/22 Status: Ordered Pen [place], 31 G x 5 mm BD Ultra [...] Gas, 225:21:00 EST, Route to Pharmacy Electronically, [facility], Partial fill upon patient request if [...] preeclampsia Confirmed Active Chronic hypertension Confirmed Active Non-Mozambican speaking patient - secretary book keeper required Confirmed Active Obese class II Confirmed Active Knee pain Confirmed Active Last Pap smear 04/22/22 negative with negative HPV Confirmed Active Poorly controlled type 2 diabetes mellitus with neuropathy Confirmed Active Vital Signs Most recent to oldest [Reference Range]: 1 Height 175 cm (10/28/22 1:10 PM) Weight 120 kg (10/28/22 1:10 PM) Body Mass Index [18.5-24.99 kg/m2] 39.18 kg/m2 *>HHI* (10/28/22 1:10 PM) Blood Pressure [90-138/55-84 mm Hg] 117/ 55mm Hg (10/28/22 1:10 PM) Blood pressure sites Arm, left (10/28/22 1:10 PM) Weight Obtained Via Standing scale (10/28/22 1:10 PM) Social History Social History Type Response Smoking Status Never (less than 100 in lifetime) entered on: 03/07/22 Sex Patient Care team information Care Team Related Persons Name: DANILO TURNER Address: [id number] Address: home [address] [place] [address] Name: MYRIAM DOWNEY Address: [address] [place] [address]
--- OUTSIDE RECORDS SUMMARY | 2024-06-17 19:16 | XMS_ITS | Continuity of Care Document ---
Author Organization [facility] Address [address] [place] [address]- Care Team Providers Care Market Garden Worker Name Role Phone Kimberly COLLADO, Nishi Primary Care Physician [phone] [facility] [place] 01/25/22 - 02/24/22 [facility] [address] [place] [address]- Attending Physician: Asim Rai Admitting Physician: Asim Rai Referring Physician: Asim Rai
--- OUTSIDE RECORDS SUMMARY | 2024-06-17 19:16 | XMS_ITS | Continuity of Care Document ---
Author Organization [facility] [employer] Address [address] [place] [address], 4t [place] [address]- Care Team Providers Care Atomic Physics Professor Name Role Phone Kimberly COLLADO, Nishi Primary Care Physician [id number] Date(s): 09/30/22 - 10/30/22 [facility] [place] [employer] [facility] [address] [facility], 4th [place] [address]- Allergies, Adverse Reactions, Alerts No Known Allergies [...] 0 Refills, Maintenance, 10/06/22 5:21:00 EST, Tablet, [facility], Partial fill upon patient request if the prescription is for a schedule II opioid drug., 175, cm, 10/06/22... Start Date: 10/06/22 Stop Date: 11/05/22 Status: Ordered NIFEdipine 30 mg oral tablet, extended release 30 mg, 1, tablet, By Mouth, Daily, # 30 tablet, Refills 0, Tot. Refills 0, Maintenance, 10/10/22 20:37:00 EST, Route to Pharmacy Electronically, [facility], Partial fill upon patient request if the prescription is for a schedule II... Start Date: 10/10/22 Status: Ordered Pen [place], 31 G x 5 mm BD Ultra [...] Gas, 225:21:00 EST, Route to Pharmacy Electronically, [facility], Partial fill upon patient request if [...] preeclampsia Confirmed Active Chronic hypertension Confirmed Active Non-Armenian speaking patient - science interpreter required Confirmed Active Obese class II Confirmed Active Knee pain Confirmed Active Last Pap smear 04/22/22 negative with negative HPV Confirmed Active Poorly controlled type 2 diabetes mellitus with neuropathy Confirmed Active Social History Social History Type Response Smoking Status Never (less than 100 in lifetime) entered on: 03/07/22 Sex Patient Care team information Care Team Related Persons Name: DANILO TURNER Address: [address] Address: home [address] [place] [address] [place] Name: MYRIAM DOWNEY Address: [address] [place] [address]
--- OUTSIDE RECORDS SUMMARY | 2024-06-17 19:16 | XMS_ITS | Continuity of Care Document ---
Author Organization [facility] Federico bowieM [employer]gr[employer]egorz [facility] Address [address] [place] [address], [address] [place] [address]- Care Team Providers Care Music Theory Teacher Name Role Phone Kimberly COLLADO, Nishi Primary Care Physician [facility] [place] [facility]22 - 05/13/22 [facility] [employer] [facility] [address] [facility], 4[address] [place], [place] [address] Attending Physician: Cristiano WAGNER [OB], Priscilla Elliott Referring Physician: Not on Staff, Referring MD Allergies, Adverse Reactions, Alerts No Known Allergies Medications aspirin 81 mg oral delayed release tablet 162 mg, 2, tablet, By Mouth, Daily, # 60 tablet, Refills 5, Tot. Refills 5, Maintenance, 03/14/22 10:02:00 EDT, Route to Pharmacy Electronically, [facility], Partial fill upon patient request if the prescription is for a schedule I... Start Date: 03/14/22 Status: Ordered doxylamine 25 mg oral tablet 1 tablet = 25 mg, By Mouth, Daily at bedtime, PRN Nausea & Vomiting, # 30 tablet, 1 Refills, Acute 05/29/22 23:07:00 EDT, 03/29/22 23:06:00 EDT, Tablet, [facility], Partial fill upon patient request if the prescription is for a naseem... Start Date: 03/29/22 Stop Date: 05/29/22 Status: Ordered ferrous sulfate 325 mg oral enteric coated tablet 325 mg, 1, tablet, By Mouth, Every other day, # 60 tablet, Refills 4, Tot. Refills 4, Maintenance, 04/22/22 15:38:00 EDT, Route to Pharmacy Electronically, [facility], please print label in burundian, 175, cm, 04/22/22 15:13:00 EDT,... Start Date: [...] mL, 5 Refills, Maintenance, 03/28/22 13:34:00 EDT, [facility], Partial fill upon patient request if [...] mL, 6 Refills, Maintenance, 04/07/22 16:35:00 EDT, [facility], Partial fill upon patient request if the prescription is for a sched... Start Date: 04/07/22 Status: Ordered Pen [place], 31 G x 5 mm BD Ultra [...] 05/29/22 23:08:00 EDT, 03/29/22 23:06:00 EDT, Tablet, [facility], Partial fill upon patient requestif the [...] currently (Confirmed) Active Chronic hypertension(Confirmed) Active Uses Palauan as primary spok en language(Confirmed) Active AMA (advanced maternal age) multigravida 35+(Confirmed) Active Obese class II(Confirmed) Active Knee pain(Confirmed) Active Poorly controlled type 2 alejandro betes mellitus with neuropathy(Confirmed) Active Social History Social History Type Response Smoking Status Never (less than 100 in lifetime) entered on: 03/07/22 Sex
--- OUTSIDE RECORDS SUMMARY | 2024-06-17 19:16 | XMS_ITS | Continuity of Care Document ---
Author Organization [facility] [employer] Address [address] [place] [address], [address] [place] [address]- Care Team Providers Care Police Service Technician Name Role Phone Kimberly COLLADO, Nishi Primary Care Physician [phone] [id number] Date(s[facility] 09/22/22 - 09/29/22 [facility] [place] [employer] [facility] [address] [facility], [address] [place], [place] [address] Attending Physician: Shasha Escobedo MD Referring Physician: [...] Acute11/19/22 0:00:00 EST, 07/29/22 11:31:00 EDT, Tablet, [facility], please print label in Malawian, 175, cm, 07/29/22 11:09:00 EDT, Hei... Start Date: 07/29/22 Stop Date: 11/19/22 Status: Ordered aspirin 81 mg oral delayed release tablet 162 mg, 2, tablet, By Mouth, Daily, # 60 tablet, Refills 5, Tot. Refills 5, Maintenance, 03/14/22 10:02:00 EDT, Route to Pharmacy Electronically, [facility], Partial fill upon patient request if the prescription is for a schedule I... Start Date: 03/14/22 Status: Ordered ferrous sulfate 325 mg oral enteric coated tablet 325 mg, 1, tablet, By Mouth, Every other day, # 60 tablet, Refills 4, Tot. Refills 4, Maintenance, 04/22/22 15:38:00 EDT, Route to Pharmacy Electronically, [facility], please print label in sudanese, 175, cm, 04/22/22 15:13:00 EDT,... Start Date: [...] 0 Refills, Maintenance, 09/19/22 16:31:00 EDT, Injection, [facility], Partial fill upon patien... Start Date: 09/19/22 Status: Ordered Lantus Solostar Pen 100 units/mL subcutaneous solution See Instructions, 60 units Subcutaneous Injection in AM and 66 units subcutaneous injecion in PM, #10 mL, 4 Refills, Maintenance, 09/01/22 10:41:00 EDT, [facility], Partial fill upon patient request if the prescription is for a s... Start Date: 09/01/22 Status: Ordered Pen [place], 31 G x 5 mm BD Ultra [...] Confirmed Active Chronic hypertension Confirmed Active Uses Malawian as primary spoken language Confirmed Active AMA (advanced maternal age) multigravida 35+ Confirmed Active Knee pain Confirmed Active Severe obesity Confirmed Active Poorly controlled type 2 diabetes mellitus with neuropathy Confirmed Active Vital Signs Most recent to oldest [Reference Range]: 1 Height 175 cm (09/22/22 10:26 AM) Weight 132 kg (09/22/22 10:26 AM) Body Mass Index [18.5-24.99 kg/m2] 43.1 kg/m2 *>HHI* (09/22/22 10:26 AM) Blood Pressure [90-138/55-84 mm Hg] 131/ 68mm Hg (09/22/22 10:26 AM) Blood pressure sites Arm, right (09/22/22 10:26 AM) Weight Obtained Via Standing scale (09/22/22 10:26 AM) Social History Social History Type Response Smoking Status Never (less than 100 in lifetime) entered on: 03/07/22 Sex Patient Care team information Care Team Related Persons Name: MYRIAM DOWNEY Address: home [address] [place] [address]
--- OUTSIDE RECORDS SUMMARY | 2024-06-17 19:16 | XMS_ITS | Continuity of Care Document ---
Author Organization [facility] [employer]erico bowieBoston [employer]z [facility] Address [address] [place] [address], [address] [place] [address]- Care Team Providers Care Finish Machine Tender Name Role Phone Kimberly BURLING AND JOINING SUPERVISOR, Nishi Primary [id number] Date[facility]s): 09/29/[facility] - 10/06/22 [facility] [employer] [facility] [address] [facility], [address]th [place] [address]- Attending Physician: Shasha Escobedo MD Referring Physician: [...] 0, Main... Start Date: 10/06/22 Status: Ordered acetaminophen 500 mg oral tablet 2 tablet = 1,000 mg, By Mouth, Every 6 hours, PRN as needed for pain, # 50 tablet, 0 Refills, Acute11/19/22 0:00:00 EST, 07/29/22 11:31:00 EDT, Tablet, [facility], please print label in Greenlandic, 175, cm, 07/29/22 11:09:00 EDT, Jass... Start Date: 07/29/22 Stop Date: 11/19/22 Status: Ordered ferrous sulfate 325 mg oral enteric coated tablet 325 mg, 1, tablet, By Mouth, Every other day, # 60 tablet, Refills 4, Tot. Refills 4, Maintenance, 04/22/22 15:38:00 EDT, Route to Pharmacy Electronically, [facility], please print label in icelandic, 175, [...] Tot. Refills... Start Date: 10/06/22 Status: Ordered metFORMIN 500 mg oral tablet 2 each = 1,000 mg, By Mouth, 2 times a day, # 120 tablet, 0 Refills, Maintenance, 10/06/22 5:21:00 EST, Tablet, [facility], Partial fill upon patient request if the prescription is for a schedule II opioid drug., 175, cm, 10/06/22... Start Date: 10/06/22 Stop Date: 11/05/22 Status: Ordered oxyCODONE 5 mg oral tablet 5 mg, 1, tablet, By Mouth, Every 3 hours, PRN, (7-10), # 12 tablet, Refills 0, Tot. Refills 0, Maintenance, Pain , Severe, 10/06/22 5:21:00 EST, Route to Pharmacy Electronically, [facility], Partial fill upon patient request if the... Start Date: 10/06/22 Status: Ordered Pen [place], 31 G x 5 mm BD Ultra [...] opioid drug. Start Date: 03/29/22 Status: Ordered simethicone 80 mg oral tablet, chewable 80 mg, Chew, 3 times a day, PRN, # 36 tablet, Refills 0, Tot. Refills 0, Maintenance, Gas, 11/17/225:21:00 EST, Route to Pharmacy Electronically, [facility], Partial fill upon patient request [...] Confirmed Active Chronic hypertension Confirmed Active Uses Greenlandic as primary spoken language Confirmed Active AMA (advanced maternal age) multigravida 35+ Confirmed Active Knee pain Confirmed Active Severe obesity Confirmed Active Poorly controlled type 2 diabetes mellitus with neuropathy Confirmed Active Vital Signs Most recent to oldest [Reference Range]: 1 Height 175 cm (09/29/22 9:38 AM) Weight 132.5 kg (09/29/22 9:38 AM) Body Mass Index [18.5-24.99 kg/m2] 43.27 kg/m2 *>HHI* (09/29/22 9:38 AM) Blood Pressure [90-138/55-84 mm Hg] 137/ 70mm Hg (09/29/22 9:38 AM) Blood pressure sites Arm, right (09/29/22 9:38 AM) Weight Obtained Via Standing scale (09/29/22 9:38 AM) Social History Social History Type Response Smoking Status Never (less than 100 in lifetime) entered on: 03/07/22 Sex Note * Event Display: PDC Biophysical Profile * Event Display: PDC Biophysical Profile Authored Date: [id number] OBSTETRICS REPORT PATIENT INFO: CMRN: [id number] BMRN: [id number] : [birth year] (37 yrs)(F) Name: ANNMARIE RESENDIZ Visit Date: 09/29/2022 09:25 am YE PERFORMED BY: Performed By: Raine Brand RDMS Attending: Crescencio Aguirre MD Referred By: Shasha Escobedo MD Location: [address] INDICATIONS: Diabetes mellitus, type 2 (IDDM) O24.11_ M - BMI O99.21_ E66.01 AMA multigravida O09.52_ VITAL SIGNS: Height: 5'7 EVALUATION: Num Of Fetuses: 1 Heart Rate(bpm): 137 Cardiac Activity: Present Presentation: Cephalic Placenta: Anterior Amniotic Fluid HOLLI FV: Within normal limits HOLLI Sum(cm) Largest Pocket(cm) 6.8 2.8 RUQ(cm) LUQ(cm) LLQ(cm) 2.8 1.2 2.8 BIOPHYSICAL EVALUATION: Amniotic F.V: Within normal limits F. Tone: Observed F. Movement: Observed Score: 06/27 F. Breathing: Observed BIOMETRY: OB HISTORY: Blood Type: A+ : 3 Term: 1 Ectopic: 1 Livin GESTATIONAL AGE: LMP: 36w 4d Date: 01/16/22 SERA: 10/23/22 Best: 36w 4d Det. By: LMP (01/16/22) SERA: 10/23/22 CERVIX UTERUS ADNEXA: Cervix Not well seen COMMENTS: The exam was non diagnostic due to maternal habitus. BPP=06/27 RECOMMENDATIONS: Twice weekly surveillance is already scheduled. Crescencio Aguirre MD Electronically Signed Final Report 09/29/2022 10:18 am * Event Display: PDC Biophysical Profile Authored Date: Please click on pdf link to open report Patient Care team information Care Team Related Persons Name: ANNMARIE TURNER BOB Address: [id number] Address: [address] [place] [address] Name: MYRIAM DOWNEY Address: home [address] [place] [id number]
--- OUTSIDE RECORDS SUMMARY | 2024-06-17 19:16 | XMS_ITS | Continuity of Care Document ---
Author Organization [facility] Address [address] [place] [address], [address] [place] [address]- Care Team Providers Care Senior Systems Programmer Name Role Phone Kimberly COLLADO, Nishi Primary Care Physician [id number] Date(s): 03/07/22 - 03/14/22 [facility] [employer] [address] [facility], 4th [address] [place], [place] [address] Attending Physician: Nicole Roberto MD Referring Physician: Not on Staff, Referring MD Allergies, Adverse Reactions, Alerts No Known Allergies Medications aspirin 81 mg oral delayed release tablet 162 mg, 2, tablet, By Mouth, Daily, # 60 tablet, Refills 5, Tot. Refills 5, Maintenance, 03/14/22 10:02:00 EDT, Route to Pharmacy Electronically, [facility], Partial fill upon patient request if the prescription is for a schedule I... Start Date: 03/14/22 Status: Ordered Lantus Solostar Pen 100 units/mL subcutaneous solution = 30 units, Subcutaneous Injection, Daily, # 15 mL, 5 Refills, Maintenance, 03/14/22 10:03:00 EDT, [facility], Partial fill upon patient request if the prescription is for a schedule II opioid drug., 175, cm, 03/07/22 9:02:00 EDT,... Start Date: 03/14/22 Status: Ordered Problem List Condition Effective Dates Status Health Status Inform ant Anxiety(Confirmed) Active Back pain(Confirmed) Active Constipation(Confirmed) Active History of depression(Confirmed) Active History of adverse reaction to anesthesia(Confirmed) 1 Active Hx of preeclampsia, prior pr egnancy, currently (Confirmed) Active Chronic hypertension(Confirmed) Active Obese class II(Confirmed) Active Knee pain(Confirmed) Active Diabetes mellitus, type II(Confirmed) Active 1after anesthesia dificulty breathing. Procedures Procedure Date Related Diagnosis Body Site Status Dilatation and curettage 2019 Completed delivery 2006 Complet ed Cholecystectomy Completed Vital Signs Most recent to oldest [Reference Range]: 1 Height 175 cm (03/07/22 9:02 AM) Dry Weight 111.5 kg (03/07/22 9:02 AM) Weight Obtained Via Standing scale (03/07/22 9:02 AM) Social History Social History Type Response Smoking Status Never (less than 100 in lifetime) entered on: 03/07/22 Sex
--- OUTSIDE RECORDS SUMMARY | 2024-06-17 19:16 | XMS_ITS | Continuity of Care Document ---
Author Organization [facility] Maria D [employer]egorz [facility] Address [address] [facility], [address] [place] [address]- Care Team Providers Care Management Expert Name Role Phone Kimberly COLLADO, Nishi Primary Care Physician [phone] [id number] Date(s): 07/29/22 - 08/05/22 [facility] Federicosoni [employer]Gr[employer] [facility] [address] [facility], [address] [place], [place] [address] Attending Physician: Cora WAGNER, Gabbie [place] [...] [facility], please print label in Belgian, 175, cm, 07/29/22 11:09:00 EDT, Bruce[facility]... Start [...] [facility], please print label in danish, 175, cm, 04/22/22 15:13:00 EDT,... Start Date: [...] Injection, 2 times a day, PLACE IN [place], # 50 mL, 4 Refills, Maintenance,06/22/22 15:53:00 EDT, [facility], Partial fill [...] 11 Refills, Maintenance, 08/04/22 11:44:00 EDT, Tablet, [facility], Partial fill upon patientrequest if the prescription is for a schedule II op... Start Date: 08/04/22 Status: Ordered NovoLOG FlexPen 100 units/mL injectable solution See Instructions, 40 U SQ INJECTION TID BEFORE MEALS DX E11.9, # 30 mL, 6 Refills, Maintenance, 06/22/22 15:54:00 EDT, [facility], Partial fill upon patient request if the prescription is for a schedule II opioid drug., 175, cm,... Start Date: 06/22/22 Status: Ordered Pen [place], 31 G x 5 mm BD Ultra [...] currently (Confirmed) Active Chronic hypertension(Confirmed) Active Uses Belgian as primary spok en language(Confirmed) Active AMA (advanced maternal age) multigravida 35+(Confirmed) Active Knee pain(Confirmed) Active Severe obesity(Confirmed) Active Poorly controlled type 2 alejandro betes mellitus with neuropathy(Confirmed) Active Procedures Procedure Date Related Diagnosis Body Site Status Laparotomy for ectopic Completed Vital Signs Most recent to oldest [Reference Range]: 1 Height 175 cm (07/29/22 11:09 AM) Weight 128.13 kg (07/29/22 11:09 AM) Body Mass Index [18.5-24.99] 41.84 *>HHI* (07/29/22 11:09 AM) Blood Pressure [90-138/55-84 mm Hg] 135/ 61mm Hg (07/29/22 11:09 AM) Blood pressure sites Arm, right (07/29/22 11:09 AM) Weight Obtained Via Standing scale (07/29/22 11:09 AM) Social History Social History Type Response Smoking Status Never (less than 100 in lifetime) entered on: 03/07/22 Sex Care Team Personnel Name: Nishi Harris NP Address: [address] [place] [address]
--- OUTSIDE RECORDS SUMMARY | 2024-06-17 19:16 | XMS_ITS | Continuity of Care Document ---
Author Organization [facility] [employer]ico [employer] Address [address] [place] [address], [address] [place] [address]- Care Team Providers Care Ski Edge Painter Name Role Phone Kimberly COLLADO, Nishi Primary Care Physician [facility] [id number] Date(s): 10/28/22 - 12/04/22 [facility] [employer]oni [employer] [facility] [address] [facility], [address] [place] [address]- Attending Physician: Nicole Roberto MD Allergies, Adverse [...] 0 Refills, Maintenance, 10/06/22 5:21:00 EST, Tablet, [facility], Partial fill upon patient request if the prescription is for a schedule II opioid drug., 175, cm, 10/06/22... Start Date: 10/06/22 Stop Date: 11/05/22 Status: Ordered NIFEdipine 30 mg oral tablet, extended release 30 mg, 1, tablet, By Mouth, Daily, # 30 tablet, Refills 0, Tot. Refills 0, Maintenance, 10/10/22 20:37:00 EST, Route to Pharmacy Electronically, [facility], Partial fill upon patient request if the prescription is for a schedule II... Start Date: 10/10/22 Status: Ordered Pen [place], 31 G x 5 mm BD Ultra [...] Gas, 225:21:00 EST, Route to Pharmacy Electronically, [facility], [...] preeclampsia Confirmed Active Chronic hypertension Confirmed Active Non-Cymro speaking patient - composing machine operator required Confirmed Active Obese class II [...] Team Related Persons Name: DANILO TURNER Address: [address] Address: home [address] [place] [address] [place] Name: MYRIAM DOWNEY Address: [address] [place] [address]
--- OUTSIDE RECORDS SUMMARY | 2024-06-17 19:16 | XMS_ITS | Continuity of Care Document ---
Author Organization [facility] Address [address] [place] [address]- Care Team Providers Care Colon Therapist Name Role Phone Kimberly COLLADO, Nishi Primary Care Physician Encounter [facility] Date(s): 08/16/22 - 11/06/22 [facility] [address] [place] [address]- Attending Physician: Zainab Reddy MD Admitting Physician: Zainab Reddy MD Referring Physician: Nishi Harris NP Allergies, [...] 0 Refills, Maintenance, 10/06/22 5:21:00 EST, Tablet, [facility], Partial fill upon patient request if the prescription is for a schedule II opioid drug., 175, cm, 10/06/22... Start Date: 10/06/22 Stop Date: 11/05/22 Status: Ordered NIFEdipine 30 mg oral tablet, extended release 30 mg, 1, tablet, By Mouth, Daily, # 30 tablet, Refills 0, Tot. Refills 0, Maintenance, 10/10/22 20:37:00 EST, Route to Pharmacy Electronically, [facility], Partial fill upon patient request if the prescription is for a schedule II... Start Date: 10/10/22 Status: Ordered Pen [place], 31 G x 5 mm BD Ultra [...] Gas, 225:21:00 EST, Route to Pharmacy Electronically, [facility], Partial fill upon patient [...] preeclampsia Confirmed Active Chronic hypertension Confirmed Active Non-Nepalese speaking patient - seismic interpreter required Confirmed Active Obese class II Confirmed Active Knee pain Confirmed Active Last Pap smear 04/22/22 negative with negative HPV Confirmed Active Poorly controlled type 2 diabetes mellitus with neuropathy Confirmed Active Social History Social History Type Response Smoking Status Never (less than 100 in lifetime) entered on: 03/07/22 Sex Patient Care team information Care Team Related Persons Name: DANILO TURNER Address: [address] Address: [address] [place] [address] [place] Name: MYRIAM DOWNEY Address: [address] [place] [address]
--- OUTSIDE RECORDS SUMMARY | 2024-06-17 19:16 | XMS_ITS | Continuity of Care Document ---
Author Organization [facility] Address [address] [place] [address]- Care Team Providers Care Informatics Spec Name Role Phone Nishi Harris NP Primary Care Physician [phone] Encounter [facility] Date(s): 09/30/22 - 10/30/22 [facility] [address] [place], [place] [address] Allergies, Adverse Reactions, Alerts No Known [...] 0 Refills, Maintenance, 10/06/22 5:21:00 EST, Tablet, [facility], Partial fill upon patient request if the prescription is for a schedule II opioid drug., 175, cm, 10/06/22... Start Date: 10/06/22 Stop Date: 11/05/22 Status: Ordered NIFEdipine 30 mg oral tablet, extended release 30 mg, 1, tablet, By Mouth, Daily, # 30 tablet, Refills 0, Tot. Refills 0, Maintenance, 10/10/22 20:37:00 EST, Route to Pharmacy Electronically, [facility], Partial fill upon patient request if the prescription is for a schedule II... Start Date: 10/10/22 Status: Ordered Pen [place], 31 G x 5 mm BD Ultra [...] Gas, 225:21:00 EST, Route to Pharmacy Electronically, [facility], Partial fill upon patient request [...] preeclampsia Confirmed Active Chronic hypertension Confirmed Active Non-Haitian speaking patient - primary care nurse required Confirmed Active Obese class II Confirmed Active Knee pain Confirmed Active Last Pap smear 04/22/22 negative with negative HPV Confirmed Active Poorly controlled type 2 diabetes mellitus with neuropathy Confirmed Active Social History Social History Type Response Smoking Status Never (less than 100 in lifetime) entered on: 03/07/22 Sex Patient Care team information Care Team Related Persons Name: DANILO TURNER Address: [address] Address: [address] [place] [address] [place] Name: MYRIAM DOWNEY Address: [address] [place] [address]
--- OUTSIDE RECORDS SUMMARY | 2024-06-17 19:16 | XMS_ITS | Continuity of Care Document ---
Author Organization [facility] Address [address] [place] [address]- Care Team Providers Care Side Framer Name Role Phone Kimberly COLLADO, Nishi Primary Care Physician En[facility] Date(s): 10/31/23 - 12/23/23 [facility] [address] [place] [address]- Attending Physician: Sera Stokes MD Referring Physician: Nishi Harris NP Allergies, [...] 0 Refills, Maintenance, 10/06/22 5:21:00 EST, Tablet, [facility], Partial fill upon patient request if the prescription is for a schedule II opioid drug., 175, cm, 10/06/22... Start Date: 10/06/22 Stop Date: 11/05/22 Status: Ordered NIFEdipine 30 mg oral tablet, extended release 30 mg, 1, tablet, By Mouth, Daily, # 30 tablet, Refills 0, Tot. Refills 0, Maintenance, 10/10/22 20:37:00 EST, Route to Pharmacy Electronically, [facility], Partial fill upon patient request if the prescription is for a schedule II... Start Date: 10/10/22 Status: Ordered Pen [place], 31 G x 5 mm BD Ultra [...] Gas, 225:21:00 EST, Route to Pharmacy Electronically, [facility], Partial fill upon patient request [...] preeclampsia Confirmed Active Chronic hypertension Confirmed Active Non-Italian speaking patient - client account representative required Confirmed Active Obese class II Confirmed [...] Related Persons Name: ASTRID YE DANILO Address: [address] Address: [address] Name: LEISA VIERA
--- OUTSIDE RECORDS SUMMARY | 2024-06-17 19:16 | XMS_ITS | Continuity of Care Document ---
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 Hospital Authored Date: Back to pt bedside for improved assessment of incision Incision largely intact (although skin not well-approximated)??besides 2 cm??defect on right side.?? This was probed, noted fascia intact, defect 3 cm depth, tracked 2 cm medially and 1 cm laterally.?? Dark serosanguinous discharge??- ?evacuating hematoma.?? No erythema or induration and underlying healthy appearing tissue, no e/o infection.?? Defect irrigated with NS, 1/2 inch packing placed.?? Pt tolerated this very well.?? Due to extensive surgery, obesity, and new incision complication, will cancel discharge for today, keep overnight and reassess incision tomorrow to ensure no new evidence of developing??infection or increased separation.?? If not, packing will be changed tomorrow priorto discharge and short interval??oupatient??follow up planned.?? Pt expressed understanding of the plan and is agreeable.?? * Antonieta BAIRD, Elsy Huerta: PERFORM, MODIFY Event Display: Care Team Progress Note Authored Date: [id number] Patient: ??BLAIRE TURNER ? Age:??37 Years?Sex:??Female?:??1985?? Subjective Day 3 follow up visit for this 37 yo pt, Nigerian speaking only. [employer] phone full time staff interpreter used for duration of consult- full time staff interpreter disconnected during consult andsecond full time staff interpreter used. Pt has been given nipple shield, has not been using- has not used breast pump either. Pt not making eye contact or participating with interest during consultation. Feeding baby formula via bottle with regular flow nipples currently in room. brought slowflow nipples for pt to use. assisted with latch to right breast in football position, using 20mm nipple shield. + sucking, + colostrum in shield. ? sublingual tongue restriction upon palpation of 's mouth. Maternal large,pendulous breasts, with flat nipples. Baby has 4.3% weight loss today, acceptable for day 3- receiving 30ml formula every 2-3 hours per feeding sheet. Assessment/Plan Late Pre-Term & Early Term [place] Education:? Higher risk for feeding related issues ? Under developed fat cheek pads leading to less milk removal in early days ? Increased sleepiness?? Parent Resource Sheet given including??supplement recommendations via ABM protocol ? Day 1: Hand express and spoon feed 5-10 mL? Day 2-4: Hand express/pump 10-15 mL using spoon/bottle or cup with provider guidance ? Day 4 and on: Pump 10-30 mL using bottle or cup with provider guidance ?*These measurements are to supplement when a latch is not achieved and can be added to the end of??feed during slow weight gain Written instructions for feeding volume if supplementing given to pt, in Nigerian! Pt encouraged to latch baby to breasts prior to feeding bottle, or use breast pump to stimulate milk production and feed any pumped milk to baby. will follow up with pt on 10/06/22 to check latching progress, give personal pump for home use. ?? OB Summary : 3 Parity: 1 . Baby A - Weight: 3.426 kg Baby A - Date, Time of : 10/02/22 13:23:00 Baby A - Gender: Male EGA at Documented Date, Time: 37 weeks Weight at Delivery Baby A - Delivery Type: , vacuum assist Delivery Complications: Excessive bleeding OB History History?(1,0,1,1)? # 1 ?Baby 1 ?Outcome Date:??2006 ?Outcome or Result:?Gest Age:??Fullterm ? Outcome:??Live ? Sex:??Male ?Maternal Complications:??Pre-eclampsia ?? # 2 ?Baby 1 ?Outcome Date:??2019 ?Outcome or Result:??Ectopic, medical management ?Gest Age:??Unknown ? Outcome:? Sex:??-- Active Problem List Active Problem List AMA (advanced maternal age) multigravida 35+: (Medical) Anemia: (Medical) Anxiety: (Medical) Back pain: (Medical) Breech presentation: (Medical) Chest pain: (Medical) Chronic hypertension: (Medical) Constipation: (Medical) History of section: (Medical) History of depression: (Medical) Hx of preeclampsia, prior , currently : (Medical) Knee pain: (Medical) Poorly controlled type 2 diabetes mellitus with neuropathy: (Medical) : (Obstetric) (01/16/22) Severe obesity: (Medical) Uses Nigerian as primary spoken language: (Medical) Home Medications Acetaminophen: 1,000 mg = 2 tablet, By Mouth, Every 6 hours, PRN (as needed for pain) Durable Medical Equipment: See Instructions, To use with insulin administration 4 times daily Durable Medical Equipment: See Instructions, use as directed for Type 2 Diabetes Mellitus Durable Medical Equipment: See Instructions, To change every 14 days Dx: Type 2 Diabetes Mellitus Durable Medical Equipment (Freestyle mao 2 CGM): See Instructions, Freestyle mao 2 CGM Durable Medical Equipment (Freestyle moa 2 sensors): See Instructions, Please provide 30 days supple freestyle mao 2 sensors to be changed every 14 days Ferrous Sulfate: 325 mg = 1 tablet, By Mouth, Every other day Insulin Glargine: See Instructions, 60 units Subcutaneous Injection in AM and 66 units subcutaneousinjecion ??in PM Insulin Lispro: See Instructions, 38 units Subcutaneous Injection before breakfast, 35 Units before??lunch, 22 units before dinnerDx E11.9 Multivitamin, : 1 capsule, By Mouth, Daily Medications Medications (18) Active SCHEDULED: (7) Acetaminophen 325 mg Tablet (Acetaminophen Tablet) ??650 mg, By Mouth, Every 4 hours Docusate Sodium 100 mg Capsule (Docusate Sodium Capsule) ??100 mg 1 capsule, By Mouth, 2 times a day Enoxaparin 40 mg Inj (Enoxaparin Inj) ??40 mg 0.4 mL, Subcutaneous Injection, Daily Ibuprofen 800 mg Tablet (Ibuprofen Tablet) ??800 mg, By Mouth, Every 8 hours Insulin Lispro 100 units/mL Inj (3mL) (Insulin LISPRO Sliding Scale) ??2-10 units, Subcutaneous Injection, 3 times a day before meals Metformin 500 mg Tablet (metFORMIN 500 mg oral tablet) ??1,000 mg 2 each, By Mouth, 2 times a day Tranexamic Acid 100 mg/mL Inj (Tranexamic Acid Inj) ??1 Gm 10 mL, IVPB, Once CONTINUOUS: (1) Lactated Ringers (1000 mL) Cont IV 1,000 mL (Lactated Ringers 1,000 mL) ??1,000 mL, IV Infusion, 125 mL/hr PRN: (10) diphenhydrAMINE 25 mg Tablet (DiphenhydrAMINE Tablet) ??25 mg, By Mouth, Every 4 hours diphenhydrAMINE 50 mg/mL Inj (DiphenhydrAMINE Inj) ??25 mg 0.5 mL, IV Push, Once diphenhydrAMINE 50 mg/mL Inj (DiphenhydrAMINE Inj) ??12.5 mg 0.25 mL, IV Push Slowly, Every 2 hours Metoclopramide 5 mg/mL Inj (2 mL) (Metoclopramide Inj) ??10 mg, IV Push, Every 6 hours nalOXONE ??400mcg/mL Inj (nalOXONE Inj) ??0.1 mg 0.25 mL, IV Push Slowly, Every 15 minutes Ondansetron 2mg/mL Inj (2mL Vial) (Ondansetron Inj) ??4 mg, IV Push, Once Ondansetron 2mg/mL Inj (2mL Vial) (Ondansetron Inj) ??4 mg, IV Push Slowly, Once Ondansetron 4 mg ODT (Ondansetron Tablet) ??4 mg, By Mouth, Every 4 hours OxyCODONE 5 mg IR Tablet (OxyCODONE IR Tablet) ??5 mg, By Mouth, Every 3 hours Simethicone 80 mg Chewable Tablet (Simethicone Tablet) ??80 mg, Chew, 3 times a day * Lissette BAIRD, Corina: PERFORM Event Display: Care Team Progress Note Authored Date: Patient: ??BLAIRE TURNER ? Age:??37 Years?Sex:??Female?:??1985?? Subjective Follow up visit for , 37w at 2 d post vac. assisted C/S. Pt is??would like to breastfeed, is primarily bottle/formula, spoon feeding and attempting to pump. Nigerian speaking, full time staff interpreter at bedside. ?? Assessment/Plan Patient feeding discouraged about milk production and /pumping progress. Reviewed teaching for stimulation and milk production.?? Breasts noted to be large, with flattish nipples. Easilyexpressing colostrum. Assisted with latching baby in football on L breast with small shield. Baby latched with wide gape and a few intermittent tugs, reviewed positioning and breast compressions. ?? Reviewed feeding plan to offer breast ad bacilio with small shield, to pump q 3 and to supplement with formula and pumped milk q 3. All questions answered. will follow up. ?? Resources reviewed. ?? OLI Shepherd, IBCLC ? OB Summary : 3 Parity: 1 . Baby A - Weight: 3.426 kg Baby A - Date, Time of : 10/02/22 13:23:00 Baby A - Gender: Male EGA at Documented Date, Time: 37 weeks Weight at Delivery Baby A - Delivery Type: , vacuum assist Delivery Complications: Excessive bleeding OB History History?(1,0,1,1)? # 1 ?Baby 1 ?Outcome Date:??2006 ?Outcome or Result:?Gest Age:??Fullterm ? Outcome:??Live ? Sex:??Male ?Maternal Complications:??Pre-eclampsia ?? # 2 ?Baby 1 ?Outcome Date:??2019 ?Outcome or Result:??Ectopic, medical management ?Gest Age:??Unknown ? Outcome:? Sex:??-- Active Problem List Active Problem List AMA (advanced maternal age) multigravida 35+: (Medical) Anemia: (Medical) Anxiety: (Medical) Back pain: (Medical) Breech presentation: (Medical) Chest pain: (Medical) Chronic hypertension: (Medical) Constipation: (Medical) History of section: (Medical) History of depression: (Medical) Hx of preeclampsia, prior , currently : (Medical) Knee pain: (Medical) Poorly controlled type 2 diabetes mellitus with neuropathy: (Medical) : (Obstetric) (01/16/22) Severe obesity: (Medical) Uses Nigerian as primary spoken language: (Medical) Home Medications Acetaminophen: 1,000 mg = 2 tablet, By Mouth, Every 6 hours, PRN (as needed for pain) Durable Medical Equipment: See Instructions, To use with insulin administration 4 times daily Durable Medical Equipment: See Instructions, use as directed for Type 2 Diabetes Mellitus Durable Medical Equipment: See Instructions, To change every 14 days Dx: Type 2 Diabetes Mellitus Durable Medical Equipment (Freestyle mao 2 CGM): See Instructions, Freestyle mao 2 CGM Durable Medical Equipment (Freestyle mao 2 sensors): See Instructions, Please provide 30 days supple freestyle mao 2 sensors to be changed every 14 days Ferrous Sulfate: 325 mg = 1 tablet, By Mouth, Every other day Insulin Glargine: See Instructions, 60 units Subcutaneous Injection in AM and 66 units subcutaneousinjecion ??in PM Insulin Lispro: See Instructions, 38 units Subcutaneous Injection before breakfast, 35 Units before??lunch, 22 units before dinnerDx E11.9 Multivitamin, : 1 capsule, By Mouth, Daily Medications Medications (20) Active SCHEDULED: (9) Acetaminophen 325 mg Tablet (Acetaminophen Tablet) ??650 mg, By Mouth, Every 4 hours Cephalexin Monohydrate 500 mg Capsule (Keflex Capsule) ??500 mg, By Mouth, Every 8 hours Docusate Sodium 100 mg Capsule (Docusate Sodium Capsule) ??100 mg 1 capsule, By Mouth, 2 times a day Enoxaparin 40 mg Inj (Enoxaparin Inj) ??40 mg 0.4 mL, Subcutaneous Injection, Daily Ibuprofen 800 mg Tablet (Ibuprofen Tablet) ??800 mg, By Mouth, Every 8 hours Insulin Lispro 100 units/mL Inj (3mL) (Insulin LISPRO Sliding Scale) ??2-10 units, Subcutaneous Injection, 3 times a day before meals Metformin 500 mg Tablet (metFORMIN 500 mg oral tablet) ??1,000 mg 2 each, By Mouth, 2 times a day Metronidazole 500mg Tablet (Flagyl Tablet) ??500 mg, By Mouth, Every 8 hours Tranexamic Acid 100 mg/mL Inj (Tranexamic Acid Inj) ??1 Gm 10 mL, IVPB, Once CONTINUOUS: (1) Lactated Ringers (1000 mL) Cont IV 1,000 mL (Lactated Ringers 1,000 mL) ??1,000 mL, IV Infusion, 125 mL/hr PRN: (10) diphenhydrAMINE 25 mg Tablet (DiphenhydrAMINE Tablet) ??25 mg, By Mouth, Every 4 hours diphenhydrAMINE 50 mg/mL Inj (DiphenhydrAMINE Inj) ??25 mg 0.5 mL, IV Push, Once diphenhydrAMINE 50 mg/mL Inj (DiphenhydrAMINE Inj) ??12.5 mg 0.25 mL, IV Push Slowly, Every 2 hours Metoclopramide 5 mg/mL Inj (2 mL) (Metoclopramide Inj) ??10 mg, IV Push, Every 6 hours nalOXONE ??400mcg/mL Inj (nalOXONE Inj) ??0.1 mg 0.25 mL, IV Push Slowly, Every 15 minutes Ondansetron 2mg/mL Inj (2mL Vial) (Ondansetron Inj) ??4 mg, IV Push, Once Ondansetron 2mg/mL Inj (2mL Vial) (Ondansetron Inj) ??4 mg, IV Push Slowly, Once Ondansetron 4 mg ODT (Ondansetron Tablet) ??4 mg, By Mouth, Every 4 hours OxyCODONE 5 mg IR Tablet (OxyCODONE IR Tablet) ??5 mg, By Mouth, Every 3 hours Simethicone 80 mg Chewable Tablet (Simethicone Tablet) ??80 mg, Chew, 3 times a day Patient Care team information Care Team Personnel Name: Nan Abreu RN Position: S OB RN Member Role: Patient Care Provider Name: Susanna Guevara RN Position: S OB RN Member Role: OB RN Care Team Related Persons Name: BLAIRE TURNER Address: [id number] Address: home [address] [place] [address] Name: MYRIAM DOWNEY Address: home [address] [place] [address]
--- OUTSIDE RECORDS SUMMARY | 2024-06-17 19:17 | XMS_ITS | Continuity of Care Document ---
Author Organization [facility] Address [address] [place] [address]- Care Team Providers Care Instructor Adjunct Surgical Technician Name Role Phone Kimberly COLLADO, Nishi Primary Care Physician [place] [facility] [place] 05[place]/22 [facility] [address] [place] [id number] Attending Physician: Zainab Reddy MD Admitting Physician: Zainab Reddy MD Referring Physician: Nishi Harris NP Allergies, Adverse Reactions, Alerts No Known Allergies Medications aspirin 81 mg oral delayed release tablet 162 mg, 2, tablet, By Mouth, Daily, # 60 tablet, Refills 5, Tot. Refills 5, Maintenance, 03/14/22 10:02:00 EDT, Route to Pharmacy Electronically, [facility], Partial fill upon patient request if the prescription is for a schedule I... Start Date: 03/14/22 Status: Ordered ferrous sulfate 325 mg oral enteric coated tablet 325 mg, 1, tablet, By Mouth, Every other day, # 60 tablet, Refills 4, Tot. Refills 4, Maintenance, 04/22/22 15:38:00 EDT, Route to Pharmacy Electronically, [facility], please print label in vietnamese, 175, cm, 04/22/22 15:13:00 EDT,... Start Date: [...] mL, 5 Refills, Maintenance, 03/28/22 13:34:00 EDT, [facility], Partial fill upon patient request [...] mL, 6 Refills, Maintenance, 04/07/22 16:35:00 EDT, [facility], Partial fill upon patient request if the prescription is for a sched... Start Date: 04/07/22 Status: Ordered Pen [place], 31 G x 5 mm BD Ultra [...]
--- OUTSIDE RECORDS SUMMARY | 2024-06-17 19:17 | XMS_ITS | Continuity of Care Document ---
Author Organization [facility] Address [address] [place] [address]- Care Team Providers Care Machine Feeder Name Role Phone Kimberly COLLADO, Nishi Primary Care Physician [phone] Encounter [facility] Date(s): 12/28/21 - 01/27/22 [facility] [address] [place] [address]-
--- OUTSIDE RECORDS SUMMARY | 2024-06-17 19:17 | XMS_ITS | Continuity of Care Document ---
Author Organization [facility] Address Unknown Care Team Providers Care Hvac Sheet Metal Installer Name Role Phone Kimberly COLLADO, Nishi Primary Care Physician Encounter [facility] [place] Date(s): 03/16/22 - 04/15/22 [facility] Attending Physician: Asim Rai Admitting Physician: Asim Rai Referring Physician: AdmtrAsim Allergies, Adverse Reactions, Alerts No Known Allergies Medications aspirin 81 mg oral delayed release tablet 162 mg, 2, tablet, By Mouth, Daily, # 60 tablet, Refills 5, Tot. Refills 5, Maintenance, 03/14/22 10:02:00 EDT, Route to Pharmacy Electronically, [facility], Partial fill upon patient request if the prescription is for a schedule I... Start Date: 03/14/22 Status: Ordered doxylamine 25 mg oral tablet 1 tablet = 25 mg, By Mouth, Daily at bedtime, PRN Nausea & Vomiting, # 30 tablet, 1 Refills, Acute 05/29/22 23:07:00 EDT, 03/29/22 23:06:00 EDT, Tablet, [facility], Partial fill upon patient request [...] mL, 5 Refills, Maintenance, 03/28/22 13:34:00 EDT, [facility], Partial fill upon patient request [...] mL, 6 Refills, Maintenance, 04/07/22 16:35:00 EDT, [facility], Partial fill upon patient request if the prescription is for a sched... Start Date: 04/07/22 Status: Ordered Pen [place], 31 G x 5 mm BD Ultra [...] 05/29/22 23:08:00 EDT, 03/29/22 23:06:00 EDT, Tablet, [facility], Partial fill upon patient requestif [...]
--- OUTSIDE RECORDS SUMMARY | 2024-06-17 19:17 | XMS_ITS | Continuity of Care Document ---
Author Organization [facility] Address [address] [place] [id number]- Care Team Providers Care Maintenance Technician 2Nd Shift Name Role Phone Kimberly COLLADO, Nishi Primary Care Physician [place] [facility] [place] 04[place]20/[place] [facility] [address] [place] [id number] Attending Physician: Asim Rai Admitting Physician: Admtr, Asim Referring Physician: Admtr, Ar8 Allergies, Adverse Reactions, Alerts No Known Allergies Medications aspirin 81 mg oral delayed release tablet 162 mg, 2, tablet, By Mouth, Daily, # 60 tablet, Refills 5, Tot. Refills 5, Maintenance, 03/14/22 10:02:00 EDT, Route to Pharmacy Electronically, [facility], Partial fill upon patient request if the prescription is for a schedule I... Start Date: 03/14/22 Status: Ordered doxylamine 25 mg oral tablet 1 tablet = 25 mg, By Mouth, Daily at bedtime, PRN Nausea & Vomiting, # 30 tablet, 1 Refills, Acute 05/29/22 23:07:00 EDT, 03/29/22 23:06:00 EDT, Tablet, [facility], Partial fill upon patient [...] mL, 5 Refills, Maintenance, 03/28/22 13:34:00 EDT, [facility], Partial fill upon patient [...] mL, 6 Refills, Maintenance, 04/07/22 16:35:00 EDT, [facility], Partial fill upon patient request if the prescription is for a sched... Start Date: 04/07/22 Status: Ordered Pen [place], 31 G x 5 mm BD Ultra [...] 05/29/22 23:08:00 EDT, 03/29/22 23:06:00 EDT, Tablet, [facility], Partial fill upon patient requestif [...]
--- OUTSIDE RECORDS SUMMARY | 2024-06-17 19:17 | XMS_ITS | Continuity of Care Document ---
Author Organization [facility] Address [address] [place] [address]- Care Team Providers Care Toy Assembler Name Role Phone Kimberly COLLADO, Nishi Primary Care Physician [place] [facility] [place]01[place] - 09/03/[address] [address] Discharge Disposition: A-D/C Home Attending Physician: Nicole [...] 0:00:00 EST, 07/29/22 11:31:00 EDT, Tablet, [facility], please print label in Namibian, 175, cm, 07/29/22 11:09:00 EDT, Hei... Start Date: 07/29/22 Stop Date: 11/19/22 Status: Ordered aspirin 81 mg oral delayed release tablet 162 mg, 2, tablet, By Mouth, Daily, # 60 tablet, Refills 5, Tot. Refills 5, Maintenance, 03/14/22 10:02:00 EDT, Route to Pharmacy Electronically, [facility], Partial fill upon patient request if the prescription is for a schedule I... Start Date: 03/14/22 Status: Ordered ferrous sulfate 325 mg oral enteric coated tablet 325 mg, 1, tablet, By Mouth, Every other day, # 60 tablet, Refills 4, Tot. Refills 4, Maintenance, 04/22/22 15:38:00 EDT, Route to Pharmacy Electronically, [facility], please print label in persian, [...] 03/21/22 Stop Date: 11/16/22 Status: Ordered insulin glargine 100 u/ml subcutaneous solution = 60 units, Subcutaneous Injection, Daily in AM, # 15 mL, 0 Refills, Maintenance, 09/03/22 17:35:00EDT, Injection, [facility], Partial fill upon patient request if the prescription is for a schedule II opioid drug., 175, cm, 09/01... Start Date: 09/03/22 Status: Ordered insulin glargine 100 u/ml subcutaneous solution = 66 units, Subcutaneous Injection, Daily at bedtime, # 15 mL, 0 Refills, Maintenance, 09/03/22 17:35:00 EDT, Injection, [facility], Partial fill upon patient request if the prescription is for a schedule II opioid drug., 175, cm,... Start Date: 09/03/22 Status: Ordered insulin lispro 100 u/ml subcutaneous injection See Instructions, 44 units Subcutaneous Injection with breakfast and lunch, 22 units with dinner, #15 mL, 0 Refills, Maintenance, 09/03/22 17:35:00 EDT, Injection, [facility], Partial fill upon patient request if the prescription... Start Date: 09/03/22 Status: Ordered Lantus Solostar Pen 100 units/mL subcutaneous solution See Instructions, 60 units Subcutaneous Injection in AM and 66 units subcutaneous injecion in PM, #10 mL, 4 Refills, Maintenance, 09/01/22 10:41:00 EDT, [facility], Partial fill upon patient request if the prescription is for a s... Start Date: 09/01/22 Status: Ordered NovoLOG FlexPen 100 units/mL injectable solution See Instructions, 44 U SQ INJECTION TID BEFORE MEALS DX E11.9, # 30 mL, 6 Refills, Maintenance, 08/25/22 11:43:00 EDT, [facility], Partial fill upon patient request if the prescription is for a schedule II opioid drug., 175, cm,... Start Date: 08/25/22 Status: Ordered Pen [place], 31 G x 5 mm BD Ultra Fine III See Instructions, # 120 each, Refills 5, Tot. Refills 5, Maintenance, To use with insulin administration 4 times daily, 04/26/22 16:47:00 EDT, Supply, 175, cm, 03/07/22 9:02:00 [...] Confirmed Active Chronic hypertension Confirmed Active Uses Namibian as primary spoken language Confirmed Active AMA (advanced maternal age) multigravida 35+ Confirmed Active Knee pain Confirmed Active Severe obesity Confirmed Active Poorly controlled type 2 diabetes mellitus with neuropathy Confirmed Active Results Orders for Microbiology Reports Name Date Urine Culture (Culture Urine) 09/01/22 Microbiology Reports TEST:Urine Culture STATUS:Auth (Verified) BODY SITE: SOURCE:URINE COLLECTED DATE/TIME:09/01/22 9:25 PM Urine Culture SPECIMEN DESCRIPTION : URINE CLEAN CATCH/MIDSTREAM SPECIAL REQUESTS : NONE CULTURE : Mixed bacterial keke, indicative of urogenital contamination. REPORT STATUS : FINAL 09/02/2022 Vital Signs Most recent to oldest [Reference Range]: 1 2 3 Height 175 cm (09/01/22 4:18 PM) Weight 132.5 kg (09/03/22 4:23 PM) 134.8 kg (09/01/22 4:18 PM) 134.8 kg (09/01/22 12:05 PM) Oxygen Saturation [94-100 %] 98 % (09/02/22 10:50 PM) 99 % (09/01/22 2:41 PM) 99 % (09/01/22 2:13 PM) Pulse Rate [55-90 bpm] 101 bpm *H* (09/01/22 4:18 PM) 101 bpm *H* (09/01/22 2:41 PM) 99 bpm *H* (09/01/22 2:13 PM) Body Mass Index [18.5-24.99 kg/m2] 44.02 kg/m2 *>HHI* (09/01/22 4:18 PM) Blood Pressure [90-138/55-84 mm Hg] 135/65mm Hg (09/03/22 4:39 PM) 142/69mm Hg *H* (09/03/22 1:21 PM) 139/64mm Hg *H* (09/03/22 11:00 AM) Respiratory Rate [16-30 br/min] 18 br/min (09/01/22 4:18 PM) 22 br/min (09/01/22 2:41 PM) 20 br/min (09/01/22 12:06 PM) Temperature [96.8-100.4 DegF] 97.9 DegF (09/03/22 4:51 PM) 97.9 DegF (09/03/22 6:39 AM) 98.5 DegF (09/02/22 10:30 PM) Mode of Delivery (Oxygen) Room air (09/01/22 2:41 PM) Room air (09/01/22 2:13 PM) Room air (09/01/22 1:48 PM) Blood pressure sites Arm, left (09/03/22 11:00 AM) Arm, left (09/03/22 8:00 AM) Arm, left (09/03/22 6:39 AM) Temperature Route Oral (09/03/22 4:51 PM) Oral (09/03/22 6:39 AM) Oral (09/02/22 10:30 PM) Dry Weight 134.8 kg (09/01/22 4:18 PM) Weight Obtained Via Standing scale (09/03/22 4:23 PM) Standing scale (09/01/22 12:05 PM) Social History Social History Type Response Smoking Status Never (less than 100 in lifetime) entered on: 03/07/22 Sex Patient Care team information Personnel Name: Nishi Harris NP Address: Address: [address] [place] [address]
--- OUTSIDE RECORDS SUMMARY | 2024-06-17 19:17 | XMS_ITS | Continuity of Care Document ---
Author Organization [facility] [employer] Address [address] [facility], [address] [place] [address]- Care Team Providers Care Museum Host/Hostess Name Role Phone Kimberly COLLADO, Nishi Primary [facility] Phys[id number] Date(s[facility] 07/22/22 - 11/19/22 [facility] [address], [address] [place] [address]- Attending Physician: Shasha Escobedo MD Referring Physician: [...] 0 Refills, Maintenance, 10/06/22 5:21:00 EST, Tablet, [facility], Partial fill upon patient request if the prescription is for a schedule II opioid drug., 175, cm, 10/06/22... Start Date: 10/06/22 Stop Date: 11/05/22 Status: Ordered NIFEdipine 30 mg oral tablet, extended release 30 mg, 1, tablet, By Mouth, Daily, # 30 tablet, Refills 0, Tot. Refills 0, Maintenance, 10/10/22 20:37:00 EST, Route to Pharmacy Electronically, [facility], Partial fill upon patient request if the prescription is for a schedule II... Start Date: 10/10/22 Status: Ordered Pen [place], 31 G x 5 mm BD Ultra [...] Gas, 225:21:00 EST, Route to Pharmacy Electronically, [facility], Partial fill upon patient request [...] preeclampsia Confirmed Active Chronic hypertension Confirmed Active Non-Luxembourgish speaking patient - adjunct political science instructor required Confirmed Active Obese class II Confirmed [...] Related Persons Name: ASTRID YE DANILO Address: [id number] Address: home [address] [place] [address] [place] Name: MYRIAM DOWNEY Address: home [address] [place] [address]
--- OUTSIDE RECORDS SUMMARY | 2024-06-17 19:17 | XMS_ITS | Continuity of Care Document ---
Author Organization [facility] Address [address] [place] [address]- Care Team Providers Care Reed Repairer Name Role Phone Kimberly COLLADO, Nishi Primary Care Physician [phone] Encounter [facility] Date(s): 06/22/22 - 08/31/22 [facility] [address] [place] [address] Attending Physician: Barb Gandhi MD Admitting Physician: Barb Gandhi MD Referring Physician: Nishi Harris NP Allergies, Adverse Reactions, Alerts No Known Allergies Immunizations Given and Recorded Vaccine Date Status Refusal Reason tetanus/diphtheria/pertussis, acel(Tdap) 07/29/22 Given Medications acetaminophen 500 mg oral tablet 2 tablet = 1,000 mg, By Mouth, Every 6 hours, PRN as needed for pain, # 50 tablet, 0 Refills, Acute11/19/22 0:00:00 EST, 07/29/22 11:31:00 EDT, Tablet, [facility], please print label in Kazakh, 175, cm, 07/29/22 11:09:00 EDT, Brucei... Start Date: 07/29/22 Stop Date: 11/19/22 Status: Ordered aspirin 81 mg oral delayed release tablet 162 mg, 2, tablet, By Mouth, Daily, # 60 tablet, Refills 5, Tot. Refills 5, Maintenance, 03/14/22 10:02:00 EDT, Route to Pharmacy Electronically, [facility], Partial fill upon patient request if the prescription is for a schedule I... Start Date: 03/14/22 Status: Ordered ferrous sulfate 325 mg oral enteric coated tablet 325 mg, 1, tablet, By Mouth, Every other day, # 60 tablet, Refills 4, Tot. Refills 4, Maintenance, 04/22/22 15:38:00 EDT, Route to Pharmacy Electronically, [facility], please print label in faroese, 175, cm, 04/22/22 15:13:00 EDT,... Start Date: [...] Injection, 2 times a day, PLACE [place], # 15 mL, 4 Refills, Maintenance,08/25/22 11:43:00 EDT, [facility], Partial fill upon patient request if the prescription is for a schedule II opioid drug., 175, cm... Start Date: 08/25/22 Stop Date: 01/22/23 Status: Ordered NovoLOG FlexPen 100 units/mL injectable solution See Instructions, 44 U SQ INJECTION TID BEFORE MEALS DX E11.9, # 30 mL, 6 Refills, Maintenance, 08/25/22 11:43:00 EDT, [facility], Partial fill upon patient request if the prescription is for a schedule II opioid drug., 175, cm,... Start Date: 08/25/22 Status: Ordered Pen [place], 31 G x 5 mm BD Ultra [...] Confirmed Active Chronic hypertension Confirmed Active Uses Kazakh as primary spoken language Confirmed Active AMA (advanced maternal age) multigravida 35+ Confirmed Active Knee pain Confirmed Active Severe obesity Confirmed Active Poorly controlled type 2 diabetes mellitus with neuropathy Confirmed Active Social History Social History Type Response Smoking Status Never (less than 100 in lifetime) entered on: 03/07/22 Sex Patient Care team information Personnel Name: Nishi Harris NP Address: Address: [address] [place] [address], [place] [address]- [place]
--- OUTSIDE RECORDS SUMMARY | 2024-06-17 19:17 | XMS_ITS | Continuity of Care Document ---
Author Organization [facility] [employer] [facility] Address [address] [place] [address], [address] [place] [address]- Care Team Providers Care Account Classification Clerk Name Role Phone Kimberly ORIENTATION AND MOBILITY INSTRUCTOR, Nishi Primary Care Physician Encounter [facility] Date(s): 02/21/22 - 05/13/22 [facility] [employer] [facility] [address], [address] [place], [place] [address] Attending Physician: Yocasta Larsen MD Referring Physician: Cristiano WAGNER [OB], Priscilla Elliott Allergies, Adverse Reactions, Alerts No Known Allergies Medications aspirin 81 mg oral delayed release tablet 162 mg, 2, tablet, By Mouth, Daily, # 60 tablet, Refills 5, Tot. Refills 5, Maintenance, 03/14/22 10:02:00 EDT, Route to Pharmacy Electronically, [facility], Partial fill upon patient request if the prescription is for a schedule I... Start Date: 03/14/22 Status: Ordered doxylamine 25 mg oral tablet 1 tablet = 25 mg, By Mouth, Daily at bedtime, PRN Nausea & Vomiting, # 30 tablet, 1 Refills, Acute 05/29/22 23:07:00 EDT, 03/29/22 23:06:00 EDT, Tablet, [facility], Partial fill upon patient request if the prescription is for a naseem... Start Date: 03/29/22 Stop Date: 05/29/22 Status: Ordered ferrous sulfate 325 mg oral enteric coated tablet 325 mg, 1, tablet, By Mouth, Every other day, # 60 tablet, Refills 4, Tot. Refills 4, Maintenance, 04/22/22 15:38:00 EDT, Route to Pharmacy Electronically, [facility], please print label in vietnamese, 175, [...] mL, 5 Refills, Maintenance, 03/28/22 13:34:00 EDT, [facility], Partial fill upon patient [...] mL, 6 Refills, Maintenance, 04/07/22 16:35:00 EDT, [facility], Partial fill upon patient request if the prescription is for a sched... Start Date: 04/07/22 Status: Ordered Pen [place], 31 G x 5 mm BD Ultra [...] 05/29/22 23:08:00 EDT, 03/29/22 23:06:00 EDT, Tablet, [facility], Partial fill upon patient [...] currently (Confirmed) Active Chronic hypertension(Confirmed) Active Uses Pitcairn Islander as primary spok en language(Confirmed) Active AMA (advanced maternal age) multigravida 35+(Confirmed) Active Obese class II(Confirmed) Active Knee pain(Confirmed) Active Poorly controlled type 2 alejandro betes mellitus with neuropathy(Confirmed) Active Social History Social History Type Response Smoking Status Never (less than 100 in lifetime) entered on: 03/07/22 Sex
--- OUTSIDE RECORDS SUMMARY | 2024-06-17 19:17 | XMS_ITS | Continuity of Care Document ---
Author Organization [facility] [employer] [facility] Address [address] [place] [address], [address] [place] [address]- Care Team Providers Care Development Advisor Name Role Phone Kimberly BRIDGE TEACHER, Nishi Primary Care Physician [phone] [id number] Date(s): 10/12/22 - 10/19/22 [facility] [employer] [facility] [address] [facility], 4th [place] [address]- Attending Physician: Gabbie Shepherd MD Referring Physician: [...] 0 Refills, Maintenance, 10/06/22 5:21:00 EST, Tablet, [facility], Partial fill upon patient request if the prescription is for a schedule II opioid drug., 175, cm, 10/06/22... Start Date: 10/06/22 Stop Date: 11/05/22 Status: Ordered MiraLax oral powder for reconstitution = 17 Gm, By Mouth, Daily, for 14 days, dissolve in water before taking, # 255 Gm, 0 Refills, Acute 10/26/22 11:16:00 EST, 10/12/22 11:16:00 EST, REC Powder, [facility][id number], Partial fill upon patient request if the prescription is for a schedule II... Start Date: 10/12/22 Stop Date: 10/26/22 Status: Ordered NIFEdipine 30 mg oral tablet, extended release 30 mg, 1, tablet, By Mouth, Daily, # 30 tablet, Refills 0, Tot. Refills 0, Maintenance, 10/10/22 20:37:00 EST, Route to Pharmacy Electronically, [facility], Partial fill upon patient request if the prescription is for a schedule II... 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 Confirmed Active Obese class II Confirmed Active Knee pain Confirmed Active Last Pap smear 04/22/22 negative with negative HPV Confirmed Active Poorly controlled type 2 diabetes mellitus with neuropathy Confirmed Active Vital Signs Most recent to oldest [Reference Range]: 1 Height 175 cm (10/12/22 11:10 AM) Weight 115.4 kg (10/12/22 11:10 AM) Body Mass Index [18.5-24.99 kg/m2] 37.68 kg/m2 *>HHI* (10/12/22 11:10 AM) Blood Pressure [90-138/55-84 mm Hg] 122/ 66mm Hg (10/12/22 11:10 AM) Weight Obtained Via Standing scale (10/12/22 11:10 AM) Social History Social History Type Response Smoking Status Never (less than 100 in lifetime) entered on: 03/07/22 Sex Patient Care team information Care Team Related Persons Name: DANILO TURNER Address: Address: [address] [place] [address] [place] Name: MYRIAM DOWNEY Address: home [address] [place] [address]
--- OUTSIDE RECORDS SUMMARY | 2024-06-17 19:17 | XMS_ITS | Continuity of Care Document ---
Author Organization [facility] Address [address] [place] [address]- Care Team Providers Care Glass Cut Off Supervisor Name Role Phone Kimberly COLLADO, Nishi Primary Care Physician Encounter [facility] R [id number] Date(s): 06/22/22 - 10/09/22 [facility] [address] [place] [address]- Attending Physician: Lacie Navas MD Admitting Physician: [...] Acute11/19/22 0:00:00 EST, 07/29/22 11:31:00 EDT, Tablet, [facility], please print label in Niuean, 175, cm, 07/29/22 11:09:00 EDT, Jass... Start Date: 07/29/22 Stop Date: 11/19/22 Status: Ordered ferrous sulfate 325 mg oral enteric coated tablet 325 mg, 1, tablet, By Mouth, Every other day, # 60 tablet, Refills 4, Tot. Refills 4, Maintenance, 04/22/22 15:38:00 EDT, Route to Pharmacy Electronically, [facility], please print label in bengali, 175, cm, 04/22/22 15:13:00 EDT,... Start Date: [...] 0 Refills, Maintenance, 10/06/22 5:21:00 EST, Tablet, [facility], Partial fill upon patient request if the prescription is for a schedule II opioid drug., 175, cm, 10/06/22... Start Date: 10/06/22 Stop Date: 11/05/22 Status: Ordered oxyCODONE 5 mg oral tablet 5 mg, 1, tablet, By Mouth, Every 3 hours, PRN, (7-10), # 12 tablet, Refills 0, Tot. Refills 0, Maintenance, Pain , Severe, 10/06/22 5:21:00 EST, Route to Pharmacy Electronically, [facility], Partial fill upon patient request if the... Start Date: 10/06/22 Status: Ordered Pen [place], 31 G x 5 mm BD Ultra [...] Gas, 11/17/225:21:00 EST, Route to Pharmacy Electronically, [facility], Partial fill upon patient request [...] Confirmed Active Chronic hypertension Confirmed Active Uses Niuean as primary spoken language Confirmed Active AMA (advanced maternal age) multigravida 35+ Confirmed Active Knee pain Confirmed Active Severe obesity Confirmed Active Poorly controlled type 2 diabetes mellitus with neuropathy Confirmed Active Social History Social History Type Response Smoking Status Never (less than 100 in lifetime) entered on: 03/07/22 Sex Patient Care team information Care Team Related Persons Name: ASTRID ZARCOZoey ANNMARIE ROJAS Address: [address] Address: home [address] [place] [address] [place] Name: MYRIAM DOWNEY Address: [address] [place] [address]
--- OUTSIDE RECORDS SUMMARY | 2024-06-17 19:17 | XMS_ITS | Continuity of Care Document ---
Author Organization [facility] Address [address] [place] [address]- Care Team Providers Care Chain Maker Loom Control Name Role Phone Kimberly COLLADO, Nishi Primary [facility] Phys[id number] Date(s[facility] 12/09/22 - 01/14/[facility] [address] [place] [address]- Attending Physician: Murray Amezcua MD Admitting Physician: Murray Amezcua MD Referring Physician: Nishi Harris NP Allergies, [...] 0 Refills, Maintenance, 10/06/22 5:21:00 EST, Tablet, [facility], Partial fill upon patient request if the prescription is for a schedule II opioid drug., 175, cm, 10/06/22... Start Date: 10/06/22 Stop Date: 11/05/22 Status: Ordered NIFEdipine 30 mg oral tablet, extended release 30 mg, 1, tablet, By Mouth, Daily, # 30 tablet, Refills 0, Tot. Refills 0, Maintenance, 10/10/22 20:37:00 EST, Route to Pharmacy Electronically, [facility], Partial fill upon patient request if the prescription is for a schedule II... 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
--- OUTSIDE RECORDS SUMMARY | 2024-06-17 19:17 | XMS_ITS | Continuity of Care Document ---
Author Organization [facility] [employer] Address [address] [place] [address], [address] [place] [address]- Care Team Providers Care Pouch Making Machine Operator Name Role Phone Kimberly SENIOR TRAINING AND DEVELOPMENT REP, Nishi Primary Care Physician [phone] [facility] [id number] Date(s): 04/22/22 - 04/29/22 [facility] [employer] [facility] [address] [facility], 4th [address] [place], [place] [address] Attending Physician: Cora WAGNER, Gabbie [place] Allergies, Adverse Reactions, Alerts No Known Allergies Medications aspirin 81 mg oral delayed release tablet 162 mg, 2, tablet, By Mouth, Daily, # 60 tablet, Refills 5, Tot. Refills 5, Maintenance, 03/14/22 10:02:00 EDT, Route to Pharmacy Electronically, [facility], Partial fill upon patient request if the prescription is for a schedule I... Start Date: 03/14/22 Status: Ordered doxylamine 25 mg oral tablet 1 tablet = 25 mg, By Mouth, Daily at bedtime, PRN Nausea & Vomiting, # 30 tablet, 1 Refills, Acute 05/29/22 23:07:00 EDT, 03/29/22 23:06:00 EDT, Tablet, [facility], Partial fill upon patient request if the prescription is for a naseem... Start Date: 03/29/22 Stop Date: 05/29/22 Status: Ordered ferrous sulfate 325 mg oral enteric coated tablet 325 mg, 1, tablet, By Mouth, Every other day, # 60 tablet, Refills 4, Tot. Refills 4, Maintenance, 04/22/22 15:38:00 EDT, Route to Pharmacy Electronically, [facility], please print label in jordanian, 175, cm, 04/22/22 15:13:00 EDT,... Start Date: [...] mL, 5 Refills, Maintenance, 03/28/22 13:34:00 EDT, [facility], Partial fill upon patient request [...] mL, 6 Refills, Maintenance, 04/07/22 16:35:00 EDT, [facility], Partial fill upon patient request if the prescription is for a sched... Start Date: 04/07/22 Status: Ordered Pen [place], 31 G x 5 mm BD Ultra [...] 05/29/22 23:08:00 EDT, 03/29/22 23:06:00 EDT, Tablet, [facility], Partial fill upon patient requestif [...] currently (Confirmed) Active Chronic hypertension(Confirmed) Active Uses Urdu as primary spok en language(Confirmed) Active AMA (advanced maternal age) multigravida 35+(Confirmed) Active Knee pain(Confirmed) Active Severe obesity(Confirmed) Active Poorly controlled type 2 alejandro betes mellitus with neuropathy(Confirmed) Active Vital Signs Most recent to oldest [Reference Range]: 1 Height 175 cm (04/22/22 3:13 PM) Weight 125 kg (04/22/22 3:13 PM) Body Mass Index [18.5-24.99] 40.82 *>HHI* (04/22/22 3:13 PM) Blood Pressure [90-138/55-84 mm Hg] 122/ 58mm Hg (04/22/22 3:13 PM) Blood pressure sites Arm, right (04/22/22 3:13 PM) Weight Obtained Via Standing scale (04/22/22 3:13 PM) Social History Social History Type Response Smoking Status Never (less than 100 in lifetime) entered on: 03/07/22 Sex
--- OUTSIDE RECORDS SUMMARY | 2024-06-17 19:17 | XMS_ITS | Continuity of Care Document ---
Author Organization [facility] Address [address] [place] [address]- Care Team Providers Care Culinary Worker Name Role Phone Kimberly COLLADO, Nishi Primary Care Physician [place] [facility] [place]23 - 12/23/23 [facility] [address] [place] [address]- Attending Physician: Asim Rai Admitting Physician: Asim [...] Weight Start Date: 05/11/22 Status: Ordered Freestyle elas 2 sensors Freestyle elsa 2 sensors, See [...] 0 Refills, Maintenance, 10/06/22 5:21:00 EST, Tablet, [facility], Partial fill upon patient request if the prescription is for a schedule II opioid drug., 175, cm, 10/06/22... Start Date: 10/06/22 Stop Date: 11/05/22 Status: Ordered NIFEdipine 30 mg oral tablet, extended release 30 mg, 1, tablet, By Mouth, Daily, # 30 tablet, Refills 0, Tot. Refills 0, Maintenance, 10/10/22 20:37:00 EST, Route to Pharmacy Electronically, [facility], Partial fill upon patient request if the prescription is for a schedule II... 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
--- OUTSIDE RECORDS SUMMARY | 2024-06-17 19:17 | XMS_ITS | Continuity of Care Document ---
Author Organization [facility] Address [address] [place] [address]- Care Team Providers Care Machine Shop Inspector Name Role Phone Kimberly COLLADO, Nishi Primary Care Physician En[facility] Date(s): 04/29/22 - 05/29/22 [facility] [address] [place] [address]- Allergies, Adverse Reactions, Alerts No Known Allergies Medications aspirin 81 mg oral delayed release tablet 162 mg, 2, tablet, By Mouth, Daily, # 60 tablet, Refills 5, Tot. Refills 5, Maintenance, 03/14/22 10:02:00 EDT, Route to Pharmacy Electronically, [facility], Partial fill upon patient request if the prescription is for a schedule I... Start Date: 03/14/22 Status: Ordered ferrous sulfate 325 mg oral enteric coated tablet 325 mg, 1, tablet, By Mouth, Every other day, # 60 tablet, Refills 4, Tot. Refills 4, Maintenance, 04/22/22 15:38:00 EDT, Route to Pharmacy Electronically, [facility], please print label in khmer, 175, [...] 5 Refills, Maintenance, 03/28/22 13:34:00 EDT, [facility], Partial fill upon patient [...] 6 Refills, Maintenance, 04/07/22 16:35:00 EDT, [facility], Partial fill upon patient request if the prescription is for a sched... Start Date: 04/07/22 Status: Ordered Pen [place], 31 G x 5 mm BD Ultra [...] currently (Confirmed) Active Chronic hypertension(Confirmed) Active Uses Saudi Arabian as primary spok en language(Confirmed) Active AMA (advanced maternal age) multigravida 35+(Confirmed) Active Knee pain(Confirmed) Active Severe obesity(Confirmed) Active Poorly controlled type 2 alejandro betes mellitus with neuropathy(Confirmed) Active Social History Social History Type Response Smoking Status Never (less than 100 in lifetime) entered on: 03/07/22 Sex
--- OUTSIDE RECORDS SUMMARY | 2024-06-17 19:17 | XMS_ITS | Continuity of Care Document ---
Author Organization [facility] Address [address] [place] [address], [address] [place] [address]- Care Team Providers Care Environmental Quality Analyst Name Role Phone Kimberly COLLADO, Nishi Primary Care Physician [facility] [id number] Date(s): 10/21/22 - 10/28/22 [facility] [address] [facility], 4th [place] [address]- Attending Physician: Pardeep WAGNER, Nicole Hatfield Allergies, Adverse Reactions, Alerts No Known [...] 0 Refills, Maintenance, 10/06/22 5:21:00 EST, Tablet, [facility], Partial fill upon patient request if the prescription is for a schedule II opioid drug., 175, cm, 10/06/22... Start Date: 10/06/22 Stop Date: 11/05/22 Status: Ordered NIFEdipine 30 mg oral tablet, extended release 30 mg, 1, tablet, By Mouth, Daily, # 30 tablet, Refills 0, Tot. Refills 0, Maintenance, 10/10/22 20:37:00 EST, Route to Pharmacy Electronically, [facility], Partial fill upon patient request if the prescription is for a schedule II... Start Date: 10/10/22 Status: Ordered Pen Tad, 31 G x 5 mm BD Ultra [...] Gas, 225:21:00 EST, Route to Pharmacy Electronically, [facility], Partial fill upon patient request [...] preeclampsia Confirmed Active Chronic hypertension Confirmed Active Non-Hungarian speaking patient - automation controls specialist required Confirmed Active Obese class II Confirmed Active Knee pain Confirmed Active Last Pap smear 04/22/22 negative with negative HPV Confirmed Active Poorly controlled type 2 diabetes mellitus with neuropathy Confirmed Active Vital Signs Most recent to oldest [Reference Range]: 1 Height 175 cm (10/21/22 1:57 PM) Weight 115.45 kg (10/21/22 1:57 PM) Body Mass Index [18.5-24.99 kg/m2] 37.7 kg/m2 *>HHI* (10/21/22 1:57 PM) Blood Pressure [90-138/55-84 mm Hg] 125/ 79mm Hg (10/21/22 1:57 PM) Blood pressure sites Arm, left (10/21/22 1:57 PM) Weight Obtained Via Standing scale (10/21/22 1:57 PM) Social History Social History Type Response Smoking Status Never (less than 100 in lifetime) entered on: 03/07/22 Sex Note * Yusra Altamirano: PERFORM, SIGN, VERIFY Event Display: Patient Education/Instruction Authored Date: [id number] [facility] *[facility] Clinical Summary Name ANNMARIE TURNER Age 37 Years 1985 PCP PCP Phone Visit Date 10/21/2022 13:43:00 Additional Instructions: Scheduled Appointments?? Future Appointments ?*[facility] ?[address],??[place],??[address] ?Phone:??--?Fax:??-- ?Appt. Date:??10/24/2022?11:20 AM ?Scheduled Provider:??Nicole Roberto MD ?*[facility] ?[address],??[place],??[address] ?Phone:??--?Fax:??-- ?Appt. Date:??10/28/2022?1:00 PM ?Scheduled Provider:??Nicole Roberto MD ?*[facility] ?[address],??[place],??[address] ?Phone:??--?Fax:??-- ?Appt. Date:??11/04/2022?1:00 PM ?Scheduled Provider:??Juve WAGNER, Lucía ?*[facility]GAL [facility]IC[facility] ?[address],??[place],??[address] ?Phone:??--?Fax:??-- ?Appt. Date:??11/11/2022?10:40 AM ?Scheduled Provider:??Gabbie Shepherd MD Follow-Up Instructions ?? Diagnosis Complication of the puerperium, unspecified Medications: Please continue your medications until treatment [...] 7. Next Dose: Durable Medical Equipment (Pen Tad, 31 G x 5 mm BD Ultra [...] orders Vital Signs Height 175 cm Weight 115.45 kg BMI 37.7 kg/m2 Blood Pressure 125 mm Hg/79 mm Hg Temperature Pulse Rate Respiratory Rate 02 Sat Mode of Delivery / You can now view a summary of your hospital visit from the comfort of your home through a free online portal called [employer]. [employer] is a website that allows you to securely view your medical information including discharge summary, medications and follow-up visits. ??You can alsosend a secure electronic message to your doctor???s office to request appointments, renew medications or just ask a question. You can enroll at [email or web address] or register during your next office visit. [...] primary care provider, you may find a [facility] provider by calling [facility] at [phone]. For information about the plan of care [...] information Care Team Related Persons Name: ASTRIDDANILO GUEVARA Address: [address] Address: [address] [place] [address] Name: MYRIAM DOWNEY Address: home [address] [place] [address]
--- OUTSIDE RECORDS SUMMARY | 2024-06-17 19:17 | XMS_ITS | Continuity of Care Document ---
Author Organization [facility]erico bowieHardaway [facility] Address [address] [place] [address], 4t [place] [address]- Care Team Providers Care Instrumentation Designer Name Role Phone Kimberly COLLADO, Nishi Primary Care Physician [phone] [id number] Date[facility] 10/24[facility]22 - 10/31/22 [facility] [address] [facility], 4th [place] [address]- Attending Physician: Pardeep WAGNER, Nicole Hatfield Allergies, [...] 0 Refills, Maintenance, 10/06/22 5:21:00 EST, Tablet, [facility], Partial fill upon patient request if the prescription is for a schedule II opioid drug., 175, cm, 10/06/22... Start Date: 10/06/22 Stop Date: 11/05/22 Status: Ordered NIFEdipine 30 mg oral tablet, extended release 30 mg, 1, tablet, By Mouth, Daily, # 30 tablet, Refills 0, Tot. Refills 0, Maintenance, 10/10/22 20:37:00 EST, Route to Pharmacy Electronically, [facility], Partial fill upon patient request if the prescription is for a schedule II... Start Date: 10/10/22 Status: Ordered Pen [place], 31 G x 5 mm BD Ultra [...] Gas, 225:21:00 EST, Route to Pharmacy Electronically, [facility], Partial fill upon patient request [...] preeclampsia Confirmed Active Chronic hypertension Confirmed Active Non-Yemeni speaking patient - php architect required Confirmed Active Obese class II Confirmed Active Knee pain Confirmed Active Last Pap smear 04/22/22 negative with negative HPV Confirmed Active Poorly controlled type 2 diabetes mellitus with neuropathy Confirmed Active Vital Signs Most recent to oldest [Reference Range]: 1 Height 175 cm (10/24/22 11:30 AM) Weight 115.45 kg (10/24/22 11:30 AM) Body Mass Index [18.5-24.99 kg/m2] 37.7 kg/m2 *>HHI* (10/24/22 11:30 AM) Blood Pressure [90-138/55-84 mm Hg] 110/ 70mm Hg (10/24/22 11:30 AM) Blood pressure sites Arm, right (10/24/22 11:30 AM) Weight Obtained Via Standing scale (10/24/22 11:30 AM) Social History Social History Type Response Smoking Status Never (less than 100 in lifetime) entered on: 03/07/22 Sex Patient Care team information Care Team Related Persons Name: DANILO TURNER Address: [address] Address: [address] [place] [address] Name: MYRIAM DOWNEY Address: [address] [place] [address]
--- OUTSIDE RECORDS SUMMARY | 2024-06-17 19:17 | XMS_ITS | Continuity of Care Document ---
Author Organization [facility] Address [address] [place] [address]- Care Team Providers Care Clinical Nutritionist Name Role Phone Nishi Harris NP Primary Care Physician Encounter [facility] Date(s): 06/01/22 - 06/01/[address] [address]- Encounter Diagnosis Abdominal pain(Final) - 06/01/22 Abdominal pain(Final) - 06/01/22 Discharge Disposition: A-D/C Home Attending Physician: Alexey Rosado MD Admitting Physician: Alexey Rosado MD Referring Physician: Not on Staff, Referring [...] 04/22/22 15:38:00 EDT, Route to Pharmacy Electronically, [facility], please print label in afghan, 175, cm, 04/22/22 15:13:00 EDT,... Start Date: [...] mL, 5 Refills, Maintenance, 03/28/22 13:34:00 EDT, [facility] [...] mL, 6 Refills, Maintenance, 04/07/22 16:35:00 EDT, [facility], Partial fill upon patient request if the prescription is for a sched... 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 Vital Signs Most recent to oldest [Reference Range]: 1 2 3 Weight 125 kg (06/01/22 9:08 AM) Oxygen Saturation [94-100 %] 99 % (06/01/22 3:25 PM) 100 % (06/01/22 3:06 PM) 100 % (06/01/22 2:00 PM) Pulse Rate [55-90 bpm] 75 bpm (06/01/22 3:25 PM) 81 bpm (06/01/22 3:06 PM) 78 bpm (06/01/22 2:00 PM) Blood Pressure [90-138/55-84 mm Hg] 119/84mm Hg (06/01/22 3:25 PM) 127/68mm Hg (06/01/22 3:06 PM) 130/60mm Hg (06/01/22 2:00 PM) Respiratory Rate [16-30 br/min] 15 br/min *L* (06/01/22 3:25 PM) 16 br/min (06/01/22 3:06 PM) 16 br/min (06/01/22 2:00 PM) Temperature [96.8-100.4 DegF] 97.9 DegF (06/01/22 3:25 PM) 98.2 DegF (06/01/22 9:08 AM) Mode of Delivery (Oxygen) Room air (06/01/22 3:25 PM) Room air (06/01/22 3:06 PM) Room air (06/01/22 2:00 PM) Blood pressure sites Arm, right (06/01/22 3:25 PM) Arm, right (06/01/22 9:08 AM) Temperature Route Oral (06/01/22 3:25 PM) Oral (06/01/22 9:08 AM) Dry Weight 125 kg (06/01/22 9:08 AM) Weight Obtained Via Patient/family state d (06/01/22 9:08 AM) Dry Weight Obtained Via Patient/family s tated (06/01/22 9:08 AM) Social History Social History Type Response Smoking Status Never (less than 100 in lifetime) entered on: 03/07/22 Sex
--- OUTSIDE RECORDS SUMMARY | 2024-06-17 19:17 | XMS_ITS | Continuity of Care Document ---
Author Organization [facility] Address [address] [place] [address]- Care Team Providers Care Bottle Carrier Name Role Phone Kimbelry COLLADO, Nishi Primary Care Physician Encounter [facility] Date(s): 08/25/22 - 09/24/22 [facility] [address] [place] [address] Allergies, Adverse Reactions, Alerts No Known Allergies Immunizations Given and Recorded Vaccine Date Status Refusal Reason influenza virus vaccine, inactivated 09/02/22 Give n tetanus/diphtheria/pertussis, acel(Tdap) 07/29/22 Given Medications acetaminophen 500 mg oral tablet 2 tablet = 1,000 mg, By Mouth, Every 6 hours, PRN as needed for pain, # 50 tablet, 0 Refills, Acute11/19/22 0:00:00 EST, 07/29/22 11:31:00 EDT, Tablet, [facility], please print label in Syrian, 175, cm, 07/29/22 11:09:00 EDT, Jass... Start Date: 07/29/22 Stop Date: 11/19/22 Status: Ordered aspirin 81 mg oral delayed release tablet 162 mg, 2, tablet, By Mouth, Daily, # 60 tablet, Refills 5, Tot. Refills 5, Maintenance, 03/14/22 10:02:00 EDT, Route to Pharmacy Electronically, [facility], Partial fill upon patient request if the prescription is for a schedule I... Start Date: 03/14/22 Status: Ordered ferrous sulfate 325 mg oral enteric coated tablet 325 mg, 1, tablet, By Mouth, Every other day, # 60 tablet, Refills 4, Tot. Refills 4, Maintenance, 04/22/22 15:38:00 EDT, Route to Pharmacy Electronically, [facility], please print label in belarusian, 175, cm, 04/22/22 15:13:00 EDT,... Start Date: 04/22/22 Status: Ordered Freestyle lesa 2 CGM Freestyle elsa 2 CGM, See [...] 0 Refills, Maintenance, 09/19/22 16:31:00 EDT, Injection, [facility], Partial fill upon patien... Start Date: 09/19/22 Status: Ordered Lantus Solostar Pen 100 units/mL subcutaneous solution See Instructions, 60 units Subcutaneous Injection in AM and 66 units subcutaneous injecion in PM, #10 mL, 4 Refills, Maintenance, 09/01/22 10:41:00 EDT, [facility], Partial fill upon patient request if the prescription is for a s... Start Date: 09/01/22 Status: Ordered Pen [place], 31 G x 5 mm BD Ultra [...] Personnel Name: Nishi Harris NP Address: Address: [address] [place] [address]
--- OUTSIDE RECORDS SUMMARY | 2024-06-17 19:17 | XMS_ITS | Continuity of Care Document ---
Author Organization [facility] Address [address] [address]- Care Team Providers Care Hand Slitter Name Role Phone Kimberly COLLADO, Nishi Primary Care Physician [phone] [id number] Date(s): 01/25/22 - 03/27/22 [facility] [address] [address]- Attending Physician: Jose Alfredo Jules MD Admitting Physician: Jose Alfredo Jules MD Referring Physician: Azeb Bonds NP Allergies, Adverse Reactions, Alerts No Known Allergies Medications aspirin 81 mg oral delayed release tablet 162 mg, 2, tablet, By Mouth, Daily, # 60 tablet, Refills 5, Tot. Refills 5, Maintenance, 03/14/22 10:02:00 EDT, Route to Pharmacy Electronically, [facility], Partial fill upon patient request [...] mL, 5 Refills, Maintenance, 03/14/22 10:03:00 EDT, [facility], Partial fill upon patient request if the prescription is for a schedule II opioid drug., 175, cm, 03/07/22 9:02:00 EDT,... Start Date: 03/14/22 Status: Ordered NovoLOG FlexPen 100 units/mL injectable solution = 24 units, Subcutaneous Injection, 3 times a day before meals, # 15 mL, 6 Refills, Maintenance, 03/15/22 16:46:00 EDT, [facility], Partial fill upon patient request if the prescription is for a schedule II opioid drug., 175, cm, 0... Start Date: 03/15/22 Status: Ordered Pen [place], 31 G x 5 mm BD Ultra [...]
--- OUTSIDE RECORDS SUMMARY | 2024-06-17 19:17 | XMS_ITS | Continuity of Care Document ---
Author Organization [facility] Federico ferreiras Address [address] [place] [address], [address] [place] [address]- Care Team Providers Care Paint Process Engineer Name Role Phone Kimberly COLLADO, Nishi Primary Care Physician [facility] [id number] Date(s): 10/03/22 - 12/11/22 [facility] [address] [facility], [address] [place] [address]- Attending Physician: Gabbie Shepherd MD Allergies, Adverse [...] 0 Refills, Maintenance, 10/06/22 5:21:00 EST, Tablet, [facility], Partial fill upon patient request if the prescription is for a schedule II opioid drug., 175, cm, 10/06/22... Start Date: 10/06/22 Stop Date: 11/05/22 Status: Ordered NIFEdipine 30 mg oral tablet, extended release 30 mg, 1, tablet, By Mouth, Daily, # 30 tablet, Refills 0, Tot. Refills 0, Maintenance, 10/10/22 20:37:00 EST, Route to Pharmacy Electronically, [facility], Partial fill upon patient request if the prescription is for a schedule II... 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
--- OUTSIDE RECORDS SUMMARY | 2024-06-17 19:17 | XMS_ITS | Continuity of Care Document ---
Author Organization [facility] Address [address] [facility], 4t [place] [address]- Care Team Providers Care Master Rigger Name Role Phone Kimberly COLLADO, Nishi [id number] - 09[facility]15[facility] Federico Diallos [facility] [address] [facility], [address]th [place] [address]- Attending Physician: Cora WAGNER, Gabbie Hatfield Allergies, [...] Acute11/19/22 0:00:00 EST, 07/29/22 11:31:00 EDT, Tablet, [facility], please print label in Tajik, 175, cm, 07/29/22 11:09:00 EDT, [facility]... Start Date: 07/29/22 Stop Date: 11/19/22 Status: Ordered aspirin 81 mg oral delayed release tablet 162 mg, 2, tablet, By Mouth, Daily, # 60 tablet, Refills 5, Tot. Refills 5, Maintenance, 03/14/22 10:02:00 EDT, Route to Pharmacy Electronically, [facility], Partial fill upon patient request if the prescription is for a schedule I... Start Date: 03/14/22 Status: Ordered ferrous sulfate 325 mg oral enteric coated tablet 325 mg, 1, tablet, By Mouth, Every other day, # 60 tablet, Refills 4, Tot. Refills 4, Maintenance, 04/22/22 15:38:00 EDT, Route to Pharmacy Electronically, [facility], please print label in montserratian, 175, cm, 04/22/22 15:13:00 EDT,... Start Date: [...] 0 Refills, Maintenance, 09/03/22 17:35:00 EDT, Injection, [facility], Partial fill upon patient request if the prescription... Start Date: 09/03/22 Status: Ordered Lantus Solostar Pen 100 units/mL subcutaneous solution See Instructions, 60 units Subcutaneous Injection in AM and 66 units subcutaneous injecion in PM, #10 mL, 4 Refills, Maintenance, 09/01/22 10:41:00 EDT, [facility], Partial fill upon patient request if the prescription is for a s... Start Date: 09/01/22 Status: Ordered Pen [place], 31 G x 5 mm BD Ultra [...] Confirmed Active Chronic hypertension Confirmed Active Uses Tajik as primary spoken language Confirmed Active AMA (advanced maternal age) multigravida 35+ Confirmed Active Knee pain Confirmed Active Severe obesity Confirmed Active Social History Social History Type Response Smoking Status Never (less than 100 in lifetime) entered on: 03/07/22 Sex Patient Care team information Personnel Name: Nishi Harris NP Address: Address: [address] [place] [address]- [place]
--- OUTSIDE RECORDS SUMMARY | 2024-06-17 19:17 | XMS_ITS | Continuity of Care Document ---
Author Organization [facility] Federico bowiegrzegorz [facility] Address [address] [place] [address], 4t [place] [address]- Care Team Providers Care Patch Setter Name Role Phone Kimberly COLLADO, Nishi Primary Care Physician [id number]): [facility] [employer] [facility] [address] [facility], 4th [address] [place], [place] [address] Allergies, Adverse Reactions, Alerts No [...] Solostar Pen 100 units/mL subcutaneous solution = 56 units, Subcutaneous Injection, Daily, # 15 mL, 5 Refills, Maintenance, 03/14/22 10:03:00 EDT, [facility], Partial fill upon patient request if the prescription is for a schedule II opioid drug., 175, cm, 03/07/22 9:02:00 EDT,... Start Date: 03/14/22 Status: Ordered NovoLOG FlexPen 100 units/mL injectable solution = 20 units, Subcutaneous Injection, 3 times a day before meals, # 15 mL, 6 Refills, Maintenance, 03/15/22 16:46:00 EDT, [facility], Partial fill upon patient request if the prescription is for a schedule II opioid drug., 175, cm, 0... Start Date: 03/15/22 Status: Ordered Pen [place], 31 G x 5 mm BD [...]
--- OUTSIDE RECORDS SUMMARY | 2024-06-17 19:17 | XMS_ITS | Continuity of Care Document ---
Author Organization [facility] Address [address] [place] [address]- Care Team Providers Care Rn Admit Name Role Phone Kimberly COLLADO, Nishi Primary Care Physician En[facility] [place] Date(s): 04/07/22 - 05/07/[facility] [address] [place] [id number] Allergies, Adverse Reactions, Alerts No Known Allergies Medications aspirin 81 mg oral delayed release tablet 162 mg, 2, tablet, By Mouth, Daily, # 60 tablet, Refills 5, Tot. Refills 5, Maintenance, 03/14/22 10:02:00 EDT, Route to Pharmacy Electronically, [facility], Partial fill upon patient request if the prescription is for a schedule I... Start Date: 03/14/22 Status: Ordered doxylamine 25 mg oral tablet 1 tablet = 25 mg, By Mouth, Daily at bedtime, PRN Nausea & Vomiting, # 30 tablet, 1 Refills, Acute 05/29/22 23:07:00 EDT, 03/29/22 23:06:00 EDT, Tablet, [facility], Partial fill upon patient request if the prescription is for a naseem... Start Date: 03/29/22 Stop Date: 05/29/22 Status: Ordered ferrous sulfate 325 mg oral enteric coated tablet 325 mg, 1, tablet, By Mouth, Every other day, # 60 tablet, Refills 4, Tot. Refills 4, Maintenance, 04/22/22 15:38:00 EDT, Route to Pharmacy Electronically, [facility], please print label in solomon islander, 175, cm, 04/22/22 15:13:00 EDT,... Start Date: [...] mL, 5 Refills, Maintenance, 03/28/22 13:34:00 EDT, [facility], Partial fill upon patient [...] mL, 6 Refills, Maintenance, 04/07/22 16:35:00 EDT, [facility], Partial fill upon patient request if the prescription is for a sched... 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
--- OUTSIDE RECORDS SUMMARY | 2024-06-17 19:18 | XMS_ITS | Continuity of Care Document ---
Author Organization [facility] Address [address], 4t [place] [address]- Care Team Providers Care Field Operator Name Role Phone Kimberly COLLADO, Nishi [id number] - 08/18/[facility] [address], [address] [place] [address]- Attending Physician: Shasha Escobedo MD Referring Physician: Gabbie Shepherd MD Allergies, Adverse Reactions, Alerts No Known Allergies Immunizations Given and Recorded Vaccine Date Status Refusal Reason tetanus/diphtheria/pertussis, acel(Tdap) 07/29/22 Given Medications acetaminophen 500 mg oral tablet 2 tablet = 1,000 mg, By Mouth, Every 6 hours, PRN as needed for pain, # 50 tablet, 0 Refills, Acute11/19/22 0:00:00 EST, 07/29/22 11:31:00 EDT, Tablet, [facility], please print label in German, 175, cm, 07/29/22 11:09:00 EDT, Brucei... Start Date: 07/29/22 Stop Date: 11/19/22 Status: Ordered aspirin 81 mg oral delayed release tablet 162 mg, 2, tablet, By Mouth, Daily, # 60 tablet, Refills 5, Tot. Refills 5, Maintenance, 03/14/22 10:02:00 EDT, Route to Pharmacy Electronically, [facility], Partial fill upon patient request if the prescription is for a schedule I... Start Date: 03/14/22 Status: Ordered ferrous sulfate 325 mg oral enteric coated tablet 325 mg, 1, tablet, By Mouth, Every other day, # 60 tablet, Refills 4, Tot. Refills 4, Maintenance, 04/22/22 15:38:00 EDT, Route to Pharmacy Electronically, [facility], please print label in finnish, 175, cm, 04/22/22 15:13:00 EDT,... Start Date: [...] Injection, 2 times a day, PLACE IN [place]I, # 50 mL, 4 Refills, Maintenance,06/22/22 15:53:00 EDT, [facility], Partial fill upon patient request if the prescription is for a schedule II opioid drug., 175, cm... Start Date: 06/22/22 Status: Ordered NovoLOG FlexPen 100 units/mL injectable solution See Instructions, 40 U SQ INJECTION TID BEFORE MEALS DX E11.9, # 30 mL, 6 Refills, Maintenance, 06/22/22 15:54:00 EDT, [facility], Partial fill upon patient request if the prescription is for a schedule II opioid drug., 175, cm,... Start Date: 06/22/22 Status: Ordered Pen [place], 31 G x 5 mm BD Ultra [...] oldest [Reference Range]: 1 Height 175 cm (08/11/22 9:57 AM) Weight 130.4 kg (08/11/22 9:57 AM) Body Mass Index [18.5-24.99 kg/m2] 42.58 kg/m2 *>HHI* (08/11/22 9:57 AM) Blood Pressure [90-138/55-84 mm Hg] 140/ 77mm Hg *H* (08/11/22 9:57 AM) Blood pressure sites Arm, right (08/11/22 9:57 AM) Weight Obtained Via Standing scale (08/11/22 9:57 AM) Social History Social History Type Response Smoking Status Never (less than 100 in lifetime) entered on: 03/07/22 Sex Patient Care team information Personnel Name: Nishi Harris NP Address: Address: [address] [place] [id number]
--- OUTSIDE RECORDS SUMMARY | 2024-06-17 19:18 | XMS_ITS | Continuity of Care Document ---
Author Organization [facility] Address [address] [place] [address], [place], [place] [address]- Care Team Providers Care Assistant Cook Name Role Phone Kimberly COLLADO, Nishi Primary Care Physician [phone] [id number] Date(s): 05/16/22 - 05/23/22 [facility] [employer] [facility] [address], [address] [place], [place] [address] Attending Physician: Cristiano WAGNER [OB], Priscilla Elliott Referring Physician: Cora WAGNER, Gabbie Hatfield Allergies, Adverse Reactions, Alerts No Known Allergies Medications aspirin 81 mg oral delayed release tablet 162 mg, 2, tablet, By Mouth, Daily, # 60 tablet, Refills 5, Tot. Refills 5, Maintenance, 03/14/22 10:02:00 EDT, Route to Pharmacy Electronically, [facility], Partial fill upon patient request if the prescription is for a schedule I... Start Date: 03/14/22 Status: Ordered doxylamine 25 mg oral tablet 1 tablet = 25 mg, By Mouth, Daily at bedtime, PRN Nausea & Vomiting, # 30 tablet, 1 Refills, Acute 05/29/22 23:07:00 EDT, 03/29/22 23:06:00 EDT, Tablet, [facility], Partial fill upon patient request if the prescription is for a naseem... Start Date: 03/29/22 Stop Date: 05/29/22 Status: Ordered ferrous sulfate 325 mg oral enteric coated tablet 325 mg, 1, tablet, By Mouth, Every other day, # 60 tablet, Refills 4, Tot. Refills 4, Maintenance, 04/22/22 15:38:00 EDT, Route to Pharmacy Electronically, [facility], please print label in slovenian, 175, cm, 04/22/22 15:13:00 EDT,... Start Date: [...] mL, 5 Refills, Maintenance, 03/28/22 13:34:00 EDT, [facility], Partial fill upon patient request [...] mL, 6 Refills, Maintenance, 04/07/22 16:35:00 EDT, [facility], Partial fill upon patient request if the prescription is for a sched... 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
--- OUTSIDE RECORDS SUMMARY | 2024-06-17 19:18 | XMS_ITS | Continuity of Care Document ---
Author Organization [facility] Address [address] [place] [address]- Care Team Providers Care Policy Advisor Name Role Phone Kimberly COLLADO, Nishi Primary Care Physician [phone] [id number] Date(s): 03/17/22 - 04/28/[address] [address] Attending Physician: Not on Staff, Attending MD Referring Physician: Janeth Beltre NP Allergies, Adverse Reactions, Alerts No Known Allergies Medications aspirin 81 mg oral delayed release tablet 162 mg, 2, tablet, By Mouth, Daily, # 60 tablet, Refills 5, Tot. Refills 5, Maintenance, 03/14/22 10:02:00 EDT, Route to Pharmacy Electronically, [facility], Partial fill upon patient request if the prescription is for a schedule I... Start Date: 03/14/22 Status: Ordered doxylamine 25 mg oral tablet 1 tablet = 25 mg, By Mouth, Daily at bedtime, PRN Nausea & Vomiting, # 30 tablet, 1 Refills, Acute 05/29/22 23:07:00 EDT, 03/29/22 23:06:00 EDT, Tablet, [facility], Partial fill upon patient request if the prescription is for a naseem... Start Date: 03/29/22 Stop Date: 05/29/22 Status: Ordered ferrous sulfate 325 mg oral enteric coated tablet 325 mg, 1, tablet, By Mouth, Every other day, # 60 tablet, Refills 4, Tot. Refills 4, Maintenance, 04/22/22 15:38:00 EDT, Route to Pharmacy Electronically, [facility], please print label in romansh, 175, cm, 04/22/22 15:13:00 EDT,... Start Date: [...] mL, 5 Refills, Maintenance, 03/28/22 13:34:00 EDT, [facility], Partial fill upon [...] mL, 6 Refills, Maintenance, 04/07/22 16:35:00 EDT, [facility], Partial fill upon patient request if the prescription is for a sched... Start Date: 04/07/22 Status: Ordered Pen [place], 31 G x 5 mm BD Ultra [...] 05/29/22 23:08:00 EDT, 03/29/22 23:06:00 EDT, Tablet, [facility], Partial fill upon patient requestif [...]
--- OUTSIDE RECORDS SUMMARY | 2024-06-17 19:18 | XMS_ITS | Continuity of Care Document ---
Author Organization [facility] [employer] Address [address] [place] [address], [address]t [place] [address]- Care Team Providers Care Community Dietitian Name Role Phone Kimberly MACHINE WORKER, Nishi Primary Care Physician [facility] [id number] Date(s): 09/26/22 - 10/03/22 [facility] [employer] [address], 4th [place] [address]- Attending Physician: Nicole Roberto MD Referring Physician: [...] Acute11/19/22 0:00:00 EST, 07/29/22 11:31:00 EDT, Tablet, [facility], please print label in Greenlandic, 175, cm, 07/29/22 11:09:00 EDT, Hei... Start Date: 07/29/22 Stop Date: 11/19/22 Status: Ordered ferrous sulfate 325 mg oral enteric coated tablet 325 mg, 1, tablet, By Mouth, Every other day, # 60 tablet, Refills 4, Tot. Refills 4, Maintenance, 04/22/22 15:38:00 EDT, Route to Pharmacy Electronically, [facility], please print label in armenian, [...] 2 Refills, Maintenance, 09/30/22 15:41:00 EST, Injection, [facility], Partial fill upon patien... Start Date: 09/30/22 Status: Ordered Lantus Solostar Pen 100 units/mL subcutaneous solution See Instructions, 60 units Subcutaneous Injection in AM and 66 units subcutaneous injecion in PM, #10 mL, 4 Refills, Maintenance, 09/01/22 10:41:00 EDT, [facility], Partial fill upon patient request if the prescription is for a s... Start Date: 09/01/22 Status: Ordered Pen [place], 31 G x 5 mm BD Ultra [...] Team Related Persons Name: ANNMARIE TURNER Address: [id number] Address: [address] [place] [address] [place] Name: MYRIAM DOWNEY Address: [address] [place] [address]
--- OUTSIDE RECORDS SUMMARY | 2024-06-17 19:18 | XMS_ITS | Continuity of Care Document ---
Author Organization [facility] [employer] Address [address] [facility] [address], [address]t [place] [address]- Care Team Providers Care Station Mechanic Helper Name Role Phone Kimberly COLLADO, Nishi Primary Care Physician [id number] Date(s): 10/07/22 - 11/06/22 [facility] [address], [address] [place] [address]- Allergies, Adverse Reactions, Alerts No Known Allergies [...] 0 Refills, Maintenance, 10/06/22 5:21:00 EST, Tablet, [facility], Partial fill upon patient request if the prescription is for a schedule II opioid drug., 175, cm, 10/06/22... Start Date: 10/06/22 Stop Date: 11/05/22 Status: Ordered NIFEdipine 30 mg oral tablet, extended release 30 mg, 1, tablet, By Mouth, Daily, # 30 tablet, Refills 0, Tot. Refills 0, Maintenance, 10/10/22 20:37:00 EST, Route to Pharmacy Electronically, [facility], Partial fill upon patient request if the prescription is for a schedule II... Start Date: 10/10/22 Status: Ordered Pen [place], 31 G x 5 mm BD Ultra [...] Gas, 225:21:00 EST, Route to Pharmacy Electronically, [facility], Partial fill upon patient request [...] preeclampsia Confirmed Active Chronic hypertension Confirmed Active Non-Syriac speaking patient - lang interpreter required Confirmed Active Obese class II [...] Name: DANILO TURNER Address: Address: [address] [place] [address] [place] Name: MYRIAM DOWNEY Address: [address] [place] [address]
--- OUTSIDE RECORDS SUMMARY | 2024-06-17 19:18 | XMS_ITS | Continuity of Care Document ---
Author Organization [facility] Address [address] [place] [address]- Care Team Providers Care Promos Executive Producer Name Role Phone Kimberly COLLADO, Nishi Primary Care Physician [phone] [place] [facility] [place] Date(s): 09/16/22 - 12/04/22 [facility] [address] [place] [address]- Attending Physician: Lacie Navas MD Admitting Physician: [...] 0 Refills, Maintenance, 10/06/22 5:21:00 EST, Tablet, [facility], Partial fill upon patient request if the prescription is for a schedule II opioid drug., 175, cm, 10/06/22... Start Date: 10/06/22 Stop Date: 11/05/22 Status: Ordered NIFEdipine 30 mg oral tablet, extended release 30 mg, 1, tablet, By Mouth, Daily, # 30 tablet, Refills 0, Tot. Refills 0, Maintenance, 10/10/22 20:37:00 EST, Route to Pharmacy Electronically, [facility], Partial fill upon patient request if the prescription is for a schedule II... Start Date: 10/10/22 Status: Ordered Pen [place], 31 G x 5 mm BD Ultra [...] Gas, 225:21:00 EST, Route to Pharmacy Electronically, [facility], Partial fill upon patient [...] hypertension Confirmed Active Non-Frisian speaking patient - educational sign language interpreter [...] Team Related Persons Name: DANILO TURNER Address: [address] Address: [address] [place] [address] [place] Name: MYRIAM DOWNEY Address: [address] [place] [address]
--- OUTSIDE RECORDS SUMMARY | 2024-06-17 19:18 | XMS_ITS | Continuity of Care Document ---
Author Organization [facility] [employer] [facility] Address [address] [place] [address], 4t [place] [address]- Care Team Providers Care Marble Cutter Name Role Phone Kimberly FIELD INTERVIEWER, Nishi Primary Care Physician [facility] [id number] Date(s): 08/12/22 - 10/05/22 [facility]ericosoni [employer] [facility] [address] [facility], 4th [place] [address]- Attending Physician: Nicole Roberto MD Referring Physician: [...] Acute11/19/22 0:00:00 EST, 07/29/22 11:31:00 EDT, Tablet, [facility], please print label in Macedonian, 175, cm, 07/29/22 11:09:00 EDT, Hei... Start Date: 07/29/22 Stop Date: 11/19/22 Status: Ordered ferrous sulfate 325 mg oral enteric coated tablet 325 mg, 1, tablet, By Mouth, Every other day, # 60 tablet, Refills 4, Tot. Refills 4, Maintenance, 04/22/22 15:38:00 EDT, Route to Pharmacy Electronically, [facility], please print label in arabic, 175, cm, 04/22/22 15:13:00 EDT,... Start Date: [...] 2 Refills, Maintenance, 09/30/22 15:41:00 EST, Injection, [facility], Partial fill upon patien... Start Date: 09/30/22 Status: Ordered Lantus Solostar Pen 100 units/mL subcutaneous solution See Instructions, 60 units Subcutaneous Injection in AM and 66 units subcutaneous injecion in PM, #10 mL, 4 Refills, Maintenance, 09/01/22 10:41:00 EDT, [facility], Partial fill upon patient request if the prescription is for a s... Start Date: 09/01/22 Status: Ordered Pen [place], 31 G x 5 mm BD Ultra [...] Confirmed Active Chronic hypertension Confirmed Active Uses Macedonian as primary spoken language Confirmed Active AMA (advanced maternal age) multigravida 35+ Confirmed Active Knee pain Confirmed Active Severe obesity Confirmed Active Poorly controlled type 2 diabetes mellitus with neuropathy Confirmed Active Social History Social History Type Response Smoking Status Never (less than 100 in lifetime) entered on: 03/07/22 Sex Patient Care team information Care Team Related Persons Name: ANNMARIE TURNER Address: [address] Address: [address] [place] [address] [place] Name: MYRIAM DOWNEY Address: [address] [place] [address]
--- OUTSIDE RECORDS SUMMARY | 2024-06-17 19:18 | XMS_ITS | Continuity of Care Document ---
Author Organization [facility] Address [address] [place] [address]- Care Team Providers Care Children'S Entertainer Name Role Phone Kimberly COLLADO, Nishi Primary Care Physician Encounter [facility] Date(s): 11/04/22 - 12/04/22 [facility] [address] [place] [address]- Allergies, Adverse Reactions, Alerts No Known Allergies [...] 0 Refills, Maintenance, 10/06/22 5:21:00 EST, Tablet, [facility], Partial fill upon patient request if the prescription is for a schedule II opioid drug., 175, cm, 10/06/22... Start Date: 10/06/22 Stop Date: 11/05/22 Status: Ordered NIFEdipine 30 mg oral tablet, extended release 30 mg, 1, tablet, By Mouth, Daily, # 30 tablet, Refills 0, Tot. Refills 0, Maintenance, 10/10/22 20:37:00 EST, Route to Pharmacy Electronically, [facility], Partial fill upon patient request if the prescription is for a schedule II... Start Date: 10/10/22 Status: Ordered Pen [place], 31 G x 5 mm BD Ultra [...] Gas, 225:21:00 EST, Route to Pharmacy Electronically, [facility], Partial fill upon patient request [...] preeclampsia Confirmed Active Chronic hypertension Confirmed Active Non-Omani speaking patient - hydroelectric machinery mechanic required Confirmed Active Obese class II Confirmed [...] Name: DANILO TURNER Address: Address: [address] [place] [address] [place] Name: MYRIAM DOWNEY Address: [address] [place] [address]
--- OUTSIDE RECORDS SUMMARY | 2024-06-17 19:18 | XMS_ITS | Continuity of Care Document ---
Author Organization [facility] [employer] Address [address] [facility], 4t [place] [address]- Care Team Providers Care Or First Assist Registered Nurse Name Role Phone Kimberly COLLADO, Nishi Primary Care Physician [phone] [facility] [id number] Date(s): 11/07/22 - 11/14/22 [facility] [facility] [address], [address] [place] [address]- Attending Physician: Pardeep WAGNER, Nicole Hatfield Referring Physician: Not on Staff, Referring MD [...] 0 Refills, Maintenance, 10/06/22 5:21:00 EST, Tablet, [facility], Partial fill upon patient request if the prescription is for a schedule II opioid drug., 175, cm, 10/06/22... Start Date: 10/06/22 Stop Date: 11/05/22 Status: Ordered NIFEdipine 30 mg oral tablet, extended release 30 mg, 1, tablet, By Mouth, Daily, # 30 tablet, Refills 0, Tot. Refills 0, Maintenance, 10/10/22 20:37:00 EST, Route to Pharmacy Electronically, [facility], Partial fill upon patient request if the prescription is for a schedule II... Start Date: 10/10/22 Status: Ordered Pen [place], 31 G x 5 mm BD Ultra [...] Gas, 225:21:00 EST, Route to Pharmacy Electronically, [facility], Partial fill upon [...] preeclampsia Confirmed Active Chronic hypertension Confirmed Active Non-Vietnamese speaking patient - systems administrator required Confirmed Active Obese class II Confirmed Active Knee pain Confirmed Active Last Pap smear 04/22/22 negative with negative HPV Confirmed Active Severe obesity (BMI 35.0-39.9) with comorbidity Confirmed Active Poorly controlled type 2 diabetes mellitus with neuropathy Confirmed Active Vital Signs Most recent to oldest [Reference Range]: 1 Height 175 cm (11/07/22 10:30 AM) Weight 116.36 kg (11/07/22 10:30 AM) Body Mass Index [18.5-24.99 kg/m2] 38 kg /m2 *>HHI* (11/07/22 10:30 AM) Blood Pressure [90-138/55-84 mm Hg] 140/ 65mm Hg *H* (11/07/22 10:30 AM) Blood pressure sites Arm, left (11/07/22 10:30 AM) Weight Obtained Via Standing scale (11/07/22 10:30 AM) Social History Social History Type Response Smoking Status Never (less than 100 in lifetime) entered on: 03/07/22 Sex Patient Care team information Care Team Related Persons Name: ASTRID YE DANILO Address: [address] Address: [address] [place] [address] Name: MYRIAM DOWNEY Address: [address] [place] [address]
--- OUTSIDE RECORDS SUMMARY | 2024-06-17 19:18 | XMS_ITS | Continuity of Care Document ---
Author Organization [facility] [employer]ico bowie[employer]IS[employer] Address [address], [address] [place] [address]- Care Team Providers Care Program Mgr Name Role Phone Kimberly COLLADO, Nishi Primary Care Physician [id number] Date(s): 11/11/22 - 12/11/22 [facility] [place] [facility] AngelRIISnets [facility] [address], [address] [place], [place] [address] Attending Physician: Asim Rai Admitting Physician: AdmAsim yost Referring Physician: Aism Rai Allergies, Adverse Reactions, Alerts No Known [...] 0 Refills, Maintenance, 10/06/22 5:21:00 EST, Tablet, [facility], Partial fill upon patient request if the prescription is for a schedule II opioid drug., 175, cm, 10/06/22... Start Date: 10/06/22 Stop Date: 11/05/22 Status: Ordered NIFEdipine 30 mg oral tablet, extended release 30 mg, 1, tablet, By Mouth, Daily, # 30 tablet, Refills 0, Tot. Refills 0, Maintenance, 10/10/22 20:37:00 EST, Route to Pharmacy Electronically, [facility], Partial fill upon patient request if the prescription is for a schedule II... Start Date: 10/10/22 Status: Ordered Pen [place], 31 G x 5 mm BD Ultra [...] Gas, :21:00 EST, Route to Pharmacy Electronically, [facility], Partial fill upon patient request [...] preeclampsia Confirmed Active Chronic hypertension Confirmed Active Non-Bulgarian speaking patient - seismic interpreter required Confirmed [...] Related Persons Name: ASTRID YE DANILO Address: [address] Address: [address] [place] [address] [place] Name: MYRIAM DOWNEY Address: home [address] [place] [address]
--- OUTSIDE RECORDS SUMMARY | 2024-06-17 19:18 | XMS_ITS | Continuity of Care Document ---
Author Organization [facility] [employer] Address [address] [place] [address], [address] [place] [address]- Care Team Providers Care Drywall Hanger Helper Name Role Phone Kimberly COLLADO, Nishi Primary Care Physician [id number] Date[facility]s): 07/08/22 - 11/06/22 [facility] [place] [address], [address] [place] [address]- Attending Physician: Shasha Escobedo MD Referring Physician: [...] 0 Refills, Maintenance, 10/06/22 5:21:00 EST, Tablet, [facility], Partial fill upon patient request if the prescription is for a schedule II opioid drug., 175, cm, 10/06/22... Start Date: 10/06/22 Stop Date: 11/05/22 Status: Ordered NIFEdipine 30 mg oral tablet, extended release 30 mg, 1, tablet, By Mouth, Daily, # 30 tablet, Refills 0, Tot. Refills 0, Maintenance, 10/10/22 20:37:00 EST, Route to Pharmacy Electronically, [facility], Partial fill upon patient request if the prescription is for a schedule II... Start Date: 10/10/22 Status: Ordered Pen [place], 31 G x 5 mm BD Ultra [...] Gas, 225:21:00 EST, Route to Pharmacy Electronically, [facility], Partial fill upon patient request [...] preeclampsia Confirmed Active Chronic hypertension Confirmed Active Non-Chadian speaking patient - healthcare interpreter required Confirmed Active Obese class II Confirmed Active Knee pain Confirmed Active Last Pap smear 04/22/22 negative with negative HPV Confirmed Active Poorly controlled type 2 diabetes mellitus with neuropathy Confirmed Active Social History Social History Type Response Smoking Status Never (less than 100 in lifetime) entered on: 03/07/22 Sex Patient Care team information Care Team Related Persons Name: DANILO TURNER Address: [address] Address: [address] [place] [address] Name: MYRIAM DOWNEY Address: home [address] [place] [address]
--- OUTSIDE RECORDS SUMMARY | 2024-06-17 19:18 | XMS_ITS | Continuity of Care Document ---
Author Organization [facility] Maria D bowieCityzenithgrzegorz [facility] Address [address], [address] [place] [address]- Care Team Providers Care Senior Drupal Developer Name Role Phone Kimberly COLLADO, Nishi Primary Care Physician [phone] [id number] Date(s): 04/22/22 - 07/14/22 [facility] Federicosoni AngelCityzeniths [facility] [address], [address] [place] [address]- Attending Physician: Narcisa Cabrera MD Referring Physician: Gabbie Shepherd MD Allergies, Adverse Reactions, Alerts No Known Allergies Medications aspirin 81 mg oral delayed release tablet 162 mg, 2, tablet, By Mouth, Daily, # 60 tablet, Refills 5, Tot. Refills 5, Maintenance, 03/14/22 10:02:00 EDT, Route to Pharmacy Electronically, [facility], Partial fill upon patient request if the prescription is for a schedule I... Start Date: 03/14/22 Status: Ordered ferrous sulfate 325 mg oral enteric coated tablet 325 mg, 1, tablet, By Mouth, Every other day, # 60 tablet, Refills 4, Tot. Refills 4, Maintenance, 04/22/22 15:38:00 EDT, Route to Pharmacy Electronically, [facility], please print label in croatian, 175, cm, 04/22/22 15:13:00 EDT,... Start Date: [...] Injection, 2 times a day, PLACE IN THAI, # 50 mL, 4 Refills, Maintenance,06/22/22 15:53:00 EDT, [facility], Partial fill upon patient [...] mL, 6 Refills, Maintenance, 06/22/22 15:54:00 EDT, [facility], Partial fill upon patient request if the prescription is for a schedule II opioid drug., 175, cm,... Start Date: 06/22/22 Status: Ordered Pen [place], 31 G x 5 mm BD Ultra [...] currently (Confirmed) Active Chronic hypertension(Confirmed) Active Uses Cambodian as primary spok en language(Confirmed) Active AMA (advanced maternal age) multigravida 35+(Confirmed) Active Obese class II(Confirmed) Active Knee pain(Confirmed) Active Poorly controlled type 2 alejandro betes mellitus with neuropathy(Confirmed) Active Social History Social History Type Response Smoking Status Never (less than 100 in lifetime) entered on: 03/07/22 Sex Care Team Personnel Name: Nishi Harris NP Address: [address] [place] [address]
--- OUTSIDE RECORDS SUMMARY | 2024-06-17 19:18 | XMS_ITS | Continuity of Care Document ---
Author Organization [facility] Address [address] [place] [address], [address] [place] [address]- Care Team Providers Care Rug Dyer Helper Name Role Phone Kimberly COLLADO, Nishi Primary Care Physician [id number] Date(s): 09/01/22 - 09/08/22 [facility] Federico JeanneYoubetmes [facility] [address], [address] [place], [place] [address] Attending Physician: Cora WAGNER, Gabbie Hatfield [...] Acute11/19/22 0:00:00 EST, 07/29/22 11:31:00 EDT, Tablet, [facility], please print label in Guyanese, 175, cm, 07/29/22 11:09:00 EDT, Bruce[place]... Start Date: 07/29/22 Stop Date: 11/19/22 Status: Ordered aspirin 81 mg oral delayed release tablet 162 mg, 2, tablet, By Mouth, Daily, # 60 tablet, Refills 5, Tot. Refills 5, Maintenance, 03/14/22 10:02:00 EDT, Route to Pharmacy Electronically, [facility], Partial fill upon patient request if the prescription is for a schedule I... Start Date: 03/14/22 Status: Ordered ferrous sulfate 325 mg oral enteric coated tablet 325 mg, 1, tablet, By Mouth, Every other day, # 60 tablet, Refills 4, Tot. Refills 4, Maintenance, 04/22/22 15:38:00 EDT, Route to Pharmacy Electronically, [facility], please print label in urdu, 175, cm, 04/22/22 15:13:00 EDT,... Start Date: [...] 0 Refills, Maintenance, 09/03/22 17:35:00 EDT, Injection, [facility], Partial fill upon patient request if the prescription... Start Date: 09/03/22 Status: Ordered Lantus Solostar Pen 100 units/mL subcutaneous solution See Instructions, 60 units Subcutaneous Injection in AM and 66 units subcutaneous injecion in PM, #10 mL, 4 Refills, Maintenance, 09/01/22 10:41:00 EDT, [facility], Partial fill upon patient request if the prescription is for a s... Start Date: 09/01/22 Status: Ordered Pen [place], 31 G x 5 mm BD Ultra [...] List Condition Confirmation Course Effective Dates Status [facility] atus Informant Anemia Confirmed Active Anxiety Confirmed Active Back pain Confirmed Active Breech presentation Confirmed Active Chest pain Confirmed Active Constipation Confirmed Active History of section Confirmed Active History of depression Confirmed Active Hx of preeclampsia, prior , currently Confirmed Active Chronic hypertension Confirmed Active Uses Guyanese as primary spoken language Confirmed Active AMA (advanced maternal age) multigravida 35+ Confirmed Active Knee pain Confirmed Active Severe obesity Confirmed Active Social History Social History Type Response Smoking Status Never (less than 100 in lifetime) entered on: 03/07/22 Sex Patient Care team information Personnel Name: Nishi Harris NP Address: Address: [address] [place] [id number]
--- OUTSIDE RECORDS SUMMARY | 2024-06-17 19:18 | XMS_ITS | Continuity of Care Document ---
Author Organization [facility] [employer]reiras [employer] Address [address] [place] [address], [address] [place] [address]- Care Team Providers Care Breaker Oiler Name Role Phone Kimberly COLLADO, Nishi Primary Care Physician [facility] [id number] Date(s): 08/12/22 - 11/13/22 [facility] Arlingtonsoni AngelPear Analyticss [facility] [address], [address] [place] [address]- Attending Physician: Shasha Escobedo MD Allergies, Adverse [...] Refills, Maintenance, 10/06/22 5:21:00 EST, Tablet, [facility], Partial fill upon patient request if the prescription is for a schedule II opioid drug., 175, cm, 10/06/22... Start Date: 10/06/22 Stop Date: 11/05/22 Status: Ordered NIFEdipine 30 mg oral tablet, extended release 30 mg, 1, tablet, By Mouth, Daily, # 30 tablet, Refills 0, Tot. Refills 0, Maintenance, 10/10/22 20:37:00 EST, Route to Pharmacy Electronically, [facility], Partial fill upon patient request if the prescription is for a schedule II... Start Date: 10/10/22 Status: Ordered Pen [place], 31 G x 5 mm BD Ultra [...] 225:21:00 EST, Route to Pharmacy Electronically, [facility], Partial fill upon patient request [...] preeclampsia Confirmed Active Chronic hypertension Confirmed Active Non-Danish speaking patient - airframe and power plant mechanic required Confirmed Active Obese class II [...] Team Related Persons Name: DANILO TURNER Address: [address] Address: [address] [place] [address] [place] Name: MYRIAM DOWNEY Address: [address] [place] [address]
--- OUTSIDE RECORDS SUMMARY | 2024-06-17 19:18 | XMS_ITS | Continuity of Care Document ---
Author Organization [facility] Address [address] [place] [address]- Care Team Providers Care Block Making Machine Operator Name Role Phone Kimberly COLLADO, Nishi Primary Care Physician [place] [facility] Date(s): 11/04/22 - 12/04/22 [facility] [address] [place] [address]- Attending Physician: Asim Rai Admitting Physician: Asim [...] 0 Refills, Maintenance, 10/06/22 5:21:00 EST, Tablet, [facility], Partial fill upon patient request if the prescription is for a schedule II opioid drug., 175, cm, 10/06/22... Start Date: 10/06/22 Stop Date: 11/05/22 Status: Ordered NIFEdipine 30 mg oral tablet, extended release 30 mg, 1, tablet, By Mouth, Daily, # 30 tablet, Refills 0, Tot. Refills 0, Maintenance, 10/10/22 20:37:00 EST, Route to Pharmacy Electronically, [facility], Partial fill upon patient request if the prescription is for a schedule II... Start Date: 10/10/22 Status: Ordered Pen [place], 31 G x 5 mm BD Ultra [...] Gas, 225:21:00 EST, Route to Pharmacy Electronically, [facility], Partial fill upon patient request [...] hypertension Confirmed Active Non-Indonesian speaking patient - learning operations specialist required Confirmed Active Obese class II Confirmed Active Knee pain Confirmed Active Last Pap smear 04/22/22 negative with negative HPV Confirmed Active Severe obesity (BMI 35.0-39.9) with comorbidity Confirmed Active Poorly controlled type 2 diabetes mellitus with neuropathy Confirmed Active Social History Social History Type Response Smoking Status Never (less than 100 in lifetime) entered on: 03/07/22 Sex Note * Event Display: Laboratory Result Scanned Authored Date: Patient Care team information Care Team Related Persons Name: ASTRID YE DANILO Address: [address] Address: [address] [place] [address] [place] Name: MYRIAM DOWNEY Address: [address] [place] [address]
--- OUTSIDE RECORDS SUMMARY | 2024-06-17 19:18 | XMS_ITS | Continuity of Care Document ---
Author Organization [facility] Address [address] [place] [address]- Care Team Providers Care Die Attacher Name Role Phone Not on Staff, PCP Primary Care Physician Unavail able Encounter [facility] [place] Date(s): 10/25/23 - 10/26/[address] [address]- Encounter Diagnosis Acute pain of right foot(Final) - 10/25/23 Plantar fasciitis of right foot(Final) - 10/25/23 Discharge Disposition: A-D/C Home Attending Physician: Alise Smith MD Admitting Physician: Alise Smith MD Referring Physician: Not on Staff, Referring [...] Weight Start Date: 11/04/22 Status: Ordered ibuprofen 400 mg oral tablet 400 mg, 1, tablet, By Mouth, Every 6 hours, PRN, # 30 tablet, Refills 0, Tot. Refills 0, Acute 11/04/23 8:00:00 EST, as needed for pain, 10/25/23 23:30:00 EST, Route to Pharmacy Electronically, [facility], Partial fill upon patien... Start Date: 10/25/23 Stop Date: 11/04/23 Status: Ordered ibuprofen 800 mg oral tablet [...] Refills, Maintenance, 10/06/22 5:21:00 EST, Tablet, [facility], Partial fill upon patient request if the prescription is for a schedule II opioid drug., 175, cm, 10/06/22... Start Date: 10/06/22 Stop Date: 11/05/22 Status: Ordered NIFEdipine 30 mg oral tablet, extended release 30 mg, 1, tablet, By Mouth, Daily, # 30 tablet, Refills 0, Tot. Refills 0, Maintenance, 10/10/22 20:37:00 EST, Route to Pharmacy Electronically, [facility], Partial fill upon patient request if the prescription is for a schedule II... Start Date: 10/10/22 Status: Ordered Pen [place], 31 G x 5 mm BD Ultra [...] 225:21:00 EST, Route to Pharmacy Electronically, [facility], Partial fill upon patient request [...] preeclampsia Confirmed Active Chronic hypertension Confirmed Active Non-Maldivian speaking patient - coding file clerk required Confirmed Active Obese class II Confirmed Active Knee pain Confirmed Active Last Pap smear 04/22/22 negative with negative HPV Confirmed Active Severe obesity (BMI 35.0-39.9) with comorbidity Confirmed Active Poorly controlled type 2 diabetes mellitus with neuropathy Confirmed Active Results Radiology Reports * Exam Date Time Procedure Performing Provider Status 10/25/23 10:47 PM US Doppler Ext Lower Venous Right Alexis Helton; Raf (Verified) Notes: (US Doppler Ext Lower Venous Right) Reason For Exam: Pain in limb;Other: RESULT: US Doppler Ext Lower Venous Right US Doppler Ext Lower Venous Right Hx of Present Illness: pt endorses right leg pain since yesterday, pt [facility] denies injury stated that she just woke up and can't walk pt ambulated with limping gait to traige pushing a stroller. no edema noted to RLE, not tender to palpation.; Reason: Other:; Pain in limb; Clinical Question(s): Thrombus COMPARISON: None IMAGING TECHNIQUE: Ultrasound of the veins from the groin through the calf was performed using grayscale, color, and spectral Doppler ultrasound assessing for complete compressibility and normal flowcharacteristics. FINDINGS: Common femoral vein: Patent. No thrombosis. Femoral vein: Patent. No thrombosis. Popliteal vein: Patent. No thrombosis. Gastrocnemius veins: The visualized portions are patent without evidence of thrombosis. Peroneal veins: The visualized portions are patent without evidence of thrombosis. Posterior tibial veins: The visualized portions are patent without evidence of thrombosis. Contralateral common femoral vein: Patent. No thrombosis. OTHER FINDINGS: None. IMPRESSION: No evidence of deep venous thrombosis. WSN: [id number] Ordering Physician: Alise Smith Dictated By: Colten Fernandez MD Dictated Date/Time: 10/25/23 10:52 p Reviewed By: Colten Fernandez MD Signed By: Colten Fernandez MD Signed Date/Time: 10/25/23 10:52 pm Transcribed By: RADHA Transcribed Date/Time: 10/25/23 10:49 pm Vital Signs Most recent to oldest [Reference Range]: 1 2 Height 170 cm (10/25/23 8:05 PM) 170 cm (10/25/23 4:03 PM) Weight 126.6 kg (10/25/23 8:05 PM) Oxygen Saturation [94-100 %] 96 % (10/25/23 4:03 PM) Pulse Rate [55-90 bpm] 114 bpm *H* (10/25/23 8:50 PM) 114 bpm *H* (10/25/23 4:03 PM) Blood Pressure [90-138/55-84 mm Hg] 137/ 82mm Hg (10/25/23 8:50 PM) 129/69mm Hg (10/25/23 4:03 PM) Respiratory Rate [16-30 br/min] 16 br/mi n (10/25/23 4:03 PM) Temperature [96.8-100.4 DegF] 98.2 DegF (10/25/23 8:50 PM) 98.9 DegF (10/25/23 4:03 PM) Mode of Delivery (Oxygen) Room air (10/25/23 4:03 PM) Blood pressure sites Arm, right (10/25/23 8:50 PM) Arm, right (10/25/23 4:03 PM) Temperature Route Oral (10/25/23 8:50 PM) Oral (10/25/23 4:03 PM) Dry Weight 126.6 kg (10/25/23 8:05 PM) 126.6 kg (10/25/23 4:03 PM) Social History Social History Type Response Smoking Status Never (less than 100 in lifetime) entered on: 03/07/22 Sex Note * Zahra Richter: PERFORM, SIGN, VERIFY Event Display: Patient Education Handout Authored Date: [id number] * Zahra Richter: PERFORM Event Display: Patient Education Leaflets Authored Date: [id number] Plantar Fasciitis ?? [id number] Fascitis plantar La fascitis plantar es la hinchaz??n dolorosa de la fascia plantar. La fascia plantar es ba capa gruesa y fibrosa de tejido que cubre los huesos en la planta del pie. Sostiene los huesos del pie en ba posici??n de arco. La fascitis plantar puede ocurrir de a poco o de repente. Suele afectar un pie a la vez. El dolor en el george??n puede ser erika, nola un cuchillo que se clava en la planta del pie. Puede sentir dolor despu??s de hacer ejercicio, correr distancias largas, subir escaleras, estar parado por mucho tiempo o despu??s de pararse. Algunos factores de riesgo son un estilo de monique no activo, la artritis, la diabetes, la obesidad olos aumentos recientes de peso, el pie plano y los dmitriy altos. El uso de tacos altos, calzado suelto o calzado con poco soporte en los dmitriy por periodos largos aumenta el riesgo. Joi problema se observa a menudo en corredores y bailarines. Tambi??n se observa en personas que est??n paradas sobresuperficies duras por periodos largos. El dolor en el pie por esta afecci??n suele ser peor por la ma??myriam. Anastasia, a menudo, mejora al caminar. Al final del d??a, puede braeden un dolor sordo. El tratamiento requiere reposo a corto plazo y el control de la hinchaz??n. La fascitis plantar puede tardar hasta 10??meses en curarse con m??todossimples de tratamiento. Anastasia los s??ntomas mejoran en la mayor??a de las personas 2??meses despu??sdel tratamiento inicial. En pocos casos, puede necesitar ba inyecci??n de esteroides en el pie o cirug??a. Cuidados en el hogar ??? La p??rdida de peso puede ayudarlo a curarse si tiene sobrepeso. ??? Elijacalzado con buen apoyo, que tenga buen soporte para el arco y que absorba los impactos. Cambie el calzado deportivo cuando est?? gastado. No camine ni corra descalzo. No use calzado plano. ??? Las plantillas prefabricadas o a medida pueden ser ??tiles. Las plantillas hechas de silicona parecen ser las m??s efectivas. Puede obtener plantillas hechas a medida por un especialista en pies, un fisioterapeuta o un ortopedista. ??? Las f??romain nocturnas prefabricadas o a medida mantienen el george??n estirado mientras duerme. Pueden evitar que tenga dolor por la ma??myriam. ??? Limite las actividades quecausen estr??s en los pies, nola correr, estar parado caminar mucho tiempo, practicar deportes de contacto, etc. ??? A primera hora de la ma??myriam y antes de practicar deportes, estire la planta de los pies. Flexione suavemente el tobillo para que los dedos del pie se muevan hacia la rodilla. ??? Elhielo puede ayudar a controlar el dolor en el george??n. Aplique ba compresa de hielo en el george??n por entre??10 y 20??minutos, entre jacob y cuatro veces por d??a, para aliviar los s??ntomas. O apliquehielo en el george??n despu??s de un agravamiento laura de los s??ntomas. Para hacer ba compresa de hielo, coloque cubos de hielo en ba bolsa pl??stica y ci??rrela arriba. Envuelva la bolsa en ba toalla o un pa??o andrews antes de usarla. ??? Puede usar medicamentos de venta elsa para controlar el do hans, a menos que le hayan recetado otro medicamento. Los analg??sicos antinflamatorios, nola el ibuprofeno o el naproxeno, pueden funcionar mejor que el paracetamol. Si tiene ba enfermedad cr??madi del h??gado o de los ri??ones, si alguna vez tuvo ??lceras estomacales o hemorragias gastrointestinales o si preston anticoagulantes, hable con el proveedor de atenci??n m??dica antes de briana estos medicamentos. ??? Los ejercicios de estiramiento son ba parte importante del tratamiento. Pueden ayudara mejorar la flexibilidad en la parte baja de la pierna, el tobillo y la fascia plantar al aliviar los m??sculos r??gidos que suelen agravar la afecci??n. Un fisioterapeuta puede recomendarle ba serie espec??fica de ejercicios de estiramiento. ?? Visita de seguimiento Programe ba visita de control con el proveedor de atenci??n m??dica, fisioterapeuta o especialistadel pie seg??n las indicaciones Llame para hacer ba uriel si el dolor empeora o no siente alivio despu??s de algunas semanas de tratamiento en la casa. Quiz?? requiera plantillas para los zapatos, ba f??nimo nocturna o ba bota especial. Si le hicieron radiograf??as, le informar??n los resultados nuevos que puedan afectar alonzo atenci??n m??dica. ?? Cu??ndo debe buscar atenci??n m??dica Llame a alonzo proveedor de atenci??n m??dica de inmediato ante cualquiera de las siguientes situaciones: ??? Hinchaz??n de los pies ??? Enrojecimiento o calor con aumento del dolor ?? Last Reviewed Date: 2021 ?? [id number] [employer]. Todos los derechos reservados. Esta informaci??n no pretende sustituir la atenci??n m??dica profesional. S??lo alonzo m??dico puede diagnosticar y tratar un problema de letha. ?? Patient Care team information Care Team Personnel Name: Not on Staff, PCP Position: [facility] Physician (General Medicine) Member Role: PCP Name: Ely Chan Position: [facility] ED TA [facility] Name: Alise Smith MD Position: [facility] ED Medicine MD Member Role: ED Attending Physician Address: Address: [address] [place] [address]- Name: Sandy Mays RN Position: [facility] ED RN W/OE and Tasks Name: Zahra Richter Position: [facility] Associate Professional Member Role: ED Physician Geodetic Surveyor Address: Address: [address] [place] [address]- Care Team Related Persons Name: DANILO TURNER Address: [address] Address: [address] [place] [address] Name: MYRIAM DOWNEY Address: [address] [place] [address]
[2024-06-17] MEDS: Ketorolac Tromethamine 15 MG/ML VIAL 30 MG IVPUSH (19:53)
[2024-06-17] MEDS: iohexoL 350 MG/ML 100 ML INFUS..BTL IV (20:15)
--- NOTE | 2024-06-17 20:34 | PC.NURSE ---
sewing inspector at bedside. pt a&ox4, respirations even and unlabored. pt reporting onset of lower abdominal pain x1 year. pt reports it has been the same pain and has not increased or decreased. pt denies n/v/d. 20G placed in left upper arm, pt medicated per mar.
--- NOTE | 2024-06-17 20:57 | ECG_ITS ---
Test Reason : LEFT SHOULDER PAIN Blood Pressure : / mmHG Vent. Rate : 083 BPM Atrial Rate : 083 BPM P-R Int : 188 ms QRS Dur : 088 ms QT Int : 390 ms P-R-T Axes : 044 053 030 degrees QTc Int : 458 ms Normal sinus rhythm Normal ECG When compared with ECG of 17-JUN-2024 13:54, No significant change was found Referred By: Beulah Evans Electronically Signed By:Roni Gardiner
[2024-06-17 22:28] VITALS: BP 124/76; PULSE 78; RESP 18; TEMP 36.6; O2SAT 97
[2024-06-18] MEDS: Insulin Lispro 100 UNIT/ML 3 ML VIAL SUBCUT (00:20)
[2024-06-18 00:22] LABS: Glucose, Whole Blood 345 mg/dL (60-115)
[2024-06-18] MEDS: 0.9 % Sodium Chloride 1,000 ML 999 ML IV (00:22)
[2024-06-18 01:21] VITALS: BP 160/87; PULSE 79; RESP 16; TEMP 36.2; O2SAT 97
[2024-06-18 01:25] LABS: Glucose, Whole Blood 353 mg/dL (60-115)
[2024-06-18 02:04] VITALS: BP 160/87; PULSE 79; RESP 16; TEMP 36.2; O2SAT 97
== END 2024-06-18 02:05 | disposition home or self-care (01) ==
PROVIDERS: Physician Assistant Medical; Emergency Provider Emergency Medicine; PCP General Practice
DX: N39.0 Urinary tract infection, site not specified (principal); M25.512 Pain in left shoulder; R10.11 Right upper quadrant pain; R10.32 Left lower quadrant pain; R10.2 Pelvic and perineal pain; E11.9 Type 2 diabetes mellitus without complications; Z79.4 Long term (current) use of insulin; Z79.899 Other long term (current) drug therapy
CPT/HCPCS: 36415; 74177; 76830; 76856; 80048; 80076; 81001; 82947; 83690; 83735; 84484; 84702; 85025; 87086; 87147; 93005; 93975; 96361; 96374; 99285; J1885; Q9967

== ENCOUNTER → 2024-06-17 13:53 | Outpatient (BNV) | payer MEDICAID, SELFPAY | PROVIDERS: Emergency Provider Emergency Medicine; PCP General Practice; Visit Provider Internal Medicine Cardiovascular Disease | DX: M25.512 Pain in left shoulder (principal); R10.31 Right lower quadrant pain | CPT/HCPCS: 93010 ==

== ENCOUNTER → 2024-07-31 12:57 | Outpatient (REF) | payer MEDICAID, SELFPAY | LOC: HO.SL 12:57 | PROVIDERS: PCP General Practice; Visit Provider Nurse Practitioner Family | DX: Z13.89 Encounter for screening for other disorder (principal) ==

== ENCOUNTER 2024-07-31 13:45 | Outpatient (REF) | payer MEDICAID, SELFPAY ==
--- NOTE | ~2024-07-31 | XR_ITS ---
EXAMINATION: XR SHOULDER, LEFT CLINICAL INFORMATION: Left shoulder pain. COMPARISON: None available. TECHNIQUE: Three views of the left shoulder. FINDINGS: There is minimal acromioclavicular osteoarthritis. Glenohumeral joint is well preserved. No fracture. Alignment is anatomic. Soft tissues are normal with no abnormal calcifications. XR/XR shoulder LT min 2V IMPRESSION: Minimal acromioclavicular osteoarthritis. No acute osseous findings. Electronically signed by: Clint Peña MD 08/13/2024 11:47 PM EDT
== END 2024-07-31 13:46 | disposition home or self-care (01) ==
LOC: HO.HOSX 13:45
PROVIDERS: Visit Provider Orthopaedic Surgery
DX: M25.512 Pain in left shoulder (principal); M75.42 Impingement syndrome of left shoulder
CPT/HCPCS: 73030; 99202

== ENCOUNTER 2024-07-31 15:40 | Outpatient (AMB) | payer MEDICAID, SELFPAY ==
--- NOTE | 2024-07-31 15:47 | MHC.OFFVIS ---
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 Marybel Matthews is a 39-year-old [id number] female presents with complaints of left shoulder pain. The patient describes her pain as sharp nature. Most of the pain is along the lateral aspect of her shoulder. The patient states that her left shoulder pain has gotten worse over the last few years in spite of continued non operative treatments. She has tried Tylenol and anti-inflammatory medicines which gave her minimal relief. She reports mild weakness when lifting her left hand above shoulder height. [employer] Certified Network Associate Services: [employer] Certified Network Associate Present Cisco Certified Network Associate Name: VALENTINA Bragg/MORRIS Information Interpreted: clinical only Allergies No Known Allergies Allergy (Verified 06/18/24 11:53) Medication List - Last Reconciled 07/31/24 by Adiel Ramos MD blood sugar diagnostic (FreeStyle Lite Strips) As directed cefuroxime axetil 250 mg PO BID 7 days gabapentin 300 mg PO BEDTIME hydroxyzine pamoate 25 mg PO BID PRN insulin glargine (Lantus Solostar U-100 Insulin) units subcut insulin lispro subcut ketorolac 10 mg PO TID PRN 5 days metformin 1,000 mg PO BID ondansetron 4 mg PO Q6H PRN polyethylene glycol 3350 (Gavilax) 17 grams PO DAILY sertraline 100 mg PO DAILY PFSH Surgical History Hx of cholecystectomy Family History Father Diabetes Hypertension Schizophrenia Sister No problems noted. Social History (System 06/18/24 @ 11:53 by Karen Hartman CNA) Alcohol intake: never Patient Tobacco Use Status: Never used Tobacco Physical Exam Const Other: Well-nourished well-developed very friendly female awake alert and oriented x3 in no acute distress Extrem Other: Bilateral upper extremity examination shows good capillary refill, no skin lesions noted, normal sensation light touch Left shoulder examination shows decreased range of motion when compared to her right shoulder, 4+ out of 5 strength with supraspinatus testing, positive impingement signs, tenderness over her acromioclavicular joint, no instability Results Reviewed Results Reviewed: X-rays of the patient's left shoulder show moderate to severe acromioclavicular joint narrowing, a type 2 acromion, no acute bony abnormalities Assessment & Plan Assessment & Plan (1) Impingement syndrome of left shoulder: Code(s): M75.42 - Impingement syndrome of left shoulder Category: Medical Plan Ms. Marybel Matthews presents with left shoulder pain due to impingement syndrome and rotator cuff tendinosis. I had a lengthy discussion with the patient regarding the treatment options. The patient wishes to go to formal physical therapy. I did send a referral to the therapy department here at [facility]. She will follow-up as instructed. The do's and don'ts of lifting were discussed at length with the patient. She will contact me prior to her follow-up appointment in 2 months should any questions or concerns arise. Feel free to call me at any time should questions regarding her orthopedic management arise. Thank you very much for asking me to see this very friendly patient. I spent 21 minutes in reviewing the patient's records and imaging studies, seeing the patient and documenting in the medical record. Orders: Orders XR shoulder LT min 2V Today M25.512 - Pain in left shoulder PT Evaluation and Treatment Today M75.42 - Impingement syndrome of left shoulder Coding Level of Care Code New Pt Level 3 (31477) Complex EM visit Add On G2211 Diagnoses Impingement syndrome of left shoulder M75.42
== END 2024-07-31 15:46 | disposition home or self-care (01) ==
PROVIDERS: PCP General Practice; Visit Provider Orthopaedic Surgery
DX: M75.42 Impingement syndrome of left shoulder (principal)
CPT/HCPCS: 99203

== ENCOUNTER 2024-08-20 09:03 | Outpatient (AMB) | payer MEDICAID, SELFPAY ==
--- NOTE | 2024-08-20 09:10 | A.OFFVIS_ITS ---
Vital Signs 08/20/24 09:25 Height 5 ft 6 in Weight 267 lb BMI 43.1 BP 134/76 Blood Pressure Location Rt brachial Position Sitting Respiration 16 Pulse 81 Pulse Source Pulse Oximeter Pulse Oximetry (%) 96 Oxygen Delivery Method Room Air Intake Visit Reasons: Follow up Intake Note: Pt presents to the office for a 6 month follow up for snoring. Brothel Keeper Required: Yes Brothel Keeper Services: Brothel Keeper Present Brothel Keeper Name: Angy Richards CMA Allergies No Known Allergies Allergy (Verified 08/20/24 09:12) HPI Comments Details: 39 y/o female patient with HTN and DMT2 presents for follow up. histotechnician Angy Hansen helped during todays appointment. Her home sleep test was c/w mild sleep apnea AHI was 9/hr oxygen alessia at 82%. [facility] Medical History (Updated 08/20/24 @ 09:45 by Jessika Holley MD) Obstructive sleep apnea hypopnea, mild Surgical History Hx of cholecystectomy Family History Father Diabetes Hypertension Schizophrenia Sister No problems noted. Social History Alcohol intake: never Patient Tobacco Use Status: Never used Tobacco Review of Systems ENT Reports Normal hearing present Neuro Reports Normal hearing present Physical Exam Vital Signs: Last Vital Signs Pulse 81 08/20/24 09:25 Resp 16 08/20/24 09:25 BP 134/76 08/20/24 09:25 Pulse Ox 96 08/20/24 09:25 Oxygen Delivery Method Room Air 08/20/24 09:25 BMI result Body Mass Index 43.1 Const Other: slow response. General: cooperative and tired appearing Nutritional Appearance: obese Orientation/consciousness: patient oriented x3 Eyes Pupils: Equal, round and reactive pupils present Neck Neck: Yes supple Resp Effort & Inspection: normal respiratory effort and able to speak in complete sentences Neuro General: patient oriented x3 and gait normal Cranial nerves: Yes Equal, round and reactive pupils present, Yes Bilaterally intact EOM present, Yes Normal facial strength present, Yes Midline tongue present, Yes Symmetric palate elevation present, Yes Normal hearing present, Yes Ability to bilaterally rotate head present and Yes Ability to bilaterally elevate shoulders present Gait exam (Neuro): Normal gait present Motor exam (neuro): 5/5 motor strength present throughout, Pronator motor function not present and no tremor noted Psych Appearance: grossly normal Mental Status: mental status grossly normal Affect: normal affect Attitude: cooperative Assessment & Plan Assessment & Plan (1) Obstructive sleep apnea hypopnea, mild: Comment: HST 07/31/24 AHI 9 O2 alessia 82% Code(s): G47.33 - Obstructive sleep apnea (adult) (pediatric) Category: Medical Plan Discussed sleep study results and will trial her on AutoPAP 5-20 cm of water and follow up to ensure compliance and tehrapy response. Coding Level of Care Code Est Pt Level 4 (22189) Diagnoses Obstructive sleep apnea hypopnea, mild G47.33
[2024-08-20 09:25] VITALS: BP 134/76; PULSE 81; RESP 16; O2SAT 96; BMI 43.1
== END 2024-08-20 09:52 | disposition home or self-care (01) ==
PROVIDERS: PCP Nurse Practitioner Family; Referring Provider Nurse Practitioner Family; Visit Provider Psychiatry & Neurology Neurology
DX: G47.33 Obstructive sleep apnea (adult) (pediatric) (principal)
CPT/HCPCS: 99214

== ENCOUNTER → 2024-08-20 09:03 | Outpatient (BNVA) | payer MEDICAID, SELFPAY | PROVIDERS: PCP Nurse Practitioner Family; Visit Provider Psychiatry & Neurology Neurology | DX: G47.33 Obstructive sleep apnea (adult) (pediatric) (principal); I10 Essential (primary) hypertension; E11.9 Type 2 diabetes mellitus without complications | CPT/HCPCS: 99212 ==

== ENCOUNTER 2024-09-06 09:21 | Outpatient (REF) | payer MEDICAID, SELFPAY ==
[2024-09-06 13:23] LABS: Estimated Average Glucose 289 mg/dL; Hemoglobin A1c % 11.7 % (<6.0); Total Hemoglobin (HGBA1C) 3630.9966 umol/L
== END 2024-09-06 09:22 | disposition home or self-care (01) ==
LOC: HO.HHCL 09:21
PROVIDERS: Visit Provider Nurse Practitioner Family
DX: E11.40 Type 2 diabetes mellitus with diabetic neuropathy, unspecified (principal); E11.65 Type 2 diabetes mellitus with hyperglycemia
CPT/HCPCS: 36415; 83036

== ENCOUNTER 2024-09-27 14:03 | Outpatient (REF) | payer MEDICAID, SELFPAY ==
[2024-09-27 17:04] LABS: Creatinine Urine 147.85 mg/dL; Microalbum/Creatinine Ratio Ur 118.3 ug/mg cr (<30)
[2024-09-27 17:05] LABS: Alanine Aminotransferase 12 U/L (0-31); Albumin Level 3.9 g/dL (3.5-5.0); Alkaline Phosphatase 55 U/L (39-117); Anion Gap 15 (12-20); Aspartate Amino Transferase 74 U/L (5-31); Bilirubin Total 0.7 mg/dL (0.0-1.0); Blood Urea Nitrogen 14 mg/dL (9-16); Calcium 9.4 mg/dL (8.4-10.2); Carbon Dioxide 22 mmol/L (22-29); Chloride 105 mmol/L (96-108); Cholesterol 151 mg/dL (<200); Estimated Glomerular Filt Rate > 60; Glucose Random 153 mg/dL (60-115); HDL Cholesterol 26 mg/dL (>40); Lipase 27 U/L (8-78); Potassium 3.6 mmol/L (3.3-5.1); Sodium 138 mmol/L (135-145); Total Protein 8.4 g/dL (6.5-8.0); Triglycerides 584 mg/dL (<150)
== END 2024-09-27 14:04 | disposition home or self-care (01) ==
LOC: HO.HHCL 14:03
PROVIDERS: Visit Provider General Practice
DX: E11.40 Type 2 diabetes mellitus with diabetic neuropathy, unspecified (principal); E11.65 Type 2 diabetes mellitus with hyperglycemia; E11.69 Type 2 diabetes mellitus with other specified complication
CPT/HCPCS: 36415; 80053; 80061; 82043; 82570; 83690

== ENCOUNTER 2024-10-02 10:44 | Outpatient (AMB) | payer MEDICAID, SELFPAY ==
--- NOTE | 2024-10-02 10:45 | A.OFFVIS_ITS ---
Intake Visit Reasons: Left shoulder pain and weakness Intake Note: Blaire is a 39 year old female who presents with complaints of progressively worsening left shoulder pain and weakness. The patient describes her pain as sharp in nature. Most of the pain is along the lateral aspect of her left shoulder. The patient states that she injured her left shoulder while lifting a heavy object several years ago. I 1st saw the patient on 07/31/2024. Since that time she has been doing physical therapy which aggravated her pain. She has also tried Tylenol and anti-inflammatory medicines which gave her minimal relief. The patient does have diabetes. She denies any numbness or tingling in either of her upper extremities. She reports difficulty lifting her left hand above shoulder height. Assistant Farm Operations Manager Required: Yes Assistant Farm Operations Manager Language: Flour Tester Services: Assistant Farm Operations Manager Present Assistant Farm Operations Manager Name: Shae ([id number]) Allergies No Known Allergies Allergy (Verified 10/02/24 10:46) Medication List - Last Reconciled 10/02/24 by Adiel Ramos MD blood sugar diagnostic (FreeStyle Lite Strips) As directed buspirone 7.5 mg PO BID insulin glargine (Lantus Solostar U-100 Insulin) units subcut insulin lispro subcut ketorolac 10 mg PO TID PRN 5 days metformin 1,000 mg PO BID naproxen 500 mg PO BID PRN sertraline 100 mg PO DAILY [facility] Medical History (Updated 10/01/24 @ 11:07 by Renetta Grier ORTHOPEDIC CODER) Delivery with history of Obstructive sleep apnea hypopnea, mild Surgical History Hx of cholecystectomy Family History (Updated 10/01/24 @ 11:08 by Renetta Grier CMA) Father Diabetes Hypertension Schizophrenia Sister No problems noted. Mother Diabetes Hypertension Son Autism Son No problems noted. Social History Alcohol intake: never Patient Tobacco Use Status: Never used Tobacco Physical Exam Const Other: Well-nourished well-developed very friendly female awake alert and oriented x3 in no acute distress Extrem Other: Bilateral upper extremity examination shows good capillary refill, no skin lesions noted, normal sensation light touch Left shoulder examination shows decreased range of motion when compared to her right shoulder, 4+ out of 5 strength with supraspinatus testing, positive impingement signs, tenderness over her acromioclavicular joint, no instability Results Reviewed Results Reviewed: X-rays of the patient's left shoulder show severe acromioclavicular joint narrowing, a type 2 acromion, no acute bony abnormalities Assessment & Plan Assessment & Plan (1) Impingement syndrome of left shoulder: Code(s): M75.42 - Impingement syndrome of left shoulder Category: Medical Plan Blaire presents with progressively worsening left shoulder pain and weakness due to impingement syndrome and possible rotator cuff tearing. I will send the patient for an MRI of her left shoulder for further evaluation. I will see her back once the MRI is completed to discuss the findings and treatment options. Feel free to call me at any time should questions regarding her orthopedic management arise. I spent 21 minutes in reviewing the patient's records and imaging studies, seeing the patient and documenting in the medical record. Orders: Orders 2 MR shoulder LT wo con Today M75.42 - Impingement syndrome of left shoulder Coding Level of Care Code Est Pt Level 3 (03395) Complex EM visit Add On G2211 Diagnoses Impingement syndrome of left shoulder M75.42
== END 2024-10-02 11:11 | disposition home or self-care (01) ==
PROVIDERS: PCP General Practice; Visit Provider Orthopaedic Surgery
DX: M75.42 Impingement syndrome of left shoulder (principal)
CPT/HCPCS: 99213

== ENCOUNTER → 2024-10-02 10:44 | Outpatient (BNVA) | payer MEDICAID, SELFPAY | PROVIDERS: PCP General Practice; Visit Provider Orthopaedic Surgery | DX: M75.42 Impingement syndrome of left shoulder (principal) | CPT/HCPCS: 99212 ==

== ENCOUNTER 2024-10-24 08:24 | Outpatient (AMB) | payer MEDICAID, SELFPAY ==
--- NOTE | 2024-10-24 12:15 | A.OFFVIS_ITS ---
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* Environmental Advisor Required: Yes Environmental Advisor Services: Environmental Advisor Present Information Interpreted: clinical only Allergies No Known Allergies Allergy (Verified 10/24/24 12:15) Medication List - Last Reconciled 10/24/24 by Satya Tang MD atorvastatin (Lipitor) 20 mg PO DAILY blood sugar diagnostic (FreeStyle Lite Strips) As directed buspirone 7.5 mg PO BID empagliflozin (Jardiance) 10 mg PO DAILY insulin glargine (Lantus Solostar U-100 Insulin) units subcut insulin lispro subcut ketorolac 10 mg PO TID PRN 5 days metformin 1,000 mg PO BID naproxen 500 mg PO BID PRN nifedipine ER (Procardia XL) 60 mg PO DAILY sertraline 100 mg PO DAILY HPI HPI 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 *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 SUPPORT CLERK*: Details: Start time: 12.10pm, End time: 1.13pm ?I spent 58 minutes speaking with the patient on the phone plus an additional 5 minutes reviewing and updating records for a total of 63 minutes HPI Comments Details: Previous weight loss efforts: self diets Wakes up: 6am, Sleeps: 9.30pm Breakfast: skips Lunch: 11.30-1pm (pasta, rice, soup, meat) Dinner: 5pm (rice, meat, salad) Snacks: Cookies (7-8pm) Exercise: none Fluids: Coffee: 2 cups/day (milk and sugar), tea: none, soda: diet sodas, juice: occasionally, ETOH: none Blood sugars: 90 - 300 PFSH Medical History (Updated 10/24/24 @ 12:48 by Satya Tang MD) Depression DJD (degenerative joint disease) Hypertension Hyperlipidemia Insulin dependent diabetes mellitus type IA Morbid obesity Delivery with history of Obstructive sleep apnea hypopnea, mild Surgical History Hx of cholecystectomy Family History (Updated 10/01/24 @ 11:08 by Renetta Grier CMA) Father Diabetes Hypertension Schizophrenia Sister No problems noted. Mother Diabetes Hypertension Son Autism Son No problems noted. Social History Alcohol intake: never Patient Tobacco Use Status: Never used Tobacco Physical Exam Vital Signs: BMI result Body Mass Index 42.5 Telehealth Telehealth Telehealth Platform: Telephone Location of provider rendering services: practice address Location of patient: address on file Patient Identification confirmed using: Name, : Yes Telehealth method: voice only Patient verbally consented to treatment: Yes Patient verbally consented to billing insurance company: Yes Patient informed of any privacy concerns related to visit: Yes Minutes spent on Phone/Video with Pt.: 63 Assessment & Plan Assessment & Plan (1) Morbid obesity: Code(s): E66.01 - Morbid (severe) obesity due to excess calories Category: Medical Plan: 1.? Plan for lap sleeve gastrectomy. If diaphragmatic or ventral hernias are present at time of surgery, these will be repaired laparoscopically as well. Risks and complications include possible conversion to an open procedure, anastomotic leak, bleeding requiring transfusion, small bowel obstruction, , DVT and pulmonary embolism, cardiac, or pulmonary complications, as mcfp complications such as anastomotic ulcer, insufficient weight loss and vitamin deficiencies. I emphasized the importance of close follow-up, adherence to instructions and good communication. ?2.? Please buy the body composition scale we discussed and send me weight measurements as soon as possible and then once a week. 3. The best choice would be to purchase a stationary bike at home that can track calories. Let me know if you do so I can give you an exercise plan. 4. Goal is to lose at least 1.5-2lbs per week 5. Goal to lose 10% of your weight before surgery, which is about 26lbs. Ultimate weight goal: 237lbs before surgery 6. You have high blood pressure. I ordered a blood pressure medication which is called Amlodipine. Please take one per day. Buy a blood pressure monitor and start measuring your blood pressure daily in the morning and let me know the readings 7. I ordered a medication to help you with the weight loss which is called Zepbound. My office will try to authorize it. Please let me know when you receive it so I can give you a meal and exercise plan. Common side effects include nausea, vomiting, constipation, diarrhea, abdominal pain. Please let me know if you develop any of these symptoms. 8. To be scheduled for EGD to assess the stomach's anatomy. The possibility of biopsies was discussed. Patient needs to avoid use of NSAIDs and aspirin for 1 week prior to EGD. You must be on liquids only the day before your endoscopy. Risks of perforation and bleeding was discussed with the patient. This will be an outpatient procedure with IV sedation. Orders: Orders Insulin Today E10.9 - Type 1 diabetes mellitus without complications, E66.01 - Morbid (severe) obesity due to excess calories, E78.5 - Hyperlipidemia, unspecified, F32.A - Depression, unspecified, G47.33 - Obstructive sleep apnea (adult) (pediatric), I10 - Essential (primary) hypertension, M19.90 - Unspecified osteoarthritis, unspecified site Hemoglobin A1c Today E10.9 - Type 1 diabetes mellitus without complications, E66.01 - Morbid (severe) obesity due to excess calories, E78.5 - Hyperlipidemia, unspecified, F32.A - Depression, unspecified, G47.33 - Obstructive sleep apnea (adult) (pediatric), I10 - Essential (primary) hypertension, M19.90 - Unspecified osteoarthritis, unspecified site Complete Blood Count Auto Diff Today E10.9 - Type 1 diabetes mellitus without complications, E66.01 - Morbid (severe) obesity due to excess calories, E78.5 - Hyperlipidemia, unspecified, F32.A - Depression, unspecified, G47.33 - Obstructive sleep apnea (adult) (pediatric), I10 - Essential (primary) hypertension, M19.90 - Unspecified osteoarthritis, unspecified site IRON PROFILE Today E10.9 - Type 1 diabetes mellitus without complications, E66.01 - Morbid (severe) obesity due to excess calories, E78.5 - Hyperlipidemia, unspecified, F32.A - Depression, unspecified, G47.33 - Obstructive sleep apnea (adult) (pediatric), I10 - Essential (primary) hypertension, M19.90 - Unspecified osteoarthritis, unspecified site Comprehensive Met. Panel Today E10.9 - Type 1 diabetes mellitus without complications, E66.01 - Morbid (severe) obesity due to excess calories, E78.5 - Hyperlipidemia, unspecified, F32.A - Depression, unspecified, G47.33 - Obstructive sleep apnea (adult) (pediatric), I10 - Essential (primary) hypertension, M19.90 - Unspecified osteoarthritis, unspecified site Vitamin B12 and Folate Today E10.9 - Type 1 diabetes mellitus without complications, E66.01 - Morbid (severe) obesity due to excess calories, E78.5 - Hyperlipidemia, unspecified, F32.A - Depression, unspecified, G47.33 - Obstructive sleep apnea (adult) (pediatric), I10 - Essential (primary) hypertension, M19.90 - Unspecified osteoarthritis, unspecified site C Reactive Protein Today E10.9 - Type 1 diabetes mellitus without complica tions, E66.01 - Morbid (severe) obesity due to excess calories, E78.5 - Hyperlipidemia, unspecified, F32.A - Depression, unspecified, G47.33 - Obstructive sleep apnea (adult) (pediatric), I10 - Essential (primary) hypertension, M19.90 - Unspecified osteoarthritis, unspecified site TSH reflex Free T4 Today E10.9 - Type 1 diabetes mellitus without complications, E66.01 - Morbid (severe) obesity due to excess calories, E78.5 - Hyperlipidemia, unspecified, F32.A - Depression, unspecified, G47.33 - Obstructive sleep apnea (adult) (pediatric), I10 - Essential (primary) hyp ertension, M19.90 - Unspecified osteoarthritis, unspecified site Vitamin D 25-OH Total Today E10.9 - Type 1 diabetes mellitus without complications, E66.01 - Morbid (severe) obesity due to excess calories, E78.5 - Hyperlipidemia, unspecified, F32.A - Depression, unspecified, G47.33 - Obstructive sleep apnea (adult) (pediatric), I10 - Essential (primary) hypertension, M19.90 - Unspecified osteoarthritis, unspecified site US abdomen comp w elastography Today E10.9 - Type 1 diabetes mellitus without complications, E66.01 - Morbid (severe) obesity due to excess calories, E78.5 - Hyperlipidemia, unspecified, F32.A - Depression, unspecified, G47.33 - Obstructive sleep apnea (adult) (pediatric), I10 - Essential (primary) hypertension, M19.90 - Unspecified osteoarthritis, unspecified site H Pylori Breath Test Today E10.9 - Type 1 diabetes mellitus without complications, E66.01 - Morbid (severe) obesity due to excess calories, E78.5 - Hyperlipidemia, unspecified, F32.A - Depression, unspecified, G47.33 - Obstructive sleep apnea (adult) (pediatric), I10 - Essential (primary) hypertension, M19.90 - Unspecified osteoarthritis, unspecified site Lipid Panel Today E10.9 - Type 1 diabetes mellitus without complications, E66.01 - Morbid (severe) obesity due to excess calories, E78.5 - Hyperlipidemia, unspecified, F32.A - Depression, unspecified, G47.33 - Obstructive sleep apnea (adult) (pediatric), I10 - Essential (primary) hypertension, M19.90 - Unspecified osteoarthritis, unspecified site Zinc Today E10.9 - Type 1 diabetes mellitus without complications, E66.01 - Morbid (severe) obesity due to excess calories, E78.5 - Hyperlipidemia, unspecified, F32.A - Depression, unspecified, G47.33 - Obstructive sleep apnea (adult) (pediatric), I10 - Essential (primary) hypertension, M19.90 - Unspecified osteoarthritis, unspecified site Vitamin B1 Today E10.9 - Type 1 diabetes mellitus without complications, E66.01 - Morbid (severe) obesity due to excess calories, E78.5 - Hyperlipidemia, unspecified, F32.A - Depression, unspecified, G47.33 - Obstructive sleep apnea (adult) (pediatric), I10 - Essential (primary) hypertension, M19.90 - Unspecified osteoarthritis, unspecified site Vitamin A Today E10.9 - Type 1 diabetes mellitus without complications, E66.01 - Morbid (severe) obesity due to excess calories, E78.5 - Hyperlipidemia, unspecified, F32.A - Depression, unspecified, G47.33 - Obstructive sleep apnea (adult) (pediatric), I10 - Essential (primary) hypertension, M19.90 - Unspecified osteoarthritis, unspecified site Ferritin Today E10.9 - Type 1 diabetes mellitus without complications, E66.01 - Morbid (severe) obesity due to excess calories, E78.5 - Hyperlipidemia, unspecified, F32.A - Depression, unspecified, G47.33 - Obstructive sleep apnea (adult) (pediatric), I10 - Essential (primary) hypertension, M19.90 - Unspecified osteoarthritis, unspecified site XR chest 2V Today E10.9 - Type 1 diabetes mellitus without complications, E 66.01 - Morbid (severe) obesity due to excess calories, E78.5 - Hyperlipidemia, unspecified, F32.A - Depression, unspecified, G47.33 - Obstructive sleep apnea (adult) (pediatric), I10 - Essential (primary) hypertension, M19.90 - Unspecified osteoarthritis, unspecified site ECG 12 lead EKG Today E10.9 - Type 1 diabetes mellitus without complications, E66.01 - Morbid (severe) obesity due to excess calories, E78.5 - Hyperlipidemia, unspecified, F32.A - Depression, unspecified, G47.33 - Obstructive sleep apnea (adult) (pediatric), I10 - Essential (primary) hypertension, M19.90 - Unspecified osteoarthritis, unspecified site FL upper GI w air Today E10.9 - Type 1 diabetes mellitus without complications, E66.01 - Morbid (severe) obesity due to excess calories, E78.5 - Hyperlipidemia, unspecified, F32.A - Depression, unspecified, G47.33 - Obstructive sleep apnea (adult) (pediatric), I10 - Essential (primary) hypertension, M19.90 - Unspecifi ed osteoarthritis, unspecified site Referrals Behavioral Health Referral E10.9 - Type 1 diabetes mellitus without complications, E66.01 - Morbid (severe) obesity due to excess calories, E78.5 - Hyperlipidemia, unspecified, F32.A - Depression, unspecified, G47.33 - Obstructive sleep apnea (adult) (pediatric), I10 - Essential (primary) hyperten lolita, M19.90 - Unspecified osteoarthritis, unspecified site Nutrition/Dietitian Referral E10.9 - Type 1 diabetes mellitus without complications, E66.01 - Morbid (severe) obesity due to excess calories, E78.5 - Hyperlipidemia, unspecified, F32.A - Depression, unspecified, G47.33 - Obstructive sleep apnea (adult) (pediatric), I10 - Essential (primary) hypertension, M19.90 - Unspecified osteoarthritis, unspecified site Medications: New tirzepatide (weight loss) (Zepbound) for 4 weeks 2.5 mg (0.5 mL) subcut QWEEK 2 mL 0RF E10.9 - Type 1 diabetes mellitus without complications, E66.01 - Morbid (severe) obesity due to excess calories
[2024-10-24 12:33] VITALS: BMI 42.5
== END 2024-10-24 13:14 | disposition home or self-care (01) ==
PROVIDERS: PCP General Practice; Visit Provider Surgery
DX: E66.01 Morbid (severe) obesity due to excess calories (principal); Z68.41 Body mass index [BMI] 40.0-44.9, adult; E66.813 Obesity, class 3
CPT/HCPCS: 99205

== ENCOUNTER → 2024-10-24 08:24 | Outpatient (BNVA) | payer MEDICAID, SELFPAY | PROVIDERS: PCP General Practice; Visit Provider Surgery ==

== ENCOUNTER 2024-11-03 11:10 | Outpatient (REF) | payer MEDICAID, SELFPAY ==
--- NOTE | ~2024-11-03 | MR_ITS ---
EXAMINATION: MR LEFT SHOULDER WITHOUT CONTRAST CLINICAL INFORMATION: Impingement syndrome of left shoulder M75.42 . COMPARISON: XR Left shoulder 07/31/2024 TECHNIQUE: MRI of the shoulder without contrast was performed on a high-field scanner. FINDINGS: ROTATOR CUFF: Intact. No muscle atrophy or fatty infiltration. BICEPS: Proximal biceps tendinosis. Mild edema along the rotator cuff interval. CORACOACROMIAL ARCH: The undersurface of the acromion is flat with no subacromial spur. Minimal acromioclavicular osteoarthritis. LABRUM/CAPSULE: No definite labral tear. There is a small defect at the humeral attachment of the anterior band of the glenohumeral ligament with an adjacent 9 x 3 mm ganglion. Mild edema along the posterior superior joint capsule. GLENOHUMERAL JOINT/MARROW: Small joint effusion. Chronic appearing cyst/erosion of the anterior humeral head. Mild degenerative marrow edema of the posterior greater tuberosity. MR/MR shoulder LT wo con IMPRESSION: No rotator cuff tear. Proximal biceps tendinosis. Findings suggestive of mild capsulitis. Mild glenohumeral osteoarthritis with a small joint effusion. Electronically signed by: Dayo Dunlap MD 11/07/2024 02:22 PM [facility]
== END 2024-11-03 11:11 | disposition home or self-care (01) ==
LOC: HO.MRI 11:10
PROVIDERS: PCP General Practice; Visit Provider Orthopaedic Surgery
DX: M75.42 Impingement syndrome of left shoulder (principal)
CPT/HCPCS: 73221

== ENCOUNTER → 2024-11-15 11:10 | Outpatient (AMB) | payer OTHER, SELFPAY ==
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
== END ==
PROVIDERS: PCP General Practice; Visit Provider Counselor Mental Health
DX: F33.1 Major depressive disorder, recurrent, moderate (principal); F43.10 Post-traumatic stress disorder, unspecified; E66.01 Morbid (severe) obesity due to excess calories
CPT/HCPCS: 90837

== ENCOUNTER 2024-11-21 10:35 | Outpatient (AMB) | payer MEDICAID, SELFPAY ==
[2024-11-21 11:21] VITALS: BMI 42.4
--- NOTE | 2024-11-21 11:21 | MHC.OFFVIS ---
Vital Signs 11/21/24 11:21 Height 5 ft 6 in Weight 262 lb 12.8 oz BMI 42.4 Intake Visit Reasons: Left shoulder pain and stiffness Intake Note: Blaire is a 39 year old female who presents with complaints of progressively worsening left shoulder pain and stiffness. She describes her pain as sharp in nature. Most of the pain is along the lateral aspect of her shoulder. She did aggravate her left shoulder several years ago while lifting a heavy object. She has done physical therapy exercises which aggravated her pain. She has also tried Tylenol and anti-inflammatory medicines which gave her minimal relief. The patient reports difficulty lifting her left hand above shoulder height. She denies any numbness or tingling in either of her upper extremities. Surfacing Machine Operator Required: Yes Surfacing Machine Operator Language: Doctor Of Podiatry Services: Surfacing Machine Operator Present Surfacing Machine Operator Name: VALENTINA Bragg/MORRIS Allergies No Known Allergies Allergy (Verified 11/21/24 11:21) Medication List - Last Reconciled 11/21/24 by Adiel Ramos MD atorvastatin (Lipitor) 20 mg PO DAILY blood sugar diagnostic (FreeStyle Lite Strips) As directed buspirone 7.5 mg PO BID empagliflozin (Jardiance) 10 mg PO DAILY insulin glargine (Lantus Solostar U-100 Insulin) units subcut insulin lispro subcut ketorolac 10 mg PO TID PRN 5 days metformin 1,000 mg PO BID naproxen 500 mg PO BID PRN nifedipine ER (Procardia XL) 60 mg PO DAILY sertraline 100 mg PO DAILY tirzepatide (weight loss) (Zepbound) 2.5 mg (0.5 mL) subcut QWEEK [facility] Medical History Depression DJD (degenerative joint disease) Hypertension Hyperlipidemia Insulin dependent diabetes mellitus type IA Morbid obesity Delivery with history of Obstructive sleep apnea hypopnea, mild Surgical History Hx of cholecystectomy Family History Father Diabetes Hypertension Schizophrenia Sister No problems noted. Mother Diabetes Hypertension Son Autism Son No problems noted. Social History Alcohol intake: never Patient Tobacco Use Status: Never used Tobacco Physical Exam Vital Signs: BMI result Body Mass Index 42.4 Const Other: Well-nourished well-developed very friendly female awake alert and oriented x3 in no acute distress Extrem Other: Bilateral upper extremity examination shows good capillary refill, no skin lesions noted, normal sensation light touch Left shoulder examination shows decreased active and passive range of motion when compared to her right shoulder, 4+ out of 5 strength with supraspinatus testing, positive impingement signs, tenderness over her acromioclavicular joint, no instability Results Reviewed Results Reviewed: MRI of the patient's left shoulder show severe acromioclavicular joint narrowing, a type 2 acromion, signal change within the supraspinatus tendon most likely due to adhesive capsulitis Assessment & Plan Assessment & Plan (1) Impingement syndrome of left shoulder: Code(s): M75.42 - Impingement syndrome of left shoulder Category: Medical Plan Ms. Marybel Matthews presents with progressively worsening left shoulder pain and stiffness due to impingement syndrome, acromioclavicular joint arthritis and adhesive capsulitis. I had a lengthy discussion with the patient regarding the treatment options. At this point she has failed continued non operative treatments. The risks and benefits of left shoulder surgery were discussed at length with the patient. The patient wishes to proceed with surgery. Surgery will most likely involve left shoulder diagnostic arthroscopy with distal clavicle excision, acromioplasty, capsular release and manipulation under anesthesia. The patient will be scheduled for next available date. She will follow-up as instructed. Feel free to call me at any time should questions regarding her orthopedic management arise. I spent 22 minutes in reviewing the patient's records and imaging studies, seeing the patient and documenting in the medical record. Coding Level of Care Code Est Pt Level 3 (49911) Complex EM visit Add On G2211 Diagnoses Impingement syndrome of left shoulder M75.42
== END 2024-11-21 11:49 | disposition home or self-care (01) ==
PROVIDERS: PCP General Practice; Visit Provider Orthopaedic Surgery
DX: M75.42 Impingement syndrome of left shoulder (principal)
CPT/HCPCS: 99213

== ENCOUNTER → 2024-11-21 10:35 | Outpatient (BNVA) | payer MEDICAID, SELFPAY | PROVIDERS: PCP General Practice; Visit Provider Orthopaedic Surgery | DX: M75.42 Impingement syndrome of left shoulder (principal) | CPT/HCPCS: 99212 ==

== ENCOUNTER → 2024-11-22 09:55 | Outpatient (BNVA) | payer MEDICAID, SELFPAY | PROVIDERS: PCP General Practice; Visit Provider Physician Assistant Surgical ==

== ENCOUNTER 2024-11-26 11:52 | Day surgery (SDC) | payer MEDICAID, SELFPAY ==
--- NOTE | 2024-11-25 09:25 | HO.ANESPROP2 ---
Documented by User: Tina Garcia NP 11/25/24 09:25 HPI - Anesthesia Eval Consult details Narrative: 39yo F for Upper Endoscopy Anesthesia Pre-Procedure Meds Is the patient on any of the following meds?: GLP1/DPP4 and SGLT2 Inhib PMFSH Active Problems Active Problems: All Active Problems Major depressive disorder, recurrent, unspecified (Acute) Depression (Acute) DJD (degenerative joint disease) (Acute) Hypertension (Acute) Hyperlipidemia (Acute) Insulin dependent diabetes mellitus type IA (Acute) Morbid obesity (Acute) Obstructive sleep apnea hypopnea, mild (Acute) Impingement syndrome of left shoulder (Acute) Obesity, morbid, BMI 40.0-49.9 (Acute) Daytime sleepiness (Acute) Loud snoring (Acute) Past Medical History Medical History delivery delivered Depression DJD (degenerative joint disease) Hypertension Hyperlipidemia Insulin dependent diabetes mellitus type IA Morbid obesity Delivery with history of Obstructive sleep apnea hypopnea, mild Family History Family History Father Diabetes Hypertension Schizophrenia Sister No problems noted. Mother Diabetes Hypertension Son Autism Son No problems noted. Surgical History Surgical History H/O tubal ligation Hx of cholecystectomy Social History Social History Alcohol intake: never Patient Tobacco Use Status: Never used Tobacco Meds Allergies Allergy/AdvReac Type Severity Reaction Status Date / Time No Known Allergies Allergy Verified 11/21/24 11:21 Home Medications ?Medication ?Instructions ?Recorded ?Confirmed ?Last Taken ?Type blood sugar diagnostic (FreeStyle #10 ea 04/28/23 11/21/24 Unknown History Lite Strips) insulin glargine 100 unit/mL (3 unit subcut 04/28/23 11/21/24 Unknown History mL) subcutaneous pen (Lantus Solostar U-100 Insulin) insulin lispro 100 unit/mL subcut 04/28/23 11/21/24 Unknown History subcutaneous pen metformin 500 mg tablet 1,000 mg PO BID 04/28/23 11/21/24 Unknown History sertraline 100 mg tablet 100 mg PO DAILY 04/28/23 11/21/24 Unknown History buspirone 7.5 mg tablet 7.5 mg PO BID 10/01/24 11/21/24 Unknown History naproxen 500 mg tablet 500 mg PO BID PRN moderate pain 10/01/24 11/21/24 Unknown History atorvastatin 20 mg tablet (Lipitor) 20 mg PO DAILY 10/24/24 11/21/24 Unknown History empagliflozin 10 mg tablet 10 mg PO DAILY 10/24/24 11/21/24 Unknown History (Jardiance) nifedipine 60 mg tablet,extended 60 mg PO DAILY 10/24/24 11/21/24 Unknown History release 24 hr (Procardia XL) Assessment and Plan Assessment Anesthesia Assessment: Chart Reviewed Documented by User: Nataly Sanchez MD 11/26/24 13:50 PMF Past Medical History Medical History delivery delivered Depression DJD (degenerative joint disease) Hypertension Hyperlipidemia Insulin dependent diabetes mellitus type IA Morbid obesity Delivery with history of Obstructive sleep apnea hypopnea, mild Family History Family History Father Diabetes Hypertension Schizophrenia Sister No problems noted. Mother Diabetes Hypertension Son Autism Son No problems noted. Surgical History Surgical History H/O tubal ligation Hx of cholecystectomy History of Problems with Anesthesia: No Social History Social History Alcohol intake: never Patient Tobacco Use Status: Never used Tobacco Meds Allergies Allergy/AdvReac Type Severity Reaction Status Date / Time No Known Allergies Allergy Verified 11/21/24 11:21 Home Medications ?Medication ?Instructions ?Recorded ?Confirmed ?Last Taken ?Type blood sugar diagnostic (FreeStyle #10 ea 04/28/23 11/21/24 Unknown History Lite Strips) insulin glargine 100 unit/mL (3 unit subcut 04/28/23 11/21/24 Unknown History mL) subcutaneous pen (Lantus Solostar U-100 Insulin) insulin lispro 100 unit/mL subcut 04/28/23 11/21/24 Unknown History subcutaneous pen metformin 500 mg tablet 1,000 mg PO BID 04/28/23 11/21/24 Unknown History sertraline 100 mg tablet 100 mg PO DAILY 04/28/23 11/21/24 Unknown History buspirone 7.5 mg tablet 7.5 mg PO BID 10/01/24 11/21/24 Unknown History naproxen 500 mg tablet 500 mg PO BID PRN moderate pain 10/01/24 11/21/24 Unknown History atorvastatin 20 mg tablet (Lipitor) 20 mg PO DAILY 10/24/24 11/21/24 Unknown History empagliflozin 10 mg tablet 10 mg PO DAILY 10/24/24 11/21/24 Unknown History (Jardiance) nifedipine 60 mg tablet,extended 60 mg PO DAILY 10/24/24 11/21/24 Unknown History release 24 hr (Procardia XL) Exam Airway Mallampati Class: II TM Dist: >3cm Neck ROM: Full Loose/Missing/Broken Teeth: No Heart: RRR Lungs: CTA Assessment and Plan Assessment Anesthesia Assessment: Anesthesia Plan Discussed and PAT Visit Final Anesthetic Review History of Problems with Anesthesia: No NPO: Yes ASA Class: III Final Preanesthetic Review: Meds/Allgs Chart Reviewed, Consent Obtained/Reviewed and Anes Risks/Benef Reviewed Patient Risk: Intermediate Procedure Risk: Intermediate Anesthetic Plan Anesthetic Plan: MAC: Disposition: Standard PACU
[2024-11-26 12:21] VITALS: BMI 38.9
[2024-11-26 12:41] VITALS: BP 131/72; PULSE 79; RESP 16; TEMP 36.7; O2SAT 95
[2024-11-26 12:51] LABS: Glucose, Whole Blood 152 mg/dL (60-115)
[2024-11-26] MEDS: Lactated Ringers 1,000 ML 100 ML IVCONT (12:55)
--- NOTE | 2024-11-26 13:12 | MHC.SHP ---
Pre-Procedural Eval Section A - 24 Hr Update-Section A only Date of Service: 11/26/24 The patient is an INPATIENT: No The patient has been examined within 24 hours of the surgical procedure. The History & Physical has been completed within 30 days and I have reviewed it.: Yes Section B - Complete if H&P > 30 days Chief Complaint: Morbid (severe) obesity due to excess calories Relevant Family History (Specify if Yes): No Relevant Social History: None Present Medications: None Medical History: No relevant PMH History of Previous Operations: No relevant previous surgery Allergies: Allergies Allergy/AdvReac Type Severity Reaction Status Date / Time No Known Allergies Allergy Verified 11/21/24 11:21 Review of Systems Sugical H&P ROS: Negative: Constitution, Cardiovascular, Respiratory, Neurological, Psychiatric, Hem-Onc, Allergic/Immunologic, Gastrointestinal, Genitourinary, Musculoskeletal, Integumentary, Endocrine and Eyes/Ears/Nose/Throat Exam Surgical H&P Exam: Normal: HEENT, Normal: Heart, Normal: Lungs, Normal: Extremities, Normal: Abdomen, Normal: Skin and Normal: Neurological Plan Diagnosis/Plan: Unchanged (EGD to assess the stomach's anatomy. Risks of bleeding and perforation were discussed with the patient and she is in agreement with the plan.) I have reviewed the history and physical and performed a pertinent physical examination on my patient. No changes have occurred unless specified. Time Spent With Patient Time: Total time managing care of this patient today ____ minutes.
--- NOTE | 2024-11-26 13:13 | PM.OP ---
Brief Operative Note Date of Service: 11/26/24 Pre-op diagnosis: Morbid obesity Post-op diagnosis: same Procedure: PROCEDURE DATE: 11/26/2024 PREOPERATIVE DIAGNOSIS: GERD POSTOPERATIVE DIAGNOSIS: ?Same as above. 1) gastritis PROCEDURE: Utiipnyt-lymgnr-hhzibecsqvrc with biopsies Surgeon: Edel Tang M.D.. Ph.D. Grant Administrator: None ? Anesthesia: IV sedation Estimated blood loss: ?Minimal FINDINGS AND PROCEDURE: ? OPERATIVE INDICATIONS: ?The patient is a 39 year old female known to me who is interested in bariatric surgery. Based on this information I recommended an upper endoscopy to evaluate the stomach's anatomy. Risks and complications of the surgery were discussed with the patient in advance particularly the possibility of perforation or bleeding that may require surgical intervention. The patient understood the risks and was in agreement with the plan. ? PROCEDURE: After informed consent was obtained by the patient, the patient was ?transferred to the Operating Room and was placed in the supine position.? After successful induction of IV sedation, a mouth block was inserted and the patient was placed in the left lateral decubitus position. An upper endoscopy was performed next, the oropharynx and esophagus appeared within the normal limits. There was a no hiatal hernia. The z-line was smooth. Two biopsies were obtained from the distal esophagus 2-3 cm proximal to the GE junction and two additional biopsies from the GE junction. The stomach was entered and it appeared to be of normal size. There was gastritis diffusely with bile reflux. There was no stricture or ulcer. A biopsy was obtained from the gastric fundus and antrum. No significant bleeding was noted from any of the biopsy sites. Retroflexion of the scope revealed gastritis in the fundus but not hiatal hernia. The scope was then advanced into the duodenum which appeared to be normal as well. At that point the duodenum ?and the stomach were decompressed and the scope was withdrawn from the patient's mouth. The patient extubated and was transferred in stable condition to the Recovery Room for further care. I was present and performed all steps of the procedure. There were no residents to assist with this case. Hamzah Tang M.D., Ph.D. Surgeon: Satya Tang MD Was an Grant Administrator used for this Procedure?: No Estimated blood loss (mL): 0 IV fluids (mL): 400 Urine output (mL): 0 (No Fregoso to record output) Pathology: other (1) antrum x1, 2) fundus x1, 3) GE junction x2, 4) distal esophagus x2) Condition: stable Disposition: PACU
[2024-11-26 13:40] VITALS: BP 137/68; PULSE 79; RESP 20; TEMP 36.6; O2SAT 100
[2024-11-26 13:55] VITALS: BP 132/78; PULSE 82; RESP 20; O2SAT 95
[2024-11-26 14:10] VITALS: BP 120/73; PULSE 80; RESP 20; TEMP 36.4; O2SAT 94
== END 2024-11-26 14:49 | disposition home or self-care (01) ==
PROVIDERS: PCP General Practice; Visit Provider Surgery
PROC: 0DJ08ZZ Inspection of Upper Intestinal Tract, Via Natural or Artificial Opening Endoscopic (ICD-10-PCS; CPT 43235; principal; 2024-11-26 13:50)
DX: K21.9 Gastro-esophageal reflux disease without esophagitis (principal); E66.01 Morbid (severe) obesity due to excess calories; Z68.41 Body mass index [BMI] 40.0-44.9, adult; K29.50 Unspecified chronic gastritis without bleeding; G47.33 Obstructive sleep apnea (adult) (pediatric); F51.9 Sleep disorder not due to a substance or known physiological condition, unspecified; I10 Essential (primary) hypertension; E78.5 Hyperlipidemia, unspecified; M19.90 Unspecified osteoarthritis, unspecified site; E10.9 Type 1 diabetes mellitus without complications; Z79.4 Long term (current) use of insulin; Z79.84 Long term (current) use of oral hypoglycemic drugs; Z79.1 Long term (current) use of non-steroidal anti-inflammatories (NSAID); Z79.899 Other long term (current) drug therapy
CPT/HCPCS: 43239; 82947; 88305; 88313; 88342; J2003; J2704

== ENCOUNTER → 2024-11-26 11:52 | Outpatient (BNV) | payer MEDICAID, SELFPAY | PROVIDERS: PCP General Practice; Visit Provider Surgery | DX: K29.70 Gastritis, unspecified, without bleeding (principal) | CPT/HCPCS: 43239 ==

== ENCOUNTER 2025-01-16 08:57 | Outpatient (REF) | payer MEDICAID, SELFPAY ==
--- NOTE | ~2025-01-16 | XR_ITS ---
CLINICAL HISTORY: E66.01 - Morbid (severe) obesity due to excess calories 2 view chest x-ray Comparison: None Findings: The lungs are clear. Normal size heart. No acute fracture. IMPRESSION: 1. No acute findings. This document has been electronically signed by: Johnny Hernandez MD on 01/16/2025 18:31:42
--- OUTSIDE RECORDS SUMMARY | 2025-01-16 09:34 | XMS_ITS | Encounter Summary ---
Author Organization [employer] Address [address] [place] [address] Care Team Providers Care Piping Supervisor Name Role Phone Alexus Henderson MD Primary Care Provider [phone] Adwoa Hughes PharmD Unavailable [phone] Reason for Visit * Reason Onset Date Comments recall 01/09/2025 Encounter Details Date Type Department Care Team ([facility] st Contact Info) Description 01/09/2025 Telephone [facility] [address] [place] [address] Alexus Henderson MD [address] [place] [address] recall Social History Tobacco Use Types Packs/Day Years Used Date Smoking Tobacco: Never Smokeless Tobacco: Never Alcohol Use Standard Drinks/Week Comments Never 0 (1 standard drink = 0.6 oz pur e alcohol) Depression Answer Date Recorded Patient Health Questionnaire-9 Score 9 12/07/2022 Housing Stability Answer Date Recorded What is your housing situation today? I have vanessa downs 09/18/[address] you li ve. Do you have problems with any of the following? None of the above 09/18/2024 Food Insecurity Answer Date Recorded Within the past 12 months, y ou worried that your food would run out before you got money to buy more: Never True 09/18/2024 Within the past 12 months,th e food you bought just didn't last and you didn't have enough money to get more: Never True Transportation Answer Date Recorded In the past 12 months, has l ack of transportation kept you from medical appts, meetings, work or from getting things needed for daily living? Yes, it has kept me from non-medical meetings, work, or getting things that I need 09/18/2024 Utilities Answer Date Recorded In the past 12 months, has t he electric, gas, oil or water company threatened to shut off services in your home? No 09/18/2024 Depression Answer Date Recorded Patient Health Questionnaire-2 Score 2 12/07/2022 Internet Access Answer Date Recorded Internet Access Q1 Yes 09/18/2024 Internet Access Q2 Not on file 09/18/2024 Comments No Sex and Gender Information Value Date Recorded Sex Assigned at Female 09/19/2022 10:39 AM EDT Legal Sex Female 10:39 AM EDT Gender Identity Female 09/19/2022 10:39 AM EDT Sexual Orientation Straight 09/26/2024 2: 50 PM EST documented as of this encounter Miscellaneous Notes * Telephone Encounter - Ellen Matthews MA - 01/09/2025 1:33 PM EST Telephone call to patient to schedule a recall appointment. No answer, Left voicemail to return call to clinic.. Recall letter sent. Visit type: Office visit Appointment notes: DM Month due: December With: Santiago Please schedule appointment above if patient returns call documented in this encounter Plan of Treatment Upcoming Encounters Date Type Department Care Team (Late st Contact Info) Description 01/31/2025 10:30 AM EDT Medication Management [facility] [address] [place] [address] Adwoa Hughes, PharmD [address] [place] [address] documented as of this encounter Visit Diagnoses Not on filedocumented in this encounter Additional Health Concerns Assessment Noted Time PHQ-9 Depression Total Score: 9 12/07/19 23 9:42 AM EST documented as of this encounter Care Teams Piping Supervisor Relationship Specialty Start Date End Date Alexus Henderson MD [address] [place] [address] PCP - General Family Medicine 01/23/24 Adwoa Hughes, DameonD [address] [place] [phone] Pharmacist Internal Medicine 12/10/24 documented as of this encounter
--- OUTSIDE RECORDS SUMMARY | 2025-01-16 09:34 | XMS_ITS | Clinical Summary ---
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 06/01/20 23 Active traZODone (Desyrel) 50 MG tablet TAKE 1 TABLET EVERY NIGHT AT BEDTIME NEEDED 09/09/20 24 Active GaviLAX 17 GM/SCOOP powder Take 17 g by mouth Once per day. 578 g 3 09/27/20 24 Active naproxen (Naprosyn) 500 MG tablet Take 1 tablet (500 mg) by mouth with breakfast and with evening meal. 90 tablet 3 09/27/20 24 Active insulin lispro (HumaLOG) 100 UNIT/ML injectionIndicat ions:Poorly controlled type 2 diabetes mellitus with neuropathy (CMS/HCC) INJECT 38 UNITS SUBCUTANEOUSLY BEFORE BREAKFAST, 35 UNITS BEFORE LUNCH AND 22 UNITS BEFORE SUPPER DIRECTED 30 mL 11 09/27/20 24 Active sertraline (Zoloft) 100 MG tabletIndication s:Major depressive disorder, single episode, severe with psychotic features (CMS/HCC) Take 1 tablet (100 mg) by mouth Once per day. 90 tablet 3 09/27/20 24 Active NIFEdipine XL (Procardia XL) 30 MG 24 hr tabletIndication s:Essential hypertension Take 1 tablet (30 mg) by mouth Once per day. 90 tablet 3 09/27/20 24 025 Active atorvastatin (Lipitor) 20 MG tabletIndication s:Hypertriglycer idemia,Poorly controlled type 2 diabetes mellitus with neuropathy (CMS/HCC) Take 1 tablet (20 mg) by mouth Once per day. 90 tablet 3 10/03/20 24 025 Active Tirzepatide-Weig ht Management (Zepbound) 2.5 MG/0.5ML solution auto-injector Inject 2.5 mg under the skin 1 (one) time per week. 10/29/20 24 Active Continuous Glucose Engineering Assistant (FreeStyle Elsa 3 [place]) deviceIndication s:Poorly controlled type 2 diabetes mellitus with neuropathy (CMS/HCC) 1 each 3 times daily. Use daily as directed for CGM 1 each 12/10/19 25 Active Continuous Glucose Sensor (FreeStyle Elsa 3 Plus Sensor) miscIndications: Poorly controlled type 2 diabetes mellitus with neuropathy (CMS/HCC) 1 each Once per day. Apply 1 sensor every 15 days as directed for CGM 2 each 12/10/19 25 Active glucose blood (FreeStyle Precision Kassandra Test) test stripIndications :Poorly controlled type 2 diabetes mellitus with neuropathy (CMS/HCC) Use to test blood sugar up to 3 times daily, as directed 100 each 12/10/19 25 Active TRUEplus Lancets 33G miscIndications: Poorly controlled type 2 diabetes mellitus with neuropathy (CMS/HCC) uSE TO TEST BLOOD SUGAR UP TO THREE TIMES DAILY DIRECTED 100 each 12/10/19 25 Active empagliflozin-me tFORMIN ER (Synjardy XR) 12.5-1000 MG 24 hr tabletIndication s:Poorly controlled type 2 diabetes mellitus with neuropathy (CMS/HCC) Take 2 tablets by mouth with breakfast. 60 tablet 11 12/10/19 25 026 Active insulin degludec (Tresiba FlexTouch) 200 UNIT/ML injection Inject 10 units subQ once daily. Increase to 20 units daily as directed 9 mL 5 12/10/19 25 Active pantoprazole (ProtoNix) 40 MG EC tablet Take 40 mg by mouth before breakfast. 11/26/19 25 Active Alcohol Swabs (Alcohol Prep) 70 % padsIndications: Poorly controlled type 2 diabetes mellitus with neuropathy (CMS/HCC) USE 4 TIMES DAILY PRIOR TO INSULIN INJECTION 200 each 12/10/19 Active insulin pen needle (Pentips) 32G x 4 mm miscIndications: Poorly controlled type 2 diabetes mellitus with neuropathy ([facility]/HCC) Use 4 times daily with insulin 200 each 12/10/19 Active Biotin 5000 MCG chewable tablet Chew 2 tablets Once per day. OTC Active Active Problems Problem Noted Date Diagnosed Date Microalbuminuria 10/03/2024 Major depressive disorder, s mireya episode, severe with psychotic features 09/27/2024 Preop cardiovascular exam 08/28/2024 Assessment & Plan (08/28/2024 1:58 PM EDT): Sinus rhythm with no acute changes. See other assessment in the note Knee pain 04/08/2024 Anemia 04/08/2024 Anxiety 04/08/2024 History of depression 04/08/2024 History of pre-eclampsia 04/08/2024 Sleep apnea 02/08/2023 Assessment & Plan (02/08/2023 10:32 AM EDT): Has not received a call from sleep medicine yet, reassured patient that her referral is still active. Diabetic peripheral neuropathy 12/06/2022 Assessment & Plan (02/08/2023 12:24 PM EDT): Patient stated her neuropathy is bothering her again. Paraesthesia in her hand/feetl. She was previously prescribed gabapentin. Prescribed gabapentin 300 mg nightly Essential hypertension 12/06/2022 Assessment & Plan (08/28/2024 2:18 PM EDT): On BP medications and controlled Assessment & Plan (02/08/2023 12:26 PM EDT): Blood pressure currently managed. Patient to continue current therapies. Counseled low-salt diet, advised increase in exercise to 30 min/ day most days, weight loss if applicable. Call clinic for high BP >170/90 or low <90/60. Hypertriglyceridemia 12/06/2022 Poorly controlled type 2 diabetes mellitus with neuropathy 12/06/2022 Assessment & Plan (10/03/2024 7:36 PM EST): Current A1c: 11.2; add Jardiance for renal protection and delaying progression of microalbuminuria; refer to CDTM BMP: Microalbumin: 112 Foot Exam: Complete at follow up Eye Exam: Discuss at follow up Lipid panel: ASCVD: Calculate pending updated labs Statin: Yes, just ordered ASA: No CONNIE/ARB: No Encouraged regular aerobic exercise for improved glycemic control Encouraged daily foot checks Encouraged lean protein snacks and to avoid foods high in sugar and simple carbohydrates Treatment Goals: A1c goal: <7% FBG goal: <130 2 hour post prandial goal: <180 Assessment & Plan (08/28/2024 1:37 PM EDT): Stop insulin and metformin on day of surgery. May restart day after the surgery unless directed differently by surgeon Assessment & Plan (02/08/2023 12:22 PM EDT): She ran out of metformin a week ago. So I refilled her metformin. She is due for her A1C check in one month. F/up 1 month for DM2 She is interested in bariatric surgery. I discussed with her that she will need to work on her diet and start exercising and we will discuss that at her f/up in one month. I educated her on surgeons being fickle about diet and exercise before performing that surgery. That if they don't believe that she will eat right and stay in shape they may not perform the surgery in the first place. Hx of tubal ligation 10/02/2022 Atypical squamous cells of u ndetermined significance (ASCUS) on Papanicolaou smear of cervix 01/25/2022 Assessment & Plan (12/07/2022 11:21 AM EST): Few cells are approaching low grade dysplasia per PAP on 01/19/22 Chronic back pain 01/25/2022 Assessment & Plan (02/08/2023 12:20 PM EDT): She stated that she stopped taking the Celebrex she was prescribed on 01/30 because it makes her sleepy. Prescribed Meloxicam 7.5 mg PO every day History of left oophorectomy 01/20/2022 Overview (12/07/2022): Due to ectopic in [place]-2020 Resolved Problems Problem Noted Date Diagnosed Date Resolved Date Visit for pre-operative examination 08/28/2024 08/28/2024 History of right oophorectomy 12/07/2022 12/07/2022 Overview (12/07/2022): Pt reported on 10/02/2022, done simultaneously after having a for delivery of healthy baby boy. She reports BTL, records release requested from [facility] in [facility] intermediate 12/07/2022 Overview (12/07/2022): With 2 sons 15 yo and 2 mo, awaiting housing Missed period 12/06/2022 12/07/2022 Encounters Date Type Department Care Team Description 01/09/2025 Telephone [facility] [address] [place] [address] Kristie Spain, OD 01/09/2025 Telephone [facility] [address] [place] [address] Alexus Henderson MD recall 12/23/[address] [address] Puia, Adwoa, PharmD Prior Authorization (Precision Kassandra test stips ) 12/17/[address] [address] Puia, Adwoa, PharmD Care Coordination 12/11/2024 Telephone [facility] [address] [place] [address] Puia, Adwoa, PharmD Prior Authorization (Freestyle Elsa 3 CGM & precision kassandra test strips ) 11/26/2024 Orders Only GENERIC EXTERNAL DATA DEPARTMENT Provider, Generic External Data 11/25/2024 10:15 AM EST Office Visit [facility] [address] [place] [address] Priscilla Figueroa, OD Myopia of both eyes (Primary Dx) 11/03/2024 Orders Only [facility] External Provider, [facility] from Last 3 Months Immunizations Name Administration Dates Next Due Hep B, adult 01/25/2022 Influenza injectable quadrivalent preservative f ree 09/02/2022,01/25/2022 Tdap 07/29/2022 Family History Medical History Relation Name Comments Diabetes Father Cataracts Mother Relation Name Status Comments Father Mother Social History Tobacco Use Types Packs/Day Years Used Date Smoking Tobacco: Never Smokeless Tobacco: Never Tobacco Cessation:Counseling Given: Not Answered Alcohol Use Standard Drinks/Week Comments Never 0 (1 standard drink = 0.6 oz pur e alcohol) Depression Answer Date Recorded Patient Health Questionnaire-9 Score 9 12/07/2022 Housing Stability Answer Date Recorded What is your housing situation today? I have vanessa yareli 09/18/[address] you li [...] Orientation Straight 09/26/2024 2: 50 PM EST Last Filed Vital Signs Vital Sign Reading Time Taken Comments Blood Pressure 135/74 09/27/2024 1:06 PM EST Pulse 79 09/27/2024 1:06 PM EST Temperature 36.4 ??C (97.5 ??F) 09/27/2024 1:06 PM ES T Respiratory Rate 16 09/27/2024 1:06 PM EST Oxygen Saturation 98% 09/27/2024 1:06 PM EST Inhaled Oxygen Concentration - - Weight 122 kg (268 lb 4 oz) 09/27/2024 1:[address] Height 167.6 cm (5' 6 ) 09/27/2024 1:06 PM EST Body Mass Index 43.3 09/27/2024 1:06 PM EST Plan of Treatment Upcoming Encounters Date Type Department Care Team (Late st Contact Info) Description 01/31/2025 10:30 AM EDT Medication Management [facility] [address] [place], [place] [phone] Adwoa Hughes, PharmD [address] [place], [place] [phone] Health Maintenance Due Date Last Done Comments Dental Oral Exam 1985 Dental Prophylaxis 1985 Dental X-Ray: Bitewings 1985 Dental X-Ray: Full Mouth 1984 Diabetes: Foot Exam 02/12/1994 Alcohol/Substance Use Screening 1996 Family Planning (PISQ) 02/12/1999 Pneumococcal Vaccine: Pediatrics (0 to 5 Years) and At-Risk Patients (6 to 49) Years) (1 of 2 - PCV) 02/12/2003 Hepatitis B Vaccines (2 of 3 - 19+ 3-dose series) 02/22/2022 01/25/2022 Depression Monitoring (PHQ-9) 06/06/2023 12/07/2022, 12/07/2022 Depression Screening 12/07/2023 12/07/2022, 12/07/19 23 Mammogram 2024 COVID-19 Vaccine ( - season) 2024 Influenza Vaccine (#1) 2024 09/02/2022, 2021 Diabetes: Hemoglobin A1C 03/10/2025 025, 09/06/2024, 12/07/2022, Additional history exists Pap Smear 04/22/2025 04/22/2022, 030 06/2022, 01/19/2022 Eye Exam 06/20/2025 06/20/2024, 11/2023, 06/20/2024, Additional history exists SDOH Screening 09/18/2025 09/18/2024 Diabetes: Urine Protein Screening 09/27/2025 09/27/2024, 03/11/2022, 12/30/2021 Lipid Panel 09/27/2025 09/27/2024, 12/30/2021 Tobacco Screening 09/27/2025 09/27/2024 Cervical Cancer Screening 04/22/2027 HPV/Cotest 04/22/2027 04/22/2022, 01/19/2022 DTaP/Tdap/Td Vaccines (2 - Td or Tdap) 07/29/2032 07/29/2022 Zoster Vaccines (1 of 2) 02/12/2034 RSV Patients and Patients Aged 60 years or older (1 - 1-dose 75+ series) 02/12/2059 HIV Screening Completed 12/30/2021 Hepatitis C Screening Completed 12/30/2021 HIB Vaccines Aged Out No longer eligi ble based on patient's age to complete this topic HPV Vaccines Aged Out No longer eligi ble based on patient's age to complete this topic Hepatitis A Vaccines Aged Out No long er eligible based on patient's age to complete this topic IPV Vaccines Aged Out No longer eligi ble based on patient's age to complete this topic Meningococcal Vaccine Aged Out No maria isabel [place] eligible based on patient's age to complete this topic RSV under 20 months Aged Out No longe r eligible based on patient's age to complete this topic Rotavirus Vaccines Aged Out No longer eligible based on patient's age to complete this topic Procedures Procedure Name Priority Date/Time Associated Diagnosis Comments POCT GLYCATED HEMOGLOBIN, TOTAL Routine 12/10/2024 9:23 AM EST Poorly controlled type 2 diabetes mellitus with neuropathy (CMS/HCC) HEMATOXYLIN AND EOSIN STAIN Routine 11/26/2024 1:27 PM EST GLUCOSE, WHOLE BLOOD Routine 11/26/2024 12:47 PM EST MR SHOULDER WO CONTRAST LEFT Routine 11/03/2024 11:17 AM EST ALBUMIN, RANDOM URINE W/CREATININE Routine 09/27/2024 2:04 PM EST Poorly controlled type 2 diabetes mellitus with neuropathy (CMS/HCC) LIPID PANEL, STANDARD Routine 09/27/2024 2:04 PM EST Poorly controlled type 2 diabetes mellitus with neuropathy (CMS/HCC) HM PAP/HPV Routine 04/22/2022 ZZZ HISTORICAL HEPATITIS C AB W/REFL TO HCV RNA, QN, PCR Routine 12/30/2021 8:14 AM EST HIV 1/2 ANTIGEN/ANTIBODY, FOURTH GENERATION W/RFL Routine 12/30/2021 8:14 AM EST from Last 3 Months or Most Recently Relevant to Health Maintenance Results * (ABNORMAL) POCT HGB A1C (12/10/2024 9:23 AM EST) Hemoglobin A1C 8.5(A) 4.0 - 6.0 % Blood 12/10/2024 9:23 AM EST Alexus Henderson MD POINT OF CARE TEST ENTER/EDIT ORDERABLES Final Result * Hematoxylin and Eosin Stain (11/26/2024 1:27 PM EST) 11/26/2024 1:27 PM EST 11/26/2024 2:20 PM EST Narrative [facility] - 11/28/2024 11:09 AM EST ----- ------- Name: Marybel MatthewsBlaire ? Age/Sex: 39/F ? : 1985 Unit#: [id number] ?? Attend Dr: Satya Tang MD ?Re11/26/24 ?Status: DEP SDC ? Location: HO.SSS ?Disch: ? ----- ------- SPEC : [id number] ?RECD: 11/26/24 ? STATUS: ??SOUT ? REQ NUM: [id number] ? CHELSEY: 11/26/24-6 ? SUBM DR: Satya Tang MD ? ENTERED: ??11/26/24 ?SP TYPE: Surgical ? OTHR DR: Alexus Henderson ? ORDERED: ??HE Stain/9, Gross Micro L4/4, IHC, Special st. 2/3, H. pylori, AB/PAS/3 ? Diagnosis ?? A. ??Stomach, antrum, biopsy: ??Antral-type and oxyntic mucosa with mild chronic, focally ?? active, inflammation, regenerative changes and focal erosion; no Helicobacter organisms ?? seen. ? B. ??Stomach, fundus, biopsy: ??Oxyntic mucosa within normal limits; no Helicobacter ?? organisms seen. ? C. ??GE junction, biopsy: ?- Cardiac-type mucosa with mild chronic inactive inflammation; no intestinal ?? metaplasia seen. ?- Active esophagitis (rare eosinophils). ? D. ??Esophagus, biopsy: ??Squamous epithelium within normal limits; no inflammation seen. ?Clinical History Pre-Op Dx: ??Morbid (severe) obesity due to excess calories Post-Op Dx: Gastritis ?Microscopic Description A-D. ??Microscopic sections examined. ??No metaplastic changes are seen, supported by AB/PAS stains (A, B and C); no Helicobacter organisms are seen, supported by H. pylori immunostain (A). ? Material Received ?? A. Antrum bx's ?? B. Fundus bx's ?? C. GE junction bx's ?? D. Esophagus bx's ? Gross Description Received in four parts. Part A: ??Received in formalin labeled ?antrum bx's (sic) is a 0.25 cm green-pink irregular tissue fragment, submitted in toto in a cassette labeled A. Part B: ??Received in formalin labeled ?fundus bx's (sic)? is a 0.25 cm green-pink irregular tissue fragment, submitted in toto in a cassette labeled B. ? CONTINUED ON NEXT PAGE ----- ------- Name: Blaire Higgins ? Age/Sex: 39/F ? : 1985 Unit#: [id number] ?? Attend Dr: Satya Tang MD ?Re11/26/24 ?Status: DEP SDC ? Location: HO.SSS ?Disch: ? ----- ------- SPEC : [id number] ?RECD: 11/26/24 ? STATUS: ??SOUT ? REQ NUM: [id number] ? CHELSEY: 11/26/24-1326 ? SUBM DR: Satya Tang MD ? ENTERED: ??11/26/24 ?SP TYPE: Surgical ? OTHR DR: Alexus Henderson ? ORDERED: ??HE Stain/9, Gross Micro L4/4, IHC, Special st. 2/3, H. pylori, AB/PAS/3 ? Gross Description ?(Continued) Part C: ??Received in formalin labeled ?EG junction bx's? are 2 prado- white irregular tissue fragments each measuring 0.25 cm, submitted in toto in a cassette labeled C. Part D: ??Received in formalin labeled ?esophagus bx's? are 4 prado- white irregular tissue fragments ranging from minute to 0.3 cm, submitted in toto in a cassette labeled D. ??CEDS Special studies ordered and performed: Immunostain for H. pylori on A; AB/PAS stains on A, B and C Copies To: ?? Alexus Henderson ?? [address] ?? [place] [address] ?? [phone] ?? Satya aTng MD ?? [facility] ?? [address] ?? [place] [address] ?? [phone] ----- ------- Signed (signature on file) Murray Melchor MD 11/28/241108 ? ----- ------- ? END OF REPORT ? us Generic External Data Provider LAB BLOOD ORDERAB LES Final Result [facility] [address] [place] [address] [phone] * (ABNORMAL) Glucose, Whole Blood (11/26/2024 12:47 PM EST) Glucose, Whole Blood 152(H) 60 - 115 mg/dL [facility] Comment:METER #: [id number] 11/26/2024 12:4 7 PM EST 11/26/2024 12:50 PM EST us Generic External Data Provider LAB BLOOD ORDERAB LES Final Result [facility] [address] [place] [address] [phone] * MR Shoulder w/o Contrast Left (11/03/2024 11:17 AM EST) Anatomical Region Laterality Modality Upper Extremities, Shoulder Left Magn etic Resonance 11/03/2024 11:1 7 AM EST Narrative 11/07/2024 2:26 PM EST ? [facility] ?[address] ?[place] [address] ? Magnetic Resonance Report ? Signed ? Patient: Blaire Higgins ?MR#: [id number] ?? [id number] ? : 1985 ?Acct:[id number] ? Age/Sex: 39 / F ?ADM Date: 11/03/24 ? Loc: HO.MRI ? Attending Dr: Adiel Ramos MD ? Ordering Physician: Adiel Ramos MD ?? Date of Service: 11/03/24 ?? Procedure(s): MR shoulder LT wo con ?? Accession Number(s): [id number] ? cc: Alexus Henderson; Adiel Ramos MD ? EXAMINATION: ?? MR LEFT SHOULDER WITHOUT CONTRAST ? CLINICAL INFORMATION: ?? Impingement syndrome of left shoulder M75.42 . ? COMPARISON: ?? XR Left shoulder 07/31/2024 ? TECHNIQUE: ?? MRI of the shoulder without contrast was performed on a high-field ?? scanner. ? FINDINGS: ?? ROTATOR CUFF: Intact. No muscle atrophy or fatty infiltration. ? BICEPS: Proximal biceps tendinosis. Mild edema along the rotator cuff ?? interval. ? CORACOACROMIAL ARCH: The undersurface of the acromion is flat with no ?? subacromial spur. Minimal acromioclavicular osteoarthritis. ? LABRUM/CAPSULE: No definite labral tear. There is a small defect at the ?? humeral attachment of the anterior band of the glenohumeral ligament ?? with an adjacent 9 x 3 mm ganglion. Mild edema along the posterior ?? superior joint capsule. ? GLENOHUMERAL JOINT/MARROW: Small joint effusion. Chronic appearing ?? cyst/erosion of the anterior humeral head. Mild degenerative marrow ?? edema of the posterior greater tuberosity. ? MR/MR shoulder LT wo con ?? IMPRESSION: ?? No rotator cuff tear. ? Proximal biceps tendinosis. Findings suggestive of mild capsulitis. ? Mild glenohumeral osteoarthritis with a small joint effusion. ? Electronically signed by: ??Dayo Dunlap MD ??11/07/2024 02:22 PM ?? EST RP ? Dictated By: ?Dayo Dunlap MD ? Signed By: ?<Electronically signed by Dayo Dunlap MD in OV> ? 11/07/24 1422 ? DD/ 1117 ? TD/TT: 11/03/24 1223 ? Car Greaser: DM ? Procedure Note Manish Kam - 11/07/2024 [place] [address] Magnetic Resonance Report Signed Patient: Gail Higgins#: [id number] : 1985Acct:[id number] Age/Sex: 39 / FADM Date: 11/03/24 Loc: HO.MRI Attending Dr: Adiel Ramos MD Ordering Physician: Adiel Ramos MD Date of Service: 11/03/24 Procedure(s): MR shoulder LT wo con Accession Number(s): [id number] cc: Alexus Henderson; Adiel Ramos MD EXAMINATION: MR LEFT SHOULDER WITHOUT CONTRAST CLINICAL INFORMATION: Impingement syndrome of left shoulder M75.42 . COMPARISON: XR Left shoulder 07/31/2024 TECHNIQUE: MRI of the shoulder without contrast was performed on a high-field scanner. FINDINGS: ROTATOR CUFF: Intact. No muscle atrophy or fatty infiltration. BICEPS: Proximal biceps tendinosis. Mild edema along the rotator cuff interval. CORACOACROMIAL ARCH: The undersurface of the acromion is flat with no subacromial spur. Minimal acromioclavicular osteoarthritis. LABRUM/CAPSULE: No definite labral tear. There is a small defect at the humeral attachment of the anterior band of the glenohumeral ligament with an adjacent 9 x 3 mm ganglion. Mild edema along the posterior superior joint capsule. GLENOHUMERAL JOINT/MARROW: Small joint effusion. Chronic appearing cyst/erosion of the anterior humeral head. Mild degenerative marrow edema of the posterior greater tuberosity. MR/MR shoulder LT wo con IMPRESSION: No rotator cuff tear. Proximal biceps tendinosis. Findings suggestive of mild capsulitis. Mild glenohumeral osteoarthritis with a small joint effusion. Electronically signed by: Dayo Dunlap MD 11/07/2024 02:22 PM EST RP Dictated By: Dayo Dunlap MD Signed By: <Electronically signed by Dayo Dunlap MD inOV> 11/07/24 1422 DD/ 1117 TD/TT: 11/03/24 1223 Car Greaser: DM [facility] External Provider IMG MRI PROCEDURES Final Result * (ABNORMAL) Albumin, Random Urine W/Creatinine (09/27/2024 2:04 PM EST) Creatinine, Urine 147.85 mg/dL [facility] Microalbumin Urine 175.0 mg/L [facility] Microalbum Creatinine Ratio Ur 118.3(H) <30 ug/mg cr [facility] Comment:Albumin/Creatinine R atio Reference Ranges: Normal: < 30 ug/mg creatinine Microalbuminuria: 30 - 300 ug/mg creatinineClinical Albuminuria: > 300 ug/mg creatinine Urine (Urine, Random) 09/27/2024 2:04 PM EST 09/27/2024 4:00 PM EST Alexus Henderson MD LAB URINE ORDERABLES Final Res ult Performing Organization Address City/[facility] Co de Phone Number [facility] [address] [place] [address] [phone] * (ABNORMAL) Lipid Panel, Standard (09/27/2024 2:04 PM EST) Triglycerides 584(H) <150 mg/dL [facility] Comment:Mild Lipemia.Desirab le Triglyceride: less than 150 mg/dLBorderline High Triglyceride 150-199 mg/dLHigh Triglyceride: 200-499 mg/dLVery High Triglyceride: greater than or equal to 5OO mg/dL Cholesterol 151 <200 mg/dL [facility] Comment:Desirable Cholestero l: less than 200 mg/dLBorderline High Cholesterol: 200-239 mg/dLHigh Cholesterol: greater than 239 mg/dL LDL Cholesterol Calculated TNP <100 mg/dL [facility] Comment:Unable to calculate the LDL. The formula of Friedwald,Florence, and Daya is only valid if the triglycerides areless than 400 mg/dl. HDL Cholesterol 26(L) >40 mg/dL [facility] Comment:Desirable HDL: great er than 40 mg/dL Note: This HDL assay may give artificially low results in patients with liver disease. Blood Venous blood specimen / Unknown 09/27/2024 2:04 PM EST 09/27/2024 4:01 PM EST Alexus Henderson MD LAB BLOOD ORDERABLES Final Res ult Performing Organization Address [facility] Co de Phone Number [facility] [address] [place] [address] [phone] * Hm Pap Smear (04/22/2022) Pap Negative for intraephithelial lesion or malignancy Negative for intraephithelial lesion or malignancy, Other HPV Not Detected Undetected, Indeterminate, Quantitative, Not Detected Historical Provider HEALTH MAINTENANCE Final Result * HEPATITIS C AB W/REFL TO HCV RNA, QN, PCR (12/30/2021 8:14 AM EST) HEPATITIS C ANTIBODY NON-REACT AYAH NON-REACT AYAH [facility] INDEX 0.20 <1.00 [facility] Comment: ?? HCV antibody was non-reactive. There is no laboratory ?? evidence of HCV infection. ?? In most cases, no further action is required. However, if recent HCV exposure is suspected, a test for HCV RNA (test code 10181) is suggested. ?? For additional information please refer to http://[email or web address].Captify/faq/[email or web address] (This link is being provided for informational/ educational purposes only.) ?? 12/30/2021 8:14 AM EST [facility] HISTORICAL/NON ORDERABLE LABS Final Result [facility] [address] [place] [address], * HIV 1/2 ANTIGEN/ANTIBODY,FOURTH GENERATION W/RFL (12/30/2021 8:14 AM EST) HIV-1/2 ANTIGEN AND ANTIBODIES, 4TH GENERATION W/ REFLEX NON-REACT AYAH NON-REACT AYAH [facility] Comment: HIV-1 antigen and HIV-1/HIV-2 antibodies were not detected. There is no laboratory evidence of HIV infection. ?? PLEASE NOTE: This information has been disclosed to you from records whose confidentiality may be protected by state law. ??If your state requires such protection, then the state law prohibits you from making any further disclosure of the information without the specific written consent of the person to whom it pertains, or as otherwise permitted by law. A general authorization for the release of medical or other information is NOT sufficient for this purpose. ? For additional information please refer to http://GoWorkaBit.Captify/faq/[email or web address] (This link is being provided for informational/ educational purposes only.) ? The performance of this assay has not been clinically validated in patients less than 2 years old. ?? 12/30/2021 8:14 AM EST us Nishi Harris CAN TESTER LAB BLOOD ORDERABLES Final Res ult [facility] [address] from Last 3 Months or Most Recently Relevant to Health Maintenance [place] [facility] MEDICAID STAND ADULT Care Teams Aircraft Cabin Cleaner Relationship Specialty Start Date End Date Alexus Henderson MD [address] [place], [place] [phone] PCP - General Family Medicine 01/23/24 Adwoa Hughes PharmD [address] [place] [address] Pharmacist Internal Medicine 12/10/24
--- OUTSIDE RECORDS SUMMARY | 2025-01-16 09:34 | XMS_ITS | Encounter Summary ---
Author Organization [email or web address] Address [address] [facility] 7t [place] [address] Care Team Providers Care Print Finishing Worker Name Role Phone Alexus Henderson MD Primary Care Provider [phone] Adwoa Hughes PharmD Unavailable [phone] Encounter Details Date Type Department Care Team ([facility] st Contact Info) Description 01/09/2025 Telephone C OPTOMETRY [address] [place], [place] [phone] Kristie Spain, OD [address] [place] [address] Social History Tobacco Use Types Packs/Day Years Used Date Smoking Tobacco: Never Smokeless Tobacco: Never Alcohol Use Standard Drinks/Week Comments Never 0 (1 standard drink = 0.6 oz pur e alcohol) Depression Answer Date Recorded Patient Health Questionnaire-9 Score 9 12/07/2022 Housing Stability Answer Date Recorded What is your housing situation today? I have vanessajuan downs 09/18/[address] you [...] PM EST documented as of this encounter Plan of Treatment Upcoming Encounters Date Type Department Care Team (Late st Contact Info) Description 01/31/2025 10:30 AM EDT Medication Management [facility] MEDICINE [address] [place] [address] Adwoa Hughes PharmD [address] [place] [address] documented as of this encounter Visit Diagnoses Not on filedocumented in this encounter Additional Health Concerns Assessment Noted Time PHQ-9 Depression Total Score: 9 12/07/19 23 9:42 AM EST documented as of this encounter Care Teams Print Finishing Worker Relationship Specialty Start Date End Date Alexus Henderson MD [address] [place] [address] PCP - General Family Medicine 01/23/24 Adwoa Hughes, PharmD [address] [place] [address] Pharmacist Internal Medicine 12/10/24 documented as of this encounter
--- OUTSIDE RECORDS SUMMARY | 2025-01-16 09:34 | XMS_ITS | Encounter Summary ---
Author Organization [employer] Address [address] [facility] 7t [place] [address] Care Team Providers Care Embossing Unit Operator Name Role Phone Alexus Henderson MD Primary Care Provider [phone] Adwoa Hughes PharmD Unavailable [phone] Reason for Visit * Reason Onset Date Comments Care Coordination 12/17/2024 Encounter Details Date Type Department Care Team ([facility] st Contact Info) Description 12/17/2024 Telephone [facility] MEDICINE [address] [place] [address] Adwoa Hughes, PharmD [address] [place] [address] Care Coordination Social History Tobacco Use Types Packs/Day Years [...] encounter Miscellaneous Notes * Telephone Encounter - Adwoa Hughes PharmD - 12/17/2024 4:23 PM EST Outgoing call to patient for care coordination. She did not bring meds to [facility] pharmacy yesterday for MB start, as was the plan in CD[facility] visit last week. Patient states she will bring meds on Wednesday 12/20. She was reminded to go for fasting labs at that time as well. She is aware & agreeable to doso. [facility] then called [facility] MB department, spoke to Nikolas, who will update the notes/plan on pharmacy's end.No further action at this time, will follow up again on Monday. documented in this encounter Plan of Treatment Upcoming Encounters Date Type Department Care Team (Late st Contact Info) Description 01/31/2025 10:30 AM EDT Medication Management [facility] MEDICINE [address] [place], [place] [phone] Adwoa Hughes PharmD [address] [place] [address] documented as of this encounter Visit Diagnoses Not on filedocumented in this encounter Additional Health Concerns Assessment Noted Time PHQ-9 Depression Total Score: 9 12/07/19 23 9:42 AM EST documented as of this encounter Care Teams Embossing Unit Operator Relationship Specialty Start Date End Date Alexus Henderson MD [address] [place] [address] PCP - General Family Medicine 01/23/24 Adwoa Hughes PharmD [address] [place] [address] Pharmacist Internal Medicine 12/10/24 documented as of this encounter
--- OUTSIDE RECORDS SUMMARY | 2025-01-16 09:34 | XMS_ITS | Encounter Summary ---
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); Microalbuminuria Social History Tobacco Use Types Packs/Day Years [...] Description 01/31/2025 10:30 AM EDT Medication Management [facility] MEDICINE [address] [place] [address] Adwoa Hughes PharmD [address] [place] [address] documented as of this encounter Visit Diagnoses Diagnosis Hypertriglyceridemia- Primary Pure hyperglyceridemia 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
--- OUTSIDE RECORDS SUMMARY | 2025-01-16 09:34 | XMS_ITS | Encounter Summary ---
Author Organization [employer] Address [address] [facility] 7t [place] [address] Care Team Providers Care Executive Legal Secretary Name Role Phone Alexus Henderson MD Primary Care Provider [phone] PuAdwoa youngblood PharmD Unavailable [phone] Reason for Visit * Reason Onset Date Comments Prior Authorization 12/23/2024 Precision Ne o test stips Encounter Details Date Type Department Care Team (Late st Contact Info) Description 12/23/2024 Telephone [facility] MEDICINE [address] [place] [address] Puia, Adwoa, PharmD [address] [place] [address] Prior Authorization (Precision Bear test stips ) Social History Tobacco Use Types Packs/Day Years [...] Telephone Encounter - Adwoa Hughes PharmD - 12/23/2024 5:19 PM EST Incoming communication from [facility] pharmacy that Precision Bear test strips require a PA. I reviewed the PA packet I submitted 12/11, which included the Elsa 3 reader & 3 plus sensors (approved & awaiting pickle water pump operator) and these strips. Outgoing call to [facility], spoke to Justus Ricks. She states this was an oversight on their part. Bear strips should have been approved based on patient's use of a compatible meter (Elsa 3 CGM). She will forward to her residence supervisor to see if it can be retro-approved but if not I may need to resubmit the PA. She has my direct line for call back and I am awaiting her response for next steps. documented in this encounter Plan of Treatment Upcoming Encounters Date Type Department Care Team (Late st Contact Info) Description 01/31/2025 10:30 AM EDT Medication Management [facility] MEDICINE [address] [place] [address] Adwoa Hughes PharmD [address] [place] [address] documented as of this encounter Visit Diagnoses Not on filedocumented in this encounter Additional Health Concerns Assessment Noted Time PHQ-9 Depression Total Score: 9 12/07/19 23 9:42 AM EST documented as of this encounter Care Teams Executive Legal Secretary Relationship Specialty Start Date End Date Alexus Henderson MD [address] [place] [address] PCP - General Family Medicine 01/23/24 Adwoa Hughes, Milagros [address] [place] [address] Pharmacist Internal Medicine 12/10/24 documented as of this encounter
--- OUTSIDE RECORDS SUMMARY | 2025-01-16 09:34 | XMS_ITS | Encounter Summary ---
Author Organization [employer] Address [address] [facility] 7t [place] [address] Care Team Providers Care Machine Design Engineer Name Role Phone Alexus Henderson MD Primary Care Provider [phone] Adwoa Hughes PharmD Unavailable [phone] Encounter Details Date Type Department Care Team (Late st Contact Info) Description 09/09/2024 Telephone [facility] MEDICINE [address] [place], [place] [phone] Alexus Henderson MD [address] [place], [place] [phone] Social History Tobacco Use Types Packs/Day Years Used Date Smoking Tobacco: Never Smokeless Tobacco: Never Alcohol Use Standard Drinks/Week Comments Never 0 (1 standard drink = 0.6 oz pur e alcohol) Depression Answer Date Recorded Patient Health Questionnaire-9 Score 9 12/07/2022 Housing Stability Answer Date Recorded What is your housing situation today? I have housing today, but I am worried about losing housing in the future 09/11/[address] you li ve. Do you have problems with any of the following? None of the above 09/11/2023 Food Insecurity Answer Date Recorded Within the past 12 months, y ou worried that your food would run out before you got money to buy more: Often true 09/11/2023 Within the past 12 months,th e food you bought just didn't last and you didn't have enough money to get more: Often true Transportation Answer Date Recorded In the past 12 months, has l ack of transportation kept you from medical appts, meetings, work or from getting things needed for daily living? I am not sure 09/11/2023 Utilities Answer Date Recorded In the past 12 months, has t he electric, gas, oil or water company threatened to shut off services in your home? No 09/11/2023 Depression Answer Date Recorded Patient Health Questionnaire-2 Score 2 12/07/2022 Comments Unknown Sex and Gender Information Value Date Recorded Sex Assigned at Female 09/19/2022 10:39 AM EDT Legal Sex Female 10:39 AM EDT Gender Identity Female 09/19/2022 10:39 AM EDT Sexual Orientation Straight 09/26/2024 2: 50 PM EST documented as of this encounter Miscellaneous Notes * Telephone Encounter - Erna Garvey - 09/09/2024 1:49 PM EDT Tc from [facility] with [facility] requesting to speak to nurse regarding lab results. Contact [facility] at [phone] ext [phone] documented in this encounter Plan of Treatment Upcoming Encounters Date Type Department Care Team (Late st Contact Info) Description 01/31/2025 10:30 AM EDT Medication Management [facility] MEDICINE [address] [place] [address] Adwoa Hughes PharmD [address] [place] [address] documented as of this encounter Visit Diagnoses Not on filedocumented in this encounter Additional Health Concerns Assessment Noted Time PHQ-9 Depression Total Score: 9 12/07/19 23 9:42 AM EST documented as of this encounter Care Teams Machine Design Engineer Relationship Specialty Start Date End Date Alexus Henderson MD [address] [place] [id number] PCP - General Family Medicine 01/23/24 Adwoa Hughes PharmD [address] [place] [address] Pharmacist Internal Medicine 12/10/24 Pipe Quintanilla Hand CoremakerLoop Tacker 05/09/24 10/10/24 documented as of this encounter
== END 2025-01-16 08:58 | disposition home or self-care (01) ==
LOC: HO.XRAY 08:57
PROVIDERS: PCP General Practice; Visit Provider Surgery
DX: E66.01 Morbid (severe) obesity due to excess calories (principal); G47.33 Obstructive sleep apnea (adult) (pediatric); E78.5 Hyperlipidemia, unspecified; E10.9 Type 1 diabetes mellitus without complications; I10 Essential (primary) hypertension; M19.90 Unspecified osteoarthritis, unspecified site; F32.A Depression, unspecified; M75.42 Impingement syndrome of left shoulder
CPT/HCPCS: 71046; 99212

== ENCOUNTER → 2025-01-16 09:23 | Outpatient (BNV) | payer MEDICAID, SELFPAY | PROVIDERS: PCP General Practice; Visit Provider Specialist | DX: E66.01 Morbid (severe) obesity due to excess calories (principal) | CPT/HCPCS: 71046 ==

== ENCOUNTER 2025-01-16 09:45 | Outpatient (AMB) | payer MEDICAID, SELFPAY ==
--- NOTE | 2025-01-16 10:11 | MHC.OFFVIS ---
Vital Signs 01/16/25 10:17 Height 5 ft 9 in Weight 262 lb BMI 38.7 Intake Visit Reasons: Pre-Lt Shld 01/24/25 Intake Note: Blaire is a 39 year old female who presents with complaints of progressively worsening left shoulder pain and stiffness. She describes her pain as sharp in nature. Most of the pain is along the lateral aspect of her shoulder. She did aggravate her left shoulder several years ago while lifting a heavy object. She has done physical therapy exercises which aggravated her pain. She has also tried Tylenol and anti-inflammatory medicines which gave her minimal relief. The patient reports difficulty lifting her left hand above shoulder height. She denies any numbness or tingling in either of her upper extremities. Coordinate Measuring Machine Programmer Required: Yes Coordinate Measuring Machine Programmer Language: Tabulating Clerk Services: Coordinate Measuring Machine Programmer Present Coordinate Measuring Machine Programmer Name: YemiVALENTINA/MORRIS Allergies No Known Allergies Allergy (Verified 01/16/25 10:16) Medication List - Last Reconciled 01/16/25 by Adiel Ramos MD atorvastatin (Lipitor) 20 mg PO DAILY blood sugar diagnostic (FreeStyle Lite Strips) As directed buspirone 7.5 mg PO BID empagliflozin (Jardiance) 10 mg PO DAILY insulin glargine (Lantus Solostar U-100 Insulin) 20 units subcut QAM insulin lispro 38 units subcut QAM ketorolac 10 mg PO TID PRN 5 days metformin 1,000 mg PO BID naproxen 500 mg PO BID PRN nifedipine ER (Procardia XL) 60 mg PO DAILY pantoprazole 40 mg PO DAILY sertraline 100 mg PO DAILY [facility] Medical History Pre-eclampsia affecting childbirth Depression DJD (degenerative joint disease) Hypertension Hyperlipidemia Insulin dependent diabetes mellitus type IA Morbid obesity Obstructive sleep apnea hypopnea, mild Surgical History History of left oophorectomy Hx of section H/O tubal ligation Hx of cholecystectomy Family History Father Diabetes Hypertension Schizophrenia Sister No problems noted. Mother Diabetes Hypertension Son Autism Son No problems noted. Social History Household Members Other:: 2 minor children Housing Other:: 1st floor appt in multi family house Are you a primary patient care manager to a significant other at home: Yes Do you presently have visiting nurse or other home services: No Alcohol intake: never Patient Tobacco Use Status: Never used Tobacco Physical Exam Vital Signs: BMI result Body Mass Index 38.7 Const Other: Well-nourished well-developed very friendly female awake alert and oriented x3 in no acute distress Extrem Other: Bilateral upper extremity examination shows good capillary refill, no skin lesions noted, normal sensation light touch Left shoulder examination shows decreased active and passive range of motion when compared to her right shoulder, 4+ out of 5 strength with supraspinatus testing, positive impingement signs, tenderness over her acromioclavicular joint, no instability Results Reviewed Results Reviewed: MRI of the patient's right shoulder show severe acromioclavicular joint narrowing, a type 2 acromion, signal change within the supraspinatus tendon most likely due to adhesive capsulitis Assessment & Plan Assessment & Plan (1) Impingement syndrome of left shoulder: Code(s): M75.42 - Impingement syndrome of left shoulder Category: Medical Plan Ms. Marybel Matthews presents with progressively worsening left shoulder pain and stiffness due to impingement syndrome, acromioclavicular joint arthritis and adhesive capsulitis. I had a lengthy discussion with the patient regarding the treatment options. At this point she has failed continued non operative treatments. The risks and benefits of left shoulder surgery were discussed at length with the patient. The patient wishes to proceed with surgery. Surgery will most likely involve left shoulder diagnostic arthroscopy with distal clavicle excision, acromioplasty, capsular release and manipulation under anesthesia. She was given a prescription for oxycodone at her preoperative appointment. She will follow-up as instructed. Feel free to call me at any time should questions regarding her orthopedic management arise. I spent 20 minutes in reviewing the patient's records and imaging studies, seeing the patient and documenting in the medical record. Medications: New oxycodone Partial Fill upon patient request. Take 1-2 tabs every 4 hours as needed for pain following her left shoulder surgery. 10 mg (2 x 5 mg) PO Q4H PRN 40 tabs 0RF pain Coding Level of Care Code Est Pt Level 3 (62246) Complex EM visit Add On G2211 Diagnoses Impingement syndrome of left shoulder M75.42
[2025-01-16 10:17] VITALS: BMI 38.7
--- OUTSIDE RECORDS SUMMARY | 2025-01-16 11:11 | XMS_ITS | Clinical Summary ---
Author Organization [employer] Address [address] [facility] 7t [place] [address] Care Team Providers Care Crusher Plant Operator Name Role Phone Alexus Henderson MD Primary Care Provider Adwoa Hughes PharmD Unavailable [phone] Allergies No known active allergies Medications [...] per week. 10/29/20 24 Active Continuous Glucose Reimbursement Liaison (FreeStyle Elsa 3 [place]) deviceIndication s:Poorly controlled type 2 diabetes mellitus [...] controlled type 2 diabetes mellitus with neuropathy ([facility]/HCC) Use 4 times daily with insulin 200 [...] 01/20/2022 Overview (12/07/2022): Due to ectopic in [place]-2020 Resolved Problems Problem Noted Date Diagnosed Date Resolved Date Visit for pre-operative examination 08/28/2024 08/28/2024 History of right oophorectomy 12/07/2022 12/07/2022 Overview (12/07/2022): Pt reported on 10/02/2022, done simultaneously after having a for delivery of healthy baby boy. She reports BTL, records release requested from [facility] nursing 12/07/2022 Overview (12/07/2022): With 2 sons 15 yo and 2 mo, awaiting housing Missed period 12/06/2022 12/07/2022 Encounters Date Type Department Care Team Description 01/09/2025 Telephone [facility] OPTOMETRY [address] [place] [address] Kristie Spain, OD 01/09/2025 Telephone [facility] MEDICINE [address] [place] [address] Alexus Henderson MD recall 12/23/[address] [address] Puia, Adwoa, PharmD Prior Authorization (Precision Kassandra test stips ) 12/17/[address] [address] Puia, Adwoa, PharmD Care Coordination 12/11/2024 Telephone [facility] MEDICINE [address] [place] [address] Puia, Adwoa, PharmD Prior Authorization (Freestyle Elsa 3 CGM & precision kassandra test strips ) 11/26/2024 Orders Only GENERIC EXTERNAL DATA DEPARTMENT Provider, Generic External Data 11/25/2024 10:15 AM EST Office Visit [facility] OPTOMETRY [address] [place] [address] Priscilla Figueroa, OD Myopia of both eyes (Primary Dx) 11/03/2024 Orders Only [facility] External Provider, [facility] from Last 3 Months Immunizations Name [...] Description 01/31/2025 10:30 AM EDT Medication Management [facility] MEDICINE [address] [place], [place] [phone] Adwoa Hughes, PharmD [address] [place], [place] [phone] Health Maintenance Due Date Last Done Comments [...] PM EST 11/26/2024 2:20 PM EST Narrative [facility] - 11/28/2024 11:09 AM EST ----- ------- Name: Marybel MatthewsBlaire ? Age/Sex: 39/F ? : 1985 Unit#: [id number] ?? Attend Dr: Satya Tang MD ?Re11/26/24 ?Status: DEP SDC ? Location: HO.SSS ?Disch: ? ----- ------- SPEC : [id number] ?RECD: 11/26/24 ? STATUS: ??SOUT ? REQ NUM: [id number] ? CHELSEY: 11/26/24-1 ? SUBM DR: Satya Tang MD ? [...] ? Age/Sex: 39/F ? : 1985 Unit#: [id number] ?? Attend Dr: Satya Tang MD ?Re11/26/24 ?Status: DEP SDC ? Location: HO.SSS ?Disch: ? ----- ------- SPEC : [id number] ?RECD: 11/26/24 ? STATUS: ??SOUT ? REQ NUM: [id number] ? CHELSEY: 11/26/24-1326 ? SUBM DR: Satya [...] Copies To: ?? Alexus Henderson ?? [address] [facility] ?? [place] [address] ?? [phone] ?? Satya Tang MD ?? [facility] Weight Management Program ?? [address] ?? [place] [address] ?? [phone] ----- ------- Signed (signature on file) Murray Melchor MD 11/28/241108 ? ----- ------- ? END OF REPORT ? us Generic External Data Provider LAB BLOOD ORDERAB LES Final Result [facility] [address] [place] [address] [phone] * (ABNORMAL) Glucose, Whole Blood (11/26/2024 12:47 PM EST) Glucose, Whole Blood 152(H) 60 - 115 mg/dL [facility] Comment:METER #: [id number] 11/26/2024 12:4 7 PM EST 11/26/2024 12:50 PM EST us Generic External Data Provider LAB BLOOD ORDERAB LES Final Result [facility] [address] [place] [address] [phone] * MR Shoulder w/o Contrast Left (11/03/2024 11:17 AM EST) Anatomical Region Laterality Modality Upper Extremities, Shoulder Left Magn etic Resonance 11/03/2024 11:1 7 AM EST Narrative 11/07/2024 2:26 PM EST ? [facility] ?[address] ?[place] [address] ? Magnetic Resonance Report ? Signed ? Patient: Blaire Higgins ?MR#: [id number] ?? [id number] ? : 1985 ?Acct:[id number] ? Age/Sex: 39 / F ?ADM Date: 11/03/24 ? Loc: HO.MRI ? Attending Dr: Adiel Ramos MD ? Ordering Physician: Adiel Ramos MD ?? Date of Service: 11/03/24 ?? Procedure(s): MR shoulder LT wo con ?? Accession Number(s): [id number] ? cc: Alexus Henderson; Adiel Ramos MD [...] DD/ 1117 ? TD/TT: 11/03/24 1223 ? Clinical Geneticist: DM ? Procedure Note Manish Kam - 11/07/2024 [place] [address] Magnetic Resonance Report Signed Patient: Gail Higgins#: [id number] : 1985Acct:[id number] Age/Sex: 39 / FADM Date: 11/03/24 Loc: HO.MRI Attending Dr: Adiel Ramos MD Ordering Physician: Adiel Ramos MD Date of Service: 11/03/24 Procedure(s): MR shoulder LT wo con Accession Number(s): [id number] cc: Alexus Henderson; Adiel Ramos MD EXAMINATION: [...] 11/07/24 1422 DD/ 1117 TD/TT: 11/03/24 1223 Clinical Geneticist: DM [facility] External Provider IMG MRI PROCEDURES Final Result * (ABNORMAL) Albumin, Random Urine W/Creatinine (09/27/2024 2:04 PM EST) Creatinine, Urine 147.85 mg/dL [facility] Microalbumin Urine 175.0 mg/L [facility] Microalbum Creatinine Ratio Ur 118.3(H) <30 ug/mg cr [facility] Comment:Albumin/Creatinine R atio Reference Ranges: Normal: < 30 ug/mg creatinine Microalbuminuria: 30 - 300 ug/mg creatinineClinical Albuminuria: > 300 ug/mg creatinine Urine (Urine, Random) 09/27/2024 2:04 PM EST 09/27/2024 4:00 PM EST Alexus Henderson MD LAB URINE ORDERABLES Final Res ult Performing Organization Address City/[facility] Co de Phone Number [facility] [address] [place] [address] [phone] * (ABNORMAL) Lipid Panel, Standard (09/27/2024 2:04 PM EST) Triglycerides 584(H) <150 mg/dL [facility] Comment:Mild Lipemia.Desirab le Triglyceride: less than 150 mg/dLBorderline High Triglyceride 150-199 mg/dLHigh Triglyceride: 200-499 mg/dLVery High Triglyceride: greater than or equal to 5OO mg/dL Cholesterol 151 <200 mg/dL [facility] Comment:Desirable Cholestero l: less than 200 mg/dLBorderline High Cholesterol: 200-239 mg/dLHigh Cholesterol: greater than 239 mg/dL LDL Cholesterol Calculated TNP <100 mg/dL [facility] Comment:Unable to calculate the LDL. The formula of Friedwald,Florence, and Daya is only valid if the triglycerides areless than 400 mg/dl. HDL Cholesterol 26(L) >40 mg/dL [facility] Comment:Desirable HDL: great er than 40 mg/dL Note: This HDL assay may give artificially low results in patients with liver disease. Blood Venous blood specimen / Unknown 09/27/2024 2:04 PM EST 09/27/2024 4:01 PM EST Alexus Henderson MD LAB BLOOD ORDERABLES Final Res ult Performing Organization Address [facility] Co de Phone Number [facility] [address] [place] [address] [phone] * Hm Pap Smear (04/22/2022) Pap Negative for intraephithelial lesion or malignancy Negative for intraephithelial lesion or malignancy, Other HPV Not Detected Undetected, Indeterminate, Quantitative, Not Detected Historical Provider HEALTH MAINTENANCE Final Result * HEPATITIS C AB W/REFL TO HCV RNA, QN, PCR (12/30/2021 8:14 AM EST) HEPATITIS C ANTIBODY NON-REACT AYAH NON-REACT AYAH [facility] INDEX 0.20 <1.00 [facility] Comment: ?? HCV antibody was non-reactive. There is no laboratory ?? evidence of HCV infection. ?? In most cases, no further action is required. However, if recent HCV exposure is suspected, a test for HCV RNA (test code 47004) is suggested. ?? For additional information please refer to http://[employer].Labtrip/faq/PKP21s7 (This link is being provided for informational/ educational purposes only.) ?? 12/30/2021 8:14 AM EST Nishi [facility] HISTORICAL/NON ORDERABLE LABS Final Result [facility] [address] [place] [address], * HIV 1/2 ANTIGEN/ANTIBODY,FOURTH GENERATION W/RFL (12/30/2021 8:14 AM EST) HIV-1/2 ANTIGEN AND ANTIBODIES, 4TH GENERATION W/ REFLEX NON-REACT AYAH NON-REACT AYAH [facility] Comment: HIV-1 antigen and HIV-1/HIV-2 [...] ? For additional information please refer to http://[employer].Labtrip/faq/MAA990 (This link is being provided for informational/ educational purposes only.) ? The performance of this assay has not been clinically validated in patients less than 2 years old. ?? 12/30/2021 8:14 AM EST us Nishi Harris TRACK COACH LAB BLOOD ORDERABLES Final Res ult [facility] [address] from Last 3 Months or Most Recently Relevant to Health Maintenance Insurance [place] [facility] MEDICAID STAND ADULT Care Teams Crusher Plant Operator Relationship Specialty Start Date End Date Alexus Henderson MD [address] [place], [place] [phone] PCP - General Family Medicine 01/23/24 Adwoa Hughes PharmD [address] [place] [address] Pharmacist Internal Medicine 12/10/24
--- OUTSIDE RECORDS SUMMARY | 2025-01-16 11:11 | XMS_ITS | Encounter Summary ---
Author Organization [employer] Address [address] [facility] 7t [place] [address] Care Team Providers Care Veterinarian Poultry Name Role Phone Alexus Henderson MD Primary Care Provider [phone] PuAdwoa youngblood PharmD Unavailable [phone] Reason for Visit * Reason Onset Date Comments Prior Authorization 12/23/2024 Precision Ne o test stips Encounter Details Date Type Department Care Team (Late st Contact Info) Description 12/23/2024 Telephone [facility] MEDICINE [address] [place] [address] Puia, Adwoa, PharmD [address] [place] [address] Prior Authorization (Precision Bear test stips ) [...] 12/23/2024 5:19 PM EST Incoming communication from [facility] pharmacy that Precision Bear test strips require a PA. I reviewed the PA packet I submitted 12/11, which included the Elsa 3 reader & 3 plus sensors (approved & awaiting pickling machine operator) and these strips. Outgoing call to [facility], spoke to Justus Ricks. She states this was an oversight on their part. Bear strips should have been approved based on patient's use of a compatible meter (Elsa 3 CGM). She will forward to her playground supervisor to see if it can be retro-approved but if not I may need to resubmit the PA. She has my direct line for call back and I am awaiting her response for next steps. documented in this encounter Plan of Treatment Upcoming Encounters Date Type Department Care Team (Late st Contact Info) Description 01/31/2025 10:30 AM EDT Medication Management [facility] MEDICINE [address] [place] [address] Adwoa Hughes PharmD [address] [place] [address] documented as of this encounter Visit Diagnoses Not on filedocumented in this encounter Additional Health Concerns Assessment Noted Time PHQ-9 Depression Total Score: 9 12/07/19 23 9:42 AM EST documented as of this encounter Care Teams Veterinarian Poultry Relationship Specialty Start Date End Date Alexus Henderson MD [address] [place] [address] PCP - General Family Medicine 01/23/24 Adwoa Hughes, Milagros [address] [place] [address] Pharmacist Internal Medicine 12/10/24 documented as of this encounter
--- OUTSIDE RECORDS SUMMARY | 2025-01-16 11:11 | XMS_ITS | Encounter Summary ---
Author Organization [employer] Address 75 [facility] 7t [place] [address] Care Team Providers Care Copy Machine Operator Name Role Phone Alexus Henderson MD Primary Care Provider [phone] Adwoa Hughes PharmD Unavailable [phone] Reason for Visit * Reason Onset Date Comments Care Coordination 12/17/2024 Encounter Details Date Type Department Care Team ([facility] st Contact Info) Description 12/17/2024 Telephone [facility] MEDICINE [address] [place] [address] Adwoa Hughes, PharmD [address] [place] [address] Care Coordination Social History Tobacco Use Types [...] coordination. She did not bring meds to [facility] pharmacy yesterday for MB start, as was the plan in CDTM visit last week. Patient states she will bring meds on Wednesday 12/20. She was reminded to go for fasting labs at that time as well. She is aware & agreeable to doso. [facility] then called [facility] MB department, spoke to Nikolas, who will update the notes/plan on pharmacy's end.No further action at this time, will follow up again on Monday. documented in this encounter Plan of Treatment Upcoming Encounters Date Type Department Care Team (Late st Contact Info) Description 01/31/2025 10:30 AM EDT Medication Management [facility] [address] [place], [place] [phone] Adwoa Hughes PharmD [address] [place] [address] documented as of this encounter Visit Diagnoses Not on filedocumented in this encounter Additional Health Concerns Assessment Noted Time PHQ-9 Depression Total Score: 9 12/07/19 23 9:42 AM EST documented as of this encounter Care Teams Copy Machine Operator Relationship Specialty Start Date End Date Alexus Henderson MD [address] [place] [address] PCP - General Family Medicine 01/23/24 Adwoa Hughes PharmD [address] [place] [address] Pharmacist Internal Medicine 12/10/24 documented as of this encounter
--- OUTSIDE RECORDS SUMMARY | 2025-01-16 11:11 | XMS_ITS | Encounter Summary ---
Author Organization [employer] Address 75 [facility] 7t [place] [address] Care Team Providers Care Locomotive Lubricating Systems Clerk Name Role Phone Alexus Henderson MD Primary Care Provider [phone] Adwoa Hughes PharmD Unavailable [phone] Encounter Details Date Type Department Care Team ([facility] st Contact Info) Description 01/09/2025 Telephone [facility] OPTOMETRY [address] [place], [place] [phone] Kristie Spain, OD [address] [place] [address] Social History Tobacco Use Types Packs/Day Years [...] Description 01/31/2025 10:30 AM EDT Medication Management [facility] MED[facility]INE [address] [place] [address] Adwoa Hughes PharmD [address] [place] [address] documented as of this encounter Visit Diagnoses Not on filedocumented in this encounter Additional Health Concerns Assessment Noted Time PHQ-9 Depression Total Score: 9 12/07/19 23 9:42 AM EST documented as of this encounter Care Teams Locomotive Lubricating Systems Clerk Relationship Specialty Start Date End Date Alexus Henderson MD [address] [place] [address] PCP - General Family Medicine 01/23/24 Adwoa Hughes, PharmD [address] [place] [address] Pharmacist Internal Medicine 12/10/24 documented as of this encounter
--- OUTSIDE RECORDS SUMMARY | 2025-01-16 11:11 | XMS_ITS | Encounter Summary ---
Author Organization [employer] Address 75 [facility] 7t [place] [address] Care Team Providers Care Industrial Furnace Fabricator Name Role Phone Alexus Henderson MD Primary Care Provider [phone] Adwoa Hughes PharmD Unavailable [phone] Encounter Details Date Type Department Care Team (Late st Contact Info) Description 09/09/2024 Telephone [facility] MEDICINE [address] [place], [place] [phone] Alexus Henderson MD [address] [place], [place] [phone] Social History Tobacco Use Types Packs/Day Years [...] 1:49 PM EDT Tc from [facility] with [facility] requesting to speak to nurse regarding lab results. Contact [facility] at [phone] ext [phone] documented in this encounter Plan of Treatment Upcoming Encounters Date Type Department Care Team (Late st Contact Info) Description 01/31/2025 10:30 AM EDT Medication Management [facility] MEDICINE [address] [place] [address] Adwoa Hughes PharmD [address] [place] [address] documented as of this encounter Visit Diagnoses Not on filedocumented in this encounter Additional Health Concerns Assessment Noted Time PHQ-9 Depression Total Score: 9 12/07/19 23 9:42 AM EST documented as of this encounter Care Teams Industrial Furnace Fabricator Relationship Specialty Start Date End Date Alexus Henderson MD [address] [place] [address] PCP - General Family Medicine 01/23/24 Adwoa Hughes PharmD [address] [place] [address] Pharmacist Internal Medicine 12/10/24 Pipe Quintanilla Direct Marketing ExecutiveBillet Driller 05/09/24 10/10/24 documented as of this encounter
--- OUTSIDE RECORDS SUMMARY | 2025-01-16 11:11 | XMS_ITS | Encounter Summary ---
Author Organization [employer] Address 75 [facility] 7t [place] [address] Care Team Providers Care Follow Up Manager Name Role Phone Alexus Henderson MD Primary Care Provider Adwoa Hughes PharmD Unavailable [phone] Encounter Details Date Type Department Care Team (Latest Contact Info) Description 10/03/2024 Orders Only [facility] MEDICINE [address] [place], [place] [phone] Alexus Henderson MD [address] [place], [place] [phone] Hypertriglyceridemia (Primary Dx); Poorly controlled type 2 [...] Description 01/31/2025 10:30 AM EDT Medication Management [facility] MEDICINE [address] [place] [address] Adwoa Hughes PharmD [address] [place] [address] documented as of this encounter Visit Diagnoses Diagnosis Hypertriglyceridemia- Primary Pure hyperglyceridemia Poorly controlled type 2 diabetes mellitus with neuropathy (CMS/HCC) Microalbuminuria Proteinuria documented in this encounter Additional Health Concerns Assessment Noted Time PHQ-9 Depression Total Score: 9 12/07/19 23 9:42 AM EST documented as of this encounter Care Teams Follow Up Manager Relationship Specialty Start Date End Date Alexus Henderson MD [address] [place] [address] PCP - General Family Medicine 01/23/24 Adwoa Hughes PharmD [address] [place] [address] Pharmacist Internal Medicine 12/10/24 Pipe Quintanilla Repair SupervisorBuildings And Grounds Superintendent 05/09/24 10/10/24 documented as of this encounter
--- OUTSIDE RECORDS SUMMARY | 2025-01-16 11:11 | XMS_ITS | Encounter Summary ---
Author Organization [employer] Address 75 [facility] 7t [place] [address] Care Team Providers Care Catalyst Plant Supervisor Name Role Phone Alexus Henderson MD Primary Care Provider [phone] Adwoa Hughes PharmD Unavailable [phone] Reason for Visit * Reason Onset Date Comments recall 01/09/2025 Encounter Details Date Type Department Care Team ([facility] st Contact Info) Description 01/09/2025 Telephone [facility] MEDICINE [address] [place] [address] Alexus Henderson MD [address] [place] [address] recall Social History Tobacco Use Types Packs/Day [...] Description 01/31/2025 10:30 AM EDT Medication Management [facility] [address] [place] [address] Adwoa Hughes, PharmD [address] [place] [address] documented as of this encounter Visit Diagnoses Not on filedocumented in this encounter Additional Health Concerns Assessment Noted Time PHQ-9 Depression Total Score: 9 12/07/19 23 9:42 AM EST documented as of this encounter Care Teams Catalyst Plant Supervisor Relationship Specialty Start Date End Date Alexus Henderson MD [address] [place] [address] PCP - General Family Medicine 01/23/24 Adwoa Hughes, DameonD [address] [place] [address] Pharmacist Internal Medicine 12/10/24 documented as of this encounter
== END 2025-01-16 10:52 | disposition home or self-care (01) ==
PROVIDERS: PCP General Practice; Visit Provider Orthopaedic Surgery
DX: M75.42 Impingement syndrome of left shoulder (principal)
CPT/HCPCS: 99024

== ENCOUNTER 2025-01-24 07:28 | Day surgery (SDC) | payer MEDICAID, SELFPAY ==
[2025-01-13 11:12] VITALS: BMI 38.7
--- NOTE | 2025-01-14 13:58 | P.CONAN_ITS ---
Documented by User: Tina Garcia NP 01/23/25 12:09 HPI - Anesthesia Eval Consult details Narrative: 39yo F for Left Shoulder Arthroscopy, acromioplasty, clavicle excision, capsulary release, 01/24/25 Previously cx'd d/t high A1C. 12/2024 A1c done at [facility] and it was 8.4 Anesthesia Pre-Procedure Meds Is the patient on any of the following meds?: SGLT2 Inhib PMFSH Active Problems Active Problems: All Active Problems Gastritis (Acute) Major depressive disorder, recurrent, unspecified (Acute) Impingement syndrome of left shoulder (Acute) Obesity, morbid, BMI 40.0-49.9 (Acute) Daytime sleepiness (Acute) Loud snoring (Acute) Depression (Acute) DJD (degenerative joint disease) (Acute) Hypertension (Acute) Hyperlipidemia (Acute) Insulin dependent diabetes mellitus type IA (Acute) Morbid obesity (Acute) Obstructive sleep apnea hypopnea, mild (Acute) Past Medical History Medical History Pre-eclampsia affecting childbirth Depression DJD (degenerative joint disease) Hypertension Hyperlipidemia Insulin dependent diabetes mellitus type IA Morbid obesity Obstructive sleep apnea hypopnea, mild Family History Family History Father Diabetes Hypertension Schizophrenia Sister No problems noted. Mother Diabetes Hypertension Son Autism Son No problems noted. Surgical History Surgical History History of left oophorectomy Hx of section H/O tubal ligation Hx of cholecystectomy History of Problems with Anesthesia: No Social History Social History Household Members Other:: 2 minor children Housing Other:: 1st floor appt in multi family house Are you a primary child adolescent care to a significant other at home: No Do you presently have visiting nurse or other home services: No Alcohol intake: never Patient Tobacco Use Status: Never used Tobacco Use of substances other than those prescribed or required for medical reasons: No Have you been hit, kicked, punched, or otherwise hurt by someone within the past year? If so, by whom?: No Spiritual Healthcare Practices: none Restoration Healthcare Practices: none Cultural Healthcare Practices: none Are you DNR?: No Advance Directives: No Advance Directives Information Provided: Yes Advance Directives on File: No Recently lost weight without trying: No Eating poorly because of decreased appetite: No Nutrition Risks: No Nutritional Risk Patient : No FDLMP: 01/20/25 : No Poor oral hygiene: No Meds Allergies Allergy/AdvReac Type Severity Reaction Status Date / Time No Known Allergies Allergy Verified 01/24/25 08:06 Home Medications ?Medication ?Instructions ?Recorded ?Confirmed ?Last Taken ?Type blood sugar diagnostic (FreeStyle #10 ea 04/28/23 01/16/25 Unknown History Lite Strips) insulin glargine 100 unit/mL (3 20 unit subcut QA 04/28/23 01/16/25 Unknown History mL) subcutaneous pen (Lantus Solostar U-100 Insulin) insulin lispro 100 unit/mL 38 unit subcut QAM 04/28/23 01/16/25 Unknown History subcutaneous pen metformin 500 mg tablet 1,000 mg PO BID 04/28/23 01/16/25 Unknown History sertraline 100 mg tablet 100 mg PO DAILY 04/28/23 01/16/25 Unknown History buspirone 7.5 mg tablet 7.5 mg PO BID 10/01/24 01/16/25 Unknown History naproxen 500 mg tablet 500 mg PO BID PRN moderate pain 10/01/24 01/16/25 Unknown History atorvastatin 20 mg tablet (Lipitor) 20 mg PO DAILY 10/24/24 01/16/25 Unknown History empagliflozin 10 mg tablet 10 mg PO DAILY 10/24/24 01/24/25 01/20/25 History (Jardiance) nifedipine 60 mg tablet,extended 60 mg PO DAILY 10/24/24 01/16/25 Unknown History release 24 hr (Procardia XL) Exam Height,Weight and Vital Signs: Height 5 ft 9 in Weight 118.841 kg Pertinent Lab Results Pertinent Lab Results: Laboratory Tests 06/17/24 09/27/24 14:08 14:04 WBC 11.2 H Hgb 14.1 Hct 40.2 Plt Count 288 Sodium 138 Potassium 3.6 Chloride 105 Carbon Dioxide 22 BUN 14 Creatinine 0.80 Narrative Narrative: EKG 2023 Vent. Rate : 083 BPM Atrial Rate : 083 BPM P-R Int : 188 ms QRS Dur : 088 ms QT Int : 390 ms P-R-T Axes : 044 053 030 degrees QTc Int : 458 ms Normal sinus rhythm Normal ECG When compared with ECG of 17-JUN-2024 13:54, No significant change was found Assessment and Plan Assessment Anesthesia Assessment: Chart Reviewed Final Anesthetic Review History of Problems with Anesthesia: No Documented by User: Joanne Ott MD 01/24/25 08:40 PMFSH Past Medical History Medical History Pre-eclampsia affecting childbirth Depression DJD (degenerative joint disease) Hypertension Hyperlipidemia Insulin dependent diabetes mellitus type IA Morbid obesity Obstructive sleep apnea hypopnea, mild Family History Family History Father Diabetes Hypertension Schizophrenia Sister No problems noted. Mother Diabetes Hypertension Son Autism Son No problems noted. Family history of problems with anesthesia: No Surgical History Surgical History History of left oophorectomy Hx of section H/O tubal ligation Hx of cholecystectomy Social History Social History Household Members Other:: 2 minor children Housing Other:: 1st floor appt in multi family house Are you a primary child adolescent care to a significant other at home: No Do you presently have visiting nurse or other home services: No Alcohol intake: never Patient Tobacco Use Status: Never used Tobacco Use of substances other than those prescribed or required for medical reasons: No Have you been hit, kicked, punched, or otherwise hurt by someone within the past year? If so, by whom?: No Spiritual Healthcare Practices: none Restoration Healthcare Practices: none Cultural Healthcare Practices: none Are you DNR?: No Advance Directives: No Advance Directives Information Provided: Yes Advance Directives on File: No Recently lost weight without trying: No Eating poorly because of decreased appetite: No Nutrition Risks: No Nutritional Risk Patient : No FDLMP: 01/20/25 : No Poor oral hygiene: No Meds Allergies Allergy/AdvReac Type Severity Reaction Status Date / Time No Known Allergies Allergy Verified 01/24/25 08:06 Home Medications ?Medication ?Instructions ?Recorded ?Confirmed ?Last Taken ?Type blood sugar diagnostic (FreeStyle #10 ea 04/28/23 01/16/25 Unknown History Lite Strips) insulin glargine 100 unit/mL (3 20 unit subcut QAM 04/28/23 01/16/25 Unknown History mL) subcutaneous pen (Lantus Solostar U-100 Insulin) insulin lispro 100 unit/mL 38 unit subcut QAM 04/28/23 01/16/25 Unknown History subcutaneous pen metformin 500 mg tablet 1,000 mg PO BID 04/28/23 01/16/25 Unknown History sertraline 100 mg tablet 100 mg PO DAILY 04/28/23 01/16/25 Unknown History buspirone 7.5 mg tablet 7.5 mg PO BID 10/01/24 01/16/25 Unknown History naproxen 500 mg tablet 500 mg PO BID PRN moderate pain 10/01/24 01/16/25 Unknown History atorvastatin 20 mg tablet (Lipitor) 20 mg PO DAILY 10/24/24 01/16/25 Unknown History empagliflozin 10 mg tablet 10 mg PO DAILY 10/24/24 01/24/25 01/20/25 History (Jardiance) nifedipine 60 mg tablet,extended 60 mg PO DAILY 10/24/24 01/16/25 Unknown History release 24 hr (Procardia XL) Exam Airway Mallampati Class: II TM Dist: >3cm Neck ROM: Full Heart: rrr Lungs: cta Assessment and Plan Assessment Anesthesia Assessment: Anesthesia Plan Discussed Final Anesthetic Review Family History of Problems with Anesthesia: No NPO: Yes ASA Class: III Final Preanesthetic Review: No Changes in Pt Med Stat, Meds/Allgs Chart Reviewed, Consent Obtained/Reviewed and Anes Risks/Benef Reviewed Patient Risk: Intermediate Procedure Risk: Intermediate Anesthetic Plan Anesthetic Plan: GA, Regional Block and Agree w/ Assess. and Plan Disposition: Standard PACU
[2025-01-24] VITALS (12 sets, daily range): BP systolic 131–180; BP diastolic 76–95; PULSE 71–90; RESP 11–18; TEMP 36.1–36.7; O2SAT 93–96; BMI 38.1
[2025-01-24 08:49] LABS: Glucose, Whole Blood 177 mg/dL (60-115)
[2025-01-24] MEDS: Lactated Ringers 1,000 ML 80 ML IVCONT (08:58)
[2025-01-24] MEDS: Acetaminophen 1,000 MG/100 ML PIGGYBACK 400 MG IV (10:35)
[2025-01-24] MEDS: ceFAZolin Sodium/Dextrose,Iso 2 GM/50 ML PIGGYBACK IV (10:35)
--- NOTE | 2025-01-24 11:58 | P.BOP_ITS ---
Brief Operative Note Date of Service: 01/24/25 Pre-op diagnosis: Left shoulder impingement syndrome, left shoulder acromioclavicular joint arthritis, left shoulder adhesive capsulitis Post-op diagnosis: same Procedure: Left shoulder arthroscopic distal clavicle excision, left shoulder arthroscopic acromioplasty, left shoulder arthroscopic anterior capsular release, left shoulder manipulation under anesthesia Implants: none Surgeon: Adiel Ramos MD Anesthesia: GETA and regional Was an Press Operator Carbon Products used for this Procedure?: No Estimated blood loss (mL): 15 Pathology: none sent Condition: stable Disposition: PACU
[2025-01-24 11:59] LABS: Glucose, Whole Blood 181 mg/dL (60-115)
--- NOTE | 2025-01-24 11:59 | P.OP_ITS ---
Operative Note Operative Note Date of Service: 01/24/25 Narrative: After the patient was identified as Blaire Matthews and her left shoulder was initialed by myself the patient was brought to the holding area where a left shoulder interscalene regional block was performed by the anesthesiologist in routine fashion. The patient was then brought to the operating room where general anesthesia was induced by the anesthesiologist in routine fashion. The patient was given 2 g of IV Ancef preoperatively for infection prophylaxis. Examination under anesthesia of the patient's left shoulder showed decreased range of motion when compared to the right shoulder. The patient's left sh oulder had forward flexion to 130 degrees compared to 170 degrees, external rotation to 30 degrees compared to 60 degrees, and internal rotation to 50 degrees compared to 60 degrees. The patient was gently positioned in the beach chair position with all bony prominences well padded. The patient's left shoulder region and upper extremity were prepped and draped in sterile fashion. A formal time-out was completed. A #11 scalpel blade was used to make a posterior portal 2 cm inferior and 1 cm medial to the posterolateral corner of the acromion. Blunt trocar technique was used to enter the glenohumeral joint in routine fashion. An anterior portal was made just lateral to the coracoid process after proper positioning was confirmed using a spinal needle. Diagnostic arthroscopy showed minimal degenerative changes of the glenoid and humeral head articular surfaces. There was no evidence of rotator cuff tearing. There was no evidence of injury to the biceps tendon or its insertion onto the glenoid. There was inflammation of the anterior joint capsule consistent with adhesive capsulitis. The ArthroCare Wand was then used to perform an anterior capsular release between the inferior border of the biceps tendon and the superior border of the subscapularis tendon. The arthroscope was then placed from the posterior portal into the subacromial space. A lateral portal was made 2 fingerbreadths lateral to the anterior lateral corner of the acromion. The ArthroCare Wand was used to ablate soft tissues along the undersurface of the acromion as well as to excise the coracoacromial ligament. There was a sharp spur along the undersurface of the acromion which was removed using the hooded bur. The arthroscope was then placed into the lateral portal and the acromioplasty was completed with the bur in the posterior portal using the posterior aspect of the acromion as a cutting block. The ArthroCare Wand was then brought in through the anterior portal and was used to ablate soft tissues along the acromioclavicular joint and distal clavicle. The posterior and superior ligamentous structures were left intact. A distal clavicle excision of 8 mm was performed using the hooded bur. Any remaining bursal tissue was removed using the arthroscopic shaver. The subacromial space was irrigated and then drained. All arthroscopic instruments were removed. A gentle manipulation under anesthesia was then performed. Full passive range of motion was easily attained. The 3 portals were closed with 3-0 nylon interrupted suture. The subacromial space was injected with Marcaine. Dry sterile dressing was placed over all incisions. The patient's left upper extremity was placed into a sling. The patient was awoken and extubated in the operating room. The patient was transferred to the recovery room in stable condition.
[2025-01-24] MEDS: cefTRIAXone sodium 1 GM VIAL IVPUSH (12:11)
== END 2025-01-24 14:28 | disposition home or self-care (01) ==
PROVIDERS: PCP General Practice; Visit Provider Orthopaedic Surgery
PROC: (CPT 29805; principal; 2025-01-24 10:40)
DX: M75.42 Impingement syndrome of left shoulder (principal); M75.02 Adhesive capsulitis of left shoulder; M19.012 Primary osteoarthritis, left shoulder; M25.512 Pain in left shoulder; M25.612 Stiffness of left shoulder, not elsewhere classified; I10 Essential (primary) hypertension; E78.5 Hyperlipidemia, unspecified; F32.A Depression, unspecified; G47.33 Obstructive sleep apnea (adult) (pediatric); E10.9 Type 1 diabetes mellitus without complications; Z79.4 Long term (current) use of insulin; Z79.84 Long term (current) use of oral hypoglycemic drugs; Z79.1 Long term (current) use of non-steroidal anti-inflammatories (NSAID); Z79.899 Other long term (current) drug therapy; Z98.890 Other specified postprocedural states
CPT/HCPCS: 29824; 29825; 29826; 82947; J0131; J0171; J0665; J0690; J0696; J1100; J2003; J2405; J2704; J2795; J3010

== ENCOUNTER → 2025-01-24 07:28 | Outpatient (BNV) | payer MEDICAID, SELFPAY | PROVIDERS: PCP General Practice; Visit Provider Orthopaedic Surgery | DX: M75.42 Impingement syndrome of left shoulder (principal); M19.012 Primary osteoarthritis, left shoulder; M75.02 Adhesive capsulitis of left shoulder | CPT/HCPCS: 29824; 29826 ==

== ENCOUNTER 2025-02-06 11:35 | Outpatient (AMB) | payer MEDICAID, SELFPAY ==
--- NOTE | 2025-02-06 11:38 | MHC.OFFVIS ---
Intake Visit Reasons: PO-Lt Shld 01/24/25 Intake Note: Blaire is a 39 year old female who presents today for a post operative LT Shoulder , DOS 01/24/25 Patient reports she is doing well. Allergies No Known Allergies Allergy (Verified 01/24/25 08:06) Medication List - Last Reconciled 02/06/25 by Hasmukh Meyer PA-C atorvastatin (Lipitor) 20 mg PO DAILY blood sugar diagnostic (FreeStyle Lite Strips) As directed buspirone 7.5 mg PO BID empagliflozin (Jardiance) 10 mg PO DAILY insulin glargine (Lantus Solostar U-100 Insulin) 20 units subcut QAM insulin lispro 38 units subcut QAM ketorolac 10 mg PO TID PRN 5 days metformin 1,000 mg PO BID naproxen 500 mg PO BID PRN nifedipine ER (Procardia XL) 60 mg PO DAILY oxycodone 10 mg (2 x 5 mg) PO Q4H PRN pantoprazole 40 mg PO DAILY sertraline 100 mg PO DAILY HPI HPI PO-Lt Shld 01/24/25 DR: Details: 39-year-old female returns to the office today status post left shoulder arthroscopy with Dr. Ramos on 01/24/2025. She is doing well with mild discomfort. [facility] Medical History Pre-eclampsia affecting childbirth Depression DJD (degenerative joint disease) Hypertension Hyperlipidemia Insulin dependent diabetes mellitus type IA Morbid obesity Obstructive sleep apnea hypopnea, mild Surgical History History of left oophorectomy Hx of section H/O tubal ligation Hx of cholecystectomy Family History Father Diabetes Hypertension Schizophrenia Sister No problems noted. Mother Diabetes Hypertension Son Autism Son No problems noted. Social History Household Members Other:: 2 minor children Housing Other:: 1st floor appt in multi family house Are you a primary senior care provider to a significant other at home: No Do you presently have visiting nurse or other home services: No Alcohol intake: never Patient Tobacco Use Status: Never used Tobacco Review of Systems Const All systems reviewed & are unremarkable except as noted in HPI and below Physical Exam Extrem Other: Left shoulder normal to inspection incision clean dry and intact. No erythema or drainage. Neurovascularly intact. Results Reviewed Results Reviewed: Brief Operative Note Date of Service: 01/24/25 Pre-op diagnosis: Left shoulder impingement syndrome, left shoulder acromioclavicular joint arthritis, left shoulder adhesive capsulitis Post-op diagnosis: same Procedure: Left shoulder arthroscopic distal clavicle excision, left shoulder arthroscopic acromioplasty, left shoulder arthroscopic anterior capsular release, left shoulder manipulation under anesthesia Implants: none Surgeon: Adiel Ramos MD Assessment & Plan Assessment & Plan (1) Impingement syndrome of left shoulder: Code(s): M75.42 - Impingement syndrome of left shoulder Category: Medical Plan: Sutures removed today Steri-Strips applied. She was given an order for physical therapy to work on range of motion rotator cuff and periscapular stabilization. She will modify her activities to limit overhead reaching and repetitive use for the next 4-6 weeks. She will return to our office in [address] Ramos, sooner if needed. Coding Level of Care Code Global (75289) Diagnoses Impingement syndrome of left shoulder M75.42
--- OUTSIDE RECORDS SUMMARY | 2025-02-06 14:00 | XMS_ITS | Encounter Summary ---
Author Organization [employer] Address [address] [facility] 7t [place] [address] Care Team Providers Care Dry Wall Nailer Name Role Phone Alexus Henderson MD Primary Care Provider [phone] Adwoa Hughes PharmD Unavailable [phone] Encounter Details Date Type Department Care Team (Late st Contact Info) Description 01/24/2025 Orders Only GENERIC EXTERNAL DATA DEPARTMENT Provider, Generic External Data Social History Tobacco Use Types Packs/Day Years [...] Care Team (Late st Contact Info) Description 03/03/2025 11:30 AM EDT Medication Management [facility] MEDICINE [address] [place] [address] Adwoa Hughes, PharmD [address] [place] [address] 06/26/2025 11:00 AM EDT Office Visit [facility] OPTOMETRY [address] [place] [address] Kristie Spain, OD [address] [place] [address] documented as of this encounter Procedures Procedure Name Priority Date/Time Associated Diagnosis Comments GLUCOSE, WHOLE BLOOD Routine 01/24/2025 11:52 AM EST GLUCOSE, WHOLE BLOOD Routine 01/24/2025 8:44 AM EST documented in this encounter Results * (ABNORMAL) Glucose, Whole Blood (01/24/2025 11:52 AM EST) Glucose, Whole Blood 181(H) 60 - 115 mg/dL [facility] Comment:METER #: [id number] 01/24/2025 11:5 2 AM EST 01/24/2025 11:59 AM EST us Generic External Data Provider LAB BLOOD ORDERAB LES Final Result [facility] [address] [place] [address] [place] [address] [phone] * (ABNORMAL) Glucose, Whole Blood (01/24/2025 8:44 AM EST) Glucose, Whole Blood 177(H) 60 - 115 mg/dL [facility] Comment:METER #: [id number] 01/24/2025 8:44 AM EST 01/24/2025 8:48 AM EST us Generic External Data Provider LAB BLOOD ORDERAB LES Final Result [facility] [address] [place] [address] [phone] documented in this encounter Visit Diagnoses Not on filedocumented in this encounter Additional Health Concerns Assessment Noted Time PHQ-9 Depression Total Score: 9 12/07/19 23 9:42 AM EST documented as of this encounter Care Teams Dry Wall Nailer Relationship Specialty Start Date End Date Alexus Henderson MD [address] [place] [address] PCP - General Family Medicine 01/23/24 Adwoa Hughes PharmD [address] [place] [address] Pharmacist Internal Medicine 12/10/24 documented as of this encounter
--- OUTSIDE RECORDS SUMMARY | 2025-02-06 14:00 | XMS_ITS | Encounter Summary ---
Author Organization [employer] Address [address] [facility] 7t [place] [address] Care Team Providers Care Vault Clerk Name Role Phone Alexus Henderson MD Primary Care Provider [phone] Adwoa Hughes PharmD Unavailable [phone] Reason for Visit * Reason Onset Date Comments recall 01/09/2025 Encounter Details Date Type Department Care Team ([facility] st Contact Info) Description 01/09/2025 Telephone [facility] MEDICINE [address] [place] [address] Alexus Henderson MD [address] [place] [address] recall Social History Tobacco Use Types Packs/Day [...] Visit type: Office visit Appointment notes: DM due: December With: Santiago Please schedule appointment above if patient returns call documented in this encounter Plan of Treatment Upcoming Encounters Date Type Department Care Team (Late st Contact Info) Description 03/03/2025 11:30 AM EDT Medication Management [facility] [address] [place] [address] Adwoa Hughes, PharmD [address] [place] [address] 06/26/2025 11:00 AM EDT Office Visit [facility] OPTOMETRY [address] [place] [address] Kristie Spain, R[place] [address] [place] [address] documented as of this encounter Visit Diagnoses Not on filedocumented in this encounter Additional Health Concerns Assessment Noted Time PHQ-9 Depression Total Score: 9 12/07/19 23 9:42 AM EST documented as of this encounter Care Teams Vault Clerk Relationship Specialty Start Date End Date Alexus Henderson MD [address] [place] [address] PCP - General Family Medicine 01/23/24 Adwoa Hughes PharmD [address] [place] [address] Pharmacist Internal Medicine 12/10/24 documented as of this encounter
--- OUTSIDE RECORDS SUMMARY | 2025-02-06 14:00 | XMS_ITS | Encounter Summary ---
Author Organization [employer] Address [address] [facility] 7t [place] [address] Care Team Providers Care Cnc Router Operator Name Role Phone Alexus Henderson MD Primary Care Provider [phone] Adwoa Hughes PharmD Unavailable [phone] Encounter Details Date Type Department Care Team ([facility] st Contact Info) Description 01/09/2025 Telephone [facility] OPTOMETRY [address] [place], [place] [phone] Kristie Spain, OD [address] [place] [address] Social History Tobacco Use Types Packs/Day Years [...] Description 03/03/2025 11:30 AM EDT Medication Management [facility] MEDICINE [address] [place] [address] Adwoa Hughes PharmD [address] [place] [address] 06/26/2025 11:00 AM EDT Office Visit [facility] OPTOMETRY [address] [place], [place] [phone] Kristie Spain OD [address] [place] [address] documented as of this encounter Visit Diagnoses Not on filedocumented in this encounter Additional Health Concerns Assessment Noted Time PHQ-9 Depression Total Score: 9 12/07/19 23 9:42 AM EST documented as of this encounter Care Teams Cnc Router Operator Relationship Specialty Start Date End Date Alexus Henderson MD [address] [place] [address] PCP - General Family Medicine 01/23/24 Adwoa Hughes PharmD [address] [place] [address] Pharmacist Internal Medicine 12/10/24 documented as of this encounter
--- OUTSIDE RECORDS SUMMARY | 2025-02-06 14:01 | XMS_ITS | Encounter Summary ---
Author Organization [employer] Address [address] [facility] 7t [place] [address] Care Team Providers Care Confidential Secretary Name Role Phone Alexus Henderson MD Primary Care Provider [phone] Adwoa Hughes PharmD Unavailable [phone] Encounter Details Date Type Department Care Team ([facility] st Contact Info) Description 01/31/[address] [facility] () Department [address] [phone] Provider, Population Health Generic Social History Tobacco Use Types Packs/Day Years [...] Description 03/03/2025 11:30 AM EDT Medication Management [facility] MEDICINE [address] [place] [address] Adwoa Hughes PharmD [address] [place] [address] 06/26/2025 11:00 AM EDT Office Visit [facility] OPTOMETRY [address] [place], [place] [phone] Kristie Spain, OD [address] [place] [address] documented as of this encounter Visit Diagnoses Not on filedocumented in this encounter Additional Health Concerns Assessment Noted Time PHQ-9 Depression Total Score: 9 12/07/19 23 9:42 AM EST documented as of this encounter Care Teams Confidential Secretary Relationship Specialty Start Date End Date Alexus Henderson MD [address] [place] [id number] PCP - General Family Medicine 01/23/24 Adwoa Hughes PharmD [address] [place] [address] Pharmacist Internal Medicine 12/10/24 documented as of this encounter
--- OUTSIDE RECORDS SUMMARY | 2025-02-06 14:01 | XMS_ITS | Encounter Summary ---
Author Organization [employer] Address [address] [facility] 7t [place] [address] Care Team Providers Care Machine Assembler Name Role Phone Alexus Henderson MD Primary Care Provider [phone] Adwoa Hughes PharmD Unavailable [phone] Encounter Details Date Type Department Care Team (Latest Contact Info) Description 10/03/2024 Orders Only [facility] MEDICINE [address] [place], [place] [phone] Alexus Henderson MD [address] [place], [place] [phone] Hypertriglyceridemia (Primary Dx); Poorly controlled type 2 [...] Description 03/03/2025 11:30 AM EDT Medication Management [facility] MEDICINE [address] [place] [address] Adwoa Hughes PharmD [address] [place] [address] 06/26/2025 11:00 AM EDT Office Visit [facility] OPTOMETRY [address] [place] [address] Kristie Spain, R[place] [address] [place] [address] documented as of this encounter Visit Diagnoses Diagnosis Hypertriglyceridemia- Primary Pure hyperglyceridemia Poorly controlled type 2 diabetes mellitus with neuropathy ([facility]/HCC) Microalbuminuria Proteinuria documented in this encounter Additional Health Concerns Assessment Noted Time PHQ-9 Depression Total Score: 9 12/07/19 23 9:42 AM EST documented as of this encounter Care Teams Machine Assembler Relationship Specialty Start Date End Date Alexus Henderson MD [address] [place] [address] PCP - General Family Medicine 01/23/24 Adwoa Hughes, PharmD [address] [place] [address] Pharmacist Internal Medicine 12/10/24 Pipe Quintanilla Liner InserterDirector Medical Surgical 05/09/24 10/10/24 documented as of this encounter
--- OUTSIDE RECORDS SUMMARY | 2025-02-06 14:01 | XMS_ITS | Encounter Summary ---
Author Organization [employer] Address [address] [facility] 7t [place] [address] Care Team Providers Care Junior Systems Administrator Name Role Phone Alexus Henderson MD Primary Care Provider [phone] Adwoa Hughes PharmD Unavailable [phone] Encounter Details Date Type Department Care Team (Late st Contact Info) Description 01/16/2025 Orders Only [facility] External Provider, [facility] Social History Tobacco Use Types Packs/Day Years [...] Description 03/03/2025 11:30 AM EDT Medication Management [facility] MEDICINE [address] [place] [address] Adwoa Hughes, PharmD [address] [place] [address] 06/26/2025 11:00 AM EDT Office Visit [facility] OPTOMETRY [address] [place] [address] Kristie Spain, OD [address] [place] [address] documented as of this encounter Procedures Procedure Name Priority Date/Time Associated Diagnosis Comments XR CHEST 2 VIEWS Routine 01/16/2025 6:31 PM EST documented in this encounter Results * XR Chest 2 Views (01/16/2025 6:31 PM EST) Anatomical Region Laterality Modality Chest Radiographic Stephy ging 01/16/2025 6:31 PM EST Narrative 01/16/2025 6:32 PM EST ? [facility] ?[address] ?[place] [address] ?XRay Report ? Signed ? Patient: Marybel Matthews,Blaire ?MR#: [id number] ?? [id number] ? : 1985 ?Acct:[id number] ? Age/Sex: 39 / F ?ADM Date: 02/27/25 ? Loc: HO.XRAY ? Attending Dr: Satya Tang MD ? Ordering Physician: Satya Tang MD ?? Date of Service: 01/16/25 ?? Procedure(s): XR chest 2V ?? Accession Number(s): [id number] ? cc: Alexus Henderson; Satya Tang MD ? CLINICAL HISTORY: E66.01 - Morbid (severe) obesity due to excess calories ? 2 view chest x-ray ? Comparison: None ? Findings: ?? The lungs are clear. ?? Normal size heart. ?? No acute fracture. ? IMPRESSION: ?? 1. No acute findings. ? This document has been electronically signed by: Johnny Hernandez MD on ?? 01/16/2025 18:31:42 ? Dictated By: ?Johnny Hernandez MD ? Signed By: ?<Electronically signed by Johnny Hernandez MD in OV> ?01/16/25 1832 ? DD/ 1831 ? TD/TT: 01/16/25 183 ? Stock Checkerer: ? Procedure Note Donmohseninterpreter, Image - 01/16/2025 [place] [address] XRay Report Signed Patient: Gail Higgins#: [id number] : 1985Acct:[id number] Age/Sex: 39 / FADM Date: 01/16/25 Loc: [facility] Attending Dr: Satya Tang MD Ordering Physician: Satya Tang MD Date of Service: 01/16/25 Procedure(s): XR chest 2V Accession Number(s): [id number] cc: Alexus Henderson; Satya Tang MD CLINICAL HISTORY: E66.01 - Morbid (severe) obesity due to excess calories 2 view chest x-ray Comparison: None Findings: The lungs are clear. Normal size heart. No acute fracture. IMPRESSION: 1. No acute findings. This document has been electronically signed by: Johnny Hernandez MD on 01/16/2025 18:31:42 Dictated By: Johnny Hernandez MD Signed By: <Electronically signed by Johnny Hernandez MD in OV> 01/16/251831 DD/ 30 TD/TT: 01/16/251830 Stock Checkerer: [facility] External Provider IMG XR PROCEDURES Final Result documented in this encounter Visit Diagnoses Not on filedocumented in this encounter Additional Health Concerns Assessment Noted Time PHQ-9 Depression Total Score: 9 12/07/19 23 9:42 AM EST documented as of this encounter Care Teams Junior Systems Administrator Relationship Specialty Start Date End Date Alexus Henderson MD [address] [place] [address] PCP - General Family Medicine 01/23/24 Adwoa Hughes PharmD [address] [place] [address] Pharmacist Internal Medicine 12/10/24 documented as of this encounter
--- OUTSIDE RECORDS SUMMARY | 2025-02-06 14:01 | XMS_ITS | Encounter Summary ---
Author Organization [employer] Address [address] [facility] 7t [place] [address] Care Team Providers Care Texturing Machine Fixer Name Role Phone Alexus Henderson MD Primary Care Provider [phone] Adwoa Hughes PharmD Unavailable [phone] Encounter Details Date Type Department Care Team (Late st Contact Info) Description 09/09/2024 Telephone [facility] MEDICINE [address] [place], [place] [phone] Alexus Henderson MD [address] [place], [place] [phone] Social History Tobacco Use Types Packs/Day Years [...] 1:49 PM EDT Tc from [facility] with [facility] requesting to speak to nurse regarding lab results. Contact [facility] at [phone] ext [phone] documented in this encounter Plan of Treatment Upcoming Encounters Date Type Department Care Team (Late st Contact Info) Description 03/03/2025 11:30 AM EDT Medication Management [facility] MED[facility]INE [address] [place] [address] Adwoa Hughes, PharmD [address] [place] [address] 06/26/2025 11:00 AM EDT Office Visit [facility] OPTOMETRY [address] [place] [address] Kristie Spain OD [address] [place] [address] documented as of this encounter Visit Diagnoses Not on filedocumented in this encounter Additional Health Concerns Assessment Noted Time PHQ-9 Depression Total Score: 9 12/07/19 23 9:42 AM EST documented as of this encounter Care Teams Texturing Machine Fixer Relationship Specialty Start Date End Date Alexus Henderson MD [address] [place] [address] PCP - General Family Medicine 01/23/24 Adwoa Hughes, DameonD [address] [place] [address] Pharmacist Internal Medicine 12/10/24 Pipe Quintanilla Mechanical Technical Service SpecialistLean Facilitator 05/09/24 10/10/24 documented as of this encounter
--- OUTSIDE RECORDS SUMMARY | 2025-02-06 14:01 | XMS_ITS | Clinical Summary ---
Author Organization [employer] Address [address] [facility] 7t [place] [address] Care Team Providers Care Server Security Administrator Name Role Phone Alexus Henderson MD Primary Care Provider [phone] Adwoa Hughes PharmD Unavailable [phone] Allergies No known active allergies Medications [...] per week. 10/29/20 24 Active Continuous Glucose Practice Director (FreeStyle Elsa 3 [place]) deviceIndication s:Poorly controlled type 2 diabetes mellitus [...] controlled type 2 diabetes mellitus with neuropathy ([facility]/HCC) Use 4 times daily with insulin 200 [...] She reports BTL, records release requested from [facility] in homeless longterm 12/07/2022 Overview (12/07/2022): With 2 sons 15 yo and 2 mo, awaiting housing Missed period 12/06/2022 12/07/2022 Encounters Date Type Department Care Team Description 01/31/2025 Population Health Risk Score [facility] (C3) Department [address] [place] [phone] Provider, Population Health Generic 01/24/2025 Orders Only GENERIC EXTERNAL DATA DEPARTMENT Provider, Generic External Data 01/16/2025 Orders Only [facility] External Provider, [facility] 01/09/2025 Telephone [facility] [address] [place] [address] Kristie Spain, [place] 01/09/2025 Telephone [facility] [address] [place] [address] Alexus Henderson MD recall 12/23/2024 Telephone [facility] [address] [place] [address] Puia, Dawoa, PharmD Prior Authorization (Precision Kassandra test stips ) 12/17/2024 Telephone [facility] [address] [place] [address] Puia, Adwoa, PharmD Care Coordination 12/11/2024 Telephone [facility] [address] [place] [address] Puia, Adwoa, PharmD Prior Authorization (FreeArchivas Elsa 3 CGM & precision kassandra test strips ) 11/26/2024 Orders Only GENERIC EXTERNAL DATA DEPARTMENT Provider, Generic External Data 11/25/2024 10:15 AM EST Office Visit [facility] [address] [place] [address] Priscilla Figueroa, OD Myopia of both eyes (Primary Dx) from Last 3 Months Immunizations Name Administration [...] Description 03/03/2025 11:30 AM EDT Medication Management [facility] [address] [place] [address] PuiaJuanitasa, PharmD [address] [place] [address] 06/26/2025 11:00 AM EDT Office Visit [facility] [address] [place] [address] Kristie Spain, OD [address] [place] [address] Health Maintenance Due Date Last Done Comments [...] 12/07/19 23 Mammogram 2024 COVID-19 Vaccine ( season) 2024 Influenza Vaccine (#1) 2024 09/02/2022, 2021 Diabetes: Hemoglobin A1C 03/10/2025 025, 09/06/2024, 12/07/2022, Additional history exists Pap Smear 04/22/2025 04/22/2022, 030 06/2022, 01/19/2022 Eye Exam 06/20/2025 06/20/2024, 08/0 11/2023, 06/20/2024, Additional history exists SDOH Screening [...] WHOLE BLOOD Routine 01/24/2025 8:44 AM EST XR CHEST 2 VIEWS Routine 01/16/2025 6:31 PM EST POCT GLYCATED HEMOGLOBIN, TOTAL Routine 12/10/2024 9:23 AM EST Poorly controlled type 2 diabetes mellitus with neuropathy (CMS/HCC) HEMATOXYLIN AND EOSIN STAIN Routine 11/26/2024 1:27 PM EST GLUCOSE, WHOLE BLOOD Routine 11/26/2024 12:47 PM EST ALBUMIN, RANDOM URINE W/CREATININE Routine 09/27/2024 [...] Relevant to Health Maintenance Results * (ABNORMAL) Glucose, Whole Blood (01/24/2025 11:52 AM EST) Only the most recent of3 resultswithin the time period is included. Glucose, Whole Blood 181(H) 60 - 115 mg/dL [facility] Comment:METER #: [id number] 01/24/2025 11:5 2 AM EST 01/24/2025 11:59 AM EST us Generic External Data Provider LAB BLOOD ORDERAB LES Final Result [facility] [address] [place] [phone] * XR Chest 2 Views (01/16/2025 6:31 PM EST) Anatomical Region Laterality Modality Chest Radiographic Stephy ging 01/16/2025 6:31 PM EST Narrative 01/16/2025 6:32 PM EST ? [facility] ?[address] ?[place] [address] ?XRay Report ? Signed ? Patient: Blaire Higgins ?MR#: [id number] ?? [id number] ? : 1985 ?Acct:[id number] ? Age/Sex: 39 / F ?ADM Date: 01/16/25 ? Loc: HO.XRAY ? Attending Dr: Satya Tang MD ? Ordering Physician: Satya Tang MD ?? Date of Service: 01/16/25 ?? Procedure(s): XR chest 2V ?? Accession Number(s): [id number] ? cc: Alexus Henderson; Satya Tang MD [...] MD in OV> ?01/16/25 1832 ? DD/ 183 ? TD/TT: 01/16/25 183 ? Mixer Operator Tablets: ? Procedure Note Eddy, Manish - 01/16/[address] [place] [address] XRay Report Signed Patient: Blaire HigginsMR#: [id number] : 1985Acct:[id number] Age/Sex: 39 / FADM Date: 01/16/25 Loc: HO.XRAY Attending Dr: Satya Tang MD Ordering Physician: Satya Tang MD Date of Service: 01/16/25 Procedure(s): XR chest 2V Accession Number(s): [id number] cc: Alexus Henderson; Satya Tang MD CLINICAL [...] in OV> 01/16/251831 DD/ 30 TD/TT: 01/16/251830 Mixer Operator Tablets: [facility] External Provider IMG XR PROCEDURES Final Result * (ABNORMAL) POCT HGB A1C (12/10/2024 9:23 AM EST) Hemoglobin A1C 8.5(A) 4.0 - 6.0 % Blood 12/10/2024 9:23 AM EST Alexus Henderson MD POINT OF CARE TEST ENTER/EDIT ORDERABLES Final Result * Hematoxylin and Eosin Stain (11/26/2024 1:27 PM EST) 11/26/2024 1:27 PM EST 11/26/2024 2:20 PM EST Narrative [facility] - 11/28/2024 11:09 AM EST ----- ------- Name: Marybel MatthewsBlaire abrams ? Age/Sex: 39/F ? : 1985 Unit#: [id number] ?? Attend Dr: Satya Tang MD ?Re11/26/24 ?Status: DEP SDC ? Location: HO.SSS ?Disch: ? ----- ------- SPEC : [id number] ?RECD: 11/26/24 ? STATUS: ??SOUT ? REQ NUM: [id number] ? CHELSEY: 11/26/24 ? SUBM DR: Satya Tang MD ? [...] ? Age/Sex: 39/F ? : 1985 Unit#: [id number] ?? Attend Dr: Satya Tang MD ?Re11/26/24 ?Status: DEP SDC ? Location: HO.SSS ?Disch: ? ----- ------- SPEC : [id number] ?RECD: 11/26/24 ? STATUS: ??SOUT ? REQ NUM: [id number] ? CHELSEY: 11/26/24-1326 ? SUBM DR: Satya [...] Copies To: ?? Alexus Henderson ?? [address] ?? [place] [address] ?? [phone] ?? Satya Tang MD ?? [facility] ?? [address] ?? [place] [address] ?? [phone] ----- ------- Signed (signature on file) Murray Melchor MD 11/28/24 5477 ? ----- ------- ? END OF REPORT ? us Generic External Data Provider LAB BLOOD ORDERAB LES Final Result Performing Organization Address [facility] Co de Phone Number [facility] [address] [place] [phone] * (ABNORMAL) Albumin, Random Urine W/Creatinine (09/27/2024 2:04 PM EST) Creatinine, Urine 147.85 mg/dL [facility] Microalbumin Urine 175.0 mg/L H [facility] Microalbum Creatinine Ratio Ur 118.3(H) <30 ug/mg cr [facility] Comment:Albumin/Creatinine R atio Reference Ranges: Normal: < 30 ug/mg creatinine Microalbuminuria: 30 - 300 ug/mg creatinineClinical Albuminuria: > 300 ug/mg creatinine Urine (Urine, Random) 09/27/2024 2:04 PM EST 09/27/2024 4:00 PM EST Alexus Henderson MD LAB URINE ORDERABLES Final Res ult Performing Organization Address [facility] Co de Phone Number [facility] [address] [place] [phone] * (ABNORMAL) Lipid Panel, Standard (09/27/2024 2:04 PM EST) Triglycerides 584(H) <150 mg/dL [facility] Comment:Mild Lipemia.Desirab le Triglyceride: less than 150 mg/dLBorderline High Triglyceride 150-199 mg/dLHigh Triglyceride: 200-499 mg/dLVery High Triglyceride: greater than or equal to 5OO mg/dL Cholesterol 151 <200 mg/dL [facility] Comment:Desirable Cholestero l: less than 200 mg/dLBorderline High Cholesterol: 200-239 mg/dLHigh Cholesterol: greater than 239 mg/dL LDL Cholesterol Calculated TNP <100 mg/dL [facility] Comment:Unable to calculate the LDL. The formula of Friedwald,Florence, and Daya is only valid if the triglycerides areless than 400 mg/dl. HDL Cholesterol 26(L) >40 mg/dL [facility] Comment:Desirable HDL: great er than 40 mg/dL Note: This HDL assay may give artificially low results in patients with liver disease. Blood Venous blood specimen / Unknown 09/27/2024 2:04 PM EST 09/27/2024 4:01 PM EST Alexus Henderson MD LAB BLOOD ORDERABLES Final Res ult Performing Organization Address City/[facility]/ZIP Co de Phone Number [facility] [address] [place] [phone] * Hm Pap Smear (04/22/2022) Pathologist [facility] Pap Negative for intraephithelial lesion or malignancy Negative for intraephithelial lesion or malignancy, Other HPV Not Detected Undetected, Indeterminate, Quantitative, Not Detected Historical Provider HEALTH MAINTENANCE Final Result * HEPATITIS C AB W/REFL TO HCV RNA, QN, PCR (12/30/2021 8:14 AM EST) Pathologist [facility] HEPATITIS C ANTIBODY NON-REACT [facility] NON-REACT [facility] INDEX 0.20 <1.00 [facility] Comment: ?? HCV antibody was non-reactive. There is no laboratory ?? evidence of HCV infection. ?? In most cases, no further action is required. However, if recent HCV exposure is suspected, a test for HCV RNA (test code 75138) is suggested. ?? For additional information please refer to http://education.YourEncore/faq/HLY06b6 (This link is being provided for informational/ educational purposes only.) ?? 12/30/2021 8:14 AM EST Nishi [facility] HISTORICAL/NON ORDERABLE LABS Final Result Performing Organization Address City/[facility]/ZIP Co de Phone Number [facility] [address] * HIV 1/2 ANTIGEN/ANTIBODY,FOURTH GENERATION W/RFL (12/30/2021 8:14 AM EST) HIV-1/2 ANTIGEN AND ANTIBODIES, 4TH GENERATION W/ REFLEX NON-REACT AYAH NON-REACT AYAH [facility] Comment: HIV-1 antigen and HIV-1/HIV-2 [...] ? For additional information please refer to http://education.YourEncore/faq/XXV739 (This link is being provided for informational/ educational purposes only.) ? The performance of this assay has not been clinically validated in patients less than 2 years old. ?? 12/30/2021 8:14 AM EST us Nishi Harris [employer]AT IR[employer]ER HAND LAB BLOOD ORDERABLES Final Res ult [facility] [address] from Last 3 Months or Most Recently Relevant to Health Maintenance Insurance [facility] C[place] AD[place] Care Teams Server Security Administrator Relationship Specialty Start Date End Date Alexus Henderson MD [address] [place] [address] PCP - General Family Medicine 01/23/24 Adwoa Hughes PharmD [address] [place] [address] Pharmacist Internal Medicine 12/10/24
== END 2025-02-06 12:02 | disposition home or self-care (01) ==
LOC: HO.HOS 11:36
PROVIDERS: PCP General Practice; Visit Provider Physician Assistant
DX: M75.42 Impingement syndrome of left shoulder (principal)
CPT/HCPCS: 99024

== ENCOUNTER → 2025-02-06 11:35 | Outpatient (BNVA) | payer MEDICAID, SELFPAY | PROVIDERS: PCP General Practice; Visit Provider Physician Assistant | DX: Z47.89 Encounter for other orthopedic aftercare (principal); Z98.890 Other specified postprocedural states | CPT/HCPCS: 99212 ==

== ENCOUNTER 2025-02-17 10:05 | Outpatient (REF) | payer MEDICAID, SELFPAY ==
--- NOTE | ~2025-02-17 | XR_ITS ---
EXAMINATION: XR CHEST 2 VIEWS HISTORY: right posterior chest pain COMPARISON: Comparison is made with the prior examination dated 01/16/2025. FINDINGS: PA and lateral views of the chest are submitted. The lungs are expanded and clear. There is no pleural effusion, pneumothorax, or pulmonary vascular congestion. The heart is normal in size. The bones are intact. XR/XR chest 2V IMPRESSION: No acute cardiopulmonary abnormality. Electronically signed by: Chon San MD 02/18/2025 07:10 AM EDT
[2025-02-17 10:54] LABS: D Dimer High Sensitivity 188 NG/ML
--- OUTSIDE RECORDS SUMMARY | 2025-02-17 11:13 | XMS_ITS | Encounter Summary ---
Author Organization [employer] Address [address] [facility] 7t [place] [address] Care Team Providers Care Vice President Of Customer Service Name Role Phone Alexus Hnederson MD Primary Care Provider [phone] Adwoa Hughes PharmD Unavailable [phone] Encounter Details Date Type Department Care Team (Latest Contact Info) Description 10/03/2024 Orders Only [facility] [address] [place], [place] [phone] Alexus Henderson MD [address] [place], [place] [phone] Hypertriglyceridemia (Primary Dx); Poorly controlled type 2 [...] Description 03/03/2025 11:30 AM EDT Medication Management [facility] [address] [place] [address] Adwoa Hughes PharmD [address] [place] [address] 07/10/2025 11:00 AM EDT Office Visit [facility] [address] [place] [address] Kristie Spain, [place] [address] [place] [address] documented as of this encounter Visit Diagnoses Diagnosis Hypertriglyceridemia- Primary Pure hyperglyceridemia Poorly controlled type 2 diabetes mellitus with neuropathy ([facility]/HCC) Microalbuminuria Proteinuria documented in this encounter Additional Health Concerns Assessment Noted Time PHQ-9 Depression Total Score: 9 12/07/19 23 9:42 AM EST documented as of this encounter Care Teams Vice President Of Customer Service Relationship Specialty Start Date End Date Alexus Henderson MD [address] [place] [address] PCP - General Family Medicine 01/23/24 Adwoa Hughes, PharmD [address] [place] [address] Pharmacist Internal Medicine 12/10/24 Pipe Quintanilla Hospitality AmbassadorBi Tester 05/09/24 10/10/24 documented as of this encounter
--- OUTSIDE RECORDS SUMMARY | 2025-02-17 11:13 | XMS_ITS | Encounter Summary ---
Author Organization [employer] Address [address] [facility] [address] [place] [address] Care Team Providers Care Russian Rubber Name Role Phone Alexus Henderson MD Primary Care Provider Adwoa Hughes PharmD Unavailable [phone] Reason for Visit * Reason Comments Back Pain Encounter Details Date Type Department Care Team ([facility] st Contact Info) Description 02/17/2025 8:40 AM EDT Office Visit [facility] [address] [place] [address] Posterior chest pain (Primary Dx); Right-sided chest pain; RUQ pain; Upper back pain on right side Social History Tobacco Use Types Packs/Day Years [...] PM EST documented as of this encounter Last Filed Vital Signs Vital Sign Reading Time Taken Comments Blood Pressure 101/66 02/17/2025 8:38 AM EDT Pulse 105 02/17/2025 8:38 AM EDT Temperature 36.4 ??C (97.6 ??F) 02/17/2025 8:38 AM ED T Respiratory Rate 18 02/17/2025 8:38 AM EDT Oxygen Saturation 97% 02/17/2025 8:38 AM EDT Inhaled Oxygen Concentration - - Weight 119 kg (261 lb 6.4 oz) 02/17/2025 8:38 AM EDT Height 167.6 cm (5' 6 ) 02/17/2025 8:38 AM EDT Body Mass Index 42.19 02/17/2025 8:38 AM EDT documented in this encounter Plan of Treatment Upcoming Encounters Date Type Department Care Team (Late st Contact Info) Description 03/03/2025 11:30 AM EDT Medication Management [facility] [address] [place] [address] Adwoa Hughes, PharmD [address] [place] [address] 07/10/2025 11:00 AM EDT Office Visit [facility] [address] [place] [address] Kristie Spain, OD [address] [place] [address] Scheduled Orders Name Type Priority Associated Diagnoses Orde r Schedule D-Dimer, Quantitative Lab Routine Posterior chest pain Expected: 02/17/2025 (Approximate), Expires: 02/17/2026 XR Chest 2 Views Imaging Routine Posterior chest pain Expected: 02/17/2025, Expires: 02/17/2026 Basic Metabolic Panel Lab Routine Posterior chest pain Upper back pain on right side Expected: 02/17/2025 (Approximate), Expires: 02/17/2026 documented as of this encounter Visit Diagnoses Diagnosis Posterior chest pain- Primary Right-sided chest pain RUQ pain Abdominal pain, right upper quadrant Upper back pain on right side documented in this encounter Additional Health Concerns Assessment Noted Time PHQ-9 Depression Total Score: 9 12/07/19 23 9:42 AM EST documented as of this encounter Care Teams Russian Rubber Relationship Specialty Start Date End Date Alexus Henderson MD [address] [place] [address] PCP - General Family Medicine 01/23/24 Adwoa Hughes PharmD [address] [place] [address] Pharmacist Internal Medicine 12/10/24 documented as of this encounter
--- OUTSIDE RECORDS SUMMARY | 2025-02-17 11:13 | XMS_ITS | Encounter Summary ---
Author Organization [employer] Address [address] [facility] [address] [place] [address] Care Team Providers Care Farmworker Field Crop Name Role Phone Alexus Henderson MD Primary Care Provider [phone] Adwoa Hughes PharmD Unavailable [phone] Encounter Details Date Type Department Care Team (Late st Contact Info) Description 02/17/2025 Orders Only [facility] [address] [place], [place] [phone] Grant Araiza MD [address] [place] [address] Social History Tobacco Use Types Packs/Day Years [...] 03/03/2025 11:30 AM EDT Medication Management [facility] [address] [place] [address] Adwoa Hughes, PharmD [address] [place] [address] 07/10/2025 11:00 AM EDT Office Visit [facility] [address] [place] [place], [place] [phone] Kristie Spain, OD [address] [place] [address] documented as of this encounter Procedures Procedure Name Priority Date/Time Associated Diagnosis Comments D DIMER HIGH SENSITIVITY Routine 02/17/2025 10:18 AM EDT documented in this encounter Results * D Dimer High Sensitivity (02/17/2025 10:18 AM EDT) D Dimer High Sensitivity 188 NG/ML [facility] Comment:D-DIMER HS REFERENCE RANGENote: Our assay reports D-Dimer Units (D- DU).The cut-off value for venous thromboembolic (VTE) disease is230 ng/mL. This value has a very high negative predictivevalue when the patient has a low to moderate clinicalprobability of VTE.The upper limit of normal is 243 ng/mL. 02/17/2025 10:1 8 AM EDT 02/17/2025 10:18 AM EDT us Grant Araiza MD LAB BLOOD ORDERABLES Final Resul t [facility] [address] [place] [phone] documented in this encounter Visit Diagnoses Not on filedocumented in this encounter Additional Health Concerns Assessment Noted Time PHQ-9 Depression Total Score: 9 12/07/19 23 9:42 AM EST documented as of this encounter Care Teams Farmworker Field Crop Relationship Specialty Start Date End Date Alexus Henderson MD [address] [place] [address] PCP - General Family Medicine 01/23/24 Adwoa Hughes PharmD [address] [place] [address] Pharmacist Internal Medicine 12/10/24 documented as of this encounter
--- OUTSIDE RECORDS SUMMARY | 2025-02-17 11:13 | XMS_ITS | Encounter Summary ---
Author Organization [employer] Address [address] [facility] [address] [place] [address] Care Team Providers Care Outside Sales Professional Name Role Phone Alexus Henderson MD Primary Care Provider Adwoa Hughes PharmD Unavailable [phone] Encounter Details Date Type Department Care Team (Late st Contact Info) Description 09/09/2024 Telephone [facility] [address] [place], [place] [phone] Alexus Henderson MD [address] [place], [place] [phone] Social History Tobacco Use Types Packs/Day Years [...] 1:49 PM EDT Tc from [facility] with [facility] requesting to speak to nurse regarding lab results. Contact [facility] at [phone] ext [phone] documented in this encounter Plan of Treatment Upcoming Encounters Date Type Department Care Team (Late st Contact Info) Description 03/03/2025 11:30 AM EDT Medication Management [facility] [address] [place] [address] Adwoa Hughes, PharmD [address] [place] [address] 07/10/2025 11:00 AM EDT Office Visit [facility] [address] [place] [address] Kristie Spain OD [address] [place] [address] documented as of this encounter Visit Diagnoses Not on filedocumented in this encounter Additional Health Concerns Assessment Noted Time PHQ-9 Depression Total Score: 9 12/07/19 23 9:42 AM EST documented as of this encounter Care Teams Outside Sales Professional Relationship Specialty Start Date End Date Alexus Henderson MD [address] [place] [address] PCP - General Family Medicine 01/23/24 Adwoa Hughes, DameonD [address] [place] [address] Pharmacist Internal Medicine 12/10/24 Pipe Quintanilla Flask FitterDev Technical Mgr 05/09/24 10/10/24 documented as of this encounter
--- OUTSIDE RECORDS SUMMARY | 2025-02-17 11:13 | XMS_ITS | Encounter Summary ---
Author Organization [employer] Address [address] [facility] [address] [place] [address] Care Team Providers Care Audiovisual Lead Technician Name Role Phone Alexus Henderson MD Primary Care Provider [phone] Adwoa Hughes PharmD Unavailable [phone] Encounter Details Date Type Department Care Team (Latest Contact Info) Description 2025 Travel Social History Tobacco Use Types Packs/Day Years [...] Description 03/03/2025 11:30 AM EDT Medication Management [facility] [address] [place] [address] Adwoa Hughes PharmD [address] [place] [address] 07/10/2025 11:00 AM EDT Office Visit [facility] [address] [place], [place] [phone] Kristie Spain, OD [address] [place] [address] documented as of this encounter Visit Diagnoses Not on filedocumented in this encounter Additional Health Concerns Assessment Noted Time PHQ-9 Depression Total Score: 9 12/07/19 23 9:42 AM EST documented as of this encounter Care Teams Audiovisual Lead Technician Relationship Specialty Start Date End Date Alexus Henderson MD [address] [place] [address] PCP - General Family Medicine 01/23/24 Adwoa Hughes PharmD [address] [place] [address] Pharmacist Internal Medicine 12/10/24 documented as of this encounter
--- OUTSIDE RECORDS SUMMARY | 2025-02-17 11:13 | XMS_ITS | Clinical Summary ---
Author Organization [employer] Address [address] [facility] [address] [place] [address] Care Team Providers Care Electronics Computer Mechanic Name Role Phone Alexus Henderson MD Primary Care Provider [phone] Adwoa Hughes PharmD Unavailable [phone] Allergies No known active allergies Medications [...] per week. 10/29/20 24 Active Continuous Glucose General Laborer (FreeStyle Elsa 3 Cadet) deviceIndication s:Poorly controlled type 2 diabetes mellitus [...] 2 diabetes mellitus with neuropathy (CMS/HCC) Use 4 times daily with insulin 200 each 12/10/19 Active Biotin 5000 MCG chewable tablet Chew 2 tablets Once per day. OTC Active lidocaine (Lidoderm) 5 % patch Apply 1 patch topically Once per day. Remove & discard patch within 12 hours or as directed by MD. 30 patch 2 02/18/20 25 026 Active acetaminophen (Tylenol) 500 MG tablet Take 2 tablets (1,000 mg) by mouth every 6 (six) hours if needed for moderate pain or fever for up to 25 doses. 30 tablet 02/18/20 Active Active Problems Problem Noted Date Diagnosed [...] 01/20/2022 Overview (12/07/2022): Due to ectopic in [place]-2020 Resolved Problems Problem Noted Date Diagnosed Date Resolved Date Visit for pre-operative examination 08/28/2024 08/28/2024 History of right oophorectomy 12/07/2022 12/07/2022 Overview (12/07/2022): Pt reported on 10/02/2022, done simultaneously after having a for delivery of healthy baby boy. She reports BTL, records release requested from [facility] in homeless custodial 12/07/2022 Overview (12/07/2022): With 2 sons 15 yo and 2 mo, awaiting housing Missed period 12/06/2022 12/07/2022 Encounters Date Type Department Care Team Description 02/17/2025 8:40 AM EDT Office Visit [facility] [address] [place] [phone] Posterior chest pain (Primary Dx); Right-sided chest pain; RUQ pain; Upper back pain on right side 02/17/2025 Orders Only [facility] [address] [place] [phone] Grant Araiza MD 2025 Travel 01/31/2025 Population Health Risk Score [facility] Department [address] [phone] Provider, Population Health Generic 01/24/2025 Orders Only GENERIC EXTERNAL DATA DEPARTMENT Provider, Generic External Data 01/16/2025 Orders Only [facility] External Provider, [facility] 01/09/2025 Telephone [facility] [address] [place] [address] Kristie Spain, OD 01/09/2025 Telephone [facility] [address] [place] [address] Alexus Henderson MD recall 12/23/[address] [address] Adwoa Hughes, PharmD Prior Authorization (Precision Kassandra test stips ) 12/17/[address] [address] Adwoa Hughes, PharmD Care Coordination 12/11/[address] [address] Adwoa Hughes PharmD Prior Authorization (FreeHalton Elsa 3 CGM & precision kassandra test strips ) 11/26/2024 Orders Only GENERIC EXTERNAL DATA DEPARTMENT Provider, Generic External Data 11/25/2024 10:15 AM EST Office Visit [facility] [address] [place], [place] [phone] Priscilla Figueroa, OD Myopia of both eyes [...] Mass Index 42.19 02/17/2025 8:38 AM EDT Plan of Treatment Upcoming Encounters Date Type Department Care Team (Late st Contact Info) Description 03/03/2025 11:30 AM EDT Medication Management [facility] [address] [place] [address] Adwoa Hughes, PharmD [address] [place] [address] 07/10/2025 11:00 AM EDT Office Visit [facility] [address] [place] [address] Kristie Spain, OD [address] [facility] [address] Health Maintenance Due Date Last Done Comments [...] Additional history exists Pap Smear 04/22/2025 04/22/2022, 03/0 06/2022, 01/19/2022 Eye Exam 06/20/2025 06/20/2024, 08/0 11/2023, 06/20/2024, Additional history exists SDOH Screening 09/18/2025 09/18/2024 Diabetes: Urine Protein Screening 09/27/2025 09/27/2024, 03/11/2022, 12/30/2021 Lipid Panel 09/27/2025 09/27/2024, 12/30/2021 Tobacco Screening 02/17/2026 02/17/2025 Cervical Cancer Screening 04/22/2027 HPV/Cotest 04/22/2027 04/22/2022, [...] HIGH SENSITIVITY Routine 02/17/2025 10:18 AM EDT GLUCOSE, WHOLE BLOOD Routine 01/24/2025 11:52 AM [...] Recently Relevant to Health Maintenance Results * D Dimer High Sensitivity (02/17/2025 10:18 AM EDT) D Dimer High Sensitivity 188 NG/ML [facility] Comment:D-DIMER HS REFERENCE RANGENote: Our assay reports D-Dimer Units (D- DU).The cut-off value for venous thromboembolic (VTE) disease is230 ng/mL. This value has a very high negative predictivevalue when the patient has a low to moderate clinicalprobability of VTE.The upper limit of normal is 243 ng/mL. 02/17/2025 10:1 8 AM EDT 02/17/2025 10:18 AM EDT Grant Araiza MD LAB BLOOD ORDERABLES Final Resul t [facility] [address] [place] [phone] * (ABNORMAL) Glucose, Whole Blood (01/24/2025 11:52 AM EST) Only the most recent of3 resultswithin the time period is included. Glucose, Whole Blood 181(H) 60 - 115 mg/dL [facility] Comment:METER #: [id number] 01/24/2025 11:5 2 AM EST 01/24/2025 11:59 AM EST us Generic External Data Provider LAB BLOOD ORDERAB LES Final Result [facility] [address] [place] [phone] * XR Chest 2 Views (01/16/2025 6:31 PM EST) Anatomical Region Laterality Modality Chest Radiographic Stephy ging 01/16/2025 6:31 PM EST Narrative 01/16/2025 6:32 PM EST ? [facility] ?[address] ?[place] [id number] ?XRay Report ? Signed ? Patient: MarybelBlaire Lee ?MR#: [id number] ?? [id number] ? : 1985 ?Acct:[id number] ? Age/Sex: 39 / F ?ADM Date: 01/16/25 ? Loc: HO.XRAY ? Attending Dr: Satya Tang MD ? Ordering Physician: Satya Tang MD ?? Date of Service: 01/16/25 ?? Procedure(s): XR chest 2V ?? Accession Number(s): [id number] ? cc: Alexus Henderson; Satya Tang MD [...] DD/ 183 ? TD/TT: 01/16/25 183 ? Lead Clinical Research Coordinator: ? Procedure Note Manish Kam - 01/16/[address] [address] XRay Report Signed Patient: Marybel MatthewsGail#: [id number] : 1985Acct:[id number] Age/Sex: 39 / FADM Date: 01/16/25 Loc: HO.XRAY Attending Dr: Satya Tang MD Ordering Physician: Satya Tang MD Date of Service: 01/16/25 Procedure(s): XR chest 2V Accession Number(s): [id number] cc: Alexus Henderson; Satya Tang MD CLINICAL [...] in OV> 01/16/251831 DD/ 30 TD/TT: 01/16/251830 Lead Clinical Research Coordinator: [facility] External Provider IMG XR PROCEDURES Final Result * (ABNORMAL) POCT HGB A1C (12/10/2024 9:23 AM EST) Hemoglobin A1C 8.5(A) 4.0 - 6.0 % Blood 12/10/2024 9:23 AM EST Alexus Henderson MD POINT OF CARE TEST ENTER/EDIT ORDERABLES Final Result * Hematoxylin and Eosin Stain (11/26/2024 1:27 PM EST) 11/26/2024 1:27 PM EST 11/26/2024 2:20 PM EST Narrative [facility] - 11/28/2024 11:09 AM EST ----- ------- Name: Blaire Higgins ? Age/Sex: 39/F ? : 1985 Unit#: [id number] ?? Attend Dr: Satya Tang MD ?Re11/26/24 ?Status: DEP SDC ? Location: HO.SSS ?Disch: ? ----- ------- SPEC : [id number] ?RECD: 11/26/24 ? STATUS: ??SOUT ? REQ NUM: [id number] ? CHELSEY: 11/26/24-1326 ? SUBM DR: Satya [...] CONTINUED ON NEXT PAGE ----- ------- Name: MarybelBlaire Lee ? Age/Sex: 39/F ? : 1985 Unit#: [id number] ?? Attend Dr: Satya Tang MD ?Re11/26/24 ?Status: DEP SDC ? Location: HO.SSS ?Disch: ? ----- ------- SPEC : [id number] ?RECD: 11/26/24 ? STATUS: ??SOUT ? REQ NUM: [id number] ? CHELSEY: 11/26/24-1326 ? SUBM DR: Satya [...] Copies To: ?? Alexus Henderson ?? [address] [facility] ?? [place] [id number] ?? [phone] ?? Satya Tang MD ?? [facility] ?? [address] ?? [place] [address] ?? [phone] ----- ------- Signed (signature on file) Murray Melchor MD 11/28/241108 ? ----- ------- ? END OF REPORT ? us Generic External Data Provider LAB BLOOD ORDERAB LES Final Result [facility] [address] [facility] [place] [phone] * (ABNORMAL) Albumin, Random Urine W/Creatinine (09/27/2024 2:04 PM EST) Creatinine, Urine 147.85 mg/dL [facility] Microalbumin Urine 175.0 mg/L H [facility] Microalbum Creatinine Ratio Ur 118.3(H) <30 ug/mg cr [facility] Comment:Albumin/Creatinine R atio Reference Ranges: Normal: < 30 ug/mg creatinine Microalbuminuria: 30 - 300 ug/mg creatinineClinical Albuminuria: > 300 ug/mg creatinine Urine (Urine, Random) 09/27/2024 2:04 PM EST 09/27/2024 4:00 PM EST us Alexus Henderson MD LAB URINE ORDERABLES Final Res ult [facility] [address] [place] [phone] * (ABNORMAL) Lipid Panel, Standard (09/27/2024 2:04 PM EST) Triglycerides 584(H) <150 mg/dL [facility] Comment:Mild Lipemia.Desirab le Triglyceride: less than 150 mg/dLBorderline High Triglyceride 150-199 mg/dLHigh Triglyceride: 200-499 mg/dLVery High Triglyceride: greater than or equal to 5OO mg/dL Cholesterol 151 <200 mg/dL [facility] Comment:Desirable Cholestero l: less than 200 mg/dLBorderline High Cholesterol: 200-239 mg/dLHigh Cholesterol: greater than 239 mg/dL LDL Cholesterol Calculated TNP <100 mg/dL [facility] Comment:Unable to calculate the LDL. The formula of Friedwald,Florence, and Daya is only valid if the triglycerides areless than 400 mg/dl. HDL Cholesterol 26(L) >40 mg/dL [facility] Comment:Desirable HDL: great er than 40 mg/dL Note: This HDL assay may give artificially low results in patients with liver disease. Blood Venous blood specimen / Unknown 09/27/2024 2:04 PM EST 09/27/2024 4:01 PM EST Alexus Henderson MD LAB BLOOD ORDERABLES Final Res ult Performing Organization Address City/[facility]/ZIP Co de Phone Number [facility] [address] [place] [phone] [phone] * Hm Pap Smear (04/22/2022) Pap Negative for intraephithelial lesion or malignancy Negative for intraephithelial lesion or malignancy, Other HPV Not Detected Undetected, Indeterminate, Quantitative, Not Detected Historical Provider HEALTH MAINTENANCE Final Result * HEPATITIS C AB W/REFL TO HCV RNA, QN, PCR (12/30/2021 8:14 AM EST) HEPATITIS C ANTIBODY NON-REACT AYAH NON-REACT AYAH [facility] INDEX 0.20 <1.00 [facility] Comment: ?? HCV antibody was non-reactive. There is no laboratory ?? evidence of HCV infection. ?? In most cases, no further action is required. However, if recent HCV exposure is suspected, a test for HCV RNA (test code 31502) is suggested. ?? For additional information please refer to http://education.[employer]/faq/GIY54a4 (This link is being provided for informational/ educational purposes only.) ?? 12/30/2021 8:14 AM EST Nishi Harris DIORAMIST HISTORICAL/NON ORDERABLE LABS Final Result Performing Organization Address City/[facility]/ZIP Co de Phone Number [facility] [address] * HIV 1/2 ANTIGEN/ANTIBODY,FOURTH GENERATION W/RFL (12/30/2021 8:14 AM EST) HIV-1/2 ANTIGEN AND ANTIBODIES, 4TH GENERATION W/ REFLEX NON-REACT AYAH NON-REACT AYAH [facility] Comment: HIV-1 antigen and HIV-1/HIV-2 [...] ? For additional information please refer to http://education.[employer]/faq/ANY747 (This link is being provided for informational/ educational purposes only.) ? The performance of this assay has not been clinically validated in patients less than 2 years old. ?? 12/30/2021 8:14 AM EST us Nishi Harris DIORAMIST LAB BLOOD ORDERABLES Final Res ult Performing Organization Address City/State/[facility] Co de Phone Number [facility] [address] from Last 3 Months or Most Recently Relevant to Health Maintenance Insurance [employer] C3 [employer]ENTAL-[employer] MEDICAID STAND ADULT Care Teams Electronics Computer Mechanic Relationship Specialty Start Date End Date Alexus Henderson MD [address] [place] [address] PCP - General Family Medicine 01/23/24 Adwoa Hughes PharmD [address] [place] [address] Pharmacist Internal Medicine 12/10/24
[2025-02-17 11:26] LABS: Anion Gap 11 (12-20); Blood Urea Nitrogen 21 mg/dL (9-16); Calcium 9.2 mg/dL (8.4-10.2); Carbon Dioxide 25 mmol/L (22-29); Chloride 107 mmol/L (96-108); Estimated Glomerular Filt Rate > 60; Glucose Random 145 mg/dL (60-115); Potassium 3.9 mmol/L (3.3-5.1); Sodium 139 mmol/L (135-145)
== END 2025-02-17 10:06 | disposition home or self-care (01) ==
LOC: HO.XRAY 10:05
PROVIDERS: PCP General Practice; Visit Provider Emergency Medicine
DX: R07.89 Other chest pain (principal); M54.9 Dorsalgia, unspecified
CPT/HCPCS: 36415; 71046; 80048; 85379

== ENCOUNTER → 2025-02-17 10:23 | Outpatient (BNV) | payer MEDICAID, SELFPAY | PROVIDERS: PCP General Practice; Visit Provider Radiology Diagnostic Radiology | DX: R07.89 Other chest pain (principal) | CPT/HCPCS: 71046 ==

== ENCOUNTER 2025-03-06 09:18 | Outpatient (AMB) | payer MEDICAID, SELFPAY ==
--- NOTE | 2025-03-06 09:26 | A.OFFVIS_ITS ---
Vital Signs 03/06/25 09:29 Height 5 ft 9 in Weight 257 lb BMI 37.9 Intake Visit Reasons: PO-Lt Shld 01/24/25 Intake Note: Blaire is a 40 year old female who presents today post-operatively after undergoing a left shoulder arthroscopy on 01/24/25. Patient reports she continues to have discomfort despite taking Tylenol. Patient states she ran out of her Oxycodone. She admits she is not keeping up with her excercises due to the pain. She wishes to go to formal physical therapy. Printed Circuit Board Drafter Required: Yes Printed Circuit Board Drafter Language: Offset Proof Press Operator Name: AndreaVALENTINA haskins/MORRIS Allergies No Known Allergies Allergy (Verified 03/06/25 09:29) Medication List - Last Reconciled 03/06/25 by Adiel Ramos MD atorvastatin (Lipitor) 20 mg PO DAILY blood sugar diagnostic (FreeStyle Lite Strips) As directed buspirone 7.5 mg PO BID empagliflozin (Jardiance) 10 mg PO DAILY insulin glargine (Lantus Solostar U-100 Insulin) 20 units subcut QAM insulin lispro 38 units subcut QAM ketorolac 10 mg PO TID PRN 5 days metformin 1,000 mg PO BID naproxen 500 mg PO BID PRN nifedipine ER (Procardia XL) 60 mg PO DAILY oxycodone 5 mg PO Q12H PRN 7 days pantoprazole 40 mg PO DAILY sertraline 100 mg PO DAILY PFSH Medical History Pre-eclampsia affecting childbirth Depression DJD (degenerative joint disease) Hypertension Hyperlipidemia Insulin dependent diabetes mellitus type IA Morbid obesity Obstructive sleep apnea hypopnea, mild Surgical History History of left oophorectomy Hx of section H/O tubal ligation Hx of cholecystectomy Family History Father Diabetes Hypertension Schizophrenia Sister No problems noted. Mother Diabetes Hypertension Son Autism Son No problems noted. Social History Household Members Other:: 2 minor children Housing Other:: 1st floor appt in multi family house Are you a primary residential caregiver to a significant other at home: No Do you presently have visiting nurse or other home services: No Alcohol intake: never Patient Tobacco Use Status: Never used Tobacco Physical Exam Vital Signs: BMI result Body Mass Index 37.9 Extrem Other: Left shoulder examination shows that the surgical incisions are well healed, no erythema, decreased active and passive range of motion when compared to her right shoulder, mild to moderate discomfort with range of motion Assessment & Plan Assessment & Plan (1) Impingement syndrome of left shoulder: Code(s): M75.42 - Impingement syndrome of left shoulder Category: Medical Plan Blaire continues to do fairly well after undergoing left shoulder arthroscopic surgery on 01/24/2025. I did refill her prescription for oxycodone. I also gave her a prescription to go to formal physical therapy here at [facility]. The do's and don'ts of lifting were discussed at length with the patient. She will contact me prior to her follow-up appointment in 2 months should any questions or concerns arise. Feel free to call me at any time should questions regarding her orthopedic management arise. Orders: Orders PT Evaluation and Treatment Today M75.42 - Impingement syndrome of left shoulder Medications: New oxycodone Partial Fill upon patient request. 5 mg PO Q8H PRN 30 tabs 0RF pain Coding Level of Care Code Global (47869) Diagnoses Impingement syndrome of left shoulder M75.42
[2025-03-06 09:29] VITALS: BMI 37.9
== END 2025-03-06 09:46 | disposition home or self-care (01) ==
LOC: HO.HOS 09:19
PROVIDERS: PCP General Practice; Visit Provider Orthopaedic Surgery
DX: M75.42 Impingement syndrome of left shoulder (principal)
CPT/HCPCS: 99024

== ENCOUNTER → 2025-03-06 09:18 | Outpatient (BNVA) | payer MEDICAID, SELFPAY | PROVIDERS: PCP General Practice; Visit Provider Orthopaedic Surgery | DX: Z47.89 Encounter for other orthopedic aftercare (principal); Z98.890 Other specified postprocedural states | CPT/HCPCS: 99212 ==

== ENCOUNTER 2025-07-23 10:20 | Emergency (ER) | payer MEDICAID, SELFPAY ==
--- NOTE | ~2025-07-23 | CT_ITS ---
EXAMINATION: CT ABDOMEN AND PELVIS WITH CONTRAST CLINICAL INFORMATION: LLQ pain, hx of oophorectomy COMPARISON: June 17, 2024 TECHNIQUE: Multidetector volumetric images were obtained from the superior aspect of the liver through the pubic symphysis following administration 85 mL of Omnipaque 350 intravenous contrast. Sagittal and coronal reformatted images were obtained on the technologist's workstation. Oral contrast: No This CT examination was performed using dose optimization techniques as appropriate, variously including the following: *Automated exposure control *Adjustment of mA and/or kV according to patient size (this includes techniques or standardized protocols for targeted exams where dose is matched to indication/reason for exam; i.e. extremities or head) *Use of iterative reconstruction technique DLP: 1165 mGY*cm FINDINGS: LUNG BASES: Patchy opacities are present in the lung bases, similar to the prior and likely related to atelectasis. LIVER, GALLBLADDER, AND BILIARY TREE: The liver is normal in size, shape, and attenuation. No focal hepatic lesion or biliary ductal dilatation is present. Gallbladder surgically absent. There are clips in the gallbladder fossa. There is no biliary ductal dilation. PANCREAS: Unremarkable. SPLEEN: Unremarkable. ADRENAL GLANDS: Unremarkable. KIDNEYS AND URETERS: The kidneys are normal in size, shape, and attenuation. No hydronephrosis, hydroureter, or calculi seen. No perinephric stranding. BLADDER: Unremarkable. GASTROINTESTINAL TRACT: Surgical clip is noted in the left hemipelvis, posterior to the distal descending colon. A few scattered pseudodiverticula are noted in the colon. Normal muscle gas-filled appendix is identified. ABDOMINAL WALL: Small umbilical hernia containing fat density is again seen. LYMPH NODES: Normal. VASCULAR: Unremarkable. PELVIC VISCERA: Right ovary is unremarkable. The uterus is unremarkable. There is a stable 2 cm cyst near the left isthmus. Left ovary is reported as surgically absent. Left ovarian tube is probably visualized containing a small amount of fluid. OSSEOUS STRUCTURES: Unremarkable. CT/CT abdomen pelvis w IV con IMPRESSION: Diverticulosis, no sign of infection. Small umbilical hernia contains fat. Single 2 cm simple appearing cyst in the left isthmus. Soft tissue in the region of left isthmus likely represents ovarian tube remnant possibly containing fluid. Fleischner guidelines were followed. Electronically signed by: Xu Antonio MD 07/23/2025 12:42 PM EDT
--- OUTSIDE RECORDS SUMMARY | 2025-07-23 09:20 | XMS_ITS | Encounter Summary ---
Author Organization [employer] Address [address] [place] [address] Care Team Providers Care Wink Cutter Operator Name Role Phone Alexus Henderson MD Primary Care Provider [phone] Adwoa Hughes PharmD Unavailable [phone] Reason for Visit * Reason Comments Abdominal Pain Left Encounter Details Date Type Department Care Team ([facility] st Contact Info) Description 07/23/2025 9:20 AM EDT Office Visit [facility] [address], [place] [id number] [facility] [address] [place] [address] Acute pelvic pain, female (Primary Dx) Social History Tobacco Use Types Packs/Day Years [...] Sign Reading Time Taken Comments Blood Pressure 108/72 07/23/2025 9:15 AM EDT Pulse 88 07/23/2025 9:15 AM EDT Temperature 36.7 C (98 F) 07/23/2025 9:15 AM EDT Respiratory Rate 18 07/23/2025 9:15 AM EDT Oxygen Saturation 98% 07/23/2025 9:15 AM EDT Inhaled Oxygen Concentration - - Weight 117 kg (257 lb) 07/23/2025 9:15 AM EDT Height - - Body Mass Index 37.95 05/02/2025 10:50 AM EDT documented in this encounter Progress Notes * [facility], [facility] - 07/23/2025 9:20 AM EDT SUBJECTIVE: Blaire Matthews is a 40 y.o. year old female with T2DM, HTN, depression, who presents for evaluation of acute pelvic pain HPI Pt reports abrupt onset of sharp, non-radiating, 10/10 left pelvic pain x 1 day. Took tylenol approx 6:30 am w/o relief Denies n/v/d/fever/chills LMP: beginning of June. no current BC. Sexually active with AMAB partner Reports remote hx of surgery for left ectopic in [place] Problem List[1] Review of Systems Constitutional: Negative for fatigue, fever and unexpected weight change. Eyes: Negative for visual disturbance. Respiratory: Negative for apnea, chest tightness and shortness of breath. Cardiovascular: Negative for chest pain, palpitations and leg swelling. Gastrointestinal: Negative for constipation, diarrhea, nausea and vomiting. Genitourinary: Positive for pelvic pain. Negative for difficulty urinating, dyspareunia, dysuria, flank pain and hematuria. Neurological: Negative for dizziness, light-headedness and headaches. OBJECTIVE: Vitals: 07/23/25 0915 BP: 108/72 Pulse: 88 Resp: 18 Temp: 98 ??F (36.7 ??C) SpO2: 98% Physical Exam Exam conducted with a ocean fishing guide present. Constitutional: General: She is not in acute distress. Appearance: Normal appearance. HENT: Head: Normocephalic and atraumatic. Right Ear: External ear normal. Left Ear: External ear normal. Nose: Nose normal. Eyes: Conjunctiva/sclera: Conjunctivae normal. Cardiovascular: Rate and Rhythm: Normal rate and regular rhythm. Heart sounds: Normal heart sounds. Pulmonary: Effort: Pulmonary effort is normal. Breath sounds: Normal breath sounds. Abdominal: General: Bowel sounds are normal. There is no distension. Palpations: Abdomen is soft. There is no mass. Tenderness: There is no abdominal tenderness. Genitourinary: Comments: Significant tenderness to palpation over left pelvic region Skin: General: Skin is warm and dry. Neurological: General: No focal deficit present. Mental Status: She is alert and oriented to person, place, and time. Psychiatric: Mood and Affect: Mood normal. Behavior: Behavior normal. ASSESSMENT/PLAN - test negative in office - UA with + glucose c/w SGLT2i use; elevated specific gravity - Pt declines pelvic exam - Advised ED evaluation for imaging and pain management - Pt was provided with UBER; expect called to [facility] ED - Follow up with PCP pending [facility] ED eval Diagnosis Plan 1. Acute pelvic pain, female Follow Up: 2 weeks, PCP Medications Ordered Prior to Encounter[2] Danish Translation: Provided by [facility] staff member [1] Patient Active Problem List Diagnosis Atypical squamous cells of undetermined significance (ASCUS) on Papanicolaou smear of cervix Chronic back pain Diabetic peripheral neuropathy (CMS/HCC) Essential hypertension History of left oophorectomy Hypertriglyceridemia Poorly controlled type 2 diabetes mellitus with neuropathy (CMS/HCC) Hx of tubal ligation Sleep apnea Knee pain Anemia Anxiety History of depression History of pre-eclampsia Preop cardiovascular exam Major depressive disorder, single episode, severe with psychotic features ([facility]) Microalbuminuria Torticollis, acute Acute neck pain [2] Current Outpatient Medications on File Prior to Visit Medication Sig Dispense Refill Alcohol Swabs (Alcohol Prep) 70 % pads USE 4 TIMES DAILY PRIOR TO INSULIN INJECTION 200 each 11 atorvastatin (Lipitor) 20 MG tablet Take 1 tablet (20 mg) by mouth Once per day. 90 tablet 3 Biotin 5000 MCG chewable tablet Chew 2 tablets Once per day. OTC busPIRone (Buspar) 7.5 MG tablet Take 7.5 mg by mouth 2 times daily. Continuous Glucose Transport Assistant (FreeStyle Elsa 3 [place]) device 1 each 3 times daily. Use daily as directed for CGM (Patient not taking: Reported on 04/30/2025) 1 each 0 Continuous Glucose Sensor (FreeStyle Elsa 3 Plus Sensor) misc 1 each Once per day. Apply 1 sensor every 15 days as directed for CGM (Patient not taking: Reported on 04/30/2025) 2 each 11 cyclobenzaprine (Flexeril) 10 MG tablet Take 1 tablet (10 mg) by mouth 3 times daily for 10 days. 30 tablet 0 Dulaglutide (Trulicity) 1.5 MG/0.5ML solution auto-injector Inject 1.5 mg under the skin 1 (one) time per week. 2 mL 11 empagliflozin-metFORMIN (Synjardy) 12.5-1000 MG Take 1 tablet by mouth with breakfast and with evening meal. 60 tablet 11 glucose blood (FreeStyle Precision Bear Test) test strip Use to test blood sugar up to 3 times daily, as directed 100 each 11 insulin degludec (Tresiba FlexTouch) 200 UNIT/ML injection Inject 10 units subQ once daily. Increase to 20 units daily as directed 9 mL 5 insulin lispro (HumaLOG) 100 UNIT/ML injection INJECT 38 UNITS SUBCUTANEOUSLY BEFORE BREAKFAST, 35 UNITS BEFORE LUNCH AND 22 UNITS BEFORE SUPPER DIRECTED 30 mL 11 insulin pen needle (Pentips) 32G x 4 mm misc Use 4 times daily with insulin 200 each 11 lidocaine (Lidoderm) 5 % patch APPLY 1 PATCH TOPICALLY TO SKIN, LEAVE ON FOR 12 HOURS AND OFF FOR 12 HOURS DIRECTED 30 patch 2 naproxen (Naprosyn) 500 MG tablet TAKE 1 TABLET BY MOUTH TWICE DAILY WITH BREAKFAST AND EVENING MEALS 90 tablet 3 NIFEdipine XL (Procardia XL) 30 MG 24 hr tablet Take 1 tablet (30 mg) by mouth Once per day. 90 tablet 3 polyethylene glycol, PEG, 3350 (Glycolax) 17 GM/SCOOP powder Mix 17g (1 capful) in 8 ounces of water and take by mouth every day 510 g 3 sertraline (Zoloft) 100 MG tablet Take 1 tablet (100 mg) by mouth Once per day. 90 tablet 3 traZODone (Desyrel) 50 MG tablet TAKE 1 TABLET EVERY NIGHT AT BEDTIME NEEDED TRUEplus Lancets 33G [facility] [place]SE TO TEST BLOOD SUGAR UP TO THREE TIMES DAILY DIRECTED 100 each 11 No current facility-administered medications on file prior to visit. documented in this encounter Miscellaneous Notes * Addendum Note - Omar Sidhu [place] - 07/23/2025 9:20 AM EDTAddended by: OMAR SIMON on: 07/23/2025 09:52 AM Modules accepted: Orders documented in this encounter Plan of Treatment Upcoming Encounters Date Type Department Care Team (Late st Contact Info) Description 07/30/2025 10:00 AM EDT Medication Management [facility] [address] [place] [address] Adwoa Hughes PharmD [address] [place] [address] documented as of this encounter Procedures Procedure Name Priority Date/Time Associated Diagnosis Comments POCT , URINE Routine 07/23/2025 9:52 AM EDT Acute pelvic pain, female POCT URINALYSIS DIPSTICK Routine 07/23/2025 9:49 AM EDT Acute pelvic pain, female documented in this encounter Results * POCT , urine manually resulted (07/23/2025 9:52 AM EDT) Preg Test, Ur Negative Negative, Indeterminate, None Detected, Invalid, Specimen unsatisfactory for evaluation, Weakly Positive, 2+ Urine 07/23/2025 9:52 AM EDT [facility] POINT OF CARE TEST ENTER/EDIT ORDERABLES Final Result * POCT urinalysis dipstick manually resulted (07/23/2025 9:49 AM EDT) Color, UA Yellow Comment:Dark Clarity, UA Cloudy Glucose, UA 4+ >500 Comment:1000mg Bilirubin, UA Few 15 Ketones, UA Positive Comment:Trace Spec Grav, UA 1.030 Blood, UA Negative Negative, None Detected pH, UA 5.5 Protein, UA 2+ 125++ Comment:100mg Urobilinogen, UA 1.0 Leukocytes, UA Trace Negative, Rare, Trace Nitrite, UA Negative Negative, None Detected Appearance, UA OK Urine 07/23/2025 9:49 AM EDT [facility] POINT OF CARE TEST ENTER/EDIT ORDERABLES Final Result documented in this encounter Visit Diagnoses Diagnosis Acute pelvic pain, female- Primary documented in this encounter Additional Health Concerns Assessment Noted Time PHQ-9 Depression Total Score: 9 12/07/19 23 9:42 AM EST documented as of this encounter Care Teams Wink Cutter Operator Relationship Specialty Start Date End Date Alexus Henderson MD [address] [place] [address] PCP - General Family Medicine 01/23/24 Adwoa Hughes PharmD [address] [place] [address] Pharmacist Internal Medicine 12/10/24 documented as of this encounter
--- NOTE | 2025-07-23 10:28 | ED.ABDPAIN ---
HPI - Abdominal Pain General Chief Complaint: Abdominal Pain Stated Complaint: sent for US of lower abd Time Seen by Provider: 07/23/25 11:08 Source: patient Mode of arrival: ambulatory Limitations: language barrier History of Present Illness ED Provider: HPI narrative: 40-year-old woman with history of left-sided oophorectomy, presenting from for left lower quadrant pain and request for ultrasound, no vaginal bleeding or discharge, this pain started earlier today not associated with nausea or vomiting vaginal bleeding or discharge. Related Data Home Medications ?Medication ?Instructions ?Recorded ?Confirmed blood sugar diagnostic (FreeStyle #10 ea 04/28/23 03/06/25 Lite Strips) insulin glargine 100 unit/mL (3 20 unit subcut QAM 04/28/23 03/06/25 mL) subcutaneous pen (Lantus Solostar U-100 Insulin) insulin lispro 100 unit/mL 38 unit subcut QAM 04/28/23 03/06/25 subcutaneous pen metformin 500 mg tablet 1,000 mg PO BID 04/28/23 03/06/25 sertraline 100 mg tablet 100 mg PO DAILY 04/28/23 03/06/25 buspirone 7.5 mg tablet 7.5 mg PO BID 10/01/24 03/06/25 naproxen 500 mg tablet 500 mg PO BID PRN moderate pain 10/01/24 03/06/25 atorvastatin 20 mg tablet (Lipitor) 20 mg PO DAILY 10/24/24 03/06/25 empagliflozin 10 mg tablet 10 mg PO DAILY 10/24/24 03/06/25 (Jardiance) nifedipine 60 mg tablet,extended 60 mg PO DAILY 10/24/24 03/06/25 release 24 hr (Procardia XL) Previous Rx's ?Medication ?Instructions ?Recorded ketorolac 10 mg tablet 10 mg PO TID PRN pain 5 days #15 06/17/24 tabs oxycodone 5 mg tablet 5 mg PO Q12H PRN pain 7 days #14 02/06/25 tabs pantoprazole 40 mg tablet,delayed 40 mg PO DAILY #90 tabs 03/05/25 release oxycodone 5 mg tablet 5 mg PO Q8H PRN pain #30 tabs 03/06/25 Allergies Allergy/AdvReac Type Severity Reaction Status Date / Time No Known Allergies Allergy Verified 07/23/25 10:31 Review of Systems Constitutional: Reports as per [facility] Past Medical History Medical History Pre-eclampsia affecting childbirth Depression DJD (degenerative joint disease) Hypertension Hyperlipidemia Insulin dependent diabetes mellitus type IA Morbid obesity Obstructive sleep apnea hypopnea, mild Surgical History History of left oophorectomy Hx of section H/O tubal ligation Hx of cholecystectomy Family History Family History Father Diabetes Hypertension Schizophrenia Sister No problems noted. Mother Diabetes Hypertension Son Autism Son No problems noted. Social History Social History Household Members Other:: 2 minor children Housing Other:: 1st floor appt in multi family house Are you a primary health care technician to a significant other at home: No Do you presently have visiting nurse or other home services: No Unable to assess alcohol history related to: Unknown Alcohol intake: never Patient Tobacco Use Status: Never used Tobacco Smoked in Last 30 Days: No Use of substances other than those prescribed or required for medical reasons: Unknown Advance Directives: No Advance Directives Information Provided: Yes Do you have a plan to hurt others: No Plan Patient : No Physical Exam ED Vital Signs: Vital Signs - 24 hr 07/23/25 10:29 Temperature 96.8 F Pulse Rate 80 Respiratory Rate 18 Blood Pressure 125/63 Pulse Oximetry 97 Oxygen Delivery Method Room Air BMI result Body Mass Index 40.6 Const Other: Gen: Increased BMI, appears older than stated age HEENT: PERRLA, EOMI, MMM, Neck: Supple, no LAD CV: RRR, no obvious murmurs appreciated Resp: ?No wheezing rales rhonchi no stridor moving air well Abd: ?Bowel sounds are present, obese abdomen, isolated left lower quadrant tenderness no rebound no rigidity MSK: FROM, strength 5/5 all extremities Skin: Warm, dry, intact, Neuro: ?Alert and oriented x3, moving upper and lower extremities symmetrically, no obvious facial asymmetry noted Course Course Course Narrative: This is a Rapid Medical Examination (RME) performed by Susie Mckinley PA-C in triage. Full HPI, ROS, assessment and treatment plan per primary provider in the Main ED. Hx: 40 yo F hx of HTN, HLD, SHAHBAZ, MDD here for eval of LLQ pain on waking this morning. no N/V/D, urinary sx. hx of cholecystectomy and tubal ligation. PE/vitals: obese abd, soft, ND, ttp of LLQ without rebound or guarding Plan: labs, UA - will defer imaging Medical Decision Making Medical Decision Making [facility] Narrative: Patient has history of left-sided oophorectomy and this is where her pain is, did not feel that ultrasound imaging is indicated, my consideration is whether patient has diverticulitis, and if there is anything obvious abnormal with her ovaries we will go ahead when ultrasound, I do not suspect he the , or ovarian torsion based on her presentation she is quite comfortable 13:16 discussed discharge instructions and CT findings with the patient Differential Diagnosis Differential Diagnoses: The differential diagnosis associated with the presentation includes (Diverticulitis, colitis, ovarian cyst, ovarian torsion, tubo-ovarian abscess, renal colic) Admission/Observation Consideration of admission/observation: Escalation of care including admission/observation considered Lab Data [facility] Lab Attestation statement: I reviewed the patient's lab results. 07/23/25 11:10 07/23/25 11:10 Labs: Lab Results 07/23/25 07/23/25 Range/Units 11:10 11:40 WBC 13.7 H (4.8-10.8) X10*3/uL RBC 5.15 (4.20-5.50) X10*6/uL Hgb 14.3 (12.0-16.0) g/dl Hct 42.2 (37.0-47.0) % MCV 81.9 (80.0-98.0) fL MCH 27.8 (27.0-33.0) pg MCHC 33.9 (31.0-35.0) g/dl RDW 12.4 (11.0-16.0) % Plt Count 295 (160-400) X10*3/uL MPV 9.5 (9.4-12.3) fL Immature Gran % (Auto) 0.6 H (0.0-0.4) % Neut % (Auto) 57.3 (45-73) % Lymph % (Auto) 33.6 (20-40) % [place] % (Auto) 6.0 (2-11) % Eos % (Auto) 2.3 (0-4) % Baso % (Auto) 0.2 (0-2) % Lymph # (Auto) 4.6 (1.2-4.9) X10*3/uL [place] # (Auto) 0.8 (0.1-1.2) X10*3/uL Eos # (Auto) 0.3 (0.0-0.4) X10*3/uL Baso # (Auto) 0.0 (0.0-0.2) X10*3/uL Abs Immat Gran (auto) 0.08 H (0.00-0.03) X10*3/uL Absolute Neuts (auto) 7.8 (2.0-8.3) x10*3/uL Absolute Nucleated RBC 0.000 (0.0-0.012) X10*3/uL Nucleated RBC % (auto) 0.0 (0.0-0.2) /100WBC Sodium 138 (135-145) mmol/L Potassium 3.9 (3.3-5.1) mmol/L Chloride 106 (96-108) mmol/L Carbon Dioxide 26 (22-29) mmol/L Anion Gap 10 L (12-20) BUN 12 (9-16) mg/dL Creatinine 0.71 (0.5-1.4) mg/dL Estim Creat Clear Calc 147.5 Estimated GFR > 60 Random Glucose 100 (60-115) mg/dL Calcium 9.1 (8.4-10.2) mg/dL Magnesium 2.0 (1.6-2.6) mg/dL Total Bilirubin 1.0 (0.0-1.0) mg/dL AST 23 (5-31) U/L ALT 12 (0-31) U/L Alkaline Phosphatase 58 (39-117) U/L Total Protein 8.5 H (6.5-8.0) g/dL Albumin 4.4 (3.5-5.0) g/dL Lipase 38 (8-78) U/L Urine Color Dark Yellow Urine Appearance Clear Urine pH 5.5 (5.0-9.0) Ur Specific Hoagland >= 1.030 H (1.005-1.025) Urine Protein 30 (1+) H (Neg-Trace) mg/dL Urine Glucose (UA) >=1000 H (Negative) mg/dL Urine Ketones Trace (Negative) mg/dL Urine Blood Negative (Negative) Urine Nitrite Negative (Negative) Ur Leukocyte Esterase Small (1+) H (Negative) Urine RBC 0-2 (0-2) /HPF Urine WBC 21-50 H (0-5) /HPF Ur Squamous Epith Cells 11-20 (0-2) /HPF Urine Bacteria 4+ (None Seen) Hyaline Casts 0-2 (0-2) /LPF Urine Test NEGATIVE (NEGATIVE) Radiology Impression Discussion of test interpretation with radiology: I have reviewed the radiologist's reading. (Diverticulosis, no sign of infection. Small umbilical hernia contains fat. Single 2 cm simple appearing cyst in the left isthmus. Soft tissue in the region of left isthmus likely represents ovarian tube remnant possibly containing fluid.) Prescription Management I considered prescription management with: Pain Medication and Antibiotic Medications Administered Discontinued Medications Generic Name Dose Route Start Last Admin Trade Name Freq PRN Reason Stop Dose Admin Iohexol 100 ml 07/23/25 12:08 07/23/25 12:11 Iohexol 350 Mg/Ml 100 Ml Infus..Btl IV 07/23/25 12:09 85 ml ONCE ONE Administration Ketorolac Tromethamine 15 mg 07/23/25 11:46 07/23/25 12:04 Ketorolac Tromethamine 15 Mg/Ml Vial IVPUSH 07/23/25 11:47 15 mg ONCE ONE Administration Discharge Plan Discharge Clinical Impression: Left lower quadrant abdominal pain Patient Disposition: Home, Self-Care Instructions: Abdominal Pain (ED) Additional Instructions: You have had history of left ovary excision, there is a small remnant to which the ovary has been attached and there was a small cyst that is possibly causing your issues, this is something to speak to your supervisory examiner about if this continues to be a problem but it is not like an ovarian cyst and that is not going to cause an ovary to be twisted because you do not have an ovary there, you can take ibuprofen 400 mg every 6 hours needed for pain and inflammation warm compresses to the area, and additional Tylenol if needed, follow up with the PCP, CAT scan shows diverticulosis without diverticulitis, your blood work urinalysis otherwise reassuring see my discharge instructions for abdominal pain instructions and return precautions there any other issues concerns come back to the ER Prescriptions: No Action pantoprazole 40 mg tablet,delayed release (DR/EC) 40 mg PO DAILY Qty: 90 0RF ketorolac 10 mg tablet 10 mg PO TID PRN (Reason: pain) 5 Days Qty: 15 0RF buspirone 7.5 mg tablet 7.5 mg PO BID naproxen 500 mg tablet 500 mg PO BID PRN (Reason: moderate pain) nifedipine [Procardia XL] 60 mg tablet extended release 24hr 60 mg PO DAILY atorvastatin [Lipitor] 20 mg tablet 20 mg PO DAILY Jardiance 10 mg tablet 10 mg PO DAILY sertraline 100 mg tablet 100 mg PO DAILY metformin 500 mg tablet 1,000 mg PO BID insulin glargine [Lantus Solostar U-100 Insulin] 100 unit/mL (3 mL) insulin pen 20 unit subcut QAM insulin lispro 100 unit/mL insulin pen 38 unit subcut QAM Rx Instructions: 38 units qam, 35 units at 12 noon, 22 units qpm (DME) FreeStyle Lite Strips Strip See Rx Instructions .ROUTE TID Qty: 10 Rx Instructions: As directed oxycodone 5 mg tablet 5 mg PO Q12H PRN (Reason: pain) 7 Days Qty: 14 0RF Rx Instructions: Partial Fill upon patient request. Take 1-2 tabs every 4 hours as needed for pain following her left shoulder surgery. oxycodone 5 mg tablet 5 mg PO Q8H PRN (Reason: pain) Qty: 30 0RF Rx Instructions: Partial Fill upon patient request. Print Language: Turkish
[2025-07-23 10:29] VITALS: BP 125/63; PULSE 80; RESP 18; TEMP 36; O2SAT 97; BMI 40.6
[2025-07-23 11:15] LABS: MANUAL DIFF FLAG NO
[2025-07-23 11:17] LABS: Hematocrit 42.2 % (37.0-47.0); Hemoglobin 14.3 g/dl (12.0-16.0); Imm Gran Abs Auto 0.08 X10*3/uL (0.00-0.03); Imm Gran Pct Auto 0.6 % (0.0-0.4); Lymphocytes Absolute Auto 4.6 X10*3/uL (1.2-4.9); Mean Corpuscular HGB Conc 33.9 g/dl (31.0-35.0); Mean Corpuscular Hemoglobin 27.8 pg (27.0-33.0); Mean Corpuscular Volume 81.9 fL (80.0-98.0); NRBC Abs Auto 0.000 X10*3/uL (0.0-0.012); NRBC Pct Auto 0.0 /100WBC (0.0-0.2); Platelet Count 295 X10*3/uL (160-400); Red Blood Count 5.15 X10*6/uL (4.20-5.50); White Blood Count 13.7 X10*3/uL (4.8-10.8)
[2025-07-23 11:37] LABS: Alanine Aminotransferase 12 U/L (0-31); Albumin Level 4.4 g/dL (3.5-5.0); Alkaline Phosphatase 58 U/L (39-117); Anion Gap 10 (12-20); Aspartate Amino Transferase 23 U/L (5-31); Blood Urea Nitrogen 12 mg/dL (9-16); Calcium 9.1 mg/dL (8.4-10.2); Carbon Dioxide 26 mmol/L (22-29); Chloride 106 mmol/L (96-108); Creatinine Clr Calc Pharmacy 147.5; Estimated Glomerular Filt Rate > 60; Lipase 38 U/L (8-78); Magnesium 2.0 mg/dL (1.6-2.6); Potassium 3.9 mmol/L (3.3-5.1); Sodium 138 mmol/L (135-145); Total Protein 8.5 g/dL (6.5-8.0)
[2025-07-23 11:48] LABS: UPreg QC Valid YES
[2025-07-23 11:50] LABS: Appearance Urine Clear; Glucose Urine UA >=1000 mg/dL (Negative); PH 5.5 (5.0-9.0); Specific Gravity - Urine >= 1.030 (1.005-1.025); UMIC TRIGGER UACC YES
[2025-07-23 11:52] LABS: UACC Culture Trigger YES
[2025-07-23] MEDS: iohexoL 350 MG/ML 100 ML INFUS..BTL IV (12:11)
[2025-07-23 13:55] VITALS: BP 125/63; PULSE 80; RESP 18; TEMP 36; O2SAT 97
--- OUTSIDE RECORDS SUMMARY | 2025-07-23 14:14 | XMS_ITS | Encounter Summary ---
Author Organization [employer] Address [address] [place] [address] Care Team Providers Care Grease Press Helper Name Role Phone Alexus Henderson MD Primary Care Provider [phone] Adwoa Hughes PharmD Unavailable [phone] Encounter Details Date Type Department Care Team (Latest Contact Info) Description 07/23/2025 Travel Social History Tobacco Use Types Packs/Day [...] Description 07/30/2025 10:00 AM EDT Medication Management [facility] [address] [place] [address] Adwoa Hughes PharmD [address] [place] [address] documented as of this encounter Visit Diagnoses Not on filedocumented in this encounter Additional Health Concerns Assessment Noted Time PHQ-9 Depression Total Score: 9 12/07/19 23 9:42 AM EST documented as of this encounter Care Teams Grease Press Helper Relationship Specialty Start Date End Date Alexus Henderson MD [address] [place] [address] PCP - General Family Medicine 01/23/24 Adwoa Hughes PharmD [address] [place] [address] Pharmacist Internal Medicine 12/10/24 documented as of this encounter
--- OUTSIDE RECORDS SUMMARY | 2025-07-23 14:14 | XMS_ITS | Clinical Summary ---
Author Organization [employer] Address [address] [facility] [address] [place] [address] Care Team Providers Care Motor Vehicle Technician Name Role Phone Alexus Henderson MD Primary Care Provider [phone] Adwoa Hughes PharmD Unavailable [phone] Allergies No known active allergies Medications busPIRone (Buspar) 7.5 MG tablet Take 7.5 mg by mouth 2 times daily. 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 OTC Active polyethylene glycol, PEG, 3350 (Glycolax) 17 GM/SCOOP powder Mix 17g (1 capful) in 8 ounces of water and take by mouth every day 510 g 03/05/20 25 Active Dulaglutide (Trulicity) 1.5 MG/0.5ML solution auto-injector Inject 1.5 mg under the skin 1 (one) time per week. 2 mL 04/30/20 25 Active empagliflozin-me tFORMIN (Synjardy) 12.5-1000 MGIndications:Ty pe 2 diabetes mellitus with other specified complication, without long-term current use of insulin ([facility]) Take 1 tablet by mouth with breakfast and with evening meal. 60 tablet 11 04/30/20 25 026 Active cyclobenzaprine (Flexeril) 10 MG tabletIndication s:Acute neck pain Take 1 tablet (10 mg) by mouth 3 times daily for 10 days. 30 tablet 05/02/20 25 Active lidocaine (Lidoderm) 5 % patch APPLY 1 PATCH TOPICALLY TO SKIN, LEAVE ON FOR 12 HOURS AND OFF FOR 12 HOURS DIRECTED 30 patch 2 05/21/20 25 Active naproxen (Naprosyn) 500 MG tablet TAKE 1 TABLET BY MOUTH TWICE DAILY WITH BREAKFAST AND EVENING MEALS 90 tablet 3 05/27/20 25 Active Active Problems Problem Noted Date Diagnosed Date Torticollis, acute 05/02/2025 Acute neck pain 05/02/2025 Assessment & Plan (05/02/2025 4:44 PM EDT): Clinical picture mostly compatible with muscle strain Advised to apply heat to the affected area Patient reports she took some naproxen yesterday in the morning but did not help I prescribed for patient today Toradol IM I prescribed ibuprofen she can take it from tomorrow on 800 mg every 8 hours just if needed with full stomach I prescribed for patient cyclobenzaprine 10 mg every 8 hours I counseled her about side effects somnolence she cannot drive while taking this medication Microalbuminuria 10/03/2024 Major depressive disorder, s mireya [...] 01/20/2022 Overview (12/07/2022): Due to ectopic in [place]-2020 Resolved Problems Problem Noted Date Diagnosed Date Resolved Date Visit for pre-operative examination 08/28/2024 08/28/2024 History of right oophorectomy 12/07/2022 12/07/2022 Overview (12/07/2022): Pt reported on 10/02/2022, done simultaneously after having a for delivery of healthy baby boy. She reports BTL, records release requested from [facility] in homeless residential 12/07/2022 Overview (12/07/2022): With 2 sons 15 yo and 2 mo, awaiting housing Missed period 12/06/2022 12/07/2022 Encounters Date Type Department Care Team Description 07/23/2025 9:20 AM EDT Office Visit [facility] WALK-IN [address] [phone] Sheridan Spring, DECONTAMINATION TECHNICIAN Acute pelvic pain, female (Primary Dx) 07/23/2025 Orders Only GENERIC EXTERNAL DATA DEPARTMENT Provider, Generic External Data 07/23/2025 Telephone [facility] MEDICINE [address] [place] [address] Irene Dyson, BUHR MILL OPERATOR Expect 07/23/2025 Travel 07/22/2025 Telephone [facility] MEDICINE [address] [place] [address] Alexus Henderson MD recall nov 07/10/2025 11:00 AM EDT Office Visit [facility] OPTOMETRY [address] [place] [address] Kristie Spain, OD 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 (Primary Dx); Myopia of both eyes with presbyopia 07/10/2025 Travel 07/03/2025 Travel 05/26/2025 Refill [facility] MEDICINE [address] [place] [address] Alexus Henderson MD 05/21/2025 Refill [facility] WALK-IN CENTER [address] [place] [phone] Grant Araiza MD 05/10/2025 Refill [facility] MEDICINE [address] [place] [address] Alexus Henderson MD 05/02/2025 11:20 AM EDT Office Visit [facility] WALK-IN CENTER [address] [place] [phone] Rosalba Harris MD Acute neck pain 05/01/2025 Telephone [facility] MEDICINE [address] [place] [address] Alexus Henderson MD ER Follow-up; Results 04/30/2025 Travel from Last 3 Months Immunizations Immunization Administration Dates Next Due Hep B, adult 01/25/2022 HepB-CpG 04/30/2025 Influenza injectable quadrivalent preservative f ree 09/02/2022,01/25/2022 Pneumococcal Conjugate PCV 20 04/30/2025 Tdap 07/29/2022 Family History Medical History Relation [...] (257 lb) 07/23/2025 9:15 AM EDT Height 175.3 cm (5' 9 ) 05/02/2025 10:50 AM EDT Body Mass Index 37.95 05/02/2025 10:50 AM EDT Plan of Treatment Upcoming Encounters Date Type Department Care Team (Late st Contact Info) Description 07/30/2025 10:00 AM EDT Medication Management [facility] MEDICINE [address] [place] [address] Adwoa Hughes, PharmD [address] [place] [address] Health Maintenance Due Date Last Done Comments Dental Oral Exam 1984 Dental Prophylaxis 1984 Dental X-Ray: Bitewings 1984 Dental X-Ray: Full Mouth 1984 Disability Screening 1984 Diabetes: Foot Exam 02/12/1994 Alcohol/Substance Use Screening 1996 Family Planning (PISQ) 02/12/1999 HPV Vaccines (1 - 3-dose series) 02/12/1999 Depression Monitoring 06/06/2023 12/07/2022, 023 Mammogram 2024 Diabetes: Hemoglobin A1C 06/02/2025 025, 12/10/2024, 09/06/2024, Additional history exists Hepatitis B Vaccines (3 of 3 - 19+ 3-dose series) 06/25/2025 04/30/2025, 01/25/2022 COVID-19 Vaccine ( season) 2025 Influenza Vaccine (#1) 2025 09/02/2022, 2021 SDOH Screening 09/18/2025 09/18/2024 Diabetes: Urine Protein Screening 09/27/2025 09/27/2024, 03/11/2022, 12/30/2021 Lipid Panel 09/27/2025 09/27/2024, 12/30/2021 Eye Exam 07/10/2026 07/10/2025, 06/21, 07/10/2025, Additional history exists Tobacco Screening 07/23/2026 07/23/2025 Cervical Cancer Screening 04/22/2027 HPV/Cotest 04/22/2027 04/22/2022, 01/19/2022 Pap Smear 04/22/2027 04/22/2022, 0306/2022, 01/19/2022 DTaP/Tdap/Td Vaccines (2 - Td or Tdap) 07/29/2032 07/29/2022 Zoster Vaccines (1 of 2) 02/12/2034 RSV Patients and Patients Aged 60 years or older (1 - 1-dose 75+ series) 02/12/2059 HIV Screening Completed 12/30/2021 Hepatitis C Screening Completed 12/30/2021 Pneumococcal Vaccine: Pediatrics (0 to 5 Years) and At-Risk Patients (6 to 49) Years Completed 04/30/2025 HIB Vaccines Aged Out No longer eligi ble based on patient's age to complete this topic Hepatitis A Vaccines Aged Out No long er eligible based on patient's age to complete this topic IPV Vaccines Aged Out No longer eligi ble based on patient's age to complete this topic Meningococcal B Vaccine Aged Out No l onger eligible based on patient's age to complete [...] Procedure Name Priority Date/Time Associated Diagnosis Comments CT ABDOMEN PELVIS W CONTRAST Routine 07/23/2025 12:07 PM EDT URINALYSIS, COMPLETE, WITH REFLEX TO CULTURE Routine 07/23/2025 11:40 AM EDT HCG, QL, URINE Routine 07/23/2025 11:40 AM EDT LIPASE Routine 07/23/2025 11:10 AM EDT MAGNESIUM Routine 07/23/2025 11:10 AM EDT COMPREHENSIVE METABOLIC PANEL Routine 07/23/2025 11:10 AM EDT CBC WITH AUTO DIFFERENTIAL Routine 07/23/2025 11:10 AM EDT POCT , URINE Routine 07/23/2025 9:52 AM EDT Acute pelvic pain, female POCT URINALYSIS DIPSTICK Routine 07/23/2025 9:49 AM EDT Acute pelvic pain, female POCT GLYCATED HEMOGLOBIN, TOTAL Routine 03/03/2025 2:59 PM EDT Type 2 diabetes mellitus with other specified complication, without long-term current use of insulin (CMS/HCC) ALBUMIN, RANDOM URINE W/CREATININE Routine 09/27/2024 2:04 [...] Recently Relevant to Health Maintenance Results * CT Abdomen Pelvis w/ Contrast (07/23/2025 12:07 PM EDT) Anatomical Region Laterality Modality Body, Pelvis, Abdomen Computed T omography 07/23/2025 12:0 7 PM EDT Narrative 07/23/2025 12:45 PM EDT [address] [address] [address] Scan Report Signed Patient: Blaire Higgins MR#: [id number] : 1985 Acct:[id number] Age/Sex: 40 / F ADM Date: 07/23/25 Loc: HO.ED Attending Dr: Ordering Physician: Jaswinder Blackwood DO Date of Service: 07/23/25 Procedure(s): CT abdomen pelvis w IV con Accession Number(s): [id number] cc: Oswaldo Henderosn Konstantin DO Report Number: [id number]: Total DLP = 1165.00 mGy-cm Reason for Exam: LLQ pain, hx of oophorectomy EXAMINATION: CT ABDOMEN AND PELVIS WITH CONTRAST CLINICAL INFORMATION: LLQ pain, hx of oophorectomy COMPARISON: June 17, 2024 TECHNIQUE: Multidetector volumetric images were obtained from the superior aspect of the liver through the pubic symphysis following administration 85 mL of Omnipaque 350 intravenous contrast. Sagittal and coronal reformatted images were obtained on the technologist's workstation. Oral contrast: No This CT examination was performed using dose optimization techniques as appropriate, variously including the following: *Automated exposure control *Adjustment of mA and/or kV according to patient size (this includes techniques or standardized protocols for targeted exams where dose is matched to indication/reason for exam; i.e. extremities or head) *Use of iterative reconstruction technique DLP: 1165 mGY*cm FINDINGS: LUNG BASES: Patchy opacities are present in the lung bases, similar to the prior and likely related to atelectasis. LIVER, GALLBLADDER, AND BILIARY TREE: The liver is normal in size, shape, and attenuation. No focal hepatic lesion or biliary ductal dilatation is present. Gallbladder surgically absent. There are clips in the gallbladder fossa. There is no biliary ductal dilation. PANCREAS: Unremarkable. SPLEEN: Unremarkable. ADRENAL GLANDS: Unremarkable. KIDNEYS AND URETERS: The kidneys are normal in size, shape, and attenuation. No hydronephrosis, hydroureter, or calculi seen. No perinephric stranding. BLADDER: Unremarkable. GASTROINTESTINAL TRACT: Surgical clip is noted in the left hemipelvis, posterior to the distal descending colon. A few scattered pseudodiverticula are noted in the colon. Normal muscle gas-filled appendix is identified. ABDOMINAL WALL: Small umbilical hernia containing fat density is again seen. LYMPH NODES: Normal. VASCULAR: Unremarkable. PELVIC VISCERA: Right ovary is unremarkable. The uterus is unremarkable. There is a stable 2 cm cyst near the left isthmus. Left ovary is reported as surgically absent. Left ovarian tube is probably visualized containing a small amount of fluid. OSSEOUS STRUCTURES: Unremarkable. CT/CT abdomen pelvis w IV con IMPRESSION: Diverticulosis, no sign of infection. Small umbilical hernia contains fat. Single 2 cm simple appearing cyst in the left isthmus. Soft tissue in the region of left isthmus likely represents ovarian tube remnant possibly containing fluid. Fleischner guidelines were followed. Electronically signed by: Xu Antonio MD 07/23/2025 12:42 PM EDT RP Dictated By: Xu Antonio MD Signed By: <Electronically signed by Xu Antonio MD in OV> 07/23/25 1242 DD/ 1207 TD/TT: 07/23/25 1214 Radio Host: Procedure Note Donotuseinterpreter, Image - 07/23/[address] [place] [address] [address] Scan Report Signed Patient: Blaire HigginsMR#: [id number] : 1985Acct:[id number] Age/Sex: 40 / FADM Date: 07/23/25 Loc: .ED Attending Dr: Ordering Physician: Jaswinder Blackwood DO Date of Service: 07/23/25 Procedure(s): CT abdomen pelvis w IV con Accession Number(s): [id number] cc: Alexus Henderson; Jaswinder Blackwood DO Report Number: [id number]: Total DLP = 1165.00 mGy-cm Reason for Exam: LLQ pain, hx of oophorectomy EXAMINATION: CT ABDOMEN AND PELVIS WITH CONTRAST CLINICAL INFORMATION: LLQ pain, hx of oophorectomy COMPARISON: June 17, 2024 TECHNIQUE: Multidetector volumetric images were obtained from the superior aspect of the liver through the pubic symphysis following administration 85 mL of Omnipaque 350 intravenous contrast. Sagittal and coronal reformatted images were obtained on the technologist's workstation. Oral contrast: No This CT examination was performed using dose optimization techniques as appropriate, variously including the following: *Automated exposure control *Adjustment of mA and/or kV according to patient size (this includes techniques or standardized protocols for targeted exams where dose is matched to indication/reason for exam; i.e. extremities or head) *Use of iterative reconstruction technique DLP: 1165 mGY*cm FINDINGS: LUNG BASES: Patchy opacities are present in the lung bases, similar to the prior and likely related to atelectasis. LIVER, GALLBLADDER, AND BILIARY TREE: The liver is normal in size, shape, and attenuation. No focal hepatic lesion or biliary ductal dilatation is present. Gallbladder surgically absent. There are clips in the gallbladder fossa. There is no biliary ductal dilation. PANCREAS: Unremarkable. SPLEEN: Unremarkable. ADRENAL GLANDS: Unremarkable. KIDNEYS AND URETERS: The kidneys are normal in size, shape, and attenuation. No hydronephrosis, hydroureter, or calculi seen. No perinephric stranding. BLADDER: Unremarkable. GASTROINTESTINAL TRACT: Surgical clip is noted in the left hemipelvis, posterior to the distal descending colon. A few scattered pseudodiverticula are noted in the colon. Normal muscle gas-filled appendix is identified. ABDOMINAL WALL: Small umbilical hernia containing fat density is again seen. LYMPH NODES: Normal. VASCULAR: Unremarkable. PELVIC VISCERA: Right ovary is unremarkable. The uterus is unremarkable. There is a stable 2 cm cyst near the left isthmus. Left ovary is reported as surgically absent. Left ovarian tube is probably visualized containing a small amount of fluid. OSSEOUS STRUCTURES: Unremarkable. CT/CT abdomen pelvis w IV con IMPRESSION: Diverticulosis, no sign of infection. Small umbilical hernia contains fat. Single 2 cm simple appearing cyst in the left isthmus. Soft tissue in the region of left isthmus likely represents ovarian tube remnant possibly containing fluid. Fleischner guidelines were followed. Electronically signed by: Xu Antonio MD 07/23/2025 12:42 PM EDT Dictated By: Xu Antonio MD Signed By: <Electronically signed by Xu Antonio MD in OV> 07/23/25 1242 DD/ 1207 TD/TT: 07/23/25 1214 Radio Host: [facility] External Provider IMG CT PROCEDURES Final Result * (ABNORMAL) Urinalysis, Complete, with Reflex to Culture (07/23/2025 11:40 AM EDT) Color Urine Dark Yellow [facility] Appearance Urine Clear [facility] PH 5.5 5.0 - 9.0 [facility] Glucose Urine UA >=1000(A) Negative mg/dL [facility] Urine Blood Negative Negative [facility] Specific [place] - Urine >=1.030(H) 1.005 - 1.025 [facility] Urine Protein 30 (1+)(A) Neg-Trace mg/dL [facility] Urine Ketones Trace Negative mg/dL [facility] Nitrite Urine Negative Negative [facility] Leukocyte Esterase Urine Small (1+)(A) Negative [facility] RBC Urine 0-2 0 - 2 /HPF [facility] Urine WBC 21-50(A) 0 - 5 /HPF [facility] Urine Squamous Epithelial Cell 11-20 0 - 2 /HPF [facility] Urine Bacteria 4+ None Seen [facility] Hyaline Casts, Urine 0-2 0 - 2 /LPF [facility] 07/23/2025 11:4 0 AM EDT 07/23/2025 11:44 AM EDT Narrative [facility] - 07/23/2025 11:54 AM EDT [id number], [employer] us Generic External Data Provider LAB URINE ORDERAB LES Final Result [facility] [address] [place] [phone] * HCG, Qualitative, Urine (07/23/2025 11:40 AM EDT) Urine NEGATIVE NEGATIVE [facility] Comment:This test was develo ped to detect early . Falsenegative results may occur after the 5th - 7th week ofpregnancy when using this test method. If clinicallyindicated, consider a serum hCG. 07/23/2025 11:4 0 AM EDT 07/23/2025 11:44 AM EDT us Generic External Data Provider LAB URINE ORDERAB LES Final Result [facility] [address] [place] [address] [phone] * (ABNORMAL) CBC auto differential (07/23/2025 11:10 AM EDT) White Blood Count 13.7(H) 4.8 - 10.8 X10*3/uL [facility] Red Blood Count 5.15 4.20 - 5.50 X10*6/uL [facility] Hemoglobin 14.3 12.0 - 16.0 g/dl [facility] Hematocrit 42.2 37.0 - 47.0 % [facility] Mean Corpuscular Volume 81.9 80.0 - 98.0 fL [facility] Mean Corpuscular Hemoglobin 27.8 27.0 - 33.0 pg [facility] Mean Corpuscular HGB Conc 33.9 31.0 - 35.0 g/dl [facility] Red Cell Distribution Width 12.4 11.0 - 16.0 % [facility] Platelet Count 295 160 - 400 X10*3/uL [facility] Mean Platelet Volume 9.5 9.4 - 12.3 fL [facility] Neutrophils Percent Auto 57.3 45 - 73 % [facility] Imm Gran Pct Auto 0.6(H) 0.0 - 0.4 % [facility] Lymphocytes Percent Auto 33.6 20 - 40 % [facility] Monocytes Percent Auto 6.0 2 - 11 % [facility] Eosinophils Percent Auto 2.3 0 - 4 % [facility] Basophils Percent Auto 0.2 0 - 2 % [facility] NRBC Pct Auto 0.0 0.0 - 0.2 /100WBC [facility] Neutrophils Absolute Auto 7.8 2.0 - 8.3 x10*3/uL [facility] Imm Gran Abs Auto 0.08(H) 0.00 - 0.03 X10*3/uL [facility] Lymphocytes Absolute Auto 4.6 1.2 - 4.9 X10*3/uL [facility] Monocytes Absolute Auto 0.8 0.1 - 1.2 X10*3/uL [facility] Eosinophils Absolute Auto 0.3 0.0 - 0.4 X10*3/uL [facility] Basophils Absolute Auto 0.0 0.0 - 0.2 X10*3/uL [facility] NRBC Abs Auto 0.000 0.0 - 0.012 X10*3/uL [facility] 07/23/2025 11:1 0 AM EDT 07/23/2025 11:14 AM EDT us Generic External Data Provider LAB BLOOD ORDERAB LES Final Result Performing Organization Address [facility] Co de Phone Number [facility] [address] [place] [phone] * Magnesium (07/23/2025 11:10 AM EDT) Magnesium 2.0 1.6 - 2.6 mg/dL [facility] 07/23/2025 11:1 0 AM EDT 07/23/2025 11:14 AM EDT us Generic External Data Provider LAB BLOOD ORDERAB LES Final Result Performing Organization Address [facility] Co de Phone Number [facility] [address] [place] [address] [phone] * Lipase (07/23/2025 11:10 AM EDT) Lipase 38 8 - 78 U/L [facility] 07/23/2025 11:1 0 AM EDT 07/23/2025 11:14 AM EDT us Generic External Data Provider LAB BLOOD ORDERAB LES Final Result Performing Organization Address [facility] Co de Phone Number [facility] [address] [place] [address] [phone] * (ABNORMAL) Comprehensive Metabolic Panel (07/23/2025 11:10 AM EDT) Sodium 138 135 - 145 mmol/L [facility] Potassium 3.9 3.3 - 5.1 mmol/L [facility] Comment:Slight Hemolysis.Int erpret result with caution. Chloride 106 96 - 108 mmol/L [facility] Carbon Dioxide 26 22 - 29 mmol/L [facility] Anion Gap 10(L) 12 - 20 [facility] Urea Nitrogen (BUN) 12 9 - 16 mg/dL [facility] Creatinine, Serum 0.71 0.5 - 1.4 mg/dL [facility] Creatinine Clr Calc Pharmacy 147.5 [facility] Comment:Provided height and weight: 175.26 cm,124.738 kg.eGFR (calculated from the MDRD study equation) and eCrCl(calculated from the Cockcroft-Gault equation) are based ondifferent parameters and may not yield comparable results.If eCrCl result is absurd, please check patient'sheight/weight. Estimated Glomerular Filt Rate >60 [facility] Comment:Chronic Kidney Disea se: Estimated GFR < 60 mL/min/1.82o6Veeuxd Kidney Disease: Estimated GFR < 15 mL/min/1.73m2 Glucose 100 60 - 115 mg/dL [facility] Calcium 9.1 8.4 - 10.2 mg/dL [facility] Bilirubin, Total 1.0 0.0 - 1.0 mg/dL [facility] Aspartate Amino Transferase 23 5 - 31 U/L [facility] Comment:Slight Hemolysis.Int erpret result with caution. Alanine Aminotransferase 12 0 - 31 U/L [facility] Total Protein 8.5(H) 6.5 - 8.0 g/dL [facility] Albumin Level 4.4 3.5 - 5.0 g/dL [facility] Alkaline Phosphatase 58 39 - 117 U/L [facility] 07/23/2025 11:1 0 AM EDT 07/23/2025 11:14 AM EDT Generic External Data Provider LAB BLOOD ORDERAB LES Final Result [facility] [address] [place] [phone] * POCT , urine manually resulted (07/23/2025 9:52 AM EDT) Preg Test, Ur Negative Negative, Indeterminate, None Detected, Invalid, Specimen unsatisfactory for evaluation, Weakly Positive, 2+ Urine 07/23/2025 9:52 AM EDT [facility] POINT OF CARE TEST ENTER/EDIT ORDERABLES Final Result * POCT urinalysis dipstick manually resulted (07/23/2025 9:49 AM EDT) Pathologist [facility] Color, UA Yellow Comment:Dark Clarity, UA Cloudy Glucose, UA 4+ >500 Comment:1000mg Bilirubin, UA Few 15 Ketones, UA Positive Comment:Trace Spec Grav, UA 1.030 Blood, UA Negative Negative, None Detected pH, UA 5.5 Protein, UA 2+ 125++ Comment:100mg Urobilinogen, UA 1.0 Leukocytes, UA Trace Negative, Rare, Trace Nitrite, UA Negative Negative, None Detected Appearance, UA OK Urine 07/23/2025 9:49 AM EDT [facility] POINT OF CARE TEST ENTER/EDIT ORDERABLES Final Result * (ABNORMAL) POCT HGB A1C (03/03/2025 2:59 PM EDT) Pathologist [facility] Hemoglobin A1C 10.6(A) 4.0 - 6.0 % Blood 03/03/2025 2:59 PM EDT Alexus Henderson MD POINT OF CARE TEST ENTER/EDIT ORDERABLES Final Result * (ABNORMAL) Albumin, Random Urine W/Creatinine (09/27/2024 2:04 PM EST) Creatinine, Urine 147.85 mg/dL [facility] Microalbumin Urine 175.0 mg/L H [facility] Microalbum Creatinine Ratio Ur 118.3(H) <30 ug/mg cr [facility] Comment:Albumin/Creatinine R atio Reference Ranges: Normal: < 30 ug/mg creatinine Microalbuminuria: 30 - 300 ug/mg creatinineClinical Albuminuria: > 300 ug/mg creatinine Urine (Urine, Random) 09/27/2024 2:04 PM EST 09/27/2024 4:00 PM EST us Alexus Henderson MD LAB URINE ORDERABLES Final Res ult [facility] [address] [place] [phone] * (ABNORMAL) Lipid Panel, Standard (09/27/2024 2:04 PM EST) Triglycerides 584(H) <150 mg/dL [facility] Comment:Mild Lipemia.Desirab le Triglyceride: less [...] 400 mg/dl. HDL Cholesterol 26(L) >40 mg/dL [facility] Comment:Desirable HDL: great er than 40 mg/dL Note: This HDL assay may give artificially low results in patients with liver disease. Blood Venous blood specimen / Unknown 09/27/2024 2:04 PM EST 09/27/2024 4:01 PM EST Alexus Henderson MD LAB BLOOD ORDERABLES Final Res ult Performing Organization Address City/Special Care Hospital/ZIP Co de Phone Number [facility] [address] [place] [address] [phone] * Hm Pap Smear (04/22/2022) Pap Negative for intraephithelial lesion or malignancy Negative for intraephithelial lesion or malignancy, Other HPV Not Detected Undetected, Indeterminate, Quantitative, Not Detected Historical Provider HEALTH MAINTENANCE Final Result * HEPATITIS C AB W/REFL TO HCV RNA, QN, PCR (12/30/2021 8:14 AM EST) HEPATITIS C ANTIBODY NON-REACT [facility] NON-REACT [facility] INDEX 0.20 <1.00 [facility] Comment: HCV antibody was non-reactive. There is no laboratory evidence of HCV infection. In most cases, no further action is required. However, if recent HCV exposure is suspected, a test for HCV RNA (test code 94019) is suggested. For additional information please refer to http://education.[employer]/faq/YWN81u7 (This link is being provided for informational/ educational purposes only.) 12/30/2021 8:14 AM EST Nishi [facility] HISTORICAL/NON ORDERABLE LABS Final Result [facility] [address] * HIV 1/2 ANTIGEN/ANTIBODY,FOURTH GENERATION W/RFL (12/30/2021 8:14 AM EST) HIV-1/2 ANTIGEN AND ANTIBODIES, 4TH GENERATION W/ REFLEX NON-REACT [facility] NON-REACT [facility] Comment: HIV-1 antigen and HIV-1/HIV-2 antibodies were not detected. There is no laboratory evidence of HIV infection. PLEASE NOTE: This information has been disclosed to you from records whose confidentiality may be protected by state law. If your state requires such protection, then the state law prohibits you from making any further disclosure of the information without the specific written consent of the person to whom it pertains, or as otherwise permitted by law. A general authorization for the release of medical or other information is NOT sufficient for this purpose. For additional information please refer to http://education.[employer]/faq/WUF291 (This link is being provided for informational/ educational purposes only.) The performance of this assay has not been clinically validated in patients less than 2 years old. 12/30/2021 8:14 AM EST us Nishi Harris [facility] LAB BLOOD ORDERABLES Final Res ult Performing Organization Address City/State/[facility] Co ia Phone Number [facility] Formerly [facility] [address] from Last 3 Months or Most Recently Relevant to Health Maintenance Insurance [facility] C3 DENTAL-[facility] MEDICAID STAND ADULT Care Teams Motor Vehicle Technician Relationship Specialty Start Date End Date Alexus Henderson MD [address] [place] [phone] PCP - General Family Medicine 01/23/24 Adwoa Hughes PharmD [address] [place] [phone] Pharmacist Internal Medicine 12/10/24
--- OUTSIDE RECORDS SUMMARY | 2025-07-23 14:14 | XMS_ITS | Encounter Summary ---
Author Organization [employer] Address [address] [facility] 7t [place] [address] Care Team Providers Care Lighting Equipment Operator Name Role Phone Alexus Henderson MD Primary Care Provider [phone] Adwoa Hughes PharmD Unavailable [phone] Reason for Visit * Reason Onset Date Comments recall 07/22/2025 Encounter Details Date Type Department Care Team ([facility] st Contact Info) Description 07/22/2025 Telephone [facility] [address] [place], [place] [phone] Alexus Henderson MD [address] [place], [place] [phone] recall nov Social History Tobacco Use Types Packs/Day Years [...] encounter Miscellaneous Notes * Telephone Encounter - Keven Lu [place] - 07/22/2025 11:02 AM EDT Telephone call to patient to schedule a recall appointment. No answer, Left voicemail to return call to clinic.. Recall letter sent. Visit type: Office visit Appointment notes: follow up Month due: September With: Santiago Please schedule appointment above if patient returns call documented in this encounter Plan of Treatment Upcoming Encounters Date Type Department Care Team (Late st Contact Info) Description 07/30/2025 10:00 AM EDT Medication Management [facility] [address] [place] [address] Adwoa Hughes, PharmD [address] [place] [address] documented as of this encounter Visit Diagnoses Not on filedocumented in this encounter Additional Health Concerns Assessment Noted Time PHQ-9 Depression Total Score: 9 12/07/19 23 9:42 AM EST documented as of this encounter Care Teams Lighting Equipment Operator Relationship Specialty Start Date End Date Alexus Henderson MD [address] [place] [address] PCP - General Family Medicine 01/23/24 Adwoa Hughes, PharmD [address] [place] [phone] Pharmacist Internal Medicine 12/10/24 documented as of this encounter
--- OUTSIDE RECORDS SUMMARY | 2025-07-23 14:14 | XMS_ITS | Encounter Summary ---
Author Organization [employer] Address [address] [facility] 7t [place] [address] Care Team Providers Care Buttonhole Facer Name Role Phone Alexus Henderson MD Primary Care Provider [phone] Adwoa Hughes PharmD Unavailable Reason for Visit * Reason Comments Med Refill Encounter Details Date Type Department Care Team ([facility] st Contact Info) Description 05/10/2025 Refill [facility] [address] [place], [place] [phone] Alexus Henderson MD [address] [place] [address] Social History Tobacco Use Types Packs/Day Years [...] Description 07/30/2025 10:00 AM EDT Medication Management [facility] MED[facility]INE [address] [place] [address] Adwoa Hughes PharmD [address] [place] [address] documented as of this encounter Visit Diagnoses Not on filedocumented in this encounter Additional Health Concerns Assessment Noted Time PHQ-9 Depression Total Score: 9 12/07/19 23 9:42 AM EST documented as of this encounter Care Teams Buttonhole Facer Relationship Specialty Start Date End Date Alexus Henderson MD [address] [place] [address] PCP - General Family Medicine 01/23/24 Adwoa Hughes, PharmD [address] [place] [address] Pharmacist Internal Medicine 12/10/24 documented as of this encounter
--- OUTSIDE RECORDS SUMMARY | 2025-07-23 14:14 | XMS_ITS | Encounter Summary ---
Author Organization [employer] Address [address] [facility] 7t [place] [address] Care Team Providers Care Price Lister Name Role Phone Alexus Henderson MD Primary Care Provider [phone] Adwoa Hughes PharmD Unavailable [phone] Encounter Details Date Type Department Care Team (Latest Contact Info) Description 10/03/2024 Orders Only [facility] [address] [place], [place] [phone] Alexus Henderson MD [address] [place], [place] [phone] Hypertriglyceridemia (Primary Dx); Poorly controlled type 2 [...] Description 07/30/2025 10:00 AM EDT Medication Management [facility] [address] [place] [address] Adwoa Hughes PharmD [address] [place] [address] documented as of this encounter Visit Diagnoses Diagnosis Hypertriglyceridemia- Primary Pure hyperglyceridemia Poorly controlled type 2 diabetes mellitus with neuropathy ([facility]) Microalbuminuria Proteinuria documented in this encounter Additional Health Concerns Assessment Noted Time PHQ-9 Depression Total Score: 9 12/07/19 23 9:42 AM EST documented as of this encounter Care Teams Price Lister Relationship Specialty Start Date End Date Alexus Henderson MD [address] [place] [address] PCP - General Family Medicine 01/23/24 Adwoa Hughes PharmD [address] [place] [address] Pharmacist Internal Medicine 12/10/24 Pipe Quintanilla Nut Sorter OperatorEnergy Conservation Engineer 05/09/24 10/10/24 documented as of this encounter
--- OUTSIDE RECORDS SUMMARY | 2025-07-23 14:14 | XMS_ITS | Encounter Summary ---
Author Organization [employer] Address [address] [facility] 7t [place] [address] Care Team Providers Care Transplant Rn Name Role Phone Alexus Henderson MD Primary Care Provider [phone] Adwoa Hughes PharmD Unavailable [phone] Encounter Details Date Type Department Care Team (Late st Contact Info) Description 07/23/2025 Orders Only GENERIC EXTERNAL DATA DEPARTMENT [...] Description 07/30/2025 10:00 AM EDT Medication Management [facility] MEDICINE [address] [place], [place] [phone] Adwoa Hughes, PharmD [address] [place] [address] documented as of this encounter Procedures Procedure Name Priority Date/Time Associated Diagnosis Comments CT ABDOMEN PELVIS W CONTRAST Routine 07/23/2025 12:07 PM EDT URINALYSIS, COMPLETE, WITH REFLEX TO CULTURE Routine 07/23/2025 11:40 AM EDT HCG, QL, URINE Routine 07/23/2025 11:40 AM EDT CBC WITH AUTO DIFFERENTIAL Routine 07/23/2025 11:10 AM EDT MAGNESIUM Routine 07/23/2025 11:10 AM EDT LIPASE Routine 07/23/2025 11:10 AM EDT COMPREHENSIVE METABOLIC PANEL Routine 07/23/2025 11:10 AM EDT documented in this encounter Results * CT Abdomen Pelvis w/ Contrast (07/23/2025 12:07 PM EDT) Anatomical Region Laterality Modality Body, Pelvis, Abdomen Computed T omography 07/23/2025 12:0 7 PM EDT Narrative 07/23/2025 12:45 PM EDT [address] [address] [address] Scan Report Signed Patient: Blaire Higgins MR#: [id number] : 1985 Acct:[id number] Age/Sex: 40 / F ADM Date: 07/23/25 Loc: HO.ED Attending Dr: Ordering Physician: Jaswinder Blackwood DO Date of Service: 07/23/25 Procedure(s): CT abdomen pelvis w IV con Accession Number(s): [id number] cc: Alexus Henderson; Jaswinder Blackwood DO Report Number: [id number]: Total DLP = 1165.00 mGy-cm Reason for [...] 07/23/25 1242 DD/ 1207 TD/TT: 07/23/25 1214 Manager Business Operations: Procedure Note Donotuseinterpreter, Image - 07/23/[address] [place] [address] [address] Scan Report Signed Patient: Blaire HigginsMR#: [id number] : 1985Acct:[id number] Age/Sex: 40 / FADM Date: 07/23/25 Loc: HO.ED Attending Dr: Ordering Physician: Jaswinder Blackwood DO Date of Service: 07/23/25 Procedure(s): CT abdomen pelvis w IV con Accession Number(s): [id number] cc: Alexus Henderson; Jaswinder Blackwood DO Report Number: [id number]: Total DLP = 1165.00 mGy-cm Reason for [...] 07/23/25 1242 DD/ 1207 TD/TT: 07/23/25 1214 Manager Business Operations: [facility] External Provider IMG CT PROCEDURES Final Result * (ABNORMAL) Urinalysis, Complete, with Reflex to Culture (07/23/2025 11:40 AM EDT) Color Urine Dark Yellow [facility] Appearance Urine Clear [facility] PH 5.5 5.0 - 9.0 [facility] Glucose Urine UA >=1000(A) Negative mg/dL [facility] Urine Blood Negative Negative [facility] Specific [place] - Urine >=1.030(H) 1.005 - 1.025 [facility] Urine Protein 30 (1+)(A) Neg-Trace mg/dL [facility] Urine Ketones Trace Negative mg/dL [facility] Nitrite Urine Negative Negative [facility] Leukocyte Esterase Urine Small (1+)(A) Negative [facility] RBC Urine 0-2 0 - 2 /HPF [facility] Urine WBC 21-50(A) 0 - 5 /HPF [facility] Urine Squamous Epithelial Cell 11-20 0 - 2 /HPF [facility] Urine Bacteria 4+ None Seen [facility] Hyaline Casts, Urine 0-2 0 - 2 /LPF [facility] 07/23/2025 11:4 0 AM EDT 07/23/2025 11:44 AM EDT Narrative [facility] - 07/23/2025 11:54 AM EDT [id number], Clean Catch Generic External Data Provider LAB URINE ORDERAB LES Final Result [facility] [address] [place] [address] [phone] * HCG, Qualitative, Urine (07/23/2025 11:40 AM EDT) Urine NEGATIVE NEGATIVE [facility] Comment:This test was develo ped to detect early . Falsenegative results may occur after the 5th - 7th week ofpregnancy when using this test method. If clinicallyindicated, consider a serum hCG. 07/23/2025 11:4 0 AM EDT 07/23/2025 11:44 AM EDT Generic External Data Provider LAB URINE ORDERAB LES Final Result Performing Organization Address [facility] Co de Phone Number [facility] [address] [place] [phone] * Lipase (07/23/2025 11:10 AM EDT) Pathologist [facility] Lipase 38 8 - 78 U/L [facility] 07/23/2025 11:1 0 AM EDT 07/23/2025 11:14 AM EDT Generic External Data Provider LAB BLOOD ORDERAB LES Final Result Performing Organization Address [facility] de Phone Number [facility] [address] [place] [phone] * Magnesium (07/23/2025 11:10 AM EDT) Pathologist [facility] Magnesium 2.0 1.6 - 2.6 mg/dL [facility] 07/23/2025 11:1 0 AM EDT 07/23/2025 11:14 AM EDT Generic External Data Provider LAB BLOOD ORDERAB LES Final Result Performing Organization Address [facility] de Phone Number [facility] [address] [place] [phone] * (ABNORMAL) Comprehensive Metabolic Panel (07/23/2025 11:10 AM EDT) Pathologist [facility] Sodium 138 135 - 145 mmol/L [facility] Potassium 3.9 3.3 - 5.1 mmol/L [facility] Comment:Slight Hemolysis.Int erpret result with caution. Chloride 106 96 - 108 mmol/L [facility] Carbon Dioxide 26 22 - 29 mmol/L [facility] Anion Gap 10(L) 12 - 20 [facility] Urea Nitrogen (BUN) 12 9 - 16 mg/dL [facility] Creatinine, Serum 0.71 0.5 - 1.4 mg/dL [facility] Creatinine Clr Calc Pharmacy 147.5 [facility] Comment:Provided height and weight: 175.26 cm,124.738 kg.eGFR (calculated from the MDRD study equation) and eCrCl(calculated from the Cockcroft-Gault equation) are based ondifferent parameters and may not yield comparable results.If eCrCl result is absurd, please check patient'sheight/weight. Estimated Glomerular Filt Rate >60 [facility] Comment:Chronic Kidney Disea se: Estimated GFR < 60 mL/min/1.49m0Ebpfpd Kidney Disease: Estimated GFR < 15 mL/min/1.73m2 Glucose 100 60 - 115 mg/dL [facility] Calcium 9.1 8.4 - 10.2 mg/dL [facility] Bilirubin, Total 1.0 0.0 - 1.0 mg/dL [facility] Aspartate Amino Transferase 23 5 - 31 U/L [facility] Comment:Slight Hemolysis.Int erpret result with caution. Alanine Aminotransferase 12 0 - 31 U/L [facility] Total Protein 8.5(H) 6.5 - 8.0 g/dL [facility] Albumin Level 4.4 3.5 - 5.0 g/dL [facility] Alkaline Phosphatase 58 39 - 117 U/L [facility] 07/23/2025 11:1 0 AM EDT 07/23/2025 11:14 AM EDT us Generic External Data Provider LAB BLOOD ORDERAB LES Final Result [facility] [address] [place] [address] [phone] * (ABNORMAL) CBC auto differential (07/23/2025 11:10 AM EDT) White Blood Count 13.7(H) 4.8 - 10.8 X10*3/uL [facility] Red Blood Count 5.15 4.20 - 5.50 X10*6/uL [facility] Hemoglobin 14.3 12.0 - 16.0 g/dl [facility] Hematocrit 42.2 37.0 - 47.0 % [facility] Mean Corpuscular Volume 81.9 80.0 - 98.0 fL [facility] Mean Corpuscular Hemoglobin 27.8 27.0 - 33.0 pg [facility] Mean Corpuscular HGB Conc 33.9 31.0 - 35.0 g/dl [facility] Red Cell Distribution Width 12.4 11.0 - 16.0 % [facility] Platelet Count 295 160 - 400 X10*3/uL [facility] Mean Platelet Volume 9.5 9.4 - 12.3 fL [facility] Neutrophils Percent Auto 57.3 45 - 73 % [facility] Imm Gran Pct Auto 0.6(H) 0.0 - 0.4 % [facility] Lymphocytes Percent Auto 33.6 20 - 40 % [facility] Monocytes Percent Auto 6.0 2 - 11 % [facility] Eosinophils Percent Auto 2.3 0 - 4 % [facility] Basophils Percent Auto 0.2 0 - 2 % [facility] NRBC Pct Auto 0.0 0.0 - 0.2 /100WBC [facility] Neutrophils Absolute Auto 7.8 2.0 - 8.3 x10*3/uL [facility] Imm Gran Abs Auto 0.08(H) 0.00 - 0.03 X10*3/uL [facility] Lymphocytes Absolute Auto 4.6 1.2 - 4.9 X10*3/uL [facility] Monocytes Absolute Auto 0.8 0.1 - 1.2 X10*3/uL [facility] Eosinophils Absolute Auto 0.3 0.0 - 0.4 X10*3/uL [facility] Basophils Absolute Auto 0.0 0.0 - 0.2 X10*3/uL [facility] NRBC Abs Auto 0.000 0.0 - 0.012 X10*3/uL [facility] 07/23/2025 11:1 0 AM EDT 07/23/2025 11:14 AM EDT us Generic External Data Provider LAB BLOOD ORDERAB LES Final Result [facility] [address] [place] [address] [phone] documented in this encounter Visit Diagnoses Not on filedocumented in this encounter Additional Health Concerns Assessment Noted Time PHQ-9 Depression Total Score: 9 12/07/19 23 9:42 AM EST documented as of this encounter Care Teams Transplant Rn Relationship Specialty Start Date End Date Alexus Henderson MD [address] [place] [address] PCP - General Family Medicine 01/23/24 Adwoa Hughes PharmD [address] [place] [address] Pharmacist Internal Medicine 12/10/24 documented as of this encounter
--- OUTSIDE RECORDS SUMMARY | 2025-07-23 14:14 | XMS_ITS | Encounter Summary ---
Author Organization [employer] Address [address] [facility] 7t [place] [address] Care Team Providers Care Gear Hobber Set Up Operator Name Role Phone Alexus Henderson MD Primary Care Provider [phone] Adwoa Hughes PharmD Unavailable [phone] Reason for Referral * Consultation (Routine) - Authorized Specialty Diagnoses / Procedures Referred By Contleti t Referred To Contact Pharmacy Diagnoses Essential hypertension Annalee Hernandez MD [address] [place] [address] Phone: tel: fax: Referral ID Status Reason Start Date Expiration Date Visits Requested Visits Authorized [id number] Authorized Continuity of Care 03/06/2025 03/06/2026 6 6 Encounter Details Date Type Department Care Team (Late st Contact Info) Description 03/05/2025 Orders Only [facility] MEDICINE [address] [place], [place] [phone] Annalee Hernandez MD [address] [place], [place] [phone] Essential hypertension (Primary Dx) Social History Tobacco Use Types [...] 10:00 AM EDT Medication Management [facility]INE [address] [place] [address] Adwoa Hughes, DameonD [address] [place] [address] Scheduled Referrals Name Type Priority Associated Diagnoses Orde r Schedule Referral to Pharmacy MTM Outpatient Referral Routine Essential hypertension Ordered: 03/06/2025 documented as of this encounter Visit Diagnoses Diagnosis Essential hypertension- Primary Unspecified essential hypertension documented in this encounter Additional Health Concerns Assessment Noted Time PHQ-9 Depression Total Score: 9 12/07/19 23 9:42 AM EST documented as of this encounter Care Teams Gear Hobber Set Up Operator Relationship Specialty Start Date End Date Alexus Henderson MD [address] [place] [address] PCP - General Family Medicine 01/23/24 Adwoa Hughes PharmD [address] [place] [address] Pharmacist Internal Medicine 12/10/24 documented as of this encounter
--- OUTSIDE RECORDS SUMMARY | 2025-07-23 14:14 | XMS_ITS | Encounter Summary ---
Author Organization [employer] Address [address] [facility] 7t [place] [address] Care Team Providers Care Rope Cutter Name Role Phone Alexus Henderson MD Primary Care Provider [phone] Adwoa Hughes PharmD Unavailable [phone] Reason for Visit * Reason Onset Date Comments ER Expect 07/23/2025 Encounter Details Date Type Department Care Team ([facility] st Contact Info) Description 07/23/2025 Telephone [facility] MEDICINE [address] [place], [place] [phone] Irene Dyson, RN [address] [place] [address] ER Expect Social History Tobacco Use Types Packs/Day Years [...] encounter Miscellaneous Notes * Telephone Encounter - Irene Dyson RN - 07/23/2025 9:45 AM EDT Telephone call placed to [facility] ED. Gave expect to [facility] of pt [facility] for severe acute left-sided pelvic pain x1 day. documented in this encounter Plan of Treatment Upcoming Encounters Date Type Department Care Team (Late st Contact Info) Description 07/30/2025 10:00 AM EDT Medication Management [facility] MEDICINE [address] [place] [address] Adwoa Hughes PharmD [address] [place] [address] documented as of this encounter Visit Diagnoses Not on filedocumented in this encounter Additional Health Concerns Assessment Noted Time PHQ-9 Depression Total Score: 9 12/07/19 23 9:42 AM EST documented as of this encounter Care Teams Rope Cutter Relationship Specialty Start Date End Date Alexus Henderson MD [address] [place] [phone] PCP - General Family Medicine 01/23/24 Adwoa Hughes, PharmD [address] [place] [address] Pharmacist Internal Medicine 12/10/24 documented as of this encounter
--- OUTSIDE RECORDS SUMMARY | 2025-07-23 14:14 | XMS_ITS | Encounter Summary ---
Author Organization [employer] Address [address] [facility] [address] [place] [address] Care Team Providers Care Bench Worker Name Role Phone Alexus Henderson MD Primary Care Provider [phone] Adwoa Hughes PharmD Unavailable [phone] Encounter Details Date Type Department Care Team (Late st Contact Info) Description 09/09/2024 Telephone [facility] [address] [place], [place] [phone] Alexus Henderson MD [address] [place], [place] [phone] Social History Tobacco Use Types Packs/Day Years [...] 1:49 PM EDT Tc from [facility] with [facility] requesting to speak to nurse regarding lab results. Contact Millicent at [phone] ext [phone] documented in this encounter Plan of Treatment Upcoming Encounters Date Type Department Care Team (Late st Contact Info) Description 07/30/2025 10:00 AM EDT Medication Management [facility] [address] [place] [address] Adwoa Hughes PharmD [address] [place] [address] documented as of this encounter Visit Diagnoses Not on filedocumented in this encounter Additional Health Concerns Assessment Noted Time PHQ-9 Depression Total Score: 9 12/07/19 23 9:42 AM EST documented as of this encounter Care Teams Bench Worker Relationship Specialty Start Date End Date Alexus Henderson MD [address] [place] [address] PCP - General Family Medicine 01/23/24 Adwoa Hughes PharmD [address] [place] [address] Pharmacist Internal Medicine 12/10/24 Pipe Quintanilla Tax Senior AssociateBark Peeler 05/09/24 10/10/24 documented as of this encounter
== END 2025-07-23 13:55 | disposition home or self-care (01) ==
PROVIDERS: Physician Assistant Medical; Emergency Provider Emergency Medicine; PCP General Practice
DX: R10.32 Left lower quadrant pain (principal); I10 Essential (primary) hypertension; E66.01 Morbid (severe) obesity due to excess calories; Z68.41 Body mass index [BMI] 40.0-44.9, adult; Z90.721 Acquired absence of ovaries, unilateral
CPT/HCPCS: 36415; 74177; 80053; 81001; 81025; 83690; 83735; 85025; 87086; 87147; 96374; 99284; 99285; J1885; Q9967

== ENCOUNTER → 2025-07-23 11:46 | Outpatient (BNV) | payer MEDICAID, SELFPAY | PROVIDERS: Emergency Provider Emergency Medicine; PCP General Practice; Visit Provider Radiology Diagnostic Radiology | DX: N83.202 Unspecified ovarian cyst, left side (principal) | CPT/HCPCS: 74177 ==

== ENCOUNTER 2025-07-31 08:21 | Emergency (ER) | payer MEDICAID, SELFPAY ==
--- NOTE | ~2025-07-31 | US_ITS ---
EXAMINATION: US ABDOMEN LIMITED HISTORY: RUQ tenderness, hx nema, please eval bile duct TECHNIQUE: Real-time grayscale ultrasound imaging of the right upper quadrant was performed and images were reviewed. COMPARISON: There are no prior studies available for comparison. FINDINGS: Liver: The right lobe of the liver measures 15.9 cm in size. The left lobe of the liver measures 18.2 cm in size. The liver demonstrates increased echotexture, consistent with steatosis. No focal mass or intrahepatic biliary ductal dilatation is identified. There is normal hepatopedal flow in the portal vein. Gallbladder and biliary tree: The gallbladder is surgically absent. The common bile duct is normal in caliber measuring 5 mm. Right Kidney: The right kidney measures 11.2 cm in length. The right kidney is unremarkable, without evidence of masses, hydronephrosis, or calculi. Pancreas: The pancreatic head, neck, and body are unremarkable. The pancreatic tail is obscured by bowel gas. Abdominal aorta and inferior vena cava: The visualized portions of the abdominal aorta and inferior vena cava are normal in caliber. There is no free fluid in the right upper quadrant. US/US abdomen limited IMPRESSION: Hepatomegaly and hepatic steatosis. No evidence of biliary dilatation. Electronically signed by: Chon San MD 07/31/2025 10:22 AM EDT
[2025-07-31 08:29] VITALS: BP 119/68; BP 144/70; PULSE 90; PULSE 91; RESP 18; TEMP 36; O2SAT 98; O2SAT 99; BMI 29.0
--- NOTE | 2025-07-31 08:40 | ED.GENADULT ---
HPI - General Adult General Chief complaint: Abdominal Pain Stated complaint: lower back pain, rt side abd pain Time Seen by Provider: 07/31/25 08:38 Source: patient, RN notes reviewed, old records reviewed and full time staff interpreter Mode of arrival: ambulatory Limitations: language barrier History of Present Illness ED Provider: Mary HPI narrative: Patient is a 40-year-old Citizen Of [place] speaking female with history of cholecystectomy presenting with complaint of right upper quadrant abdominal pain radiating to back for the past few days. States the pain was worse this morning. Denies associated nausea, vomiting, diarrhea or constipation. Denies fevers. MD complaint: Abdominal pain Onset (ago): day(s) Related Data Home Medications ?Medication ?Instructions ?Recorded ?Confirmed blood sugar diagnostic (FreeStyle #10 ea 04/28/23 03/06/25 Lite Strips) insulin glargine 100 unit/mL (3 20 unit subcut QAM 04/28/23 03/06/25 mL) subcutaneous pen (Lantus Solostar U-100 Insulin) insulin lispro 100 unit/mL 38 unit subcut QAM 04/28/23 03/06/25 subcutaneous pen metformin 500 mg tablet 1,000 mg PO BID 04/28/23 03/06/25 sertraline 100 mg tablet 100 mg PO DAILY 04/28/23 03/06/25 buspirone 7.5 mg tablet 7.5 mg PO BID 10/01/24 03/06/25 naproxen 500 mg tablet 500 mg PO BID PRN moderate pain 10/01/24 03/06/25 atorvastatin 20 mg tablet (Lipitor) 20 mg PO DAILY 10/24/24 03/06/25 empagliflozin 10 mg tablet 10 mg PO DAILY 10/24/24 03/06/25 (Jardiance) nifedipine 60 mg tablet,extended 60 mg PO DAILY 10/24/24 03/06/25 release 24 hr (Procardia XL) Previous Rx's ?Medication ?Instructions ?Recorded ketorolac 10 mg tablet 10 mg PO TID PRN pain 5 days #15 06/17/24 tabs oxycodone 5 mg tablet 5 mg PO Q12H PRN pain 7 days #14 02/06/25 tabs pantoprazole 40 mg tablet,delayed 40 mg PO DAILY #90 tabs 03/05/25 release oxycodone 5 mg tablet 5 mg PO Q8H PRN pain #30 tabs 03/06/25 Allergies Allergy/AdvReac Type Severity Reaction Status Date / Time No Known Allergies Allergy Verified 07/31/25 08:30 Review of Systems Review of Systems: As per HPI Yes all other systems are reviewed and are negative Constitutional: Constitutional: Reports as per HPI [facility] Past Medical History Medical History Pre-eclampsia affecting childbirth Depression DJD (degenerative joint disease) Hypertension Hyperlipidemia Insulin dependent diabetes mellitus type IA Morbid obesity Obstructive sleep apnea hypopnea, mild Surgical History History of left oophorectomy Hx of section H/O tubal ligation Hx of cholecystectomy Family History Family History Father Diabetes Hypertension Schizophrenia Sister No problems noted. Mother Diabetes Hypertension Son Autism Son No problems noted. Social History Social History Household Members Other:: 2 minor children Housing Other:: 1st floor appt in multi family house Are you a primary care companion to a significant other at home: No Do you presently have visiting nurse or other home services: No Unable to assess alcohol history related to: Unknown Alcohol intake: never Patient Tobacco Use Status: Never used Tobacco Advance Directives: No Advance Directives Information Provided: No Physical Exam ED Vital Signs: Vital Signs - 24 hr 07/31/25 08:29 Temperature 96.8 F Pulse Rate 91 Respiratory Rate 18 Blood Pressure 119/68 Pulse Oximetry 99 Oxygen Delivery Method Room Air BMI result Body Mass Index 29.0 Vital signs have been reviewed and appear to be correct. Blood pressure normal. Heart rate normal. Respiratory rate normal. Temperature normal. Oxygen saturation normal. Const General: cooperative, healthy appearing and no acute distress Orientation/consciousness: oriented to person, oriented to place, oriented to time and patient oriented x3 Limitations: no limitations HENMT Head: Yes normocephalic and Yes atraumatic Ears: external ears normal General nose exam: Normal external nose present Face and sinus: Yes face symmetric Mouth: oropharynx normal and moist mucous membranes Throat: Yes uvula midline Eyes Pupils: Equal, round and reactive pupils present Neck Neck: Yes normal visual inspection and Yes supple Resp Effort & Inspection: normal respiratory effort and able to speak in complete sentences Auscultation: clear to auscultation bilaterally Cardio Rate: regular rate Rhythm: regular rhythm Heart sounds: S1 normal heart sound present and S2 normal heart sound present GI Palpation (GI): Soft to palpation and Tenderness to palpation present (GI) in the RUQ Auscultation: normoactive bowel sounds General: Yes no CVA tenderness Back/Spine/Pelvis Back: no CVA tenderness Skin General skin exam: elasticity normal and turgor normal Neuro General: oriented to person, oriented to place, oriented to time, patient oriented x3, moves all extremities, no focal motor deficits and CN's II-XI intact bilaterally Cranial nerves: Yes Equal, round and reactive pupils present Cognition (Neuro): normal cognition Extrem General: Yes full ROM, Yes no pedal edema and Yes no calf tenderness Psych Mental Status: mental status grossly normal Affect: normal affect Thought process: Normal thought process present Medications Administered Discontinued Medications Generic Name Dose Route Start Last Admin Trade Name Alexanderq PRN Reason Stop Dose Admin Sodium Chloride 1,000 mls @ 999 mls/hr 07/31/25 09:00 07/31/25 11:00 Ns IV 07/31/25 10:00 Infused .Q1H1M MURALI Infusion Morphine Sulfate 4 mg 07/31/25 08:47 07/31/25 09:10 Morphine Sulfate 4 Mg/Ml Cartridge IVPUSH 07/31/25 08:48 4 mg ONCE ONE Administration Protocol Medical Decision Making Medical Decision Making [facility] Narrative: Patient is a 40-year-old Citizen Of [place] speaking female with history of cholecystectomy presenting with complaint of right upper quadrant abdominal pain radiating to back for the past few days. On exam patient is awake, A+Ox3, VS WNL, afebrile, normal neurological exam without focal deficits, physical exam findings as above. Given reported symptoms and physical exam findings, initial differential includes but is not limited to cholangitis, GERD, PUD. Labs notable for mild leukocytosis similar to values in the past, no left shift, mildly elevated T bili with normal transaminases. Right upper quadrant ultrasound notable for hepatomegaly and hepatic steatosis. My interpretation is in agreement with the radiologist's interpretation. She is afebrile, hemodynamically stable and well-appearing. Feel she is stable for discharge home at this time with referral to Gastroenterology for further evaluation of her symptoms. Return precautions discussed at bedside. Patient verbalized understanding of and agreement with plan. In-person aerial photograph interpreter was utilized for all interactions, assessments, and discussions. Differential Diagnosis Differential Diagnoses: The differential diagnosis associated with the presentation includes as per [facility] Admission/Observation Consideration of admission/observation: Escalation of care including admission/observation considered Patient would have been admitted to the hospital had their clinical presentation warranted hospital admission. Lab Data [facility] Lab Attestation statement: I reviewed the patient's lab results. as per [facility] 07/31/25 09:06 07/31/25 09:06 Labs: Lab Results 07/31/25 Range/Units 09:06 WBC 12.6 H (4.8-10.8) X10*3/uL RBC 5.87 H (4.20-5.50) X10*6/uL Hgb 16.0 (12.0-16.0) g/dl Hct 47.9 H (37.0-47.0) % MCV 81.6 (80.0-98.0) fL MCH 27.3 (27.0-33.0) pg MCHC 33.4 (31.0-35.0) g/dl RDW 12.5 (11.0-16.0) % Plt Count 302 (160-400) X10*3/uL MPV 9.6 (9.4-12.3) fL Immature Gran % (Auto) 0.4 (0.0-0.4) % Neut % (Auto) 62.9 (45-73) % Lymph % (Auto) 30.6 (20-40) % [place] % (Auto) 4.1 (2-11) % Eos % (Auto) 1.8 (0-4) % Baso % (Auto) 0.2 (0-2) % Lymph # (Auto) 3.9 (1.2-4.9) X10*3/uL [place] # (Auto) 0.5 (0.1-1.2) X10*3/uL Eos # (Auto) 0.2 (0.0-0.4) X10*3/uL Baso # (Auto) 0.0 (0.0-0.2) X10*3/uL Abs Immat Gran (auto) 0.05 H (0.00-0.03) X10*3/uL Absolute Neuts (auto) 7.9 (2.0-8.3) x10*3/uL Absolute Nucleated RBC 0.000 (0.0-0.012) X10*3/uL Nucleated RBC % (auto) 0.0 (0.0-0.2) /100WBC Sodium 138 (135-145) mmol/L Potassium 3.9 (3.3-5.1) mmol/L Chloride 103 (96-108) mmol/L Carbon Dioxide 25 (22-29) mmol/L Anion Gap 14 (12-20) BUN 17 H (9-16) mg/dL Creatinine 0.76 (0.5-1.4) mg/dL Estim Creat Clear Calc 104.9 Estimated GFR > 60 Random Glucose 204 H (60-115) mg/dL Calcium 9.9 D (8.4-10.2) mg/dL Total Bilirubin 1.7 H (0.0-1.0) mg/dL AST 17 (5-31) U/L ALT 12 (0-31) U/L Alkaline Phosphatase 66 (39-117) U/L Total Protein 9.4 H (6.5-8.0) g/dL Albumin 4.8 (3.5-5.0) g/dL Lipase 42 (8-78) U/L Beta HCG, Quant < 2 mIU/mL Independent Interpretation I performed an independent interpretation of an: Ultrasound Interpretation: Right upper quadrant ultrasound notable for hepatic steatosis and hepatomegaly Radiology Impression Discussion of test interpretation with radiology: I have reviewed the radiologist's reading. Radiologist Impression: US/US abdomen limited IMPRESSION: Hepatomegaly and hepatic steatosis. No evidence of biliary dilatation. External Record Review External record reviewed: Inpatient record, Office record and Outpatient record Discharge Plan Discharge Clinical Impression: Hepatomegaly, Hepatic steatosis Patient Disposition: Home, Self-Care Instructions: Non-Alcoholic Fatty Liver Disease (ED) Additional Instructions: You were evaluated in the emergency department today for abdominal pain. Your imaging showed evidence of an enlarged liver and fatty liver. You are being referred to Gastroenterology for further evaluation and management of this. Avoid alcohol, greasy or fatty foods. Return to the emergency department if you develop worsening pain, persistent vomiting, fever or any other new or concerning symptoms. Prescriptions: No Action pantoprazole 40 mg tablet,delayed release (DR/EC) 40 mg PO DAILY Qty: 90 0RF ketorolac 10 mg tablet 10 mg PO TID PRN (Reason: pain) 5 Days Qty: 15 0RF buspirone 7.5 mg tablet 7.5 mg PO BID naproxen 500 mg tablet 500 mg PO BID PRN (Reason: moderate pain) nifedipine [Procardia XL] 60 mg tablet extended release 24hr 60 mg PO DAILY atorvastatin [Lipitor] 20 mg tablet 20 mg PO DAILY Jardiance 10 mg tablet 10 mg PO DAILY sertraline 100 mg tablet 100 mg PO DAILY metformin 500 mg tablet 1,000 mg PO BID insulin glargine [Lantus Solostar U-100 Insulin] 100 unit/mL (3 mL) insulin pen 20 unit subcut QAM insulin lispro 100 unit/mL insulin pen 38 unit subcut QAM Rx Instructions: 38 units qam, 35 units at 12 noon, 22 units qpm (DME) FreeStyle Lite Strips Strip See Rx Instructions .ROUTE TID Qty: 10 Rx Instructions: As directed oxycodone 5 mg tablet 5 mg PO Q12H PRN (Reason: pain) 7 Days Qty: 14 0RF Rx Instructions: Partial Fill upon patient request. Take 1-2 tabs every 4 hours as needed for pain following her left shoulder surgery. oxycodone 5 mg tablet 5 mg PO Q8H PRN (Reason: pain) Qty: 30 0RF Rx Instructions: Partial Fill upon patient request. Referrals: [facility]ology Services [Provider Group, Gastroenterology] Referral Note: RUQ pain Clinical Impression: Hepatic steatosis; Hepatomegaly Print Language: Citizen Of [place]
[2025-07-31 09:17] LABS: MANUAL DIFF FLAG NO
[2025-07-31 09:20] LABS: Hematocrit 47.9 % (37.0-47.0); Hemoglobin 16.0 g/dl (12.0-16.0); Imm Gran Abs Auto 0.05 X10*3/uL (0.00-0.03); Imm Gran Pct Auto 0.4 % (0.0-0.4); Lymphocytes Absolute Auto 3.9 X10*3/uL (1.2-4.9); Mean Corpuscular HGB Conc 33.4 g/dl (31.0-35.0); Mean Corpuscular Hemoglobin 27.3 pg (27.0-33.0); Mean Corpuscular Volume 81.6 fL (80.0-98.0); NRBC Abs Auto 0.000 X10*3/uL (0.0-0.012); NRBC Pct Auto 0.0 /100WBC (0.0-0.2); Platelet Count 302 X10*3/uL (160-400); Red Blood Count 5.87 X10*6/uL (4.20-5.50); White Blood Count 12.6 X10*3/uL (4.8-10.8)
[2025-07-31 09:44] LABS: Alanine Aminotransferase 12 U/L (0-31); Albumin Level 4.8 g/dL (3.5-5.0); Alkaline Phosphatase 66 U/L (39-117); Anion Gap 14 (12-20); Aspartate Amino Transferase 17 U/L (5-31); Blood Urea Nitrogen 17 mg/dL (9-16); Calcium 9.9 mg/dL (8.4-10.2); Carbon Dioxide 25 mmol/L (22-29); Chloride 103 mmol/L (96-108); Creatinine Clr Calc Pharmacy 104.9; Estimated Glomerular Filt Rate > 60; Lipase 42 U/L (8-78); Potassium 3.9 mmol/L (3.3-5.1); Sodium 138 mmol/L (135-145); Total Protein 9.4 g/dL (6.5-8.0)
--- OUTSIDE RECORDS SUMMARY | 2025-07-31 09:44 | XMS_ITS ---
Author Organization [employer] Address [address] [facility] [address] [place] [address] Care Team Providers Care Automatic Lump Making Machine Tender Name Role Phone Alexus Henderson MD Primary Care Provider Adwoa Hughes PharmD Unavailable [phone] Silvino York RN Unavailable [phone] Iraida Kelsey Unavailable CHW Complex Status:Identified (Enrolling) Start date:07/24/2025 Enrollment reason:ADT Feed Overview ED- Pt went to [facility] ED on 07/23/25. Case Team Name Relationship Phone Iraida Kelsey(Responsible Staff) Continued Care and Services Coordination
--- OUTSIDE RECORDS SUMMARY | 2025-07-31 09:44 | XMS_ITS | Encounter Summary ---
Author Organization [employer] Address [address] [facility] [address] [place] [address] Care Team Providers Care Mc Kay Stitcher Name Role Phone Alexus Henderson MD Primary Care Provider [phone] Adwoa Hughes PharmD Unavailable [phone] Silvino York RN Unavailable [phone] Iraida Kelsey Unavailable Encounter Details Date Type Department Care Team (Latest Contact Info) Description 10/03/2024 Orders Only [facility] [address] [place] [address] Alexus Henderson MD [address] [place], [place] [phone] Hypertriglyceridemia (Primary Dx); Poorly controlled type 2 [...] Care Team (Late st Contact Info) Description 09/15/2025 10:30 AM EDT Medication Management [facility] [address] [place] [address] Adwoa Hughes PharmD [address] [place] [address] documented as of this encounter Visit Diagnoses Diagnosis Hypertriglyceridemia- Primary Pure hyperglyceridemia Poorly controlled type 2 diabetes mellitus with neuropathy ([facility]/HCC) Microalbuminuria Proteinuria documented in this encounter Additional Health Concerns Assessment Noted Time PHQ-9 Depression Total Score: 9 12/07/19 23 9:42 AM EST documented as of this encounter Care Teams Mc Kay Stitcher Relationship Specialty Start Date End Date Alexus Henderson MD [address] [place] [phone] PCP - General Family Medicine 01/23/24 Adwoa Hughes, PharmD [address] [place] [address] Pharmacist Internal Medicine 12/10/24 Silvino York, RN [address] [place] [address] Registered Nurse Family Medicine 07/24/25 Iraida Kelsey 07/24/25 Pipe Quintanilla Bowling Or Skating Front Desk ClerkManager Client Service 05/09/24 10/10/24 documented as of this encounter
--- OUTSIDE RECORDS SUMMARY | 2025-07-31 09:44 | XMS_ITS | Encounter Summary ---
Author Organization [employer] Address [address] [facility] [address] [place] [address] Care Team Providers Care Machine Ii Cutter Name Role Phone Alexus Henderson MD Primary Care Provider [phone] Adwoa Hughes PharmD Unavailable [phone] Silvino York RN Unavailable [phone] Iraida Kelsey Unavailable Reason for Referral * Consultation (Routine) - Authorized Specialty Diagnoses / Procedures Referred By Cristian foy Referred To Contact Pharmacy Diagnoses Essential hypertension Annalee Hernandez MD [address] [place] [address] Phone: tel: fax: Referral ID Status Reason Start Date Expiration Date Visits Requested Visits Authorized [id number] Authorized Continuity of Care 03/06/2025 03/06/2026 6 6 Encounter Details Date Type Department Care Team (Late st Contact Info) Description 03/05/2025 Orders Only [facility] [address] [place], [place] [phone] Annalee Hernandez MD [address] [place], [place] [phone] Essential hypertension (Primary Dx) Social History Tobacco [...] Description 09/15/2025 10:30 AM EDT Medication Management [facility] [address] [place] [address] Adwoa Hughes, PharmD [address] [place] [address] Scheduled Referrals Name Type Priority Associated Diagnoses Orde r Schedule Referral to Pharmacy MTM Outpatient Referral Routine Essential hypertension Ordered: 03/06/2025 documented as of this encounter Visit Diagnoses Diagnosis Essential hypertension- Primary Unspecified essential hypertension documented in this encounter Additional Health Concerns Assessment Noted Time PHQ-9 Depression Total Score: 9 12/07/19 23 9:42 AM EST documented as of this encounter Care Teams Machine Ii Cutter Relationship Specialty Start Date End Date Alexus Henderson MD [address] [place] [address] PCP - General Family Medicine 01/23/24 Adwoa Hughes PharmD [address] [place] [address] Pharmacist Internal Medicine 12/10/24 Silvino York, [facility] [address] [place] [address] Registered Nurse Family Medicine 07/24/25 Iraida Kelsey 07/24/25 documented as of this encounter
--- OUTSIDE RECORDS SUMMARY | 2025-07-31 09:44 | XMS_ITS ---
Author Organization [employer] Address [address] [facility] [address] [place] [address] Care Team Providers Care Analytical Strategist Name Role Phone Alexus Henderson MD Primary Care Provider [phone] Adwoa Hughes PharmD Unavailable [phone] Silvino York RN Unavailable [phone] Iraida Kelsey Unavailable CM Complex Status:Identified (Enrolling) Start date:07/24/2025 Enrollment reason:ADT Feed Overview ED- [place] [facility] [place]. Case Team Name Relationship Phone Silvino York RN(Responsible Staff) Registered Yaron gramajo [phone] Continued Care and Services Coordination
--- OUTSIDE RECORDS SUMMARY | 2025-07-31 09:44 | XMS_ITS | Encounter Summary ---
Author Organization [employer] Address [address] [facility] 7t [place] [address] Care Team Providers Care Category Development Analyst Name Role Phone Alexus Henderson MD Primary Care Provider [phone] Adwoa Hughes PharmD Unavailable [phone] Silvino York RN Unavailable [phone] Iraida Kelsey Unavailable Encounter Details Date Type Department Care Team (Late st Contact Info) Description 09/09/2024 Telephone [facility] [address] [place] [address] Alexus Henderson MD [address] [place], [place] [phone] Social History Tobacco Use Types Packs/Day Years [...] 1:49 PM EDT Tc from [facility] with [facility] requesting to speak to nurse regarding lab results. Contact Millicent at [phone] ext [phone] documented in this encounter Plan of Treatment Upcoming Encounters Date Type Department Care Team (Late st Contact Info) Description 09/15/2025 10:30 AM EDT Medication Management [facility] [address] [place] [address] Adwoa Hughes, PharmD [address] [place] [address] documented as of this encounter Visit Diagnoses Not on filedocumented in this encounter Additional Health Concerns Assessment Noted Time PHQ-9 Depression Total Score: 9 12/07/19 23 9:42 AM EST documented as of this encounter Care Teams Category Development Analyst Relationship Specialty Start Date End Date Alexus Henderson MD [address] [place] [id number] PCP - General Family Medicine 01/23/24 Adwoa Hughes, PharmD [address] [place] [address] Pharmacist Internal Medicine 12/10/24 Silvino York, RN [address] [place] [address] Registered Nurse Family Medicine 07/24/25 Iraida Kelsey 07/24/25 Pipe Quintanilla Chemical EngineerMatrix Inspector 05/09/24 10/10/24 documented as of this encounter
--- OUTSIDE RECORDS SUMMARY | 2025-07-31 09:44 | XMS_ITS | Encounter Summary ---
Author Organization [employer] Address [address] [facility] [address] [place] [address] Care Team Providers Care Piano Regulator Inspector Name Role Phone Alexus Henderson MD Primary Care Provider [phone] Adwoa Hughes PharmD Unavailable [phone] Silvino York RN Unavailable [phone] Iraida Kelsey Unavailable Encounter Details Date Type Department Care Team (Late st Contact Info) Description 07/31/2025 Orders Only GENERIC EXTERNAL DATA DEPARTMENT Provider, [...] Description 09/15/2025 10:30 AM EDT Medication Management [facility] [address] [place] [address] Adwoa Hughes, PharmD [address] [place], [place] [phone] documented as of this encounter Procedures Procedure Name Priority Date/Time Associated Diagnosis Comments CBC WITH AUTO DIFFERENTIAL Routine 07/31/2025 9:06 AM EDT documented in this encounter Results * (ABNORMAL) CBC auto differential (07/31/2025 9:06 AM EDT) White Blood Count 12.6(H) 4.8 - 10.8 X10*3/uL [facility] Red Blood Count 5.87(H) 4.20 - 5.50 X10*6/uL [facility] Hemoglobin 16.0 12.0 - 16.0 g/dl [facility] Hematocrit 47.9(H) 37.0 - 47.0 % [facility] Mean Corpuscular Volume 81.6 80.0 - 98.0 fL [facility] Mean Corpuscular Hemoglobin 27.3 27.0 - 33.0 pg [facility] Mean Corpuscular HGB Conc 33.4 31.0 - 35.0 g/dl [facility] Red Cell Distribution Width 12.5 11.0 - 16.0 % [facility] Platelet Count 302 160 - 400 X10*3/uL [facility] Mean Platelet Volume 9.6 9.4 - 12.3 fL [facility] Neutrophils Percent Auto 62.9 45 - 73 % [facility] Imm Gran Pct Auto 0.4 0.0 - 0.4 % [facility] Lymphocytes Percent Auto 30.6 20 - 40 % [facility] Monocytes Percent Auto 4.1 2 - 11 % [facility] Eosinophils Percent Auto 1.8 0 - 4 % [facility] Basophils Percent Auto 0.2 0 - 2 % [facility] NRBC Pct Auto 0.0 0.0 - 0.2 /100WBC [facility] Neutrophils Absolute Auto 7.9 2.0 - 8.3 x10*3/uL [facility] Imm Gran Abs Auto 0.05(H) 0.00 - 0.03 X10*3/uL [facility] Lymphocytes Absolute Auto 3.9 1.2 - 4.9 X10*3/uL [facility] Monocytes Absolute Auto 0.5 0.1 - 1.2 X10*3/uL [facility] Eosinophils Absolute Auto 0.2 0.0 - 0.4 X10*3/uL [facility] Basophils Absolute Auto 0.0 0.0 - 0.2 X10*3/uL [facility] NRBC Abs Auto 0.000 0.0 - 0.012 X10*3/uL [facility] 07/31/2025 9:06 AM EDT 07/31/2025 9:16 AM EDT us Generic External Data Provider LAB BLOOD ORDERAB LES Final Result [facility] [address] [place] [phone] documented in this encounter Visit Diagnoses Not on filedocumented in this encounter Additional Health Concerns Assessment Noted Time PHQ-9 Depression Total Score: 9 12/07/19 23 9:42 AM EST documented as of this encounter Care Teams Piano Regulator Inspector Relationship Specialty Start Date End Date Alexus Henderson MD [address] [place] [address] PCP - General Family Medicine 01/23/24 Adwoa Hughes PharmD [address] [place] [address] Pharmacist Internal Medicine 12/10/24 Silvino York, OLI [address] [place] [address] Registered Nurse Family Medicine 07/24/25 Iraida Kelsey 07/24/25 documented as of this encounter
--- OUTSIDE RECORDS SUMMARY | 2025-07-31 09:44 | XMS_ITS | Encounter Summary ---
Author Organization [employer] Address [address] [facility] [address] [place] [address] Care Team Providers Care Supervisor Functional Testing Name Role Phone Alexus Henderson MD Primary Care Provider [phone] Adwoa Hughes PharmD Unavailable [phone] Silvino York RN Unavailable [phone] Iraida Kelsey Unavailable Reason for Visit * Reason Comments Med Refill Encounter Details Date Type Department Care Team (Late st Contact Info) Description 05/10/2025 Refill [facility] [address] [place], [place] [phone] Alexus Henderson MD [address] [place], [place] [phone] Social History Tobacco Use Types Packs/Day Years [...] Management [facility] [address] [place] [address] Adwoa Hughes PharmD [address] [place] [address] documented as of this encounter Visit Diagnoses Not on filedocumented in this encounter Additional Health Concerns Assessment Noted Time PHQ-9 Depression Total Score: 9 12/07/19 23 9:42 AM EST documented as of this encounter Care Teams Supervisor Functional Testing Relationship Specialty Start Date End Date Alexus Henderson MD [address] [place] [phone] PCP - General Family Medicine 01/23/24 Adwoa Hughes, PharmD [address] [place] [phone] Pharmacist Internal Medicine 12/10/24 Silvino York, OLI [address] [place] [phone] Registered Nurse Family Medicine 07/24/25 Iraida Kelsey 07/24/25 documented as of this encounter
--- OUTSIDE RECORDS SUMMARY | 2025-07-31 09:44 | XMS_ITS | Encounter Summary ---
Author Organization [employer] Address [address] [facility] [address] [place] [address] Care Team Providers Care Platform Man Name Role Phone Alexus Henderson MD Primary Care Provider [phone] Adwoa Hughes PharmD Unavailable [phone] Silvino York RN Unavailable [phone] Iraida Kelsey Unavailable Encounter Details Date Type Department Care Team (Latest Contact Info) Description 07/30/2025 Travel Social History Tobacco Use Types Packs/Day [...] the past 12 months, has t he [employer], gas, oil or water [employer] threatened to shut off services in your [...] Description 09/15/2025 10:30 AM EDT Medication Management [facility] [address] [place] [address] Adwoa Hughes PharmD [address] [place] [address] documented as of this encounter Visit Diagnoses Not on filedocumented in this encounter Additional Health Concerns Assessment Noted Time PHQ-9 Depression Total Score: 9 12/07/19 23 9:42 AM EST documented as of this encounter Care Teams Platform Man Relationship Specialty Start Date End Date Alexus Henderson MD [address] [place] [address] PCP - General Family Medicine 01/23/24 Adwoa Hughes, PharmD [address] [place] [address] Pharmacist Internal Medicine 12/10/24 Silvino York, RN [address] [place] [address] Registered Nurse Family Medicine 07/24/25 Iraida Kelsey 07/24/25 documented as of this encounter
--- OUTSIDE RECORDS SUMMARY | 2025-07-31 09:44 | XMS_ITS | Clinical Summary ---
Author Organization [employer] Address [address] [place] [address] Care Team Providers Care Machine Fitter Name Role Phone Alexus Henderson MD Primary Care Provider [phone] Adwoa Hughes PharmD Unavailable [phone] Silvino York RN Unavailable [phone] Iraida Kelsey Unavailable Allergies No known active allergies Medications busPIRone (Buspar) 7.5 MG tablet Take 7.5 mg by mouth 2 times daily. 023 Active traZODone (Desyrel) 50 MG tablet TAKE 1 TABLET EVERY NIGHT AT BEDTIME NEEDED 024 Active insulin lispro (HumaLOG) 100 UNIT/ML injectionIndica tions:Poorly controlled type 2 diabetes mellitus with neuropathy (CMS/HCC) INJECT 38 UNITS SUBCUTANEOUSLY BEFORE BREAKFAST, 35 UNITS BEFORE LUNCH AND 22 UNITS BEFORE SUPPER DIRECTED 30 mL 11 024 Active sertraline (Zoloft) 100 MG tabletIndicatio ns:Major depressive disorder, single episode, severe with psychotic features (CMS/HCC) Take 1 tablet (100 mg) by mouth Once per day. 90 tablet 3 024 Active Additional Information Patient not taking.Reason: Pending refills from provider (Isaias), Reported on 07/30/2025 NIFEdipine XL (Procardia XL) 30 MG 24 hr tabletIndicatio ns:Essential hypertension Take 1 tablet (30 mg) by mouth Once per day. 90 tablet 3 024 2024 Active atorvastatin (Lipitor) 20 MG tabletIndicatio ns:Hypertriglyc eridemia,Poorly controlled type 2 diabetes mellitus with neuropathy (CMS/HCC) Take 1 tablet (20 mg) by mouth Once per day. 90 tablet 3 024 2024 Active TRUEplus Lancets 33G miscIndications :Poorly controlled type 2 diabetes mellitus with neuropathy (CMS/HCC) uSE TO TEST BLOOD SUGAR UP TO THREE TIMES DAILY DIRECTED 100 each Active insulin degludec (Tresiba FlexTouch) 200 UNIT/ML injection Inject 10 units subQ once daily. Increase to 20 units daily as directed 9 mL 5 Active Alcohol Swabs (Alcohol Prep) 70 % padsIndications :Poorly controlled type 2 diabetes mellitus with neuropathy (CMS/HCC) USE 4 TIMES DAILY PRIOR TO INSULIN INJECTION 200 each Active insulin pen needle (Pentips) 32G x 4 mm miscIndications :Poorly controlled type 2 diabetes mellitus with neuropathy (CMS/HCC) Use 4 times daily with insulin 200 each Active Biotin 5000 MCG chewable tablet Chew 2 tablets Once per day. OTC Active polyethylene glycol, PEG, 3350 (Glycolax) 17 GM/SCOOP powder Mix 17g (1 capful) in 8 ounces of water and take by mouth every day 510 g 3 025 Active empagliflozin-m etFORMIN (Synjardy) 12.5-1000 MGIndications:T ype 2 diabetes mellitus with other specified complication, without long-term current use of insulin ([facility]) Take 1 tablet by mouth with breakfast and with evening meal. 60 tablet 11 025 2025 Active lidocaine (Lidoderm) 5 % patch APPLY 1 PATCH TOPICALLY TO SKIN, LEAVE ON FOR 12 HOURS AND OFF FOR 12 HOURS DIRECTED 30 patch 2 Active naproxen (Naprosyn) 500 MG tablet TAKE 1 TABLET BY MOUTH TWICE DAILY WITH BREAKFAST AND EVENING MEALS 90 tablet 3 025 Active Tirzepatide (Mounjaro) 2.5 MG/0.5ML solution auto-injectorIn dications:Type 2 diabetes mellitus with other specified complication, without long-term current use of insulin ([facility]) Inject 2.5 mg under the skin 1 (one) time per week. 2 mL 025 Active Tirzepatide (Mounjaro) 5 MG/0.5ML solution auto-injectorIn dications:Type 2 diabetes mellitus with other specified complication, without long-term current use of insulin ([facility]) Inject 5 mg under the skin 1 (one) time per week. 2 mL 025 Active glucose blood (FREESTYLE LITE) test stripIndication s:Type 2 diabetes mellitus with other specified complication, without long-term current use of insulin ([facility]) Use to test blood sugar 3 times daily 100 strip 025 Active Continuous Glucose Aerial Lineman (FreeStyle Elsa 3 Kinder) deviceIndicatio ns:Poorly controlled type 2 diabetes mellitus with neuropathy (CMS/HCC) 1 each 3 times daily. Use daily as directed for CGM 1 each 025 2024 Discontinued(P atient refused) Continuous Glucose Sensor (FreeStyle Elsa 3 Plus Sensor) miscIndications :Poorly controlled type 2 diabetes mellitus with neuropathy (CMS/HCC) 1 each Once per day. Apply 1 sensor every 15 days as directed for CGM 2 each 025 2024 Discontinued(P atient refused) glucose blood (FreeStyle Precision Bear Test) test stripIndication s:Poorly controlled type 2 diabetes mellitus with neuropathy ([facility]/HCC) Use to test blood sugar up to 3 times daily, as directed 100 each 025 2024 Discontinued(P atient refused) Dulaglutide (Trulicity) 1.5 MG/0.5ML solution auto-injector Inject 1.5 mg under the skin 1 (one) time per week. 2 mL 025 2024 Discontinued(A lternate therapy) cyclobenzaprine (Flexeril) 10 MG tabletIndicatio ns:Acute neck pain Take 1 tablet (10 mg) by mouth 3 times daily for 10 days. 30 tablet 025 2024 Discontinued(M ed list cleanup (will not trigger notification to Pharmacy)) Active Problems Problem Noted Date Diagnosed Date [...] 01/20/2022 Overview (12/07/2022): Due to ectopic in [place]-2020 Resolved Problems Problem Noted Date Diagnosed Date Resolved Date Visit for pre-operative examination 08/28/2024 08/28/2024 History of right oophorectomy 12/07/2022 12/07/2022 Overview (12/07/2022): Pt reported on 10/02/2022, done simultaneously after having a for delivery of healthy baby boy. She reports BTL, records release requested from [facility]'s Lives in homeless group home 12/07/2022 Overview (12/07/2022): With 2 sons 15 yo and 2 mo, awaiting housing Missed period 12/06/2022 12/07/2022 Encounters Date Type Department Care Team Description 07/31/2025 Orders Only GENERIC EXTERNAL DATA DEPARTMENT Provider, Generic External Data 07/30/2025 Travel 07/24/2025 Patient Outreach [facility] [address] [place] [phone] Alexus Henderson MD Care Coordination (C3 -[facility] Iraida Kelsey chart review ) 07/24/2025 Patient Outreach [address] [address] Alexus Henderson MD Care Coordination (C3- chart review) 07/24/2025 Patient Outreach [address] [address] Alexus Henderson MD 07/23/2025 9:20 AM EDT Office Visit [facility] [address] [place] [address] [phone] [place], [place], FUR MIXER OPERATOR Acute pelvic pain, female (Primary Dx) 07/23/2025 Results Follow-Up [facility] [address] [phone] Millicent Oliveros MD CBC auto differential, Comprehensive Metabolic Panel, Magnesium, Additional followed-up results: 3 07/23/2025 Orders Only GENERIC EXTERNAL DATA DEPARTMENT Provider, Generic External Data 07/23/2025 Telephone [facility] [address] [place] [address] Irene Dyson, POULTRY DRESSING WORKER Expect 07/23/2025 Travel 07/22/2025 Telephone [facility] [address] [place] [address] Alexus Henderson MD recall nov 07/10/2025 11:00 AM EDT Office Visit [facility] [address] [place] [address] Kristie Spain, OD 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 (Primary Dx); Myopia of both eyes with presbyopia 07/10/2025 Travel 07/03/2025 Travel 05/26/2025 Refill [facility] [address] [place] [address] Alexus Henderson MD 05/21/2025 Refill [facility] [address] [place] [phone] Grant Araiza MD 05/10/2025 Refill [facility] [address] [place] [address] Alexus Henderson MD 05/02/2025 11:20 AM EDT Office Visit [facility] [address] [place] [phone] Rosalba Harris MD Acute neck pain 05/01/2025 Telephone [facility] [address] [place] [phone] Alexus Henderson MD ER Follow-up; Results 04/30/2025 Travel from Last 3 Months Immunizations Immunization Administration Dates Next Due Hep B, adult 01/25/2022 HepB-CpG 07/30/2025,04/30/2025 Influenza injectable quadrivalent preservative f ree 09/02/2022,01/25/2022 [...] Sign Reading Time Taken Comments Blood Pressure 102/60 07/30/2025 10:30 AM EDT Pulse 88 07/23/2025 9:15 AM [...] Description 09/15/2025 10:30 AM EDT Medication Management [facility] [address] [place], [place] [phone] Adwoa Hughes, PharmD [address] [place], [place] [phone] Health Maintenance Due Date Last Done Comments Dental Oral Exam 1984 Dental Prophylaxis 1984 Dental X-Ray: Bitewings 1984 Dental X-Ray: Full Mouth 1984 Disability Screening 1984 Diabetes: Foot Exam 02/12/1994 Alcohol/Substance Use Screening 1996 Family Planning (PISQ) 02/12/1999 HPV Vaccines (1 - 3-dose series) 02/12/1999 Depression Monitoring 06/06/2023 12/07/2022, 023 Mammogram 2024 COVID-19 Vaccine ( season) 2025 Influenza Vaccine (#1) 2025 09/02/2022, 2021 SDOH Screening 09/18/2025 09/18/2024 Diabetes: Urine Protein Screening 09/27/2025 09/27/2024, 03/11/2022, 12/30/2021 Lipid Panel 09/27/2025 09/27/2024, 12/30/2021 Diabetes: Hemoglobin A1C 10/29/2025 025, 03/03/2025, 12/10/2024, Additional history exists Eye Exam 07/10/2026 07/10/2025, 06/21, 07/10/2025, Additional [...] Patients (6 to 49) Years Completed 04/30/2025 Hepatitis B Vaccines Completed 07/30/2025, 04/30/2025, 01/25/2022 HIB Vaccines Aged Out No longer eligi [...] AUTO DIFFERENTIAL Routine 07/31/2025 9:06 AM EDT POCT GLYCATED HEMOGLOBIN, TOTAL Routine 07/30/2025 12:01 PM EDT Type 2 diabetes mellitus with other specified complication, without long-term current use of insulin ([facility]) CT ABDOMEN PELVIS W CONTRAST Routine 07/23/2025 [...] 9:49 AM EDT Acute pelvic pain, female CULTURE, URINE, ROUTINE Routine 07/23/2025 12:00 AM EDT ALBUMIN, RANDOM URINE W/CREATININE Routine 09/27/2024 2:04 [...] Relevant to Health Maintenance Results * (ABNORMAL) CBC auto differential (07/31/2025 9:06 AM EDT) Only the most recent of2 resultswithin the time period is included. White Blood Count 12.6(H) 4.8 - 10.8 X10*3/uL [facility] Red Blood Count 5.87(H) 4.20 - 5.50 X10*6/uL [facility] Hemoglobin 16.0 12.0 - 16.0 g/dl [facility] Hematocrit 47.9(H) 37.0 - 47.0 % [facility] Mean Corpuscular Volume 81.6 80.0 - 98.0 fL [facility] Mean Corpuscular Hemoglobin 27.3 27.0 - 33.0 pg [facility] Mean Corpuscular HGB Conc 33.4 31.0 - 35.0 g/dl [facility] Red Cell Distribution Width 12.5 11.0 - 16.0 % [facility] Platelet Count 302 160 - 400 X10*3/uL [facility] Mean Platelet Volume 9.6 9.4 - 12.3 fL [facility] Neutrophils Percent Auto 62.9 45 - 73 % [facility] Imm Gran Pct Auto 0.4 0.0 - 0.4 % [facility] Lymphocytes Percent Auto 30.6 20 - 40 % [facility] Monocytes Percent Auto 4.1 2 - 11 % [facility] Eosinophils Percent Auto 1.8 0 - 4 % [facility] Basophils Percent Auto 0.2 0 - 2 % [facility] NRBC Pct Auto 0.0 0.0 - 0.2 /100WBC [facility] Neutrophils Absolute Auto 7.9 2.0 - 8.3 x10*3/uL [facility] Imm Gran Abs Auto 0.05(H) 0.00 - 0.03 X10*3/uL [facility] Lymphocytes Absolute Auto 3.9 1.2 - 4.9 X10*3/uL [facility] Monocytes Absolute Auto 0.5 0.1 - 1.2 X10*3/uL [facility] Eosinophils Absolute Auto 0.2 0.0 - 0.4 X10*3/uL [facility] Basophils Absolute Auto 0.0 0.0 - 0.2 X10*3/uL [facility] NRBC Abs Auto 0.000 0.0 - 0.012 X10*3/uL [facility] 07/31/2025 9:06 AM EDT 07/31/2025 9:16 AM EDT us Generic External Data Provider LAB BLOOD ORDERAB LES Final Result [facility] [address] [place] [phone] * (ABNORMAL) POCT Hgb A1c (07/30/2025 12:01 PM EDT) Hemoglobin A1C 8.5(A) 4.0 - 5.7 % Blood 07/30/2025 12:0 1 PM EDT Alexus Henderson MD POINT OF CARE TEST ENTER/EDIT ORDERABLES Final Result * CT Abdomen Pelvis w/ Contrast (07/23/2025 12:07 PM EDT) Anatomical Region Laterality Modality Body, Pelvis, Abdomen Computed T omography 07/23/2025 12:0 7 PM EDT Narrative 07/23/2025 12:45 PM EDT [address] [address] [address] Scan Report Signed Patient: Blaire Higgins MR#: [id number] : 1985 Acct:[id number] Age/Sex: 40 / F ADM Date: 07/23/25 Loc: .ED Attending Dr: Ordering Physician: Jaswinder Blackwood DO Date of Service: 07/23/25 Procedure(s): CT abdomen pelvis w IV con Accession Number(s): [id number] cc: Alexus Henderson; Jaswinder Blackwood DO Report Number: [id number]: Total DLP = 1165.00 mGy-cm Reason for [...] 07/23/25 1242 DD/ 1207 TD/TT: 07/23/25 1214 Grain Drier Operator: Procedure Note Donotluis albertointerpreter, Image - 07/23/[address] [address] [address] Scan Report Signed Patient: Gail Higgins#: [id number] : 1985Acct:[id number] Age/Sex: 40 / FADM Date: 07/23/25 Loc: HO.ED Attending Dr: Ordering Physician: Jaswinder Blackwood DO Date of Service: 07/23/25 Procedure(s): CT abdomen pelvis w IV con Accession Number(s): [id number] cc: Alexus Henderson; Jaswinder Blackwood DO Report Number: [id number]: Total DLP = 1165.00 mGy-cm Reason for [...] 07/23/25 1242 DD/ 1207 TD/TT: 07/23/25 1214 Grain Drier Operator: [facility] External Provider IMG CT PROCEDURES Final Result * (ABNORMAL) Urinalysis, Complete, with Reflex to Culture (07/23/2025 11:40 AM EDT) Color Urine Dark Yellow [facility] Appearance Urine Clear [facility] PH 5.5 5.0 - 9.0 [facility] Glucose Urine UA >=1000(A) Negative mg/dL [facility] Urine Blood Negative Negative [facility] Specific [place] - Urine >=1.030(H) 1.005 - 1.025 [facility] Urine Protein 30 (1+)(A) Neg-Trace mg/dL [facility] Urine Ketones Trace Negative mg/dL [facility] Nitrite Urine Negative Negative [facility] Leukocyte Esterase Urine Small (1+)(A) Negative [facility] RBC Urine 0-2 0 - 2 /HPF [facility] Urine WBC 21-50(A) 0 - 5 /HPF [facility] Urine Squamous Epithelial Cell 11-20 0 - 2 /HPF [facility] Urine Bacteria 4+ None Seen [facility] Hyaline Casts, Urine 0-2 0 - 2 /LPF [facility] 07/23/2025 11:4 0 AM EDT 07/23/2025 11:44 AM EDT Narrative [facility] - 07/23/2025 11:54 AM EDT [id number], Clean Catch Generic External Data Provider LAB URINE ORDERAB LES Final Result Performing Organization Address [facility] Co de Phone Number [facility] [address] [place] [phone] * HCG, Qualitative, Urine (07/23/2025 11:40 AM EDT) Urine NEGATIVE NEGATIVE [facility] Comment:This test was develo ped to detect early . Falsenegative results may occur after the 5th - 7th week ofpregnancy when using this test method. If clinicallyindicated, consider a serum hCG. 07/23/2025 11:4 0 AM EDT 07/23/2025 11:44 AM EDT us Generic External Data Provider LAB URINE ORDERAB LES Final Result Performing Organization Address City/[facility] Co de Phone Number [facility] [address] [place] [phone] * Magnesium (07/23/2025 11:10 AM EDT) Magnesium 2.0 1.6 - 2.6 mg/dL [facility] 07/23/2025 11:1 0 AM EDT 07/23/2025 11:14 AM EDT us Generic External Data Provider LAB BLOOD ORDERAB LES Final Result Performing Organization Address [facility]/ZIP Co de Phone Number [facility] [address] [place] [phone] * Lipase (07/23/2025 11:10 AM EDT) Lipase 38 8 - 78 U/L [facility] 07/23/2025 11:1 0 AM EDT 07/23/2025 11:14 AM EDT [employer] External Data Provider LAB BLOOD ORDERAB LES Final Result Performing Organization Address [facility] de Phone Number [facility] [address] [place] [phone] * (ABNORMAL) Comprehensive Metabolic Panel (07/23/2025 11:10 AM EDT) Sodium 138 135 - 145 mmol/L [facility] Potassium 3.9 3.3 - 5.1 mmol/L [facility] Comment:Slight Hemolysis.Int erpret result with caution. Chloride 106 96 - 108 mmol/L [facility] Carbon Dioxide 26 22 - 29 mmol/L [facility] Anion Gap 10(L) 12 - 20 [facility] Urea Nitrogen (BUN) 12 9 - 16 mg/dL [facility] Creatinine, Serum 0.71 0.5 - 1.4 mg/dL [facility] Creatinine Clr Calc Pharmacy 147.5 [facility] Comment:Provided height and weight: 175.26 cm,124.738 kg.eGFR (calculated from the MDRD study equation) and eCrCl(calculated from the Cockcroft-Gault equation) are based ondifferent parameters and may not yield comparable results.If eCrCl result is absurd, please check patient'sheight/weight. Estimated Glomerular Filt Rate >60 [facility] Comment:Chronic Kidney Disea se: Estimated GFR < 60 mL/min/1.48q4Asnauv Kidney Disease: Estimated GFR < 15 mL/min/1.73m2 Glucose 100 60 - 115 mg/dL [facility] Calcium 9.1 8.4 - 10.2 mg/dL [facility] Bilirubin, Total 1.0 0.0 - 1.0 mg/dL [facility] Aspartate Amino Transferase 23 5 - 31 U/L [facility] Comment:Slight Hemolysis.Int erpret result with caution. Alanine Aminotransferase 12 0 - 31 U/L [facility] Total Protein 8.5(H) 6.5 - 8.0 g/dL [facility] Albumin Level 4.4 3.5 - 5.0 g/dL [facility] Alkaline Phosphatase 58 39 - 117 U/L [facility] 07/23/2025 11:1 0 AM EDT 07/23/2025 11:14 AM EDT Generic External Data Provider LAB BLOOD ORDERAB LES Final Result [facility] [address] [place] [phone] * POCT , urine manually resulted (07/23/2025 9:52 AM EDT) Preg Test, Ur Negative Negative, Indeterminate, None Detected, Invalid, Specimen unsatisfactory for evaluation, Weakly Positive, 2+ Urine 07/23/2025 9:52 AM EDT [facility] FUR MIXER OPERATOR POINT OF CARE TEST ENTER/EDIT ORDERABLES Final [...] UA OK Urine 07/23/2025 9:49 AM EDT [facility] FUR MIXER OPERATOR POINT OF CARE TEST ENTER/EDIT ORDERABLES Final Result * Culture, Urine, Routine (07/23/2025 12:00 AM EDT) Urine Urine specimen obtained by clean catch procedure / Unknown 07/23/2025 07/23/2025 Comment:UACC Narrative [facility] - 07/24/2025 2:03 PM EDT Urine Culture Report Result Urine Culture 50,000 to 100,000 cfu/ml Urine Culture Mixed bacterial keke characteristic of Urine Culture urogenital contamination. Strep agalactiae (Grp B) Quant 10,000 to 50,000 cfu/mL Susc N/A Susceptibility not routinely performed on this isolate. Specimen Source: Urine clean catch Generic External Data Provider LAB MICROBIOLOGY - GENERAL ORDERABLES Final Result [facility] [address] [place] [phone] * (ABNORMAL) Albumin, Random Urine W/Creatinine (09/27/2024 2:04 PM EST) Creatinine, Urine 147.85 mg/dL [facility] Microalbumin Urine 175.0 mg/L [facility] Microalbum Creatinine Ratio Ur 118.3(H) <30 ug/mg cr [facility] Comment:Albumin/Creatinine R atio Reference Ranges: Normal: < 30 ug/mg creatinine Microalbuminuria: 30 - 300 ug/mg creatinineClinical Albuminuria: > 300 ug/mg creatinine Urine (Urine, Random) 09/27/2024 2:04 PM EST 09/27/2024 4:00 PM EST Alexus Henderson MD LAB URINE ORDERABLES Final Res ult [facility] [address] [place] [phone] * (ABNORMAL) Lipid Panel, Standard (09/27/2024 2:04 PM EST) Triglycerides 584(H) <150 mg/dL [facility] Comment:Mild Lipemia.Desirab le Triglyceride: less than 150 mg/dLBorderline High Triglyceride 150-199 mg/dLHigh Triglyceride: 200-499 mg/dLVery High Triglyceride: greater than or equal to 5OO mg/dL Cholesterol 151 <200 mg/dL [facility] Comment:Desirable Cholestero l: less than 200 mg/dLBorderline High Cholesterol: 200-239 mg/dLHigh Cholesterol: greater than 239 mg/dL LDL Cholesterol Calculated TNP <100 mg/dL [facility] Comment:Unable to calculate the LDL. [...] MD LAB BLOOD ORDERABLES Final Res ult [facility] [address] [place] [phone] * Hm Pap Smear (04/22/2022) Pap Negative for intraephithelial lesion or malignancy Negative for intraephithelial lesion or malignancy, Other HPV Not Detected Undetected, Indeterminate, Quantitative, Not Detected Historical Provider HEALTH MAINTENANCE Final Result * HEPATITIS C AB W/REFL TO HCV RNA, QN, PCR (12/30/2021 8:14 AM EST) HEPATITIS C ANTIBODY NON-REACT AYAH NON-REACT AYAH [facility] INDEX 0.20 <1.00 [facility] Comment: HCV antibody was non-reactive. There is no laboratory evidence of HCV infection. In most cases, no further action is required. However, if recent HCV exposure is suspected, a test for HCV RNA (test code 47445) is suggested. For additional information please refer to http://[employer].Runner/faq/SES75o5 (This link is being provided for informational/ educational purposes only.) 12/30/2021 8:14 AM EST Nishi Kimberly FUR MIXER OPERATOR HISTORICAL/NON ORDERABLE LABS Final Result Performing Organization Address [facility] Phone Number [facility] [place] [address], * HIV 1/2 ANTIGEN/ANTIBODY,FOURTH GENERATION W/RFL (12/30/2021 8:14 AM EST) HIV-1/2 ANTIGEN AND ANTIBODIES, 4TH GENERATION W/ REFLEX NON-REACT AYAH NON-REACT AYAH [facility] Comment: HIV-1 antigen and HIV-1/HIV-2 [...] purpose. For additional information please refer to http://[employer].Runner/faq/RFX665 (This link is being provided for informational/ educational purposes only.) The performance of this assay has not been clinically validated in patients less than 2 years old. 12/30/2021 8:14 AM EST [employer] LAB BLOOD ORDERABLES Final Res ult Performing Organization Address [facility] Co de Phone Number [facility] [address] [phone], from Last 3 Months or Most Recently Relevant to Health Maintenance Insurance [place] [facility] MEDICAID STAND ADULT Care Teams Machine Fitter Relationship Specialty Start Date End Date Alexus Henderson MD [address] [place], [place] [phone] PCP - General Family Medicine 01/23/24 Adwoa Hughes PharmD [address] [place], [place] [phone] Pharmacist Internal Medicine 12/10/24 Silvino York, RN [address] [place] [phone] Registered Nurse Family Medicine 07/24/25 Iraida Kelsey 07/24/25
--- NOTE | 2025-07-31 09:59 | PC.NURSE ---
Pt BIBA for c/o lower back and right sided abdominal pain, A/O x 3 and ambulating with steady gait. #20 to [facility], labs collected and sent. Medicated per JAN. U/S pending..
[2025-07-31 12:01] VITALS: BP 117/76; PULSE 93; RESP 16; TEMP 36.6; O2SAT 95
[2025-07-31 12:05] VITALS: BP 117/76; PULSE 93; RESP 16; TEMP 36.6; O2SAT 95
== END 2025-07-31 12:06 | disposition home or self-care (01) ==
PROVIDERS: Registered Nurse Emergency; Emergency Provider Emergency Medicine; PCP General Practice
DX: R10.11 Right upper quadrant pain (principal); M54.50 Low back pain, unspecified; K76.0 Fatty (change of) liver, not elsewhere classified; R16.0 Hepatomegaly, not elsewhere classified; R11.0 Nausea; E11.9 Type 2 diabetes mellitus without complications; Z79.4 Long term (current) use of insulin; Z79.899 Other long term (current) drug therapy
CPT/HCPCS: 36415; 76705; 80053; 83690; 84702; 85025; 96361; 96374; 99283; 99284; J2270

== ENCOUNTER → 2025-07-31 08:47 | Outpatient (BNV) | payer MEDICAID, SELFPAY | PROVIDERS: Emergency Provider Emergency Medicine; PCP General Practice; Visit Provider Radiology Diagnostic Radiology | DX: R16.0 Hepatomegaly, not elsewhere classified (principal) | CPT/HCPCS: 76705 ==

== ENCOUNTER 2025-09-18 08:51 | Outpatient (REF) | payer MEDICAID, SELFPAY ==
[2025-09-18 12:07] LABS: Alanine Aminotransferase 11 U/L (0-31); Albumin Level 4.3 g/dL (3.5-5.0); Alkaline Phosphatase 67 U/L (39-117); Aspartate Amino Transferase 33 U/L (5-31); Cholesterol 117 mg/dL (<200); HDL Cholesterol 26 mg/dL (>40); Total Protein 8.8 g/dL (6.5-8.0); Triglycerides 329 mg/dL (<150)
[2025-09-18 12:11] LABS: Microalbum/Creatinine Ratio Ur 62.8 ug/mg cr (<30)
[2025-09-18 12:43] LABS: Vitamin B12 357 pg/mL (200-900)
== END 2025-09-18 08:52 | disposition home or self-care (01) ==
LOC: HO.HHCL 08:51
PROVIDERS: PCP General Practice; Visit Provider General Practice
DX: E11.65 Type 2 diabetes mellitus with hyperglycemia (principal); E11.40 Type 2 diabetes mellitus with diabetic neuropathy, unspecified; E11.69 Type 2 diabetes mellitus with other specified complication; E78.1 Pure hyperglyceridemia
CPT/HCPCS: 36415; 80061; 80076; 82043; 82570; 82607; 83721